=== PATIENT | female | born 1990 | race American Indian/Alaskan Native ===

== ENCOUNTER 2019-01-04 08:10 | Inpatient (IN) | payer OTHER, SELFPAY ==
[2019-01-04 08:54] LABS: Hemoglobin 6.8 gm/dl (10.1-14.3); Mean Corpuscular HGB Conc 37 % (30-34); Mean Corpuscular Volume 81 fl (79-97); Platelet Count 596 K/mm3 (140-440); Red Blood Count 2.28 M/mm3 (3.65-5.03)
[2019-01-04 08:55] LABS: Red Cell Distribution Width 26.1 % (13.2-15.2)
[2019-01-04 08:58] LABS: Hematocrit 18.4 % (30.3-42.9)
[2019-01-04 09:14] LABS: Bacteria,Urine 1+ /HPF (Negative); Bilirubin,Urine NEG (Negative); Blood,Urine SM (Negative); Color,Urine Yellow (Yellow); Mucus,Urine FEW /HPF; Protein,Urine <15 mg/dL mg/dL (Negative); Urobilinogen,Urine < 2.0 mg/dL (<2.0)
[2019-01-04 09:16] LABS: Albumin 4.5 g/dL (3.9-5); BUN/Creatinine Ratio 20; Blood Urea Nitrogen 8 mg/dL (7-17); Calcium 9.4 mg/dL (8.4-10.2); Hemolysis Index 43
[2019-01-04] MEDS ORDERED: SODIUM CHLORIDE 0.9% 1000 ML 1,000 ML IV ONE (09:25)
[2019-01-04] MEDS ORDERED: KETOROLAC 30 MG/1 ML INJ IV ONE (09:37)
[2019-01-04 09:39] LABS: Alanine Aminotransferase 25 units/L (7-56)
--- NOTE | 2019-01-04 09:42 | Emergency Department Report ---
ED General Adult HPI - General Chief complaint: Sickle Cell Crisis Stated complaint: SICKLE CELL CRISIS Time Seen by Provider: 01/04/19 08:49 Source: patient Mode of arrival: Ambulatory Limitations: No Limitations - History of Present Illness Initial comments: Patient reports moved from [facility] approximately 1 month ago. Reports hx of sickle cell. Reports hx of a blood transfusion most recently about 4 months ago. Reports her blood count typically around 7. Reports compliant with folic acid and pain medication for sickle cell. Denies having a lisw here in [place]. Reports she now lives in [place]. Reports she had right femur surgery a pproximately a month ago in [facility] for osteomyelitis. Severity scale (0 -10): 10 - Related Data Allergies Allergy/AdvReac Type Severity Reaction Status Date / Time No Known Allergies Allergy Unverified 01/04/19 08:15 ED Review of Systems ROS: Stated complaint: SICKLE CELL CRISIS Other details as noted in HPI Other: GENERAL: No weight change, fatigue, fever, chills, or night sweats SKIN: No changes in skin or hair, no itching, no rashes, no jaundice HEAD: No trauma, headache, or visual changes EYES: No blurriness, tearing, itching, acute visual loss, conjunctival discoloration, or scleral icterus EARS: No hearing loss, tinnitus, vertigo, or earache NOSE: No rhinorrhea, stuffiness, sneezing, itching, or epistaxis MOUTH: No bleeding gums, hoarseness, sore throat, or swelling CARDIAC: No new murmur, chest pain, palpitations, dyspnea on exertion, orthopnea, PND, or edema RESPIRATORY: No shortness of breath, wheeze, cough, sputum production, hem optysis, pneumonia, asthma, bronchitis, or emphysema GI: No change in appetite, nausea, vomiting, dysphagia, diarrhea, constipation, hematemesis, melena, hematochezia, or abdominal pain URINARY: No frequency, urgency, polyuria, dysuria, hematuria, or incontinence MUSCULOSKELETAL: Generalized LE pain similar to past sickle cell crisis. No muscle weakness, joint stiffness, decrease in range of motion, redness, swelling NEUROLOGIC: No headache, loss of sensation, numbness, tingling, tremors, weak ness, paralysis, seizures HEMATOLOGIC: No anemia, easy bruising, bleeding, petechiae, or purpura ENDOCRINE: No hot or cold intolerance, sweating, polyuria, polydipsia or, polyphagia no thyroid problems PSYCHIATRIC: No change in mood, no anxiety, no depression ED Past Medical Hx - Past Medical History Previous Medical History?: Yes Hx Sickle Cell Disease: Yes - Surgical History Past Surgical History?: Yes Additional Surgical History: Ortho surgery to right thigh s/t osteomylitis - Social History Smoking Status: Never Smoker Substance Use Type: None ED Physical Exam - General Limitations: No Limitations - Other Other exam information: GENERAL: Patient in no acute distress HEAD: Normocephalic, atraumatic EYES: Scleral icterus. PERRLA, EOM intact, no conjunctival hemorrhage, visual horn and acuity wnl NOSE: No tenderness, discharge, sinus tenderness MOUTH: No erythema, bleeding, exudate HEART: Regular rate and rhythm, no murmur, S1-S2 are auscultated, no edema, pulses are symmetric LUNGS: No respiratory distress. Bilateral breath sounds, No tachypnea, No retr actions, No wheezing, rales, rhonchi ABDOMEN: Normal bowel sounds, abdomen soft, no tenderness, no rebound, no guarding, no distention, no masses, no CVA tenderness MUSCULOSKELETAL: Normal joint range of motion, no redness, no swelling, no tenderness NEUROLOGIC: GCS 15, Alert and Oriented x3, Cranial nerves intact, normal sensation, normal strength, no cerebellar deficit, NIHSS 0 SKIN: Surgical scar over lateral right femur. Mild swelling fluctuant at top of scar without discharge, erythema, or tenderness. Skin is warm and dry ED Course Vital Signs 01/04/19 01/04/19 08:17 08:51 Temperature 98.9 F Pulse Rate 107 H 95 H Respiratory 18 16 Rate Blood Pressure 123/67 Blood Pressure 122/68 [Left] O2 Sat by Pulse 96 95 Oximetry ED Medical Decision Making - Lab Data Result diagrams: 01/04/19 08:36 01/04/19 08:36 Laboratory Results - last 24 hr 01/04/19 01/04/19 01/04/19 08:36 08:36 08:36 WBC 20.0 H RBC 2.28 L Hgb 6.8 L Hct 18.4 L* MCV 81 MCH 30 MCHC 37 H RDW 26.1 H Plt Count 596 H Percent Retic 15.10 H Sodium 138 Potassium 4.6 Chloride 106.3 Carbon Dioxide 19 L Anion Gap 17 BUN 8 Creatinine 0.4 L Estimated GFR > 60 BUN/Creatinine Ratio 20 Glucose 94 Calcium 9.4 Total Bilirubin 2.60 H AST 47 H ALT 25 Alkaline Phosphatase 172 H Total Protein 8.2 Albumin 4.5 Albumin/Globulin Ratio 1.2 HCG, Qual Negative Urine Color Urine Turbidity Urine pH Ur Specific [employer] Urine Protein Urine Glucose (UA) Urine Ketones Urine Blood Urine Nitrite Urine Bilirubin Urine Urobilinogen Ur Leukocyte Esterase Urine WBC (Auto) Urine RBC (Auto) U Epithel Cells (Auto) Urine Bacteria (Auto) Urine Mucus 01/04/19 Unknown WBC RBC Hgb Hct MCV MCH MCHC RDW Plt Count Percent Retic Sodium Potassium Chloride Carbon Dioxide Anion Gap BUN Creatinine Estimated GFR BUN/Creatinine Ratio Glucose Calcium Total Bilirubin AST ALT Alkaline Phosphatase Total Protein Albumin Albumin/Globulin Ratio HCG, Qual Urine Color Yellow Urine Turbidity Clear Urine pH 5.0 Ur Specific [employer] 1.010 Urine Protein <15 mg/dl Urine Glucose (UA) Neg Urine Ketones Neg Urine Blood Sm Urine Nitrite Neg Urine Bilirubin Neg Urine Urobilinogen < 2.0 Ur Leukocyte Esterase Neg Urine WBC (Auto) 2.0 Urine RBC (Auto) 1.0 U Epithel Cells (Auto) 1.0 Urine Bacteria (Auto) 1+ Urine Mucus Few - Radiology Data Radiology results: image reviewed - Medical Decision Making Patient comfortable. Updated with results. Plan admit for further evaluation. Hospitalist Dr. Douglas updated and accepts admission. Plan withhold transfusion at this time and trend hgb. Dr. Douglas will evaluate for transfusion. Critical care attestation.: If time is entered above; I have spent that time in minutes in the direct care of this critically ill patient, excluding procedure time. ED Disposition Clinical Impression: Sickle cell crisis Anemia Qualifiers: Anemia type: unspecified type Qualified Code(s): D64.9 - Anemia, unspecified Disposition: OP ADMIT IP TO THIS HOSP Is pt being admited?: Yes Condition: Stable Time of Disposition: 09:49
--- NOTE | 2019-01-04 10:13 | XRay Report ---
CHEST 1 VIEW INDICATION: Chest pain. COMPARISON: None. FINDINGS: Support devices: None. Heart: Mildly enlarged. Pulmonary vasculature: Slightly increased. Aorta and mediastinum: A midline mass overlying the heart may be a small hiatal hernia or a fusiform aneurysm of the aorta. Lungs/Pleura: Normally expanded and clear lungs. No pleural effusion. Additional findings: None. IMPRESSION: 1. Mild cardiomegaly and pulmonary venous hypertension. No pulmonary edema. 2. 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 Recommend a lateral chest x-ray fo r further evaluation. Signer Name: Maxime Trotter MD Signed: 01/04/2019 10:09 AM Workstation Name: [id number]
--- NOTE | 2019-01-04 10:13 | XRay Report ---
RIGHT FEMUR, 2 VIEWS INDICATION: Pain. COMPARISON: None. IMPRESSION: The right femur demonstrates a slightly mottled appearance. There is no evidence for acu te fracture or bony destruction. There are heterotopic calcifications lateral to the right femoral ne ck in the region of the greater trochanter. The greater trochanter appears absent or surgically resec iram. These findings may be posttraumatic. No acute process is identified. The soft tissues are unrema rkable. Please correlate with the patient's clinical history. Signer Name: Roque Ye Jr, MD Signed: 01/04/2019 10:09 AM Workstation Name: [id number]
--- NOTE | 2019-01-04 10:16 | XRay Report ---
Right hip, 2 views INDICATION: Pain. COMPARISON: None. IMPRESSION: There is normal articulation at the right hip. No evidence for osteonecrosis or joint pa thology. The greater trochanter is abnormal suggesting previous surgical changes, correlate with hist ory. There is an approximate 3 x 2 cm bony fragment in the posterolateral soft tissues on the frog-le g view. This presumably represents heterotopic calcifications. Avulsion injury could be considered bu t is thought less likely. Please correlate with the patient's history. Signer Name: Roque Ye Jr, MD Signed: 01/04/2019 10:12 AM Workstation Name: [id number]
[2019-01-04 10:29] LABS: INR 1.16 (0.87-1.13)
[2019-01-04 10:30] LABS: Partial Thromboplastin Time 33.1 Sec. (24.2-36.6)
[2019-01-04] MEDS: MORPHINE 4 MG/1 ML INJ IV PRN ×2 (11:41→17:07)
[2019-01-04] MEDS ORDERED: MAGNESIUM HYDROXIDE (MOM) ORAL LIQD UDC PO PRN (12:48)
[2019-01-04] MEDS ORDERED: ONDANSETRON 4 MG/2 ML INJ IV PRN (12:48)
[2019-01-04] MEDS ORDERED: ACETAMINOPHEN 325 MG TAB PO PRN (12:48)
[2019-01-04] MEDS ORDERED: SODIUM CHLORIDE 0.9% 500 ML 500 ML IV ONE (13:01)
[2019-01-04] MEDS: HYDROmorphone 2 MG/1 ML INJ IV PRN ×2 (13:25→20:49)
--- NOTE | 2019-01-04 16:01 | History and Physical Report ---
History of Present Illness Date of admission: 01/04/19 12:48 Chief complaint: I have pain in my right thigh History of present illness: 28-year-old woman with past medical history of sickle cell disease. Recently relocated from [facility]. Patient states that she was treated a year ago for osteomyelitis. She had osteomyelitis affecting her right thigh had a left knee and her lower right leg. She had surgeries to drain the pus, multiple surgeries on her knee and thigh. As she was on antibiotics for an extended period of time. She states that she has had chronic pain in her right thigh since then, but recently in the past week or so her right thigh has been swollen and extremely painful. She says she is also having pain in other places all over her body consistent with sickle cell crisis. Past medical history; sickle cell disease, osteomyelitis of right thigh left knee and right leg. Status post surgical drainage and long course of antibiotics. Past surgical history; multiple incision and drainage and washout of her left knee, right thigh and left leg for osteomyelitis. Family history; sickle cell traits Social history recently relocated to [facility] from [facility]. Denies tobacco alcohol or illicit drug use. Medications and Allergies Allergies Allergy/AdvReac Type Severity Reaction Status Date / Time No Known Allergies Allergy Unverified 01/04/19 08:15 Home Medications Medication Instructions Recorded Confirmed Last Taken Type Acfol 25 mg PO DAILY 01/04/19 01/04/19 01/03/19 09:00 History Diclofenac Sodium 50 mg PO DAILY 01/04/19 01/04/19 01/03/19 20:00 History Folic Acid 0.4 mg PO QDAY 01/04/19 01/04/19 Unknown History Active Meds: Active Medications Acetaminophen (Tylenol) 650 mg PO Q4H PRN PRN Reason: Pain MILD(1-3)/Fever >100.5/CARTER Bisacodyl (Dulcolax) 10 mg [place] QDAY PRN PRN Reason: Constipation unrelieved by MOM Enoxaparin Sodium (Lovenox) 40 mg SUB-Q QDAY@2200 [place] Folic Acid (Folvite) 1 mg PO QDAY [place] Hydromorphone HCl (Dilaudid) 0.5 mg IV Q4H PRN PRN Reason: Pain , Severe (7-10) Stop: 01/05/19 12:54 Dextrose/Sodium Chloride (D5/0.45ns) 1,000 mls @ 42 mls/hr IV DIRECT [facility] Magnesium Hydroxide (Milk Of Magnesia) 30 ml PO Q4H PRN PRN Reason: Constipation Morphine Sulfate (Morphine) 4 mg IV Q4H PRN PRN Reason: Pain Last Admin: 01/04/19 11:41 Dose: 4 mg Documented by: Multivitamins (Theragran Tab) 1 each PO QDAY [facility] Ondansetron HCl (Zofran) 4 mg IV Q8H PRN PRN Reason: Nausea And Vomiting Senna (Senokot) 17.2 mg PO QHS [facility] Sodium Chloride (Sodium Chloride Flush Syringe 10 Ml) 10 ml IV BID [place] Sodium Chloride (Sodium Chloride Flush Syringe 10 Ml) 10 ml IV PRN PRN PRN Reason: LINE FLUSH Review of Systems Constitutional: fatigue, no fever Ears, nose, mouth and throat: no ear pain Breasts: no mass Cardiovascular: no chest pain Respiratory: no cough Gastrointestinal: no abdominal pain Genitourinary Female: no dysmenorrhea Rectal: no pain Musculoskeletal: no neck stiffness Integumentary: no rash Neurological: no head injury Psychiatric: no anxiety Endocrine: no cold intolerance Hematologic/Lymphatic: no easy bruising Allergic/Immunologic: no urticaria Exam - Constitutional Vitals: Temp Pulse Resp BP Pulse Ox 99.0 F 75 16 102/59 89 01/04/19 14:10 01/04/19 14:10 01/04/19 14:10 01/04/19 14:10 01/04/19 14:10 General appearance: Present: mild distress, well-nourished - EENT Eyes: Present: PERRL, scleral icterus ENT: hearing intact, clear oral mucosa - Neck Neck: Present: supple, normal ROM - Respiratory Respiratory effort: normal Respiratory: bilateral: CTA - Cardiovascular Heart Sounds: Present: S1 & S2. Absent: rub, click - Extremities Extremities: pulses symmetrical, No edema Extremity abnormal: other (She has a large surgical scar on her right thigh, there is a tender area under the scar. And there is a swelling which is fluctuant under the scar. Concern for abscess. She also has a wound on her left medial lower leg which is at the sites of old surgical scar. Wound does not appear infected, no erythema or warmth or tenderness. Surgical scar also noted on left knee.) Peripheral Pulses: within normal limits - Abdominal General gastrointestinal: Present: soft, non-tender, non-distended, normal bowel sounds Female genitourinary: Present: normal - Integumentary Integumentary: Present: clear, warm, dry - Musculoskeletal Musculoskeletal: gait normal, strength equal bilaterally - Psychiatric Psychiatric: appropriate mood/affect, intact judgment & insight - Neurologic Neurologic: CNII-XII intact, moves all extremities Results - Labs CBC & Chem 7: 01/06/19 05:13 01/04/19 08:36 Labs: Laboratory Last Values WBC 20.0 K/mm3 (4.5-11.0) H 01/04/19 08:36 RBC 2.28 M/mm3 (3.65-5.03) L 01/04/19 08:36 Hgb 6.8 gm/dl (10.1-14.3) L 01/04/19 08:36 Hct 18.4 % (30.3-42.9) L* 01/04/19 08:36 MCV 81 fl (79-97) 01/04/19 08:36 MCH 30 pg (28-32) 01/04/19 08:36 MCHC 37 % (30-34) H 01/04/19 08:36 RDW 26.1 % (13.2-15.2) H 01/04/19 08:36 Plt Count 596 K/mm3 (140-440) H 01/04/19 08:36 Percent Retic 15.10 % (0.78-2.58) H 01/04/19 08:36 PT 14.5 Sec. (12.2-14.9) 01/04/19 09:55 INR 1.16 (0.87-1.13) H 01/04/19 09:55 APTT 33.1 Sec. (24.2-36.6) 01/04/19 09:55 Sodium 138 mmol/L (137-145) 01/04/19 08:36 Potassium 4.6 mmol/L (3.6-5.0) 01/04/19 08:36 Chloride 106.3 mmol/L (98-107) 01/04/19 08:36 Carbon Dioxide 19 mmol/L (22-30) L 01/04/19 08:36 17 mmol/L 01/04/19 08:36 BUN 8 mg/dL (7-17) 01/04/19 08:36 0.4 mg/dL (0.7-1.2) L 01/04/19 08:36 Estimated GFR > 60 ml/min 01/04/19 08:36 20 % 01/04/19 08:36 Glucose 94 mg/dL (65-100) 01/04/19 08:36 Calcium 9.4 mg/dL (8.4-10.2) 01/04/19 08:36 2.60 mg/dL (0.1-1.2) H 01/04/19 08:36 AST 47 units/L (5-40) H 01/04/19 08:36 ALT 25 units/L (7-56) 01/04/19 08:36 172 units/L (35-129) H 01/04/19 08:36 8.2 g/dL (6.3-8.2) 01/04/19 08:36 4.5 g/dL (3.9-5) 01/04/19 08:36 1.2 % 01/04/19 08:36 HCG, Qual Negative (Negative) 01/04/19 08:36 Yellow (Yellow) 01/04/19 Unknown Clear (Clear) 01/04/19 Unknown 5.0 (5.0-7.0) 01/04/19 Unknown Ur Specific [place] 1.010 (1.003-1.030) 01/04/19 Unknown <15 mg/dl mg/dL (Negative) 01/04/19 Unknown Neg mg/dL (Negative) 01/04/19 Unknown Neg mg/dL (Negative) 01/04/19 Unknown Sm (Negative) 01/04/19 Unknown Neg (Negative) 01/04/19 Unknown Neg (Negative) 01/04/19 Unknown < 2.0 mg/dL (<2.0) 01/04/19 Unknown Ur Leukocyte Esterase Neg (Negative) 01/04/19 Unknown 2.0 /HPF (0.0-6.0) 01/04/19 Unknown 1.0 /HPF (0.0-6.0) 01/04/19 Unknown U Epithel Cells (Auto) 1.0 /HPF (0-13.0) 01/04/19 Unknown 1+ /HPF (Negative) 01/04/19 Unknown Few /HPF 01/04/19 Unknown Blood Type O POSITIVE 01/04/19 09:55 Antibody Screen Positive 01/04/19 09:55 Antigen Identification Cancelled 01/04/19 09:55 Crossmatch See Detail 01/04/19 09:55 Assessment and Plan Assessment and plan: 28-year-old woman with history of sickle cell disease. Recently moved to the [facility] from [place]. Does not have any doctors here. She is complaining of generalized body aches mostly on the right side of her body her right upper extremity and right lower extremity. She is also complaining of painful swelling in her right thigh. It is on the same location where she has a surgical scar from a surgery she had one year ago . She had multiple surgeries for treatment osteomyelitis on the right thigh, left knee, and right lower medial leg. She also completed a long course of antibiotics after multiple surgeries in [place] Sickle cell crisis Right thigh pain and swelling, With history of osteomyelitisTo the same area Plan Blood transfusion, IV fluids, pain meds, hematology consult CT of right lower extremity to evaluate right thigh mass, concern for infection DVT prophylaxis; chemical
[2019-01-04] MEDS: D5W/0.45% NACL 1,000 ML IV SCH (18:24)
[2019-01-04] MEDS: SENNOSIDES 8.6 MG TAB PO SCH (20:48)
[2019-01-04] MEDS: ENOXAPARIN 40 MG/0.4 ML INJ SUB-Q SCH (22:00)
[2019-01-05] MEDS: ENOXAPARIN 40 MG/0.4 ML INJ SUB-Q SCH ×2 (00:21→22:24)
[2019-01-05] MEDS: SENNOSIDES 8.6 MG TAB PO SCH ×2 (00:22→22:26)
[2019-01-05] MEDS: HYDROmorphone 2 MG/1 ML INJ IV PRN (02:44)
[2019-01-05 04:53] LABS: Hemoglobin 6.1 gm/dl (10.1-14.3); Mean Corpuscular HGB Conc 36 % (30-34); Mean Corpuscular Volume 83 fl (79-97); Red Blood Count 2.05 M/mm3 (3.65-5.03)
[2019-01-05 05:13] LABS: Red Cell Distribution Width 28.3 % (13.2-15.2)
[2019-01-05 06:09] LABS: Total Cells Counted 100
[2019-01-05 06:11] LABS: Anisocytosis 1+; Macrocytosis Few; Platelet Estimate Consistent w Auto; Poikilocytosis Few; Sickle Cells 1+
[2019-01-05 06:14] LABS: Platelet Count 328 K/mm3 (140-440)
[2019-01-05 06:15] LABS: Mean Platelet Volume 8.7 fl (6-12)
--- NOTE | 2019-01-05 08:04 | Cat Scan Report ---
CT LOWER EXTREMITY RIGHT WITH CONTRAST INDICATION : MAIN: R thigh mass, tender [id number]/100ML. Right lower extremity pain. TECHNIQUE: Axial imaging performed from the mid pelvis through the right knee following 100 cc of Om nipaque 300 IV contrast. Sagittal and coronal reformatted images. All CT scans at this location are p erformed using CT dose reduction for ALARA by means of automated exposure control. COMPARISON: Right hip films 01/04/2019 FINDINGS: A fluid collection is identified in the soft tissues of the lateral right thigh measuring 4 .0 x 2.9 x 4.8 cm. There is a well-defined border but no internal gas. This has the appearance of an abscess or other collection. A fistulous tract is identified extending from this collection to the gr eater trochanter measuring approximately 9 cm in length. The greater trochanter is comminuted and par tially destroyed. I suspect this is related to a chronic osteomyelitis. Articulation at the right hip is anatomic. Subtle sclerosis in the superior femoral head is consisten t with early osteonecrosis. There is no evidence for fracture. The distal femur is intact although pr evious surgical changes are suspected. Please correlate with the patient's history. Reactive lymph nodes in the right inguinal chain are identified measuring up to 2 cm in short axis. N o necrotic lymph nodes. The vascular structures appear widely patent. IMPRESSION: A soft tissue fluid collection is identified in the lateral thigh as described concerning for abscess. A fistulous tract from this collection tracks directly to the greater trochanter of the proximal right femur which is severely abnormal. I suspect these findings are secondary to osteomyel itis which is likely chronic. The greater trochanter is comminuted so associated pathologic fracture cannot be excluded. No aggressive enhancing mass is identified. Signer Name: Roque Ye Jr, MD Signed: 01/05/2019 7:59 AM Workstation Name: [id number]
[2019-01-05 08:25] LABS: Iron 89 ug/dL (37-170); Total Iron Binding Capacity 156 mcg/dL (250-450)
[2019-01-05] MEDS: MULTIVITAMINS ,THERAPEUTIC TAB PO SCH (09:46)
[2019-01-05] MEDS: MORPHINE 4 MG/1 ML INJ IV PRN (09:46)
[2019-01-05] MEDS: FOLIC ACID 1 MG TAB PO SCH (09:46)
--- NOTE | 2019-01-05 11:29 | Consultation ---
History of Present Illness Consult date: 01/05/19 Chief complaint: right thigh abscess - History of present illness History of present illness: 28 yo F with hx of sickle cell disease, multiple episodes of osteomyelitis of various long bones and abscess drainage presents to ER with c/o pain in the right thigh and left knee. She states that 1 year ago she was found to have pus in her right thigh and underwent surgery with orthopedics to drain abscess and debride bone. Since then the incision periodically with swell and she undergoes aspiration of pus and gets started on abx. She denies f/c. She also c/o left knee pain. Past History Past Medical History: other (sickle cell disease) Past Surgical History: Other (right ankle surgery. right thigh surgery, left knee surgery) Social history: no significant social history Family history: no significant family history (3) Medications and Allergies Allergies Allergy/AdvReac Type Severity Reaction Status Date / Time No Known Allergies Allergy Unverified 01/04/19 08:15 Home Medications Medication Instructions Recorded Confirmed Last Taken Type Acfol 25 mg PO DAILY 01/04/19 01/04/19 01/03/19 09:00 History Diclofenac Sodium 50 mg PO DAILY 01/04/19 01/04/19 01/03/19 20:00 History Folic Acid 0.4 mg PO QDAY 01/04/19 01/04/19 Unknown History Active Meds: Active Medications Acetaminophen (Tylenol) 650 mg PO Q4H PRN PRN Reason: Pain MILD(1-3)/Fever >100.5/CARTER Last Admin: 01/05/19 01:36 Dose: 650 mg Documented by: Bisacodyl (Dulcolax) 10 mg [place] QDAY PRN PRN Reason: Constipation unrelieved by MOM Enoxaparin Sodium (Lovenox) 40 mg SUB-Q QDAY@2200 [facility] Last Admin: 01/05/19 00:21 Dose: Not Given Documented by: Folic Acid (Folvite) 1 mg PO QDAY [facility] Last Admin: 01/05/19 09:46 Dose: 1 mg Documented by: Hydromorphone HCl (Dilaudid) 0.5 mg IV Q4H PRN PRN Reason: Pain , Severe (7-10) Stop: 01/05/19 12:54 Last Admin: 01/05/19 02:44 Dose: 0.5 mg Documented by: Dextrose/Sodium Chloride (D5/0.45ns) 1,000 mls @ 42 mls/hr IV DIRECT [facility] Last Admin: 01/04/19 18:24 Dose: 42 mls/hr Documented by: Magnesium Hydroxide (Milk Of Magnesia) 30 ml PO Q4H PRN PRN Reason: Constipation Morphine Sulfate (Morphine) 4 mg IV Q4H PRN PRN Reason: Pain Last Admin: 01/05/19 09:46 Dose: 4 mg Documented by: Multivitamins (Theragran Tab) 1 each PO QDAY [facility] Last Admin: 01/05/19 09:46 Dose: 1 each Documented by: Ondansetron HCl (Zofran) 4 mg IV Q8H PRN PRN Reason: Nausea And Vomiting Senna (Senokot) 17.2 mg PO QHS [facility] Last Admin: 01/05/19 00:22 Dose: Not Given Documented by: Sodium Chloride (Sodium Chloride Flush Syringe 10 Ml) 10 ml IV BID [facility] Last Admin: 01/04/19 23:28 Dose: 10 ml Documented by: Sodium Chloride (Sodium Chloride Flush Syringe 10 Ml) 10 ml IV PRN PRN PRN Reason: LINE FLUSH Review of Systems All systems: negative (10 pt ROS performed and negative except for that listed in HPI) Exam Vital Signs Temp Pulse Resp BP Pulse Ox 98.9 F 107 H 18 123/67 96 01/04/19 08:17 01/04/19 08:17 01/04/19 08:17 01/04/19 08:17 01/04/19 08:17 Narrative exam: Gen: AAOx3. NAD ENT: no scleral icterus or conjunctival pallor CV: S1, S2+ Resp: even and unlabored Abd: soft Ext: R thigh surgical scar with fluctuance. cellulitis of the upper most 4 cm of the scar. Moderate focal TTP over this area. No drainage Results - Labs 01/05/19 04:20 01/04/19 08:36 Abnormal lab results 01/04/19 01/05/19 01/05/19 Range/Units 09:55 04:20 04:20 WBC 17.6 H (4.5-11.0) K/mm3 RBC 2.05 L (3.65-5.03) M/mm3 Hgb 6.1 L (10.1-14.3) gm/dl Hct 17.0 L* (30.3-42.9) % MCHC 36 H (30-34) % RDW 28.3 H (13.2-15.2) % Lymphocytes % (Manual) 48.0 H (13.4-35.0) % Nucleated RBC % 4.0 H (0.0-0.9) % Lymphocytes # (Manual) 8.4 H (1.2-5.4) K/mm3 Monocytes # (Manual) 0.9 H (0.0-0.8) K/mm3 Basophils # (Manual) 0.2 H (0.0-0.1) K/mm3 Percent Retic 17.46 H (0.78-2.58) % TIBC (250-450) mcg/dL Ferritin (13.0-400.0) ng/mL Lactate Dehydrogenase 407 H (91-180) units/L Crossmatch See Detail 01/05/19 01/05/19 Range/Units 07:43 07:43 WBC (4.5-11.0) K/mm3 RBC (3.65-5.03) M/mm3 Hgb (10.1-14.3) gm/dl Hct (30.3-42.9) % MCHC (30-34) % RDW (13.2-15.2) % Lymphocytes % (Manual) (13.4-35.0) % Nucleated RBC % (0.0-0.9) % Lymphocytes # (Manual) (1.2-5.4) K/mm3 Monocytes # (Manual) (0.0-0.8) K/mm3 Basophils # (Manual) (0.0-0.1) K/mm3 Percent Retic (0.78-2.58) % TIBC 156 L (250-450) mcg/dL Ferritin 1749.0 H (13.0-400.0) ng/mL Lactate Dehydrogenase (91-180) units/L Crossmatch - Imaging Additional studies: CT scan RLE Assessment and Plan 28 yo F with 1. abscess of right thigh 2. chronic osteomyelitis of right greater trochanter/femur 3. sickle cell anemia Plan: 1. will need incision and drainage of abscess 2. discussed case with Dr. Landers - reviewed images and feels bony findings are chronic. He will see patient. 3. IV abx 4. cultures to be sent from Incision and drainage 5. prn pain control - will add tramadol PO 6. daily wound care 7. ID consult pending Thank you, please call with questions. D/W Dr. Guzman
[2019-01-05] MEDS ORDERED: LIDOCAINE (1%) 10 MG/1 ML VIAL 20 ML MDV INFILTRATI NR (11:41)
[2019-01-05] MEDS: MORPHINE 2 MG/1 ML INJ IV NR ×2 (11:51→20:27)
--- NOTE | 2019-01-05 12:38 | Procedure Note ---
Date of procedure: 01/05/19 Pre-op diagnosis: abscess of right thigh Post-op diagnosis: same Procedure: incision and drainage of right thigh abscess Findings: Consent obtained and time out performed. R thigh prepped with betadine. Patient premedicated with morphine 2mg IV. Skin anesthetized with 1% lidocaine. A cruciate incision was made using an 11 blade over the area of fluctuance. Copious amount of purulent drainage. Cultures obtained. The cavity measures approximately 3cm x 3cm. All loculations broken up using a cotton tip applicator. All purulent fluid expressed. Wound irrigated with saline. Packed with 1 piece of mesalt. Hemostasis achieved with pressure. The wound was covered with 4x4 gauze and coversite dressing. Patient tolerated the procedure well. All sharps disposed of appropriately. Anesthesia: local Surgeon: AMADA SAMSON Estimated blood loss: minimal Pathology: list (wound cultures) Specimen disposition: to lab Condition: stable Disposition: PACU
--- NOTE | 2019-01-05 15:00 | Consultation ---
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 right thigh surgery, left knee surgery) Social history: no significant social history Family history: no significant family history (3) Medications and Allergies Allergies Allergy/AdvReac Type Severity Reaction Status Date / Time No Known Allergies Allergy Unverified 01/04/19 08:15 Home Medications Medication Instructions Recorded Confirmed Last Taken Type Acfol 25 mg PO DAILY 01/04/19 01/04/19 01/03/19 09:00 History Diclofenac Sodium 50 mg PO DAILY 01/04/19 01/04/19 01/03/19 20:00 History Folic Acid 0.4 mg PO QDAY 01/04/19 01/04/19 Unknown History Active Meds: Active Medications Acetaminophen (Tylenol) 650 mg PO Q4H PRN PRN Reason: Pain MILD(1-3)/Fever >100.5/CARTER Last Admin: 01/05/19 01:36 Dose: 650 mg Documented by: Bisacodyl (Dulcolax) 10 mg AL QDAY PRN PRN Reason: Constipation unrelieved by MOM Enoxaparin Sodium (Lovenox) 40 mg SUB-Q QDAY@2200 [facility] Last Admin: 01/05/19 00:21 Dose: Not Given Documented by: Folic Acid (Folvite) 1 mg PO QDAY [facility] Last Admin: 01/05/19 09:46 Dose: 1 mg Documented by: Dextrose/Sodium Chloride (D5/0.45ns) 1,000 mls @ 42 mls/hr IV DIRECT [facility] Last Admin: 01/04/19 18:24 Dose: 42 mls/hr Documented by: Magnesium Hydroxide (Milk Of Magnesia) 30 ml PO Q4H PRN PRN Reason: Constipation Morphine Sulfate (Morphine) 4 mg IV Q4H PRN PRN Reason: Pain Last Admin: 01/05/19 09:46 Dose: 4 mg Documented by: Morphine Sulfate (Morphine) 2 mg IV ONCE NR Stop: 01/05/19 23:41 Last Admin: 01/05/19 11:51 Dose: 2 mg Documented by: Multivitamins (Theragran Tab) 1 each PO QDAY [facility] Last Admin: 01/05/19 09:46 Dose: 1 each Documented by: Ondansetron HCl (Zofran) 4 mg IV Q8H PRN PRN Reason: Nausea And Vomiting Senna (Senokot) 17.2 mg PO QHS [facility] Last Admin: 01/05/19 00:22 Dose: Not Given Documented by: Sodium Chloride (Sodium Chloride Flush Syringe 10 Ml) 10 ml IV BID [facility] Last Admin: 01/05/19 12:32 Dose: 10 ml Documented by: Sodium Chloride (Sodium Chloride Flush Syringe 10 Ml) 10 ml IV PRN PRN PRN Reason: LINE FLUSH Tramadol HCl (Ultram) 25 mg PO Q4H PRN PRN Reason: Pain, Moderate (4-6) Physical Examination - Physical exam Narrative exam: right thigh - moderate swelling, tender along proximal femur, no erythema, recent I&D done at bedside today dressing intact Left LE - ++deformity at knee, atrophic thigh/leg muscles, no redness/erythema noted, no gross instability Eyes: PERRL ENT: Positive: clear oral mucosa Respiratory effort: normal Respiratory: bilateral: CTA Rhythm: regular Heart Sounds: Positive: S1 & S2 General gastrointestinal: Positive: soft, non-tender, non-distended, normal bowel sounds Integumentary: clear, warm, dry Neurologic: Positive: CNII-XII intact, moves all extremities, gait normal. Negative: focal deficits - Cervical Spine Neck pain: none Tenderness with palpation: none Full ROM: yes ROM: flexion: normal ROM: extension: normal ROM: rotation right: normal ROM: rotation left: normal ROM: lateral flexion right: normal ROM: lateral flexion left: normal - Lumbar Spine Back pain: none Tenderness with palpation: none Appearance: normal Full ROM: yes ROM: flexion: normal ROM: extension: normal ROM: rotation right: normal ROM: rotation left: normal ROM: lateral flexion right: normal ROM: lateral flexion left: normal Assessment and Plan Asses - fluid collection proximal thigh, sickle cell disease, suspect abscess Plan - agree with I&D with fluid sent for C&S studies
[2019-01-05] MEDS ORDERED: VANCOMYCIN 1,000 MG in SODIUM CHLORIDE 0.9% 500 ML 500 ML IV ONE (15:50)
--- NOTE | 2019-01-05 15:50 | Consultation ---
History of Present Illness - Reason for Consult Consult date: 01/05/19 R thigh abscess Requesting physician: SHAY GUZMAN - History of Present Illness The patient is a 28-year-old female who recently immigrated from [facility], has sickle cell disease, presented to the hospital emergency room yesterday with complaints of right thigh pain and swelling. She also reports intermittent fevers. History dates back almost a year and a half ago to May 2017 when she was hospitalized due to sickle cell crisis. Apparently, her pain was uncontrolled and she received multiple intramuscular injections exhausting her buttock region. Then started receiving intramuscular injections in her right thigh which then developed a secondary infection requiring several I&D's. This continued and she then underwent a deeper I&D including "scraping of the bone" in ?January 2018. She reports being on several oral and injectable antibiotics while in [facility]. Apparently some cultures were done but she does not remember the details. Here, she underwent an I&D by Dr. Montoya today and per her note, "copious amounts of purulent drainage" noted. Patient's only complaint is that of R thigh pain and swelling. She reports testing negative for TB as a part of her immigration process to the . Review of Systems: General: intermittent fevers HEENT: no new visual disturbance Respiratory: No cough, sputum, hemoptysis or shortness of breath Cardiovascular: No chest pain, syncope Gastrointestinal: No nausea, vomiting or diarrhea Genitourinary: No dysuria or hematuria Musculoskeletal: No new or worsening neck pain or back pain Neurologic: No headaches, seizures Hematologic: No easy bruising or bleeding Endocrine: No night sweats or acute weight loss Skin: negative for rash, jaundice Psychiatric: No suicidal or homicidal ideation Past History Past Medical History: other (sickle cell disease) Past Surgical History: Other (right ankle surgery. right thigh surgery, left knee surgery) Social history: no significant social history Family history: no significant family history (3) Medications and Allergies Allergies Allergy/AdvReac Type Severity Reaction Status Date / Time No Known Allergies Allergy Unverified 01/04/19 08:15 Home Medications Medication Instructions Recorded Confirmed Last Taken Type Acfol 25 mg PO DAILY 01/04/19 01/04/19 01/03/19 09:00 History Diclofenac Sodium 50 mg PO DAILY 01/04/19 01/04/19 01/03/19 20:00 History Folic Acid 0.4 mg PO QDAY 01/04/19 01/04/19 Unknown History Active Meds: Active Medications Acetaminophen (Tylenol) 650 mg PO Q4H PRN PRN Reason: Pain MILD(1-3)/Fever >100.5/CARTER Last Admin: 01/05/19 01:36 Dose: 650 mg Documented by: Bisacodyl (Dulcolax) 10 mg ND QDAY PRN PRN Reason: Constipation unrelieved by MOM Enoxaparin Sodium (Lovenox) 40 mg SUB-Q QDAY@2200 [facility] Last Admin: 01/05/19 00:21 Dose: Not Given Documented by: Folic Acid (Folvite) 1 mg PO QDAY [facility] Last Admin: 01/05/19 09:46 Dose: 1 mg Documented by: Dextrose/Sodium Chloride (D5/0.45ns) 1,000 mls @ 42 mls/hr IV DIRECT [facility] Last Admin: 01/04/19 18:24 Dose: 42 mls/hr Documented by: Magnesium Hydroxide (Milk Of Magnesia) 30 ml PO Q4H PRN PRN Reason: Constipation Morphine Sulfate (Morphine) 4 mg IV Q4H PRN PRN Reason: Pain Last Admin: 01/05/19 09:46 Dose: 4 mg Documented by: Morphine Sulfate (Morphine) 2 mg IV ONCE NR Stop: 01/05/19 23:41 Last Admin: 01/05/19 11:51 Dose: 2 mg Documented by: Multivitamins (Theragran Tab) 1 each PO QDAY [facility] Last Admin: 01/05/19 09:46 Dose: 1 each Documented by: Ondansetron HCl (Zofran) 4 mg IV Q8H PRN PRN Reason: Nausea And Vomiting Senna (Senokot) 17.2 mg PO QHS [facility] Last Admin: 01/05/19 00:22 Dose: Not Given Documented by: Sodium Chloride (Sodium Chloride Flush Syringe 10 Ml) 10 ml IV BID [facility] Last Admin: 01/05/19 12:32 Dose: 10 ml Documented by: Sodium Chloride (Sodium Chloride Flush Syringe 10 Ml) 10 ml IV PRN PRN PRN Reason: LINE FLUSH Tramadol HCl (Ultram) 25 mg PO Q4H PRN PRN Reason: Pain, Moderate (4-6) Physical Examination - Physical Exam Narrative exam: Physical Exam: Constitutional: Alert, cooperative. No acute distress Head, Ears, Nose: Normocephalic, atraumatic. External ears, nose normal Eyes: Conjunctivae/corneas clear. No icterus. No ptosis. Neck: Supple, no meningeal signs Oral: dentition fair, no thrush Cardiovascular: S1, S2 normal. Respiratory: Good air entry, clear to auscultation bilaterally GI: Soft, non-tender; bowel sounds normal. No peritoneal signs Musculoskeletal: R thigh swelling, dressing + with tenderness Skin: No rash or abscess Hem/Lymphatic: No palpable cervical or supraclavicular nodes. No lymphangitis Psych: Mood ok. Affect normal Neurological: Awake, alert, oriented. No gross abnormality - Constitutional Vitals: Vital Signs Temp Pulse Resp BP Pulse Ox 98.0 F 77 18 105/58 94 01/05/19 11:49 01/05/19 11:49 01/05/19 05:07 01/05/19 11:49 01/05/19 11:52 Temperature -Last 24 Hours Temperature 98.0 F Temperature 99.0 F Temperature 98.9 F Temperature 98.8 F Results - Labs CBC & Chem 7: 01/05/19 04:20 01/04/19 08:36 Labs: Abnormal lab results 01/04/19 01/05/19 01/05/19 Range/Units 09:55 04:20 04:20 WBC 17.6 H (4.5-11.0) K/mm3 RBC 2.05 L (3.65-5.03) M/mm3 Hgb 6.1 L (10.1-14.3) gm/dl Hct 17.0 L* (30.3-42.9) % MCHC 36 H (30-34) % RDW 28.3 H (13.2-15.2) % Lymphocytes % (Manual) 48.0 H (13.4-35.0) % Nucleated RBC % 4.0 H (0.0-0.9) % Lymphocytes # (Manual) 8.4 H (1.2-5.4) K/mm3 Monocytes # (Manual) 0.9 H (0.0-0.8) K/mm3 Basophils # (Manual) 0.2 H (0.0-0.1) K/mm3 Percent Retic 17.46 H (0.78-2.58) % TIBC (250-450) mcg/dL Ferritin (13.0-400.0) ng/mL Lactate Dehydrogenase 407 H (91-180) units/L Crossmatch See Detail 01/05/19 01/05/19 Range/Units 07:43 07:43 WBC (4.5-11.0) K/mm3 RBC (3.65-5.03) M/mm3 Hgb (10.1-14.3) gm/dl Hct (30.3-42.9) % MCHC (30-34) % RDW (13.2-15.2) % Lymphocytes % (Manual) (13.4-35.0) % Nucleated RBC % (0.0-0.9) % Lymphocytes # (Manual) (1.2-5.4) K/mm3 Monocytes # (Manual) (0.0-0.8) K/mm3 Basophils # (Manual) (0.0-0.1) K/mm3 Percent Retic (0.78-2.58) % TIBC 156 L (250-450) mcg/dL Ferritin 1749.0 H (13.0-400.0) ng/mL Lactate Dehydrogenase (91-180) units/L Crossmatch - Imaging and Cardiology Chest x-ray: report reviewed, image reviewed (no pneumonia or lung lesion) CT scan - pelvis: report reviewed, image reviewed (CT of the right thigh showed soft tissue fluid collection in the lateral thigh concerning for abscess with fistulous tract that tracks directly to the greater trochanter of the proximal r ight femur concerning for chronic osteomyelitis.) Assessment and Plan Cultures: 01/05/2019 R thigh wound culture: pending. 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 No culture data available. She reports testing negative for TB as a part of her immigration process to the [place]. Xray and CT findings are concerning for chronic osteomyelitis with mottled appearance of the R femur. Low likelihood of complete cure with just antibiotics alone. Agree with ortho consult. Will also get an MRI to evaluate for any sequestrum ( bone) and medullary abscess. Patient is now s/p I&D by Dr. Montoya 01/05/2019 and per her note, "copious amounts of purulent drainage" noted. Expect protractred course with likely combined medical and surgical treatment. 2) Sickle cell disease. 3) Anemia. Recs: started IV Cefepime and Vancomycin follow up cultures MRI R thigh with and without contrast ordered Agree with ortho consult. Expect protractred course with likely combined medical and surgical treatment. D/W Dr. Guzman. Sergey Braxton MD, FACP [facility] ([facility]) C: [phone] O: [phone] F: [phone]
[2019-01-05] MEDS ORDERED: VANCOMYCIN PHARMACY TO DOSE IV SCH (16:00)
[2019-01-05] MEDS: CEFEPIME/NS 1 GM/100 ML 1 GM/100 ML BAG IV SCH ×2 (18:28→22:24)
[2019-01-05] MEDS: traMADol 50 MG TAB PO PRN (18:44)
[2019-01-05] MEDS: D5W/0.45% NACL 1,000 ML IV SCH (22:22)
--- NOTE | 2019-01-05 22:45 | XRay Report ---
XR tibia fibula 2V LT INDICATION / CLINICAL INFORMATION: leg pain, hx of sickle cell disease. COMPARISON: None available. FINDINGS: BONES/JOINT(S): No acute fracture or subluxation. There is advanced DJD in the left knee with signifi cant joint space loss and bony remodeling of the articular surfaces of the distal femur and proximal tibia, likely secondary to chronic bone infarcts. There is heterogeneous demineralization of the medu llary cavities consistent with chronic sickle cell disease. There is no acute bone lysis or findings to suggest acute infection. SOFT TISSUES: No significant abnormality. ADDITIONAL FINDINGS: None. Signer Name: Farhan Pollack MD Signed: 01/05/2019 10:41 PM Workstation Name: [id number]
--- NOTE | 2019-01-05 22:46 | XRay Report ---
XR femur 2+V LT INDICATION / CLINICAL INFORMATION: leg pain, hx of sickle cell disease COMPARISON: None available. FINDINGS: BONES/JOINT(S): No acute fracture or subluxation. There is no focal bone lysis to suggest acute infec tion. There is heterogeneous demineralization of the medullary cavity as well as evidence of chronic bone infarct in the distal femoral diametaphysis consistent with the chronic sickle cell disease. The re is advanced DJD in the left knee with medial subluxation of the femur relative to the tibia likely related to chronic osteonecrosis. SOFT TISSUES: No significant abnormality. ADDITIONAL FINDINGS: None. Signer Name: Farhan Pollack MD Signed: 01/05/2019 10:42 PM Workstation Name: [id number]
[2019-01-06] MEDS ORDERED: VANCOMYCIN 750 MG in SODIUM CHLORIDE 0.9% 250ML 250 ML IV SCH (04:00)
[2019-01-06 05:35] LABS: Hematocrit 22.1 % (30.3-42.9); Hemoglobin 7.8 gm/dl (10.1-14.3); Mean Corpuscular HGB Conc 35 % (30-34); Mean Corpuscular Volume 83 fl (79-97); Platelet Count 562 K/mm3 (140-440); Red Blood Count 2.65 M/mm3 (3.65-5.03)
[2019-01-06 05:37] LABS: Red Cell Distribution Width 25.5 % (13.2-15.2)
[2019-01-06] MEDS: CEFEPIME/NS 1 GM/100 ML 1 GM/100 ML BAG IV SCH ×3 (05:47→22:52)
[2019-01-06 06:45] LABS: Basophils % (Manual) 0 % (0.0-1.8); Macrocytosis Few; Total Cells Counted 100
[2019-01-06 06:46] LABS: Anisocytosis 1+
[2019-01-06 06:47] LABS: Platelet Estimate Consistent w Auto; Sickle Cells 2+
--- NOTE | 2019-01-06 07:54 | Event Note ---
Date: 01/05/19 [id number]
--- NOTE | 2019-01-06 08:33 | Magnetic Resonance Report ---
MR LE joint RT wo/w con INDICATION / CLINICAL INFORMATION: R proximal femur osteo, abscess. Chronic infection. TECHNIQUE: Multiplanar, multisequence MR images were obtained. COMPARISON: Radiographs and CT dated 01/04/2019 FINDINGS: A fluid collection with a fistulous tract is seen adjacent to the greater trochanter of the proximal right femur. Fluid tracks from the skin to the greater trochanter. There is bone destruction present. Following contrast administration, this fluid collection and abnormal greater trochanter enhance con sistent with osteomyelitis. No effusion is seen in the hip. Remainder of the skeletal structures of t he pelvis are normal. IMPRESSION: 1. Destructive change in the greater trochanter with contrast enhancement consistent with osteomyelit is 2. Fistulous tract from the skin extending to the greater trochanter where there is an abscess presen t. A superficial abscess is also seen just under the skin wound Signer Name: Deejay Massey MD FACR Signed: 01/06/2019 8:28 AM Workstation Name: [id number]
--- NOTE | 2019-01-06 09:02 | Progress Note ---
Assessment and Plan Assessment and plan: 28-year-old woman with history of sickle cell disease. Recently moved to the [facility] from [place]. Does not have any doctors here. She is complaining of generalized body aches mostly on the right side of her body her right upper extremity and right lower extremity. She is also complaining of painful swelling in her right thigh. It is on the same location where she has a surgical scar from a surgery she had one year ago . She had multiple surgeries for treatment osteomyelitis on the right thigh, left knee, and right lower medial leg. She also completed a long course of antibiotics after multiple surgeries in [facility] CT RLE A soft tissue fluid collection is identified in the lateral thigh as described concerning for abscess. A fistulous tract from this collection tracks directly to the greater trochanter of the proximal right femur which is severely abnormal. I suspect these findings are secondary to osteomyelitis which is likely chronic. The greater trochanter is comminuted so associated pathologic fracture cannot be excluded. No aggressive enhancing mass is identified. Sickle cell crisis Right thigh Osteomyelitis and abscess with pathological fracture Plan Blood transfusion, IV fluids, pain meds, hematology consult Patient appears to have chronic osteomyelitis. ID has been consulted General surgery also consulted to perform I&D, orthopedic surgery also consulted given concern for osteomyelitis. With pathological fracture. Prognosis for complete clearance of infection is very poor as she is had this infection for over a year. She may need affected bone excised to achieve clearance of the infection. DVT prophylaxis; chemical Hospitalist Physical - Constitutional Vitals: Temp Pulse Resp BP Pulse Ox 98.2 F 67 16 104/61 100 01/06/19 05:33 01/06/19 08:48 01/06/19 08:48 01/06/19 08:48 01/06/19 08:48 General appearance: Present: mild distress, well-nourished Results - Labs CBC & Chem 7: 01/06/19 05:13 01/04/19 08:36 Labs: Laboratory Last Values WBC 17.3 K/mm3 (4.5-11.0) H 01/06/19 05:13 RBC 2.65 M/mm3 (3.65-5.03) L 01/06/19 05:13 Hgb 7.8 gm/dl (10.1-14.3) L 01/06/19 05:13 Hct 22.1 % (30.3-42.9) L 01/06/19 05:13 MCV 83 fl (79-97) 01/06/19 05:13 MCH 29 pg (28-32) 01/06/19 05:13 MCHC 35 % (30-34) H 01/06/19 05:13 RDW 25.5 % (13.2-15.2) H 01/06/19 05:13 Plt Count 562 K/mm3 (140-440) H 01/06/19 05:13 Lymph # Dye [facility] Helper 01/06/19 05:13 Add Manual Diff Complete 01/06/19 05:13 Total Counted 100 01/06/19 05:13 Seg Neuts % (Manual) 55.0 % (40.0-70.0) 01/06/19 05:13 0 % 01/06/19 05:13 36.0 % (13.4-35.0) H 01/06/19 05:13 Reactive Lymphs % (Man) 0 % 01/06/19 05:13 8.0 % (0.0-7.3) H 01/06/19 05:13 1.0 % (0.0-4.3) 01/06/19 05:13 0 % (0.0-1.8) 01/06/19 05:13 0 % 01/06/19 05:13 0 % 01/06/19 05:13 0 % 01/06/19 05:13 0 % 01/06/19 05:13 Nucleated RBC % 9.0 % (0.0-0.9) H 01/06/19 05:13 Seg Neutrophils # Man 0.0 K/mm3 (1.8-7.7) L 01/06/19 05:13 Band Neutrophils # 0.0 K/mm3 01/06/19 05:13 0.0 K/mm3 (1.2-5.4) L 01/06/19 05:13 Abs React Lymphs (Man) 0.0 K/mm3 01/06/19 05:13 0.0 K/mm3 (0.0-0.8) 01/06/19 05:13 0.0 K/mm3 (0.0-0.4) 01/06/19 05:13 0.0 K/mm3 (0.0-0.1) 01/06/19 05:13 0.0 K/mm3 01/06/19 05:13 0.0 K/mm3 01/06/19 05:13 0.0 K/mm3 01/06/19 05:13 Blast Cells # 0.0 K/mm3 01/06/19 05:13 WBC Morphology Not Reportable 01/06/19 05:13 Hypersegmented Neuts Not Reportable 01/06/19 05:13 Hyposegmented Neuts Not Reportable 01/06/19 05:13 Hypogranular Neuts Not Reportable 01/06/19 05:13 Not Reportable 01/06/19 05:13 Not Reportable 01/06/19 05:13 Not Reportable 01/06/19 05:13 Not Reportable 01/06/19 05:13 Not Reportable 01/06/19 05:13 Not Reportable 01/06/19 05:13 Consistent w auto 01/06/19 05:13 Not Reportable 01/06/19 05:13 Plt Clumps, EDTA Not Reportable 01/06/19 05:13 Not Reportable 01/06/19 05:13 Not Reportable 01/06/19 05:13 Not Reportable 01/06/19 05:13 Plt Morphology Comment Not Reportable 01/06/19 05:13 RBC Morphology Not Reportable 01/06/19 05:13 Dimorphic RBCs Not Reportable 01/06/19 05:13 Few 01/06/19 05:13 Not Reportable 01/06/19 05:13 Not Reportable 01/06/19 05:13 1+ 01/06/19 05:13 Not Reportable 01/06/19 05:13 Few 01/06/19 05:13 Not Reportable 01/06/19 05:13 Not Reportable 01/06/19 05:13 2+ 01/06/19 05:13 Not Reportable 01/06/19 05:13 Not Reportable 01/06/19 05:13 Not Reportable 01/06/19 05:13 Not Reportable 01/06/19 05:13 Not Reportable 01/06/19 05:13 Not Reportable 01/06/19 05:13 Not Reportable 01/06/19 05:13 Not Reportable 01/06/19 05:13 Not Reportable 01/06/19 05:13 Not Reportable 01/06/19 05:13 Acanthocytes (Spur) Not Reportable 01/06/19 05:13 Rouleaux Not Reportable 01/06/19 05:13 Not Reportable 01/06/19 05:13 Not Reportable 01/06/19 05:13 Not Reportable 01/06/19 05:13 Percent Retic 17.72 % (0.78-2.58) H 01/06/19 05:13 Not Reportable 01/06/19 05:13 Hem Pathologist Commnt No 01/06/19 05:13 PT 14.5 Sec. (12.2-14.9) 01/04/19 09:55 INR 1.16 (0.87-1.13) H 01/04/19 09:55 APTT 33.1 Sec. (24.2-36.6) 01/04/19 09:55 Sodium 138 mmol/L (137-145) 01/04/19 08:36 Potassium 4.6 mmol/L (3.6-5.0) 01/04/19 08:36 Chloride 106.3 mmol/L (98-107) 01/04/19 08:36 Carbon Dioxide 19 mmol/L (22-30) L 01/04/19 08:36 17 mmol/L 01/04/19 08:36 BUN 8 mg/dL (7-17) 01/04/19 08:36 0.4 mg/dL (0.7-1.2) L 01/04/19 08:36 Estimated GFR > 60 ml/min 01/04/19 08:36 20 % 01/04/19 08:36 Glucose 94 mg/dL (65-100) 01/04/19 08:36 Calcium 9.4 mg/dL (8.4-10.2) 01/04/19 08:36 Iron 89 ug/dL (37-170) 01/05/19 07:43 TIBC 156 mcg/dL (250-450) L 01/05/19 07:43 1749.0 ng/mL (13.0-400.0) H 01/05/19 07:43 2.60 mg/dL (0.1-1.2) H 01/04/19 08:36 AST 47 units/L (5-40) H 01/04/19 08:36 ALT 25 units/L (7-56) 01/04/19 08:36 172 units/L (35-129) H 01/04/19 08:36 391 units/L (91-180) H 01/06/19 05:13 8.2 g/dL (6.3-8.2) 01/04/19 08:36 4.5 g/dL (3.9-5) 01/04/19 08:36 1.2 % 01/04/19 08:36 Vitamin B12 823.1 pg/mL (211-911) 01/05/19 07:43 > 20 ng/mL (7.3-26.0) 01/05/19 07:43 HCG, Qual Negative (Negative) 01/04/19 08:36 Yellow (Yellow) 01/04/19 Unknown Clear (Clear) 01/04/19 Unknown 5.0 (5.0-7.0) 01/04/19 Unknown Ur Specific [place] 1.010 (1.003-1.030) 01/04/19 Unknown <15 mg/dl mg/dL (Negative) 01/04/19 Unknown Neg mg/dL (Negative) 01/04/19 Unknown Neg mg/dL (Negative) 01/04/19 Unknown Sm (Negative) 01/04/19 Unknown Neg (Negative) 01/04/19 Unknown Neg (Negative) 01/04/19 Unknown < 2.0 mg/dL (<2.0) 01/04/19 Unknown Ur Leukocyte Esterase Neg (Negative) 01/04/19 Unknown 2.0 /HPF (0.0-6.0) 01/04/19 Unknown 1.0 /HPF (0.0-6.0) 01/04/19 Unknown U Epithel Cells (Auto) 1.0 /HPF (0-13.0) 01/04/19 Unknown 1+ /HPF (Negative) 01/04/19 Unknown Few /HPF 01/04/19 Unknown Blood Type O POSITIVE 01/04/19 09:55 Antibody Screen Positive 01/04/19 09:55 Antibody Identification Anti-E 01/04/19 09:55 Antigen Identification Cancelled 01/04/19 09:55 Crossmatch See Detail 01/04/19 09:55 Active Medications - Current Medications Current Medications: Generic Name Dose Route Start Last Admin Trade Name Freq PRN Reason Stop Dose Admin Acetaminophen 650 mg 01/04/19 12:48 01/05/19 01:36 Tylenol PO 650 mg Q4H PRN Administration Pain MILD(1-3)/Fever >100.5/CARTER Bisacodyl 10 mg 01/04/19 12:55 Dulcolax LA QDAY PRN Constipation unrelieved by MOM Enoxaparin Sodium 40 mg 01/04/19 22:00 01/05/19 22:24 Lovenox SUB-Q 40 mg QDAY@2200 HOSEA Administration Folic Acid 1 mg 01/05/19 10:00 01/05/19 09:46 Folvite PO 1 mg QDAY HOSEA Administration Dextrose/Sodium Chloride 1,000 mls @ 42 mls/hr 01/04/19 14:00 01/05/19 22:22 D5/0.45ns IV 42 mls/hr DIRECT HOSEA Administration Cefepime HCl 1 gm in 100 mls @ 200 mls/hr 01/05/19 16:00 01/06/19 05:47 Maxipime/Ns 1 Gm/100 Ml IV 200 mls/hr Q8HR HOSEA Administration Protocol Vancomycin HCl 750 mg/ Sodium 265 mls @ 166.667 mls/hr 01/06/19 04:00 01/06/19 05:34 Chloride IV 166.667 mls/hr Q12H HOSEA Administration Magnesium Hydroxide 30 ml 01/04/19 12:48 Milk Of Magnesia PO Q4H PRN Constipation Morphine Sulfate 4 mg 01/04/19 09:37 01/05/19 09:46 Morphine IV 4 mg Q4H PRN Administration Pain Multivitamins 1 each 01/05/19 10:00 01/05/19 09:46 Theragran Tab PO 1 each QDAY HOSEA Administration Ondansetron HCl 4 mg 01/04/19 12:48 Zofran IV Q8H PRN Nausea And Vomiting Senna 17.2 mg 01/04/19 22:00 01/05/19 22:26 Senokot PO 17.2 mg QHS HOSEA Administration Sodium Chloride 10 ml 01/04/19 22:00 01/05/19 22:27 Sodium Chloride Flush Syringe 10 Ml IV 10 ml BID HOSEA Administration Sodium Chloride 10 ml 01/04/19 12:48 Sodium Chloride Flush Syringe 10 Ml IV PRN PRN LINE FLUSH Tramadol HCl 25 mg 01/05/19 12:38 01/05/19 18:44 Ultram PO 25 mg Q4H PRN Administration Pain, Moderate (4-6)
[2019-01-06] MEDS: MULTIVITAMINS ,THERAPEUTIC TAB PO SCH (10:06)
[2019-01-06] MEDS: FOLIC ACID 1 MG TAB PO SCH (10:06)
[2019-01-06] MEDS: traMADol 50 MG TAB PO PRN (10:14)
--- NOTE | 2019-01-06 11:35 | Progress Note ---
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 No culture data available. CXR no cavities. She reports testing negative for TB as a part of her immigration process to the [place]. Xray and CT findings are concerning for chronic osteomyelitis with mottled appearance of the R femur. MRI shows destructive change in the greater trochanter with contrast enhancement consistent with osteomyelitis with a fistulous tract from the skin extending to the greater tr ochanter where there is an abscess present. A superficial abscess is also seen just under the skin wound. Patient is now s/p I&D by Dr. Montoya 01/05/2019 and per her note, "copious amounts of purulent drainage" noted. Culture so far negative. On cefepime and vancomycin. 2) Sickle cell disease. 3) Anemia. Recs: Continue IV Cefepime and Vancomycin follow up cultures check quantfieron Tb gold Ortho consult noted, agree with OR debridement, send 2 different deep bone specimens for micro (aerobic, anaerobic, AFB and fungal) and path with fungal and AFB stains Dr Braxton is rounding on Tuesday Medina Freeman MD Infectious Diseases [facility] [employer] [facility] [id number] [phone] O [phone] Subjective Date of service: 01/06/19 Principal diagnosis: femoral osteomyelitis Interval history: Feels ok, still right thigh pain, no fever Objective - Exam Narrative Exam: General appearance: Alert in NAD Eyes: anicteric sclerae, moist conjunctivae; no lid-lag; PERRLA HENT: Atraumatic; oropharynx clear Lungs: CTA CV: RRR no murmur Abdomen: Soft, non-tender Extremities: +right thigh sinus tract with purulence drainage Skin: no rash Psych: no agitated Neuro: alert on the vent - Constitutional Vitals: Vital Signs Temp Pulse Resp BP Pulse Ox 98.2 F 67 16 104/61 100 01/06/19 05:33 01/06/19 08:48 01/06/19 08:48 01/06/19 08:48 01/06/19 08:48 Temperature -Last 24 Hours Temperature 98.2 F Temperature 99.4 F Temperature 98.8 F Temperature 98.5 F Temperature 98.0 F - Labs CBC & Chem 7: 01/06/19 05:13 01/04/19 08:36 Labs: Abnormal lab results 01/04/19 01/06/19 01/06/19 Range/Units 09:55 05:13 05:13 WBC 17.3 H (4.5-11.0) K/mm3 RBC 2.65 L (3.65-5.03) M/mm3 Hgb 7.8 L (10.1-14.3) gm/dl Hct 22.1 L (30.3-42.9) % MCHC 35 H (30-34) % RDW 25.5 H (13.2-15.2) % Plt Count 562 H (140-440) K/mm3 Lymphocytes % (Manual) 36.0 H (13.4-35.0) % Monocytes % (Manual) 8.0 H (0.0-7.3) % Nucleated RBC % 9.0 H (0.0-0.9) % Seg Neutrophils # Man 0.0 L (1.8-7.7) K/mm3 Lymphocytes # (Manual) 0.0 L (1.2-5.4) K/mm3 Percent Retic 17.72 H (0.78-2.58) % Lactate Dehydrogenase 391 H (91-180) units/L Crossmatch See Detail
--- NOTE | 2019-01-06 15:31 | Progress Note ---
Assessment and Plan 28 yo F s/p incision and drainage of right thigh abscess 01/05/19 1. abscess of right thigh with extension to the greater trochanter 2. chronic osteomyelitis of right greater trochanter/femur 3. sickle cell anemia MRI RLE: #1 destructive changes in the greater trochanter contrast enhancement consistent with osteomyelitis, #2 fistulous tract from skin and into the greater trochanter where there is an abscess present a superficial abscess is also seen under the skin wound. Plan: 1. Dressing change by nursing today. Nursing there was minimal purulent drainage on the packing. 2. "superficial abscess under the skin wound" likely packing which is present in wound. Pt may need deeper debridement and bone cultures per ID. I will defer this to orthopedic surgery 3. IV abx 4. f/u wound cultures 5. prn pain control - will add tramadol PO 6. daily wound care by RN- mesalt packing to wound 7. ID on board Thank you, please call with questions. Subjective Date of service: 01/06/19 Narrative: Pt seen and examined. States she feels much better today. Objective Vital Signs - 12hr 01/06/19 01/06/19 01/06/19 05:33 08:48 12:39 Temperature 98.2 F 98.6 F Pulse Rate 60 67 73 Respiratory 16 16 15 Rate Blood Pressure 91/57 101/55 Blood Pressure 104/61 [Right] O2 Sat by Pulse 98 100 100 Oximetry - General physical appearance Narrative Exam: General: Awake, alert, oriented 3. Upper distress CV: S1, S2 present Respiratory: No audible wheezes Extremities: right thigh dressing clean dry and intact, no tenderness palpation. No erythema, induration - Labs 01/06/19 05:13 01/04/19 08:36
[2019-01-06] MEDS: VANCOMYCIN 750 MG in SODIUM CHLORIDE 0.9% 250ML 250 ML IV SCH ×2 (15:45→22:56)
--- NOTE | 2019-01-06 15:51 | Hem/Onc Progress Note ---
Assessment and Plan 1. Normocytic anemia in a patient with history of sickle cell disease. Transfusion support for now. The patient is on folic acid. We will look into hydroxyurea. 2. Leukocytosis, likely secondary to infection. 3. Thrombocytosis, likely reactive. 4. Abnormal liver function test, likely related to sickle cells. 5. ID team called in for fever and chills. I will follow the patient during inpatient stay. 01/06 s/p ID by sx team s/prbc will look into hydrea at a low dose ct folic acid - Patient Problems (1) Anemia Current Visit: Yes Status: Acute Qualifiers: Anemia type: unspecified type Qualified Code(s): D64.9 - Anemia, unspecified Subjective Date of service: 01/06/19 Principal diagnosis: sickle cell anemia Interval history: s/p ID by sx team s/p prbc Objective - Exam Narrative Exam: Pain - post op General appearance - comfortable Performance status limited self care Eyes - no icterus, ENT - no bleeding LNs cervical not palpable Neck - no LN Respiratory Normal Breath sounds - CTA CVS S1 S2 + Extremities no calf tenderness General GI Soft Rectal deferred female - deferred Skin warm Musculoskeletal moves extremities Neurologically awake - oriented - Constitutional Vitals: Last Vital Signs Temp 98.6 F 01/06/19 12:39 Pulse 73 01/06/19 12:39 Resp 15 01/06/19 12:39 BP 101/55 01/06/19 12:39 Pulse Ox 100 01/06/19 12:39 - Labs Lab Results: Laboratory Results - last 24 hr 01/04/19 01/06/19 01/06/19 09:55 05:13 05:13 WBC 17.3 H RBC 2.65 L Hgb 7.8 L Hct 22.1 L MCV 83 MCH 29 MCHC 35 H RDW 25.5 H Plt Count 562 H Lymph # Tread Booker Add Manual Diff Complete Total Counted 100 Seg Neuts % (Manual) 55.0 Band Neutrophils % 0 Lymphocytes % (Manual) 36.0 H Reactive Lymphs % (Man) 0 Monocytes % (Manual) 8.0 H Eosinophils % (Manual) 1.0 Basophils % (Manual) 0 Metamyelocytes % 0 Myelocytes % 0 Promyelocytes % 0 Blast Cells % 0 Nucleated RBC % 9.0 H Seg Neutrophils # Man 0.0 L Band Neutrophils # 0.0 Lymphocytes # (Manual) 0.0 L Abs React Lymphs (Man) 0.0 Monocytes # (Manual) 0.0 Eosinophils # (Manual) 0.0 Basophils # (Manual) 0.0 Metamyelocytes # 0.0 Myelocytes # 0.0 Promyelocytes # 0.0 Blast Cells # 0.0 WBC Morphology Not Reportable Hypersegmented Neuts Not Reportable Hyposegmented Neuts Not Reportable Hypogranular Neuts Not Reportable Smudge Cells Not Reportable Toxic Granulation Not Reportable Toxic Vacuolation Not Reportable Dohle Bodies Not Reportable Pelger-Huet Anomaly Not Reportable Raymond Rods Not Reportable Platelet Estimate Consistent w auto Clumped Platelets Not Reportable Plt Clumps, EDTA Not Reportable Large Platelets Not Reportable Giant Platelets Not Reportable Platelet Satelliting Not Reportable Plt Morphology Comment Not Reportable RBC Morphology Not Reportable Dimorphic RBCs Not Reportable Polychromasia Few Hypochromasia Not Reportable Poikilocytosis Not Reportable Anisocytosis 1+ Microcytosis Not Reportable Macrocytosis Few Spherocytes Not Reportable Pappenheimer Bodies Not Reportable Sickle Cells 2+ Target Cells Not Reportable Tear Drop Cells Not Reportable Ovalocytes Not Reportable Helmet Cells Not Reportable [place] Bodies Not Reportable [place] Rings Not Reportable [place] Cells Not Reportable Bite Cells Not Reportable Crenated Cell Not Reportable Elliptocytes Not Reportable Acanthocytes (Spur) Not Reportable Rouleaux Not Reportable Hemoglobin C Crystals Not Reportable Schistocytes Not Reportable Malaria parasites Not Reportable Percent Retic 17.72 H Floyd Bodies Not Reportable Hem Pathologist Commnt No Lactate Dehydrogenase 391 H Blood Type O POSITIVE Antibody Screen Positive Antibody Identification Anti-E Crossmatch See Detail Medications & Allergies - Medications Allergies/Adverse Reactions: Allergies No Known Allergies Allergy (Unverified 01/04/19 08:15) Home Medications: Home Medications Medication Instructions Recorded Confirmed Last Taken Type Acfol 25 mg PO DAILY 01/04/19 01/04/19 01/03/19 09:00 History Diclofenac Sodium 50 mg PO DAILY 01/04/19 01/04/19 01/03/19 20:00 History Folic Acid 0.4 mg PO QDAY 01/04/19 01/04/19 Unknown History Active Medications: Generic Name Dose Route Start Last Admin Trade Name Freq PRN Reason Stop Dose Admin Acetaminophen 650 mg 01/04/19 12:48 01/05/19 01:36 Tylenol PO 650 mg Q4H PRN Administration Pain MILD(1-3)/Fever >100.5/CARTER Bisacodyl 10 mg 01/04/19 12:55 Dulcolax MA QDAY PRN Constipation unrelieved by MOM Enoxaparin Sodium 40 mg 01/04/19 22:00 01/05/19 22:24 Lovenox SUB-Q 40 mg QDAY@2200 HOSEA Administration Folic Acid 1 mg 01/05/19 10:00 01/06/19 10:06 Folvite PO 1 mg QDAY HOSEA Administration Dextrose/Sodium Chloride 1,000 mls @ 42 mls/hr 01/04/19 14:00 01/05/19 22:22 D5/0.45ns IV 42 mls/hr DIRECT HOSEA Administration Cefepime HCl 1 gm in 100 mls @ 200 mls/hr 01/05/19 16:00 01/06/19 13:42 Maxipime/Ns 1 Gm/100 Ml IV 200 mls/hr Q8HR HOSEA Administration Protocol Vancomycin HCl 750 mg/ Sodium 265 mls @ 166.667 mls/hr 01/06/19 14:00 01/06/19 15:45 Chloride IV 166.667 mls/hr Q8HR HOSEA Administration Magnesium Hydroxide 30 ml 01/04/19 12:48 Milk Of Magnesia PO Q4H PRN Constipation Morphine Sulfate 4 mg 01/04/19 09:37 01/05/19 09:46 Morphine IV 4 mg Q4H PRN Administration Pain Multivitamins 1 each 01/05/19 10:00 01/06/19 10:06 Theragran Tab PO 1 each QDAY HOSEA Administration Ondansetron HCl 4 mg 01/04/19 12:48 Zofran IV Q8H PRN Nausea And Vomiting Senna 17.2 mg 01/04/19 22:00 01/05/19 22:26 Senokot PO 17.2 mg QHS HOSEA Administration Sodium Chloride 10 ml 01/04/19 22:00 01/06/19 10:06 Sodium Chloride Flush Syringe 10 Ml IV 10 ml BID HOSEA Administration Sodium Chloride 10 ml 01/04/19 12:48 Sodium Chloride Flush Syringe 10 Ml IV PRN PRN LINE FLUSH Tramadol HCl 25 mg 01/05/19 12:38 01/06/19 10:14 Ultram PO 25 mg Q4H PRN Administration Pain, Moderate (4-6)
--- NOTE | 2019-01-06 19:57 | Consultation ---
REFERRED BY: Dr. Guzman. REASON FOR CONSULTATION: Sickle cell disease. HISTORY OF PRESENT ILLNESS: I saw the patient, a 28-year-old female in the medical floor. The patient recently immigrated from [place] and has a history of sickle cell disease for which she has been getting transfusions periodically in [place]. She came to the hospital because of fever, chest pain, back pain, and thigh pain. The patient says she has a history of infection of the right thigh. As the patient is anemic, I have been consulted. The [facility] is working on the transfusion support. At this time, no headache, no visual disturbances. No ear discharge. No history of chest pain on and off. No abdominal pain, no vomiting, no diarrhea. History of right leg pain present. No seizure, syncope, or loss of consciousness. As per the information available, the surgical team evaluation for the right thigh has been done. REVIEW OF SYSTEMS: She has a history of intermittent fever. SOCIAL HISTORY: The patient lives with her aunt in the now. FAMILY HISTORY: Nil significant. ALLERGIES: None. HOME MEDICATIONS: Include diclofenac, folic acid. The patient never took hydroxyurea as it was not offered. PHYSICAL EXAMINATION: VITAL SIGNS: Temperature 99.4, pulse 66, respirations 16, BP 105/55. GENERAL: Thin-built female. HEENT: Pallor present. Icterus present. NECK: No neck lymph nodes. HEART: S1, S2. LUNGS: Clear to auscultation. ABDOMEN: Soft. EXTREMITIES: Right thigh scar of surgery and swelling present. Pain present. No calf tenderness. NEUROLOGIC: Alert, awake, answers questions appropriately. LABORATORY DATA: White cells 17, hemoglobin 6.1, MCV 83, platelet 328, potassium 4.6, creatinine 0.4, calcium 9.4. Serum iron 89, ferritin 1700. Bilirubin 2.6, AST 47, LDH 407. B12 823. Folate more than 20. RADIOLOGY DATA: Femur x-ray was done. ASSESSMENT AND PLAN: 1. Normocytic anemia in a patient with history of sickle cell disease. Transfusion support for now. The patient is on folic acid. We will look into hydroxyurea. 2. Leukocytosis, likely secondary to infection. 3. Thrombocytosis, likely reactive. 4. Abnormal liver function test, likely related to sickle cells. 5. ID team called in for fever and chills. I will follow the patient during inpatient stay. JOB# [id number] NEIL/SCOTT
[2019-01-06] MEDS: ENOXAPARIN 40 MG/0.4 ML INJ SUB-Q SCH (22:52)
[2019-01-06] MEDS: SENNOSIDES 8.6 MG TAB PO SCH (22:54)
[2019-01-07] MEDS: CEFEPIME/NS 1 GM/100 ML 1 GM/100 ML BAG IV SCH ×2 (05:03→16:51)
[2019-01-07 05:58] LABS: Hematocrit 21.4 % (30.3-42.9); Hemoglobin 7.6 gm/dl (10.1-14.3); Mean Corpuscular HGB Conc 36 % (30-34); Mean Corpuscular Volume 85 fl (79-97); Platelet Count 517 K/mm3 (140-440); Red Blood Count 2.51 M/mm3 (3.65-5.03)
[2019-01-07 05:59] LABS: Red Cell Distribution Width 27.5 % (13.2-15.2)
[2019-01-07 06:42] LABS: Basophils % (Manual) 0 % (0.0-1.8); Total Cells Counted 100
[2019-01-07 06:43] LABS: Anisocytosis 3+; Dimorphic RBC Yes; Giant Platelets 2+; Poikilocytosis 1+; Sickle Cells 2+
[2019-01-07] MEDS: VANCOMYCIN 750 MG in SODIUM CHLORIDE 0.9% 250ML 250 ML IV SCH ×3 (06:55→22:05)
[2019-01-07] MEDS: traMADol 50 MG TAB PO PRN ×3 (07:06→22:59)
[2019-01-07] MEDS: D5W/0.45% NACL 1,000 ML IV SCH (13:53)
[2019-01-07] MEDS: MULTIVITAMINS ,THERAPEUTIC TAB PO SCH (13:53)
[2019-01-07] MEDS: HYDROXYUREA 500 MG CAP PO SCH (13:53)
[2019-01-07] MEDS: FOLIC ACID 1 MG TAB PO SCH (13:53)
--- NOTE | 2019-01-07 14:16 | Progress Note ---
Assessment and Plan 1.Sickle cell crisis Blood transfusion, IV fluids, pain meds, hematology consult 2. Chronic osteomyelitis Patient appears to have chronic osteomyelitis. ID has been consulted General surgery also consulted to perform I&D, orthopedic surgery also consulted given concern for osteomyelitis. Prognosis for complete clearance of infection is very poor as she is had this infection for over a year. She may need affected bone excised to achieve clearance of the infection. 3.Right thigh abscess I&D done by surgery DVT prophylaxis; chemical Subjective Date of service: 01/07/19 Principal diagnosis: sickle cell anemia Interval history: 28-year-old woman with history of sickle cell disease. Recently moved to the [facility] from [place]. Does not have any doctors here. She is complaining of generalized body aches mostly on the right side of her body her right upper extremity and right lower extremity. She is also complaining of painful swelling in her right thigh. It is on the same location where she has a surgical scar from a surgery she had one year ago . She had multiple surgeries for treatment osteomyelitis on the right thigh, left knee, and right lower medial leg. She also completed a long course of antibiotics after multiple surgeries in [facility] Objective - Constitutional Vitals: Vital Signs - 12hr 01/07/19 01/07/19 01/07/19 05:48 07:06 12:22 Temperature 98.2 F 98.3 F Pulse Rate 65 66 Respiratory 18 18 16 Rate Blood Pressure 100/58 99/51 O2 Sat by Pulse 95 93 Oximetry General appearance: Present: no acute distress, well-nourished - EENT Eyes: PERRL, EOM intact ENT: hearing intact, clear oral mucosa Ears: bilateral: normal - Neck Neck: supple, normal ROM - Respiratory Respiratory effort: normal Respiratory: bilateral: CTA - Breasts Breasts: normal - Cardiovascular Rhythm: regular Heart Sounds: Present: S1 & S2. Absent: gallop, rub Extremities: pulses intact, No edema, normal color, Full ROM - Gastrointestinal General gastrointestinal: Present: soft, non-tender, non-distended, normal bowel sounds - Genitourinary Female genitourinary: normal - Integumentary Integumentary: clear, warm, dry - Musculoskeletal Musculoskeletal: 1, strength equal bilaterally - Neurologic Neurologic: moves all extremities - Psychiatric Psychiatric: memory intact, appropriate mood/affect, intact judgment & insight - Labs CBC & Chem 7: 01/07/19 05:34 01/04/19 08:36 Labs: Abnormal lab results 01/07/19 01/07/19 Range/Units 05:34 05:34 WBC 14.2 H (4.5-11.0) K/mm3 RBC 2.51 L (3.65-5.03) M/mm3 Hgb 7.6 L (10.1-14.3) gm/dl Hct 21.4 L (30.3-42.9) % MCHC 36 H (30-34) % RDW 27.5 H (13.2-15.2) % Plt Count 517 H (140-440) K/mm3 Lymphocytes % (Manual) 37.0 H (13.4-35.0) % Monocytes % (Manual) 9.0 H (0.0-7.3) % Eosinophils % (Manual) 5.0 H (0.0-4.3) % Monocytes # (Manual) 1.3 H (0.0-0.8) K/mm3 Eosinophils # (Manual) 0.7 H (0.0-0.4) K/mm3 Percent Retic 16.60 H (0.78-2.58) % Lactate Dehydrogenase 361 H (91-180) units/L
--- NOTE | 2019-01-07 16:12 | Progress Note ---
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 No culture data available from the past. CXR no cavities. She reports testing negative for TB as a part of her immigration process to the [place]. Xray and CT findings are concerning for chronic osteomyelitis with mottled appearance of the R femur. MRI shows destructive change in the greater trochanter with contrast enhancement c onsistent with osteomyelitis with a fistulous tract from the skin extending to the greater trochanter where there is an abscess present. A superficial abscess is also seen just under the skin wound. Patient is now s/p I&D by Dr. Montoya 01/05/2019 and per her note, "copious amounts of purulent drainage" noted. Wound Culture growing Staph aureus. On cefepime and vancomycin. 2) Sickle cell disease. 3) Anemia. Recs: Stop cefepime Continue Vancomycin Add cefazolin for now contact isolation until MRSA is r/o follow up cultures check quantfieron Tb gold- ordered Ortho consult noted Dr Braxton is rounding on Tuesday Medina Freeman MD Infectious Diseases [place] [employer] [facility] M [phone] O [phone] Subjective Date of service: 01/07/19 Principal diagnosis: sickle cell anemia Interval history: Feels ok, still right thigh pain but better no fever Objective - Exam Narrative Exam: General appearance: Alert in NAD Eyes: anicteric sclerae, moist conjunctivae; no lid-lag; PERRLA HENT: Atraumatic; oropharynx clear Lungs: CTA CV: RRR no murmur Abdomen: Soft, non-tender Extremities: +right thigh sinus tract with minimal purulence drainage Skin: no rash Psych: no agitated Neuro: alert on the vent - Constitutional Vitals: Vital Signs Temp Pulse Resp BP Pulse Ox 98.3 F 66 16 99/51 93 01/07/19 12:22 01/07/19 12:22 01/07/19 12:22 01/07/19 12:22 01/07/19 12:22 Temperature -Last 24 Hours Temperature 98.3 F Temperature 98.2 F Temperature 98.8 F Temperature 98.7 F - Labs CBC & Chem 7: 01/07/19 05:34 01/04/19 08:36 Labs: Abnormal lab results 01/07/19 01/07/19 Range/Units 05:34 05:34 WBC 14.2 H (4.5-11.0) K/mm3 RBC 2.51 L (3.65-5.03) M/mm3 Hgb 7.6 L (10.1-14.3) gm/dl Hct 21.4 L (30.3-42.9) % MCHC 36 H (30-34) % RDW 27.5 H (13.2-15.2) % Plt Count 517 H (140-440) K/mm3 Lymphocytes % (Manual) 37.0 H (13.4-35.0) % Monocytes % (Manual) 9.0 H (0.0-7.3) % Eosinophils % (Manual) 5.0 H (0.0-4.3) % Monocytes # (Manual) 1.3 H (0.0-0.8) K/mm3 Eosinophils # (Manual) 0.7 H (0.0-0.4) K/mm3 Percent Retic 16.60 H (0.78-2.58) % Lactate Dehydrogenase 361 H (91-180) units/L
[2019-01-07] MEDS: SENNOSIDES 8.6 MG TAB PO SCH (21:57)
[2019-01-07] MEDS: ENOXAPARIN 40 MG/0.4 ML INJ SUB-Q SCH (22:01)
[2019-01-08] MEDS: VANCOMYCIN 750 MG in SODIUM CHLORIDE 0.9% 250ML 250 ML IV SCH ×2 (05:14→13:16)
--- NOTE | 2019-01-08 07:19 | Hem/Onc Progress Note ---
Assessment and Plan 1. Normocytic anemia in a patient with history of sickle cell disease. Transfusion support for now. The patient is on folic acid. We will look into hydroxyurea. 2. Leukocytosis, likely secondary to infection. 3. Thrombocytosis, likely reactive. 4. Abnormal liver function test, likely related to sickle cells. 5. ID team called in for fever and chills. I will follow the patient during inpatient stay. 01/08 s/p ID by sx team s/prbc hydrea at a low dose ct folic acid staph in wound culture - Patient Problems (1) Anemia Current Visit: Yes Status: Acute Qualifiers: Anemia type: unspecified type Qualified Code(s): D64.9 - Anemia, unspecified Subjective Date of service: 01/08/19 Principal diagnosis: sickle cell anemia Interval history: staph in wound culture Objective - Exam Narrative Exam: Pain - post op General appearance - comfortable Performance status limited self care Eyes - no icterus, ENT - no bleeding LNs cervical not palpable Neck - no LN Respiratory Normal Breath sounds - CTA CVS S1 S2 + Extremities no calf tenderness General GI Soft Rectal deferred female - deferred Skin warm -s/p rt thigh I and D Musculoskeletal moves extremities Neurologically awake - oriented - Constitutional Vitals: Last Vital Signs Temp 97.6 F 01/08/19 05:52 Pulse 72 01/07/19 23:59 Resp 16 01/08/19 05:52 BP 95/56 01/08/19 05:52 Pulse Ox 93 01/07/19 23:59 - Labs Lab Results: Laboratory Results - last 24 hr 01/07/19 13:32 Vancomycin Trough 12.1 Medications & Allergies - Medications Allergies/Adverse Reactions: Allergies No Known Allergies Allergy (Unverified 01/04/19 08:15) Home Medications: Home Medications Medication Instructions Recorded Confirmed Last Taken Type Acfol 25 mg PO DAILY 01/04/19 01/04/19 01/03/19 09:00 History Diclofenac Sodium 50 mg PO DAILY 01/04/19 01/04/19 01/03/19 20:00 History Folic Acid 0.4 mg PO QDAY 01/04/19 01/04/19 Unknown History Active Medications: Generic Name Dose Route Start Last Admin Trade Name Freq PRN Reason Stop Dose Admin Acetaminophen 650 mg 01/04/19 12:48 01/05/19 01:36 Tylenol PO 650 mg Q4H PRN Administration Pain MILD(1-3)/Fever >100.5/CARTER Bisacodyl 10 mg 01/04/19 12:[address] QDAY PRN Constipation unrelieved by MOM Enoxaparin Sodium 40 mg 01/04/19 22:00 01/07/19 22:01 Lovenox SUB-Q 40 mg QDAY@2200 HOSEA Administration Folic Acid 1 mg 01/05/19 10:00 01/07/19 13:53 Folvite PO 1 mg QDAY HOSEA Administration Hydroxyurea 500 mg 01/07/19 10:00 01/07/19 13:53 Hydrea PO 500 mg SuTuFr@1000 HOSEA Administration Dextrose/Sodium Chloride 1,000 mls @ 42 mls/hr 01/04/19 14:00 01/07/19 13:53 D5/0.45ns IV 42 mls/hr DIRECT HOSEA Administration Vancomycin HCl 750 mg/ Sodium 265 mls @ 166.667 mls/hr 01/06/19 14:00 9 05:14 Chloride IV 166.667 mls/hr Q8HR HOSEA Administration Cefazolin Sodium 2 gm/ Sodium 100 mls @ 200 mls/hr 01/07/19 17:00 01/08/19 00:59 Chloride IV 200 mls/hr Q8H HOSEA Administration Protocol Magnesium Hydroxide 30 ml 01/04/19 12:48 Milk Of Magnesia PO Q4H PRN Constipation Morphine Sulfate 4 mg 01/04/19 09:37 01/05/19 09:46 Morphine IV 4 mg Q4H PRN Administration Pain Multivitamins 1 each 01/05/19 10:00 01/07/19 13:53 Theragran Tab PO 1 each QDAY HOSEA Administration Ondansetron HCl 4 mg 01/04/19 12:48 Zofran IV Q8H PRN Nausea And Vomiting Senna 17.2 mg 01/04/19 22:00 01/07/19 21:57 Senokot PO Not Given QHS HOSEA Sodium Chloride 10 ml 01/04/19 22:00 01/07/19 22:04 Sodium Chloride Flush Syringe 10 Ml IV 10 ml BID HOSEA Administration Sodium Chloride 10 ml 01/04/19 12:48 Sodium Chloride Flush Syringe 10 Ml IV PRN PRN LINE FLUSH Tramadol HCl 25 mg 01/05/19 12:38 01/07/19 22:59 Ultram PO 25 mg Q4H PRN Administration Pain, Moderate (4-6)
[2019-01-08] MEDS: MULTIVITAMINS ,THERAPEUTIC TAB PO SCH (09:48)
[2019-01-08] MEDS: FOLIC ACID 1 MG TAB PO SCH (09:48)
--- NOTE | 2019-01-08 13:40 | Progress Note ---
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 She reports testing negative for TB as a part of her immigration process to the [place]. Xray and CT findings are concerning for chronic osteomyelitis with mottled appearance of the R femur. Low likelihood of complete cure with just antibiotics alone. Agree with ortho consult. Will also get an MRI to evaluate for any sequestrum ( bone) and medullary abscess. Patient is now s/p I&D by Dr. Montoya 01/05/2019 and per her note, "copious amounts of purulent drainage" noted. Expect protractred course with likely combined medical and surgical treatment. 2) Sickle cell disease. 3) Anemia. Recs: Continue IV Vancomycin, target trough: 15-20 mcg/ml will need 6-8 weeks of IV antibiotic treatment discussed with Dr. Landers from ortho, expect protractred course with likely combined medical and surgical treatment. If possible, would benefit from debridement of the bone from R greater trochanter. If surgical treatment is not possible, she has a high risk of relapse of infection Sergey Braxton MD, FACP [facility] C: [phone] O: [phone] F: [phone] Subjective Date of service: 01/08/19 Principal diagnosis: sickle cell anemia Interval history: No fever. Pain present in R thigh. No nausea, vomiting. on isolation due ot MRSA. Objective - Exam Narrative Exam: Physical Exam: Constitutional: Alert, cooperative. No acute distress Head, Ears, Nose: Normocephalic, atraumatic. External ears, nose normal Eyes: Conjunctivae/corneas clear. No icterus. No ptosis. Neck: Supple, no meningeal signs Oral: dentition fair, no thrush Cardiovascular: S1, S2 normal. Respiratory: Good air entry, clear to auscultation bilaterally GI: Soft, non-tender; bowel sounds normal. No peritoneal signs Musculoskeletal: R thigh swelling, dressing + with tenderness Skin: No rash or abscess Hem/Lymphatic: No palpable cervical or supraclavicular nodes. No lymphangitis Psych: Mood ok. Affect normal Neurological: Awake, alert, oriented. No gross abnormality. - Constitutional Vitals: Vital Signs Temp Pulse Resp BP Pulse Ox 98.8 F 68 19 99/56 96 01/08/19 12:05 01/08/19 12:05 01/08/19 12:05 01/08/19 12:05 01/08/19 12:05 Temperature -Last 24 Hours Temperature 98.8 F Temperature 97.6 F Temperature 98.2 F Temperature 99.4 F - Labs CBC & Chem 7: 01/07/19 05:34 01/04/19 08:36
--- NOTE | 2019-01-08 13:49 | Progress Note ---
Assessment and Plan wound culture show MRSA, would go ahead and debride sinus tract and proximal femur, in addition to IVAB .... Subjective Date of service: 01/08/19 Principal diagnosis: sickle cell anemia Objective Vital signs: Vital Signs - 12hr 01/08/19 01/08/19 05:52 12:05 Temperature 97.6 F 98.8 F Pulse Rate 68 Respiratory 16 19 Rate Blood Pressure 95/56 99/56 O2 Sat by Pulse 96 Oximetry - Labs CBC & BMP: 01/07/19 05:34 01/04/19 08:36
--- NOTE | 2019-01-08 18:10 | Progress Note ---
Assessment and Plan 1.Sickle cell crisis Blood transfusion, IV fluids, pain meds, hematology consult 2. Chronic osteomyelitis Patient appears to have chronic osteomyelitis. ID has been consulted General surgery also consulted to perform I&D, orthopedic surgery also consulted given concern for osteomyelitis. Prognosis for complete clearance of infection is very poor as she is had this infection for over a year. She may need affected bone excised to achieve clearance of the infection. 3.Right thigh abscess I&D done by surgery DVT prophylaxis; chemical Subjective Date of service: 01/06/19 Principal diagnosis: sickle cell anemia Interval history: 28-year-old woman with history of sickle cell disease. Recently moved to the [facility] from [place]. Does not have any doctors here. She is complaining of generalized body aches mostly on the right side of her body her right upper extremity and right lower extremity. She is also complaining of painful swelling in her right thigh. It is on the same location where she has a surgical scar from a surgery she had one year ago . She had multiple surgeries for treatment osteomyelitis on the right thigh, left knee, and right lower medial leg. She also completed a long course of antibiotics after multiple surgeries in [facility] Objective - Constitutional Vitals: Vital Signs - 12hr 01/08/19 12:05 Temperature 98.8 F Pulse Rate 68 Respiratory 19 Rate Blood Pressure 99/56 O2 Sat by Pulse 96 Oximetry General appearance: Present: no acute distress, well-nourished - EENT Eyes: PERRL, EOM intact ENT: hearing intact, clear oral mucosa Ears: bilateral: normal - Neck Neck: supple, normal ROM - Respiratory Respiratory effort: normal Respiratory: bilateral: CTA - Breasts Breasts: normal - Cardiovascular Heart rate: 78 Rhythm: regular Heart Sounds: Present: S1 & S2. Absent: gallop, rub Extremities: pulses intact, No edema, normal color, Full ROM - Gastrointestinal General gastrointestinal: Present: soft, non-tender, non-distended, normal bowel sounds Rectal Exam: deferred (DISCUSSED WITH AT LEAST ONE APPROXIMATELY 20 POTENTIAL PUSHED FOR IMPINGEMENT PROBLEM AND CAN) - Genitourinary Female genitourinary: normal - Integumentary Integumentary: clear, warm, dry - Musculoskeletal Musculoskeletal: 1, strength equal bilaterally - Neurologic Neurologic: moves all extremities - Psychiatric Psychiatric: memory intact, appropriate mood/affect, intact judgment & insight - Labs CBC & Chem 7: 01/07/19 05:34 01/04/19 08:36 Labs: CT RLE A soft tissue fluid collection is identified in the lateral thigh as described concerning for abscess. A fistulous tract from this collection tracks directly to the greater trochanter of the proximal right femur which is severely abnormal. I suspect these findings are secondary to osteomyelitis which is likely chronic. The greater trochanter is comminuted so associated pathologic fracture cannot be excluded. No aggressive enhancing mass is identified.
--- NOTE | 2019-01-08 18:13 | Progress Note ---
Assessment and Plan 1.Sickle cell crisis Blood transfusion, IV fluids, pain meds, hematology consult 2. Chronic osteomyelitis Patient appears to have chronic osteomyelitis. ID has been consulted General surgery also consulted to perform I&D, orthopedic surgery also consulted given concern for osteomyelitis. Prognosis for complete clearance of infection is very poor as she is had this infection for over a year. She may need affected bone excised to achieve clearance of the infection. Wound culture show MRSA, Ortho would go ahead and debride sinus tract and proximal femur, in addition to IV ABX 3.Right thigh abscess I&D done by surgery DVT prophylaxis; chemical Subjective Date of service: 01/08/19 Principal diagnosis: sickle cell anemia Interval history: 28-year-old woman with history of sickle cell disease. Recently moved to the [facility] from [place]. Does not have any doctors here. She is complaining of generalized body aches mostly on the right side of her body her right upper extremity and right lower extremity. She is also complaining of painful swelling in her right thigh. It is on the same location where she has a surgical scar from a surgery she had one year ago . She had multiple surgeries for treatment osteomyelitis on the right thigh, left knee, and right lower medial leg. She also completed a long course of antibiotics after multiple surgeries in [facility] Objective - Constitutional Vitals: Vital Signs - 12hr 01/08/19 12:05 Temperature 98.8 F Pulse Rate 68 Respiratory 19 Rate Blood Pressure 99/56 O2 Sat by Pulse 96 Oximetry General appearance: Present: no acute distress, well-nourished - EENT Eyes: PERRL, EOM intact ENT: hearing intact, clear oral mucosa Ears: bilateral: normal - Neck Neck: supple, normal ROM - Respiratory Respiratory effort: normal Respiratory: bilateral: CTA - Breasts Breasts: normal - Cardiovascular Rhythm: regular Heart Sounds: Present: S1 & S2. Absent: gallop, rub Extremities: pulses intact, No edema, normal color, Full ROM - Gastrointestinal General gastrointestinal: Present: soft, non-tender, non-distended, normal bowel sounds - Genitourinary Female genitourinary: normal - Integumentary Integumentary: clear, warm, dry - Musculoskeletal Musculoskeletal: 1, strength equal bilaterally - Neurologic Neurologic: moves all extremities - Psychiatric Psychiatric: memory intact, appropriate mood/affect, intact judgment & insight - Labs CBC & Chem 7: 01/07/19 05:34 01/04/19 08:36
[2019-01-08] MEDS: SENNOSIDES 8.6 MG TAB PO SCH (22:01)
[2019-01-08] MEDS: ENOXAPARIN 40 MG/0.4 ML INJ SUB-Q SCH (22:01)
[2019-01-08] MEDS: VANCOMYCIN/NS 1 GM/250 ML 1 GM/250 ML BAG IV SCH (22:09)
[2019-01-08] MEDS: D5W/0.45% NACL 1,000 ML IV SCH (22:10)
[2019-01-09] MEDS: VANCOMYCIN/NS 1 GM/250 ML 1 GM/250 ML BAG IV SCH ×3 (06:16→23:39)
[2019-01-09] MEDS: FOLIC ACID 1 MG TAB PO SCH (09:23)
[2019-01-09] MEDS: MULTIVITAMINS ,THERAPEUTIC TAB PO SCH (09:24)
[2019-01-09] MEDS: HYDROXYUREA 500 MG CAP PO SCH (10:00)
[2019-01-09 11:17] LABS: BUN/Creatinine Ratio 27; Blood Urea Nitrogen 8 mg/dL (7-17); Calcium 8.8 mg/dL (8.4-10.2); Hemolysis Index 8
--- NOTE | 2019-01-09 14:21 | Progress Note ---
Assessment and Plan Cultures: 01/05/2019 R thigh wound culture: MRSA A/P: 28/F with sickle cell anemia, recently moved here from [facility] has had several musculoskeletal infections requiring drainage and abx courses. 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 She reports testing negative for TB as a part of her immigration process to the [place]. Xray, CT, MRI findings are concerning for chronic osteomyelitis with mottled appearance of the R femur. Low likelihood of complete cure with just antibiotics alone. Ortho following. Patient is s/p I&D by Dr. Montoya 01/05/2019 and per her note, "copious amounts of purulent drainage" noted. Expect protracted course with likely combined medical and surgical treatment. 2) Sickle cell disease. 3) Anemia. 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 5) H/O Left knee abscess s/p drainage: scar appears well healed Recs: Continue IV Vancomycin, target trough: 15-20 mcg/ml will need 6-8 weeks of IV antibiotic treatment, upon discharge would switch to IV Daptomycin 8 mg/kg given higher Vancomycin BRITTNEY of [address] Landers from ortho, expect protracted course with likely combined medical and surgical treatment. If possible, would benefit from debridement of the bone from R greater trochanter. Sergey Braxton MD, FACP [facility] C: [phone] O: [phone] F: [phone] Subjective Date of service: 01/09/19 Principal diagnosis: sickle cell anemia Interval history: No fever. no new complaints. Pain is well controlled. Right thigh swelling is also less. Objective - Exam Narrative Exam: Physical Exam: Constitutional: Alert, cooperative. No acute distress Head, Ears, Nose: Normocephalic, atraumatic. External ears, nose normal Eyes: Conjunctivae/corneas clear. No icterus. No ptosis. Neck: Supple, no meningeal signs Oral: dentition fair, no thrush Cardiovascular: S1, S2 normal. Respiratory: Good air entry, clear to auscultation bilaterally GI: Soft, non-tender; bowel sounds normal. No peritoneal signs Musculoskeletal: R thigh swelling, dressing + with tenderness. Right tibia wound with dressing. Left knee scar well healed Skin: No rash or abscess Hem/Lymphatic: No palpable cervical or supraclavicular nodes. No lymphangitis Psych: Mood ok. Affect normal Neurological: Awake, alert, oriented. No gross abnormality. - Constitutional Vitals: Vital Signs Temp Pulse Resp BP Pulse Ox 98.1 F 74 18 104/60 96 01/09/19 12:12 01/09/19 12:12 01/09/19 12:12 01/09/19 12:12 01/09/19 12:12 Temperature -Last 24 Hours Temperature 98.1 F Temperature 98.7 F Temperature 98.6 F Temperature 98.4 F - Labs CBC & Chem 7: 01/07/19 05:34 01/09/19 06:38 Labs: Abnormal lab results 01/09/19 Range/Units 06:38 Carbon Dioxide 21 L (22-30) mmol/L Creatinine 0.3 L (0.7-1.2) mg/dL
--- NOTE | 2019-01-09 14:42 | Hem/Onc Progress Note ---
Assessment and Plan 1. Normocytic anemia in a patient with history of sickle cell disease. Transfusion support for now. The patient is on folic acid. We will look into hydroxyurea. 2. Leukocytosis, likely secondary to infection. 3. Thrombocytosis, likely reactive. 4. Abnormal liver function test, likely related to sickle cells. 5. ID team called in for fever and chills. I will follow the patient during inpatient stay. 01/09 s/p ID by sx team s/prbc hydrea at a 500 mg three times a week ct folic acid staph in wound culture d/w dr Huff d/w dr demetrice Spring and daptomycin pt carter wound rt thigh and rt leg ortho planning sx - Patient Problems (1) Anemia Current Visit: Yes Status: Acute Qualifiers: Anemia type: unspecified type Qualified Code(s): D64.9 - Anemia, unspecified Subjective Date of service: 01/09/19 Principal diagnosis: sickle cell anemia Interval history: leg pain Objective - Exam Narrative Exam: Pain - post op General appearance - comfortable Performance status limited self care Eyes - no icterus, ENT - no bleeding LNs cervical not palpable Neck - no LN Respiratory Normal Breath sounds - CTA CVS S1 S2 + Extremities no calf tenderness General GI Soft Rectal deferred female - deferred Skin warm -s/p rt thigh I and D Musculoskeletal moves extremities Neurologically awake - oriented - Constitutional Vitals: Last Vital Signs Temp 98.1 F 01/09/19 12:12 Pulse 74 01/09/19 12:12 Resp 18 01/09/19 12:12 BP 104/60 01/09/19 12:12 Pulse Ox 96 01/09/19 12:12 - Labs Lab Results: Laboratory Results - last 24 hr 01/09/19 06:38 Sodium 138 Potassium 3.9 Chloride 105.3 Carbon Dioxide 21 L Anion Gap 16 BUN 8 Creatinine 0.3 L Estimated GFR > 60 BUN/Creatinine Ratio 27 Glucose 91 Calcium 8.8 Medications & Allergies - Medications Allergies/Adverse Reactions: Allergies No Known Allergies Allergy (Unverified 01/04/19 08:15) Home Medications: Home Medications Medication Instructions Recorded Confirmed Last Taken Type Acfol 25 mg PO DAILY 01/04/19 01/04/19 01/03/19 09:00 History Diclofenac Sodium 50 mg PO DAILY 01/04/19 01/04/19 01/03/19 20:00 History Folic Acid 0.4 mg PO QDAY 01/04/19 01/04/19 Unknown History Active Medications: Generic Name Dose Route Start Last Admin Trade Name Lance PRN Reason Stop Dose Admin Acetaminophen 650 mg 01/04/19 12:48 01/05/19 01:36 Tylenol PO 650 mg Q4H PRN Administration Pain MILD(1-3)/Fever >100.5/CARTER Bisacodyl 10 mg 01/04/19 12:[address] QDAY PRN Constipation unrelieved by MOM Enoxaparin Sodium 40 mg 01/04/19 22:00 01/08/19 22:01 Lovenox SUB-Q 40 mg QDAY@2200 HOSEA Administration Folic Acid 1 mg 01/05/19 10:00 01/09/19 09:23 Folvite PO 1 mg QDAY HOSEA Administration Hydroxyurea 500 mg 01/07/19 10:00 01/09/19 10:00 Hydrea PO 500 mg SuTuFr@1000 HOSEA Administration Dextrose/Sodium Chloride 1,000 mls @ 42 mls/hr 01/04/19 14:00 01/08/19 22:10 D5/0.45ns IV 42 mls/hr DIRECT HOSEA Administration Vancomycin HCl 1 gm in 250 mls @ 167.007 mls/hr 01/08/19 22:00 01/09/19 13:43 Vancomycin/Ns 1 Gm/250 Ml IV 167.007 mls/hr Q8HR HOSEA Administration Magnesium Hydroxide 30 ml 01/04/19 12:48 Milk Of Magnesia PO Q4H PRN Constipation Morphine Sulfate 4 mg 01/04/19 09:37 01/05/19 09:46 Morphine IV 4 mg Q4H PRN Administration Pain Multivitamins 1 each 01/05/19 10:00 01/09/19 09:24 Theragran Tab PO 1 each QDAY HOSEA Administration Ondansetron HCl 4 mg 01/04/19 12:48 Zofran IV Q8H PRN Nausea And Vomiting Senna 17.2 mg 01/04/19 22:00 01/08/19 22:01 Senokot PO 17.2 mg QHS HOSEA Administration Sodium Chloride 10 ml 01/04/19 22:00 01/09/19 09:24 Sodium Chloride Flush Syringe 10 Ml IV 10 ml BID HOSEA Administration Sodium Chloride 10 ml 01/04/19 12:48 Sodium Chloride Flush Syringe 10 Ml IV PRN PRN LINE FLUSH Tramadol HCl 25 mg 01/05/19 12:38 01/07/19 22:59 Ultram PO 25 mg Q4H PRN Administration Pain, Moderate (4-6)
--- NOTE | 2019-01-09 16:32 | Progress Note ---
Assessment and Plan Assessment and plan: 28-year-old woman with history of sickle cell disease. Recently moved to the [facility] from [place]. Does not have any doctors here. She is complaining of generalized body aches mostly on the right side of her body her right upper extremity and right lower extremity. She is also complaining of painful swelling in her right thigh. It is on the same location where she has a surgical scar from a surgery she had one year ago . She had multiple surgeries for treatment osteomyelitis on the right thigh, left knee, and right lower medial leg. She also completed a long course of antibiotics after multiple surgeries in [facility] 1.Sickle cell crisis Blood transfusion, IV fluids, pain meds, hematology consult 2. Chronic osteomyelitis Patient appears to have chronic osteomyelitis. ID has been consulted General surgery also consulted to perform I&D, orthopedic surgery also consulted given concern for osteomyelitis. Prognosis for complete clearance of infection is very poor as she is had this infection for over a year. She may need affected bone excised to achieve clearance of the infection. Wound culture show MRSA, Ortho would go ahead and debride sinus tract and proximal femur, in addition to IV ABX Discussed with Dr Landers and said will do it tomorrow 3.Right thigh abscess I&D done by surgery DVT prophylaxis; chemical History Interval history: Patient was seen and evaluated this morning, patient didn't have new complaints. Hospitalist Physical - Physical exam Narrative exam: Not in cardiopulmonary distress. The patient appeared well nourished and normally developed. Vital signs as documented. Head exam is unremarkable. No scleral icterus . Neck is without jugular venous distension, thyromegaly, or carotid bruits. Lungs are clear to auscultation. Cardiac exam reveals regular rate and Rhythm. First and second heart sounds normal. No murmurs, rubs or gallops. Abdominal exam reveals normal bowel sounds, no masses, no organomegaly and no aortic enlargement. Extremities deformed left knee. DIRECT CARE SUPERVISOR: Alert and oriented 3. No focal weakness. - Constitutional Vitals: Temp Pulse Resp BP Pulse Ox 98.1 F 74 18 104/60 96 01/09/19 12:12 01/09/19 12:12 01/09/19 12:12 01/09/19 12:12 01/09/19 12:12 General appearance: Present: no acute distress, well-nourished Results - Labs CBC & Chem 7: 01/07/19 05:34 01/09/19 06:38 Labs: Laboratory Last Values WBC 14.2 K/mm3 (4.5-11.0) H 01/07/19 05:34 RBC 2.51 M/mm3 (3.65-5.03) L 01/07/19 05:34 Hgb 7.6 gm/dl (10.1-14.3) L 01/07/19 05:34 Hct 21.4 % (30.3-42.9) L 01/07/19 05:34 MCV 85 fl (79-97) 01/07/19 05:34 MCH 30 pg (28-32) 01/07/19 05:34 MCHC 36 % (30-34) H 01/07/19 05:34 RDW 27.5 % (13.2-15.2) H 01/07/19 05:34 Plt Count 517 K/mm3 (140-440) H 01/07/19 05:34 Lymph # Information Technology Security Manager 01/07/19 05:34 Add Manual Diff Complete 01/07/19 05:34 Total Counted 100 01/07/19 05:34 Seg Neuts % (Manual) 49.0 % (40.0-70.0) 01/07/19 05:34 0 % 01/07/19 05:34 37.0 % (13.4-35.0) H 01/07/19 05:34 Reactive Lymphs % (Man) 0 % 01/07/19 05:34 9.0 % (0.0-7.3) H 01/07/19 05:34 5.0 % (0.0-4.3) H 01/07/19 05:34 0 % (0.0-1.8) 01/07/19 05:34 0 % 01/07/19 05:34 0 % 01/07/19 05:34 0 % 01/07/19 05:34 0 % 01/07/19 05:34 Nucleated RBC % Not Reportable 01/07/19 05:34 Seg Neutrophils # Man 7.0 K/mm3 (1.8-7.7) 01/07/19 05:34 Band Neutrophils # 0.0 K/mm3 01/07/19 05:34 5.3 K/mm3 (1.2-5.4) 01/07/19 05:34 Abs React Lymphs (Man) 0.0 K/mm3 01/07/19 05:34 1.3 K/mm3 (0.0-0.8) H 01/07/19 05:34 0.7 K/mm3 (0.0-0.4) H 01/07/19 05:34 0.0 K/mm3 (0.0-0.1) 01/07/19 05:34 0.0 K/mm3 01/07/19 05:34 0.0 K/mm3 01/07/19 05:34 0.0 K/mm3 01/07/19 05:34 Blast Cells # 0.0 K/mm3 01/07/19 05:34 WBC Morphology Not Reportable 01/07/19 05:34 Hypersegmented Neuts Not Reportable 01/07/19 05:34 Hyposegmented Neuts Not Reportable 01/07/19 05:34 Hypogranular Neuts Not Reportable 01/07/19 05:34 Not Reportable 01/07/19 05:34 Not Reportable 01/07/19 05:34 Not Reportable 01/07/19 05:34 Not Reportable 01/07/19 05:34 Not Reportable 01/07/19 05:34 Not Reportable 01/07/19 05:34 Not Reportable 01/07/19 05:34 Not Reportable 01/07/19 05:34 Plt Clumps, EDTA Not Reportable 01/07/19 05:34 Not Reportable 01/07/19 05:34 2+ 01/07/19 05:34 Not Reportable 01/07/19 05:34 Plt Morphology Comment Not Reportable 01/07/19 05:34 RBC Morphology Not Reportable 01/07/19 05:34 Dimorphic RBCs Yes 01/07/19 05:34 Not Reportable 01/07/19 05:34 Not Reportable 01/07/19 05:34 1+ 01/07/19 05:34 3+ 01/07/19 05:34 Not Reportable 01/07/19 05:34 Not Reportable 01/07/19 05:34 Not Reportable 01/07/19 05:34 Not Reportable 01/07/19 05:34 2+ 01/07/19 05:34 Not Reportable 01/07/19 05:34 Not Reportable 01/07/19 05:34 Not Reportable 01/07/19 05:34 Not Reportable 01/07/19 05:34 Not Reportable 01/07/19 05:34 Not Reportable 01/07/19 05:34 Not Reportable 01/07/19 05:34 Not Reportable 01/07/19 05:34 Not Reportable 01/07/19 05:34 Not Reportable 01/07/19 05:34 Acanthocytes (Spur) Not Reportable 01/07/19 05:34 Rouleaux Not Reportable 01/07/19 05:34 Not Reportable 01/07/19 05:34 Not Reportable 01/07/19 05:34 Not Reportable 01/07/19 05:34 Percent Retic 16.60 % (0.78-2.58) H 01/07/19 05:34 Not Reportable 01/07/19 05:34 Hem Pathologist Commnt No 01/07/19 05:34 PT 14.5 Sec. (12.2-14.9) 01/04/19 09:55 INR 1.16 (0.87-1.13) H 01/04/19 09:55 APTT 33.1 Sec. (24.2-36.6) 01/04/19 09:55 Sodium 138 mmol/L (137-145) 01/09/19 06:38 Potassium 3.9 mmol/L (3.6-5.0) 01/09/19 06:38 Chloride 105.3 mmol/L (98-107) 01/09/19 06:38 Carbon Dioxide 21 mmol/L (22-30) L 01/09/19 06:38 16 mmol/L 01/09/19 06:38 BUN 8 mg/dL (7-17) 01/09/19 06:38 0.3 mg/dL (0.7-1.2) L 01/09/19 06:38 Estimated GFR > 60 ml/min 01/09/19 06:38 27 % 01/09/19 06:38 Glucose 91 mg/dL (65-100) 01/09/19 06:38 Calcium 8.8 mg/dL (8.4-10.2) 01/09/19 06:38 Iron 89 ug/dL (37-170) 01/05/19 07:43 TIBC 156 mcg/dL (250-450) L 01/05/19 07:43 1749.0 ng/mL (13.0-400.0) H 01/05/19 07:43 2.60 mg/dL (0.1-1.2) H 01/04/19 08:36 AST 47 units/L (5-40) H 01/04/19 08:36 ALT 25 units/L (7-56) 01/04/19 08:36 172 units/L (35-129) H 01/04/19 08:36 361 units/L (91-180) H 01/07/19 05:34 8.2 g/dL (6.3-8.2) 01/04/19 08:36 4.5 g/dL (3.9-5) 01/04/19 08:36 1.2 % 01/04/19 08:36 Vitamin B12 823.1 pg/mL (211-911) 01/05/19 07:43 > 20 ng/mL (7.3-26.0) 01/05/19 07:43 HCG, Qual Negative (Negative) 01/04/19 08:36 Yellow (Yellow) 01/04/19 Unknown Clear (Clear) 01/04/19 Unknown 5.0 (5.0-7.0) 01/04/19 Unknown Ur Specific [place] 1.010 (1.003-1.030) 01/04/19 Unknown <15 mg/dl mg/dL (Negative) 01/04/19 Unknown Neg mg/dL (Negative) 01/04/19 Unknown Neg mg/dL (Negative) 01/04/19 Unknown Sm (Negative) 01/04/19 Unknown Neg (Negative) 01/04/19 Unknown Neg (Negative) 01/04/19 Unknown < 2.0 mg/dL (<2.0) 01/04/19 Unknown Ur Leukocyte Esterase Neg (Negative) 01/04/19 Unknown 2.0 /HPF (0.0-6.0) 01/04/19 Unknown 1.0 /HPF (0.0-6.0) 01/04/19 Unknown U Epithel Cells (Auto) 1.0 /HPF (0-13.0) 01/04/19 Unknown 1+ /HPF (Negative) 01/04/19 Unknown Few /HPF 01/04/19 Unknown Vancomycin Trough 12.1 ug/mL (5.0-20.0) 01/07/19 13:32 Blood Type O POSITIVE 01/04/19 09:55 Antibody Screen Positive 01/04/19 09:55 Antibody Identification Anti-E 01/04/19 09:55 Antigen Identification Cancelled 01/04/19 09:55 Crossmatch See Detail 01/04/19 09:55 Active Medications - Current Medications Current Medications: Generic Name Dose Route Start Last Admin Trade Name Freq PRN Reason Stop Dose Admin Acetaminophen 650 mg 01/04/19 12:48 01/05/19 01:36 Tylenol PO 650 mg Q4H PRN Administration Pain MILD(1-3)/Fever >100.5/CARTER Bisacodyl 10 mg 01/04/19 12:55 Dulcolax VA QDAY PRN Constipation unrelieved by MOM Enoxaparin Sodium 40 mg 01/04/19 22:00 01/08/19 22:01 Lovenox SUB-Q 40 mg QDAY@2200 HOSEA Administration Folic Acid 1 mg 01/05/19 10:00 01/09/19 09:23 Folvite PO 1 mg QDAY HOESA Administration Hydroxyurea 500 mg 01/07/19 10:00 01/09/19 10:00 Hydrea PO 500 mg SuTuFr@1000 HOSEA Administration Dextrose/Sodium Chloride 1,000 mls @ 42 mls/hr 01/04/19 14:00 01/08/19 22:10 D5/0.45ns IV 42 mls/hr DIRECT HOSEA Administration Vancomycin HCl 1 gm in 250 mls @ 167.007 mls/hr 01/08/19 22:00 01/09/19 13:43 Vancomycin/Ns 1 Gm/250 Ml IV 167.007 mls/hr Q8HR HOSEA Administration Magnesium Hydroxide 30 ml 01/04/19 12:48 Milk Of Magnesia PO Q4H PRN Constipation Morphine Sulfate 4 mg 01/04/19 09:37 01/05/19 09:46 Morphine IV 4 mg Q4H PRN Administration Pain Multivitamins 1 each 01/05/19 10:00 01/09/19 09:24 Theragran Tab PO 1 each QDAY HOSEA Administration Ondansetron HCl 4 mg 01/04/19 12:48 Zofran IV Q8H PRN Nausea And Vomiting Senna 17.2 mg 01/04/19 22:00 01/08/19 22:01 Senokot PO 17.2 mg QHS HOSEA Administration Sodium Chloride 10 ml 01/04/19 22:00 01/09/19 09:24 Sodium Chloride Flush Syringe 10 Ml IV 10 ml BID HOSEA Administration Sodium Chloride 10 ml 01/04/19 12:48 Sodium Chloride Flush Syringe 10 Ml IV PRN PRN LINE FLUSH Tramadol HCl 25 mg 01/05/19 12:38 01/07/19 22:59 Ultram PO 25 mg Q4H PRN Administration Pain, Moderate (4-6)
[2019-01-09] MEDS: MORPHINE 4 MG/1 ML INJ IV PRN (22:23)
[2019-01-09] MEDS: SENNOSIDES 8.6 MG TAB PO SCH (22:24)
[2019-01-09] MEDS: ENOXAPARIN 40 MG/0.4 ML INJ SUB-Q SCH (22:24)
[2019-01-10] MEDS: D5W/0.45% NACL 1,000 ML IV SCH (03:37)
[2019-01-10 05:49] LABS: Hematocrit 20.1 % (30.3-42.9); Hemoglobin 6.8 gm/dl (10.1-14.3)
[2019-01-10] MEDS: VANCOMYCIN/NS 1 GM/250 ML 1 GM/250 ML BAG IV SCH ×4 (06:25→23:22)
--- NOTE | 2019-01-10 07:07 | Hem/Onc Progress Note ---
Assessment and Plan 1. Normocytic anemia in a patient with history of sickle cell disease. Transfusion support for now. The patient is on folic acid. trial of hydroxyurea. 2. Leukocytosis, likely secondary to infection. 3. Thrombocytosis, likely reactive. 4. Abnormal liver function test, likely related to sickle cells. 5. ID team following pt fever and chills. I will follow the patient during inpatient stay. s/p I and drainage by sx team s/prbc hydrea at a 500 mg three times a week ct folic acid staph in wound culture pt carter wound rt thigh and rt leg and left knee is deformed ortho planning sx PRBC for anemia has antibodies in blood - would like to minimize transfusions - Patient Problems (1) Anemia Current Visit: Yes Status: Acute Qualifiers: Anemia type: unspecified type Qualified Code(s): D64.9 - Anemia, unspecified Subjective Date of service: 01/10/19 Principal diagnosis: sickle cell anemia Interval history: due ortho procedure Objective - Exam Narrative Exam: Pain - thigh General appearance - comfortable Performance status limited self care Eyes - no icterus, ENT - no bleeding LNs cervical not palpable Neck - no LN Respiratory Normal Breath sounds - CTA CVS S1 S2 + Extremities no calf tenderness General GI Soft Rectal deferred female - deferred Skin warm -s/p rt thigh I and D Musculoskeletal moves extremities - rt thigh bandage - rt leg bandage - left knee deformed Neurologically awake - oriented - Constitutional Vitals: Last Vital Signs Temp 98.4 F 01/10/19 05:22 Pulse 83 01/10/19 05:22 Resp 16 01/10/19 05:22 BP 105/55 01/10/19 05:22 Pulse Ox 93 01/10/19 05:22 - Labs Lab Results: Laboratory Results - last 24 hr 01/09/19 01/10/19 01/10/19 06:38 05:11 05:11 Hgb 6.8 L Hct 20.1 L Sodium 138 Potassium 3.9 Chloride 105.3 Carbon Dioxide 21 L Anion Gap 16 BUN 8 Creatinine 0.3 L Estimated GFR > 60 BUN/Creatinine Ratio 27 Glucose 91 Calcium 8.8 Vancomycin Trough 19.7 Medications & Allergies - Medications Allergies/Adverse Reactions: Allergies No Known Allergies Allergy (Unverified 01/04/19 08:15) Home Medications: Home Medications Medication Instructions Recorded Confirmed Last Taken Type Acfol 25 mg PO DAILY 01/04/19 01/04/19 01/03/19 09:00 History Diclofenac Sodium 50 mg PO DAILY 01/04/19 01/04/19 01/03/19 20:00 History Folic Acid 0.4 mg PO QDAY 01/04/19 01/04/19 Unknown History Active Medications: Generic Name Dose Route Start Last Admin Trade Name Freq PRN Reason Stop Dose Admin Acetaminophen 650 mg 01/04/19 12:48 01/05/19 01:36 Tylenol PO 650 mg Q4H PRN Administration Pain MILD(1-3)/Fever >100.5/CARTER Bisacodyl 10 mg 01/04/19 12:55 Dulcolax [place] QDAY PRN Constipation unrelieved by MOM Enoxaparin Sodium 40 mg 01/04/19 22:00 01/09/19 22:24 Lovenox SUB-Q 40 mg QDAY@2200 HOSEA Administration Folic Acid 1 mg 01/05/19 10:00 01/09/19 09:23 Folvite PO 1 mg QDAY HOSEA Administration Hydroxyurea 500 mg 01/07/19 10:00 01/09/19 10:00 Hydrea PO 500 mg SuTuFr@1000 HOSEA Administration Dextrose/Sodium Chloride 1,000 mls @ 42 mls/hr 01/04/19 14:00 01/10/19 03:37 D5/0.45ns IV 42 mls/hr DIRECT HOSEA Administration Vancomycin HCl 1 gm in 250 mls @ 167.007 mls/hr 01/08/19 22:00 01/10/19 06:25 Vancomycin/Ns 1 Gm/250 Ml IV 167.007 mls/hr Q8HR HOSEA Administration Magnesium Hydroxide 30 ml 01/04/19 12:48 Milk Of Magnesia PO Q4H PRN Constipation Morphine Sulfate 4 mg 01/04/19 09:37 01/09/19 22:23 Morphine IV 4 mg Q4H PRN Administration Pain Multivitamins 1 each 01/05/19 10:00 01/09/19 09:24 Theragran Tab PO 1 each QDAY HOSEA Administration Ondansetron HCl 4 mg 01/04/19 12:48 Zofran IV Q8H PRN Nausea And Vomiting Senna 17.2 mg 01/04/19 22:00 01/09/19 22:24 Senokot PO 17.2 mg QHS HOSEA Administration Sodium Chloride 10 ml 01/04/19 22:00 01/09/19 22:26 Sodium Chloride Flush Syringe 10 Ml IV 10 ml BID HOSEA Administration Sodium Chloride 10 ml 01/04/19 12:48 Sodium Chloride Flush Syringe 10 Ml IV PRN PRN LINE FLUSH Tramadol HCl 25 mg 01/05/19 12:38 01/07/19 22:59 Ultram PO 25 mg Q4H PRN Administration Pain, Moderate (4-6)
[2019-01-10] MEDS ORDERED: SODIUM CHLORIDE 0.9% 500 ML 500 ML IV NR (07:35)
[2019-01-10] MEDS: FOLIC ACID 1 MG TAB PO SCH (10:16)
--- NOTE | 2019-01-10 11:10 | Progress Note ---
Assessment and Plan Cultures: 01/05/2019 R thigh wound culture: MRSA A/P: 28/F with sickle cell anemia, recently moved here from [facility] has had several musculoskeletal infections requiring drainage and abx courses. Admitted here with: 1) Right femur chronic osteomyelitis with associated abscess secondary to MRSA: This has been chronic and going on for >1 year treated with I&Ds and antibiotic courses in [facility]. She reports testing negative for TB as a part of her immigration process to the [place]. Xray, CT, MRI findings are concerning for chronic osteomyelitis with mottled appearance of the R femur. Low likelihood of complete cure with just antibiotics alone. Ortho following. Patient is s/p I&D by Dr. Montoya 01/05/2019 and per her note, "copious amounts of purulent drainage" noted. Expect protracted course with likely combined medical and surgical treatment. 2) Sickle cell disease. 3) Anemia. 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 5) H/O Left knee abscess s/p drainage: scar appears well healed Recs: Continue IV Vancomycin, target trough: 15-20 mcg/ml while inpatient will need 6-8 weeks of IV antibiotic treatment, upon discharge would switch to IV Daptomycin 8 mg/kg given higher Vancomycin BRITTNEY of 2.0 and need for prolonged abx therapy awaiting OR by ortho Sergey Braxton MD, FACP [facility] C: [phone] O: [phone] F: [phone] Subjective Date of service: 01/10/19 Principal diagnosis: sickle cell anemia Interval history: no fever. pain is well controlled. Had some questions about the PICC line and senior care abx which were answered. Also spoke to her aunt on the phone explained her the plan of care from ID standpoint. Objective - Exam Narrative Exam: Physical Exam: Constitutional: Alert, cooperative. No acute distress Head, Ears, Nose: Normocephalic, atraumatic. External ears, nose normal Eyes: Conjunctivae/corneas clear. No icterus. No ptosis. Neck: Supple, no meningeal signs Oral: dentition fair, no thrush Cardiovascular: S1, S2 normal. Respiratory: Good air entry, clear to auscultation bilaterally GI: Soft, non-tender; bowel sounds normal. No peritoneal signs Musculoskeletal: R thigh swelling, dressing + with tenderness. Right tibia wound with dressing. Left knee scar well healed Skin: No rash or abscess Hem/Lymphatic: No palpable cervical or supraclavicular nodes. No lymphangitis Psych: Mood ok. Affect normal. Neurological: Awake, alert, oriented. No gross abnormality. - Constitutional Vitals: Vital Signs Temp Pulse Resp BP Pulse Ox 98.4 F 83 16 105/55 93 01/10/19 05:22 01/10/19 05:22 01/10/19 05:22 01/10/19 05:22 01/10/19 05:22 Temperature -Last 24 Hours Temperature 98.4 F Temperature 98.4 F Temperature 99.7 F Temperature 98.1 F - Labs CBC & Chem 7: 01/10/19 05:11 01/09/19 06:38 Labs: Abnormal lab results 01/09/19 01/10/19 Range/Units 06:38 05:11 Hgb 6.8 L (10.1-14.3) gm/dl Hct 20.1 L (30.3-42.9) % Carbon Dioxide 21 L (22-30) mmol/L Creatinine 0.3 L (0.7-1.2) mg/dL
[2019-01-10] MEDS ORDERED: SODIUM CHLORIDE 0.9% 500 ML 500 ML IV ONE (14:23)
--- NOTE | 2019-01-10 14:42 | Progress Note ---
Assessment and Plan Assessment and plan: 28-year-old woman with history of sickle cell disease. Recently moved to the [facility] from [place]. Does not have any doctors here. She is complaining of generalized body aches mostly on the right side of her body her right upper extremity and right lower extremity. She is also complaining of painful swelling in her right thigh. It is on the same location where she has a surgical scar from a surgery she had one year ago . She had multiple surgeries for treatment osteomyelitis on the right thigh, left knee, and right lower medial leg. She also completed a long course of antibiotics after multiple surgeries in [facility] 1.Sickle cell crisis Blood transfusion, IV fluids, pain meds, hematology consult HGb was 6.8 this morning and ordered 1 unit of PRBC 2. Chronic osteomyelitis Patient appears to have chronic osteomyelitis. ID has been consulted General surgery also consulted to perform I&D, orthopedic surgery also consulted given concern for osteomyelitis. Prognosis for complete clearance of infection is very poor as she is had this infection for over a year. She may need affected bone excised to achieve clearance of the infection. Wound culture show MRSA, Ortho would go ahead and debride sinus tract and proximal femur, in addition to IV ABX Discussed with Dr Landers and said will do it today 3.Right thigh abscess I&D done by surgery Left knee abscess; ID was done patient need O/P 6-8 weeks of IV antibiotics after surgery DVT prophylaxis; chemical History Interval history: Patient was seen and evaluated this morning, patient didn't have new complaints. Patient's hgb was low. Hospitalist Physical - Physical exam Narrative exam: Not in cardiopulmonary distress. The patient appeared well nourished and normally developed. Vital signs as documented. Head exam is unremarkable. No scleral icterus . Neck is without jugular venous distension, thyromegaly, or carotid bruits. Lungs are clear to auscultation. Cardiac exam reveals regular rate and Rhythm. First and second heart sounds normal. No murmurs, rubs or gallops. Abdominal exam reveals normal bowel sounds, no masses, no organomegaly and no aortic enlargement. Extremities deformed left knee. TIGER MACHINE OPERATOR: Alert and oriented 3. No focal weakness. - Constitutional Vitals: Temp Pulse Resp BP Pulse Ox 98.8 F 69 18 97/55 94 01/10/19 11:46 01/10/19 11:46 01/10/19 11:46 01/10/19 11:46 01/10/19 11:46 General appearance: Present: no acute distress, well-nourished Results - Labs CBC & Chem 7: 01/10/19 05:11 01/09/19 06:38 Labs: Laboratory Last Values WBC 14.2 K/mm3 (4.5-11.0) H 01/07/19 05:34 RBC 2.51 M/mm3 (3.65-5.03) L 01/07/19 05:34 Hgb 6.8 gm/dl (10.1-14.3) L 01/10/19 05:11 Hct 20.1 % (30.3-42.9) L 01/10/19 05:11 MCV 85 fl (79-97) 01/07/19 05:34 MCH 30 pg (28-32) 01/07/19 05:34 MCHC 36 % (30-34) H 01/07/19 05:34 RDW 27.5 % (13.2-15.2) H 01/07/19 05:34 Plt Count 517 K/mm3 (140-440) H 01/07/19 05:34 Lymph # Crushed Stone Grader 01/07/19 05:34 Add Manual Diff Complete 01/07/19 05:34 Total Counted 100 01/07/19 05:34 Seg Neuts % (Manual) 49.0 % (40.0-70.0) 01/07/19 05:34 0 % 01/07/19 05:34 37.0 % (13.4-35.0) H 01/07/19 05:34 Reactive Lymphs % (Man) 0 % 01/07/19 05:34 9.0 % (0.0-7.3) H 01/07/19 05:34 5.0 % (0.0-4.3) H 01/07/19 05:34 0 % (0.0-1.8) 01/07/19 05:34 0 % 01/07/19 05:34 0 % 01/07/19 05:34 0 % 01/07/19 05:34 0 % 01/07/19 05:34 Nucleated RBC % Not Reportable 01/07/19 05:34 Seg Neutrophils # Man 7.0 K/mm3 (1.8-7.7) 01/07/19 05:34 Band Neutrophils # 0.0 K/mm3 01/07/19 05:34 5.3 K/mm3 (1.2-5.4) 01/07/19 05:34 Abs React Lymphs (Man) 0.0 K/mm3 01/07/19 05:34 1.3 K/mm3 (0.0-0.8) H 01/07/19 05:34 0.7 K/mm3 (0.0-0.4) H 01/07/19 05:34 0.0 K/mm3 (0.0-0.1) 01/07/19 05:34 0.0 K/mm3 01/07/19 05:34 0.0 K/mm3 01/07/19 05:34 0.0 K/mm3 01/07/19 05:34 Blast Cells # 0.0 K/mm3 01/07/19 05:34 WBC Morphology Not Reportable 01/07/19 05:34 Hypersegmented Neuts Not Reportable 01/07/19 05:34 Hyposegmented Neuts Not Reportable 01/07/19 05:34 Hypogranular Neuts Not Reportable 01/07/19 05:34 Not Reportable 01/07/19 05:34 Not Reportable 01/07/19 05:34 Not Reportable 01/07/19 05:34 Not Reportable 01/07/19 05:34 Not Reportable 01/07/19 05:34 Not Reportable 01/07/19 05:34 Not Reportable 01/07/19 05:34 Not Reportable 01/07/19 05:34 Plt Clumps, EDTA Not Reportable 01/07/19 05:34 Not Reportable 01/07/19 05:34 2+ 01/07/19 05:34 Not Reportable 01/07/19 05:34 Plt Morphology Comment Not Reportable 01/07/19 05:34 RBC Morphology Not Reportable 01/07/19 05:34 Dimorphic RBCs Yes 01/07/19 05:34 Not Reportable 01/07/19 05:34 Not Reportable 01/07/19 05:34 1+ 01/07/19 05:34 3+ 01/07/19 05:34 Not Reportable 01/07/19 05:34 Not Reportable 01/07/19 05:34 Not Reportable 01/07/19 05:34 Not Reportable 01/07/19 05:34 2+ 01/07/19 05:34 Not Reportable 01/07/19 05:34 Not Reportable 01/07/19 05:34 Not Reportable 01/07/19 05:34 Not Reportable 01/07/19 05:34 Not Reportable 01/07/19 05:34 Not Reportable 01/07/19 05:34 Not Reportable 01/07/19 05:34 Not Reportable 01/07/19 05:34 Not Reportable 01/07/19 05:34 Not Reportable 01/07/19 05:34 Acanthocytes (Spur) Not Reportable 01/07/19 05:34 Rouleaux Not Reportable 01/07/19 05:34 Not Reportable 01/07/19 05:34 Not Reportable 01/07/19 05:34 Not Reportable 01/07/19 05:34 Percent Retic 16.60 % (0.78-2.58) H 01/07/19 05:34 Not Reportable 01/07/19 05:34 Hem Pathologist Commnt No 01/07/19 05:34 PT 14.5 Sec. (12.2-14.9) 01/04/19 09:55 INR 1.16 (0.87-1.13) H 01/04/19 09:55 APTT 33.1 Sec. (24.2-36.6) 01/04/19 09:55 Sodium 138 mmol/L (137-145) 01/09/19 06:38 Potassium 3.9 mmol/L (3.6-5.0) 01/09/19 06:38 Chloride 105.3 mmol/L (98-107) 01/09/19 06:38 Carbon Dioxide 21 mmol/L (22-30) L 01/09/19 06:38 16 mmol/L 01/09/19 06:38 BUN 8 mg/dL (7-17) 01/09/19 06:38 0.3 mg/dL (0.7-1.2) L 01/09/19 06:38 Estimated GFR > 60 ml/min 01/09/19 06:38 27 % 01/09/19 06:38 Glucose 91 mg/dL (65-100) 01/09/19 06:38 Calcium 8.8 mg/dL (8.4-10.2) 01/09/19 06:38 Iron 89 ug/dL (37-170) 01/05/19 07:43 TIBC 156 mcg/dL (250-450) L 01/05/19 07:43 1749.0 ng/mL (13.0-400.0) H 01/05/19 07:43 2.60 mg/dL (0.1-1.2) H 01/04/19 08:36 AST 47 units/L (5-40) H 01/04/19 08:36 ALT 25 units/L (7-56) 01/04/19 08:36 172 units/L (35-129) H 01/04/19 08:36 361 units/L (91-180) H 01/07/19 05:34 8.2 g/dL (6.3-8.2) 01/04/19 08:36 4.5 g/dL (3.9-5) 01/04/19 08:36 1.2 % 01/04/19 08:36 Vitamin B12 823.1 pg/mL (211-911) 01/05/19 07:43 > 20 ng/mL (7.3-26.0) 01/05/19 07:43 HCG, Qual Negative (Negative) 01/04/19 08:36 Yellow (Yellow) 01/04/19 Unknown Clear (Clear) 01/04/19 Unknown 5.0 (5.0-7.0) 01/04/19 Unknown Ur Specific [place] 1.010 (1.003-1.030) 01/04/19 Unknown <15 mg/dl mg/dL (Negative) 01/04/19 Unknown Neg mg/dL (Negative) 01/04/19 Unknown Neg mg/dL (Negative) 01/04/19 Unknown Sm (Negative) 01/04/19 Unknown Neg (Negative) 01/04/19 Unknown Neg (Negative) 01/04/19 Unknown < 2.0 mg/dL (<2.0) 01/04/19 Unknown Ur Leukocyte Esterase Neg (Negative) 01/04/19 Unknown 2.0 /HPF (0.0-6.0) 01/04/19 Unknown 1.0 /HPF (0.0-6.0) 01/04/19 Unknown U Epithel Cells (Auto) 1.0 /HPF (0-13.0) 01/04/19 Unknown 1+ /HPF (Negative) 01/04/19 Unknown Few /HPF 01/04/19 Unknown Vancomycin Trough 19.7 ug/mL (5.0-20.0) 01/10/19 05:11 Blood Type O POSITIVE 01/10/19 07:49 Antibody Screen Positive 01/10/19 07:49 Antibody Identification Anti-E 01/10/19 07:49 Antigen Identification Cancelled 01/04/19 09:55 Crossmatch See Detail 01/10/19 07:49 Active Medications - Current Medications Current Medications: Generic Name Dose Route Start Last Admin Trade Name Freq PRN Reason Stop Dose Admin Acetaminophen 650 mg 01/04/19 12:48 01/05/19 01:36 Tylenol PO 650 mg Q4H PRN Administration Pain MILD(1-3)/Fever >100.5/CARTER Bisacodyl 10 mg 01/04/19 12:55 Dulcolax [place] QDAY PRN Constipation unrelieved by MOM Enoxaparin Sodium 40 mg 01/04/19 22:00 01/09/19 22:24 Lovenox SUB-Q 40 mg QDAY@2200 HOSEA Administration Folic Acid 1 mg 01/05/19 10:00 01/10/19 10:16 Folvite PO Not Given QDAY HOSEA Hydroxyurea 500 mg 01/07/19 10:00 01/09/19 10:00 Hydrea PO 500 mg SuTuFr@1000 HOSEA Administration Dextrose/Sodium Chloride 1,000 mls @ 42 mls/hr 01/04/19 14:00 01/10/19 03:37 D5/0.45ns IV 42 mls/hr DIRECT HOSEA Administration Vancomycin HCl 1 gm in 250 mls @ 167.007 mls/hr 01/08/19 22:00 01/10/19 06:25 Vancomycin/Ns 1 Gm/250 Ml IV 167.007 mls/hr Q8HR HOSEA Administration Sodium Chloride 500 mls @ 0 mls/hr 01/10/19 07:35 Nacl 0.9% 500 Ml IV 01/11/19 07:34 ONCE NR As Directed Magnesium Hydroxide 30 ml 01/04/19 12:48 Milk Of Magnesia PO Q4H PRN Constipation Morphine Sulfate 4 mg 01/04/19 09:37 01/09/19 22:23 Morphine IV 4 mg Q4H PRN Administration Pain Multivitamins 1 each 01/05/19 10:00 01/09/19 09:24 Theragran Tab PO 1 each QDAY HOSEA Administration Ondansetron HCl 4 mg 01/04/19 12:48 Zofran IV Q8H PRN Nausea And Vomiting Senna 17.2 mg 01/04/19 22:00 01/09/19 22:24 Senokot PO 17.2 mg QHS HOSEA Administration Sodium Chloride 10 ml 01/04/19 22:00 01/09/19 22:26 Sodium Chloride Flush Syringe 10 Ml IV 10 ml BID HOSEA Administration Sodium Chloride 10 ml 01/04/19 12:48 Sodium Chloride Flush Syringe 10 Ml IV PRN PRN LINE FLUSH Tramadol HCl 25 mg 01/05/19 12:38 01/07/19 22:59 Ultram PO 25 mg Q4H PRN Administration Pain, Moderate (4-6)
[2019-01-10] MEDS: MULTIVITAMINS ,THERAPEUTIC TAB PO SCH (16:52)
[2019-01-10] MEDS: traMADol 50 MG TAB PO PRN (16:57)
--- NOTE | 2019-01-10 17:49 | Anesthesia Consultation ---
Anesthesia Consult and Med Hx Date of service: 01/10/19 - Airway Anesthetic Teeth Evaluation: Good ROM Head & Neck: Adequate Mental/Hyoid Distance: Adequate Mallampati Class: Class II Intubation Access Assessment: Good - Pulmonary Exam CTA: Yes - Cardiac Exam Cardiac Exam: RRR - Pre-Operative Health Status ASA Pre-Surgery Classification: ASA3 Proposed Anesthetic Plan: General (ASA 3 , sickle cell anemia low Hb being transfused , will have 2 units on hold for OR tomorrow as patient needs specific antibody matching due to hx of multiple transfusions ) - Pulmonary Hx Asthma: No COPD: No Hx Pneumonia: No - Endocrine Hx End Stage Renal Disease: No - Hematic Hx Sickle Cell Disease: Yes
[2019-01-10] MEDS: ENOXAPARIN 40 MG/0.4 ML INJ SUB-Q SCH (23:23)
[2019-01-10] MEDS: SENNOSIDES 8.6 MG TAB PO SCH (23:24)
[2019-01-11] MEDS: MORPHINE 4 MG/1 ML INJ IV PRN ×2 (00:07→22:42)
[2019-01-11] MEDS: VANCOMYCIN/NS 1 GM/250 ML 1 GM/250 ML BAG IV SCH ×4 (06:00→22:39)
[2019-01-11] MEDS: D5W/0.45% NACL 1,000 ML IV SCH (06:46)
--- NOTE | 2019-01-11 07:25 | Hem/Onc Progress Note ---
Assessment and Plan 1. Normocytic anemia in a patient with history of sickle cell disease. Transfusion support for now. The patient is on folic acid. trial of hydroxyurea. 2. Leukocytosis, likely secondary to infection. 3. Thrombocytosis, likely reactive. 4. Abnormal liver function test, likely related to sickle cells. 5. ID team following pt fever and chills. I will follow the patient during inpatient stay. s/p I and drainage by sx team s/prbc hydrea at a 500 mg three times a week ct folic acid staph in wound culture pt had wound rt thigh and rt leg and left knee is deformed ortho planning sx PRBC for anemia has antibodies in blood - would like to minimize transfusions - Patient Problems (1) Anemia Current Visit: Yes Status: Acute Qualifiers: Anemia type: unspecified type Qualified Code(s): D64.9 - Anemia, unspecified Subjective Date of service: 01/11/19 Principal diagnosis: sickle cell anemia Interval history: did not have sx - due to anemia - as per pt Objective - Exam Narrative Exam: Pain - thigh General appearance - comfortable Performance status limited self care Eyes - no icterus, ENT - no bleeding LNs cervical not palpable Neck - no LN Respiratory Normal Breath sounds - CTA CVS S1 S2 + Extremities no calf tenderness General GI Soft Rectal deferred female - deferred Skin warm -s/p rt thigh I and D Musculoskeletal moves extremities - rt thigh bandage - rt leg bandage - left knee deformed Neurologically awake - oriented - Constitutional Vitals: Last Vital Signs Temp 98.6 F 01/11/19 04:32 Pulse 62 01/11/19 04:32 Resp 24 01/11/19 04:32 BP 94/58 01/11/19 04:32 Pulse Ox 95 01/11/19 04:32 - Labs Lab Results: Laboratory Results - last 24 hr 01/10/19 07:49 Blood Type O POSITIVE Antibody Screen Positive Antibody Identification Anti-E Crossmatch See Detail Medications & Allergies - Medications Allergies/Adverse Reactions: Allergies No Known Allergies Allergy (Unverified 01/04/19 08:15) Home Medications: Home Medications Medication Instructions Recorded Confirmed Last Taken Type Acfol 25 mg PO DAILY 01/04/19 01/04/19 01/03/19 09:00 History Diclofenac Sodium 50 mg PO DAILY 01/04/19 01/04/19 01/03/19 20:00 History Folic Acid 0.4 mg PO QDAY 01/04/19 01/04/19 Unknown History Active Medications: Generic Name Dose Route Start Last Admin Trade Name Lance PRN Reason Stop Dose Admin Acetaminophen 650 mg 01/04/19 12:48 01/05/19 01:36 Tylenol PO 650 mg Q4H PRN Administration Pain MILD(1-3)/Fever >100.5/CARTER Bisacodyl 10 mg 01/04/19 12:55 Dulcolax [place] QDAY PRN Constipation unrelieved by MOM Enoxaparin Sodium 40 mg 01/04/19 22:00 01/10/19 23:23 Lovenox SUB-Q 40 mg QDAY@2200 HOSEA Administration Folic Acid 1 mg 01/05/19 10:00 01/10/19 10:16 Folvite PO Not Given QDAY HOSEA Hydroxyurea 500 mg 01/07/19 10:00 01/09/19 10:00 Hydrea PO 500 mg SuTuFr@1000 HOSEA Administration Dextrose/Sodium Chloride 1,000 mls @ 42 mls/hr 01/04/19 14:00 01/11/19 06:46 D5/0.45ns IV 42 mls/hr DIRECT HOSEA Administration Vancomycin HCl 1 gm in 250 mls @ 167.007 mls/hr 01/08/19 22:00 01/11/19 06:45 Vancomycin/Ns 1 Gm/250 Ml IV 167.007 mls/hr Q8HR HOSEA Administration Sodium Chloride 500 mls @ 0 mls/hr 01/10/19 07:35 Nacl 0.9% 500 Ml IV 01/11/19 07:34 ONCE NR As Directed Magnesium Hydroxide 30 ml 01/04/19 12:48 Milk Of Magnesia PO Q4H PRN Constipation Morphine Sulfate 4 mg 01/04/19 09:37 01/11/19 00:07 Morphine IV 4 mg Q4H PRN Administration Pain Multivitamins 1 each 01/05/19 10:00 01/10/19 16:52 Theragran Tab PO Not Given QDAY [facility] Ondansetron HCl 4 mg 01/04/19 12:48 Zofran IV Q8H PRN Nausea And Vomiting Senna 17.2 mg 01/04/19 22:00 01/10/19 23:24 Senokot PO Not Given QHS [facility] Sodium Chloride 10 ml 01/04/19 22:00 01/10/19 23:25 Sodium Chloride Flush Syringe 10 Ml IV 10 ml BID HOSEA Administration Sodium Chloride 10 ml 01/04/19 12:48 Sodium Chloride Flush Syringe 10 Ml IV PRN PRN LINE FLUSH Tramadol HCl 25 mg 01/05/19 12:38 01/10/19 16:57 Ultram PO 25 mg Q4H PRN Administration Pain, Moderate (4-6)
[2019-01-11 08:23] LABS: Hematocrit 25.4 % (30.3-42.9); Hemoglobin 8.7 gm/dl (10.1-14.3); Mean Corpuscular HGB Conc 34 % (30-34); Mean Corpuscular Volume 86 fl (79-97); Platelet Count 539 K/mm3 (140-440); Red Blood Count 2.95 M/mm3 (3.65-5.03)
[2019-01-11 08:25] LABS: Red Cell Distribution Width 24.2 % (13.2-15.2)
[2019-01-11] MEDS: FOLIC ACID 1 MG TAB PO SCH (10:27)
[2019-01-11] MEDS: MULTIVITAMINS ,THERAPEUTIC TAB PO SCH (10:27)
--- NOTE | 2019-01-11 11:54 | Progress Note ---
Assessment and Plan Assessment and plan: 28-year-old woman with history of sickle cell disease. Recently moved to the [facility] from [place]. Does not have any doctors here. She is complaining of generalized body aches mostly on the right side of her body her right upper extremity and right lower extremity. She is also complaining of painful swelling in her right thigh. It is on the same location where she has a surgical scar from a surgery she had one year ago . She had multiple surgeries for treatment osteomyelitis on the right thigh, left knee, and right lower medial leg. She also completed a long course of antibiotics after multiple surgeries in [facility] 1.Sickle cell crisis Blood transfusion, IV fluids, pain meds, hematology consult HGb was 6.8 this morning and ordered 1 unit of PRBC 2. Chronic osteomyelitis Patient appears to have chronic osteomyelitis. ID has been consulted General surgery also consulted to perform I&D, orthopedic surgery also consulted given concern for osteomyelitis. Prognosis for complete clearance of infection is very poor as she is had this infection for over a year. She may need affected bone excised to achieve clearance of the infection. Wound culture show MRSA, Ortho would go ahead and debride sinus tract and proximal femur, in addition to IV ABX Discussed with Dr Landers and said will do it today 3.Right thigh abscess I&D done by surgery Left knee abscess; ID was done patient need O/P 6-8 weeks of IV antibiotics after surgery DVT prophylaxis; chemical History Interval history: Patient was seen and evaluated this morning, patient didn't have new complaints. Patient's hgb was low. Hospitalist Physical - Physical exam Narrative exam: Not in cardiopulmonary distress. The patient appeared well nourished and normally developed. Vital signs as documented. Head exam is unremarkable. No scleral icterus . Neck is without jugular venous distension, thyromegaly, or carotid bruits. Lungs are clear to auscultation. Cardiac exam reveals regular rate and Rhythm. First and second heart sounds normal. No murmurs, rubs or gallops. Abdominal exam reveals normal bowel sounds, no masses, no organomegaly and no aortic enlargement. Extremities deformed left knee, dressing on the right hip and right sheen. INFECTION CONTROL COORDINATOR: Alert and oriented 3. No focal weakness. - Constitutional Vitals: Temp Pulse Resp BP Pulse Ox 98.6 F 62 24 94/58 95 01/11/19 04:32 01/11/19 04:32 01/11/19 04:32 01/11/19 04:32 01/11/19 04:32 General appearance: Present: no acute distress, well-nourished Results - Labs CBC & Chem 7: 01/11/19 06:31 01/09/19 06:38 Labs: Laboratory Last Values WBC 15.3 K/mm3 (4.5-11.0) H 01/11/19 06:31 RBC 2.95 M/mm3 (3.65-5.03) L 01/11/19 06:31 Hgb 8.7 gm/dl (10.1-14.3) L 01/11/19 06:31 Hct 25.4 % (30.3-42.9) L 01/11/19 06:31 MCV 86 fl (79-97) 01/11/19 06:31 MCH 30 pg (28-32) 01/11/19 06:31 MCHC 34 % (30-34) 01/11/19 06:31 RDW 24.2 % (13.2-15.2) H 01/11/19 06:31 Plt Count 539 K/mm3 (140-440) H 01/11/19 06:31 Lymph # Food And Beverage Lead 01/11/19 06:31 Add Manual Diff Complete 01/07/19 05:34 Total Counted 100 01/07/19 05:34 Seg Neuts % (Manual) 49.0 % (40.0-70.0) 01/07/19 05:34 0 % 01/07/19 05:34 37.0 % (13.4-35.0) H 01/07/19 05:34 Reactive Lymphs % (Man) 0 % 01/07/19 05:34 9.0 % (0.0-7.3) H 01/07/19 05:34 5.0 % (0.0-4.3) H 01/07/19 05:34 0 % (0.0-1.8) 01/07/19 05:34 0 % 01/07/19 05:34 0 % 01/07/19 05:34 0 % 01/07/19 05:34 0 % 01/07/19 05:34 Nucleated RBC % Not Reportable 01/07/19 05:34 Seg Neutrophils # Man 7.0 K/mm3 (1.8-7.7) 01/07/19 05:34 Band Neutrophils # 0.0 K/mm3 01/07/19 05:34 5.3 K/mm3 (1.2-5.4) 01/07/19 05:34 Abs React Lymphs (Man) 0.0 K/mm3 01/07/19 05:34 1.3 K/mm3 (0.0-0.8) H 01/07/19 05:34 0.7 K/mm3 (0.0-0.4) H 01/07/19 05:34 0.0 K/mm3 (0.0-0.1) 01/07/19 05:34 0.0 K/mm3 01/07/19 05:34 0.0 K/mm3 01/07/19 05:34 0.0 K/mm3 01/07/19 05:34 Blast Cells # 0.0 K/mm3 01/07/19 05:34 WBC Morphology Not Reportable 01/07/19 05:34 Hypersegmented Neuts Not Reportable 01/07/19 05:34 Hyposegmented Neuts Not Reportable 01/07/19 05:34 Hypogranular Neuts Not Reportable 01/07/19 05:34 Not Reportable 01/07/19 05:34 Not Reportable 01/07/19 05:34 Not Reportable 01/07/19 05:34 Not Reportable 01/07/19 05:34 Not Reportable 01/07/19 05:34 Not Reportable 01/07/19 05:34 Not Reportable 01/07/19 05:34 Not Reportable 01/07/19 05:34 Plt Clumps, EDTA Not Reportable 01/07/19 05:34 Not Reportable 01/07/19 05:34 2+ 01/07/19 05:34 Not Reportable 01/07/19 05:34 Plt Morphology Comment Not Reportable 01/07/19 05:34 RBC Morphology Not Reportable 01/07/19 05:34 Dimorphic RBCs Yes 01/07/19 05:34 Not Reportable 01/07/19 05:34 Not Reportable 01/07/19 05:34 1+ 01/07/19 05:34 3+ 01/07/19 05:34 Not Reportable 01/07/19 05:34 Not Reportable 01/07/19 05:34 Not Reportable 01/07/19 05:34 Not Reportable 01/07/19 05:34 2+ 01/07/19 05:34 Not Reportable 01/07/19 05:34 Not Reportable 01/07/19 05:34 Not Reportable 01/07/19 05:34 Not Reportable 01/07/19 05:34 Not Reportable 01/07/19 05:34 Not Reportable 01/07/19 05:34 Not Reportable 01/07/19 05:34 Not Reportable 01/07/19 05:34 Not Reportable 01/07/19 05:34 Not Reportable 01/07/19 05:34 Acanthocytes (Spur) Not Reportable 01/07/19 05:34 Rouleaux Not Reportable 01/07/19 05:34 Not Reportable 01/07/19 05:34 Not Reportable 01/07/19 05:34 Not Reportable 01/07/19 05:34 Percent Retic 16.60 % (0.78-2.58) H 01/07/19 05:34 Not Reportable 01/07/19 05:34 Hem Pathologist Commnt No 01/07/19 05:34 PT 14.5 Sec. (12.2-14.9) 01/04/19 09:55 INR 1.16 (0.87-1.13) H 01/04/19 09:55 APTT 33.1 Sec. (24.2-36.6) 01/04/19 09:55 Sodium 138 mmol/L (137-145) 01/09/19 06:38 Potassium 3.9 mmol/L (3.6-5.0) 01/09/19 06:38 Chloride 105.3 mmol/L (98-107) 01/09/19 06:38 Carbon Dioxide 21 mmol/L (22-30) L 01/09/19 06:38 16 mmol/L 01/09/19 06:38 BUN 8 mg/dL (7-17) 01/09/19 06:38 0.3 mg/dL (0.7-1.2) L 01/09/19 06:38 Estimated GFR > 60 ml/min 01/09/19 06:38 27 % 01/09/19 06:38 Glucose 91 mg/dL (65-100) 01/09/19 06:38 Calcium 8.8 mg/dL (8.4-10.2) 01/09/19 06:38 Iron 89 ug/dL (37-170) 01/05/19 07:43 TIBC 156 mcg/dL (250-450) L 01/05/19 07:43 1749.0 ng/mL (13.0-400.0) H 01/05/19 07:43 2.60 mg/dL (0.1-1.2) H 01/04/19 08:36 AST 47 units/L (5-40) H 01/04/19 08:36 ALT 25 units/L (7-56) 01/04/19 08:36 172 units/L (35-129) H 01/04/19 08:36 361 units/L (91-180) H 01/07/19 05:34 8.2 g/dL (6.3-8.2) 01/04/19 08:36 4.5 g/dL (3.9-5) 01/04/19 08:36 1.2 % 01/04/19 08:36 Vitamin B12 823.1 pg/mL (211-911) 01/05/19 07:43 > 20 ng/mL (7.3-26.0) 01/05/19 07:43 HCG, Qual Negative (Negative) 01/04/19 08:36 Yellow (Yellow) 01/04/19 Unknown Clear (Clear) 01/04/19 Unknown 5.0 (5.0-7.0) 01/04/19 Unknown Ur Specific [place] 1.010 (1.003-1.030) 01/04/19 Unknown <15 mg/dl mg/dL (Negative) 01/04/19 Unknown Neg mg/dL (Negative) 01/04/19 Unknown Neg mg/dL (Negative) 01/04/19 Unknown Sm (Negative) 01/04/19 Unknown Neg (Negative) 01/04/19 Unknown Neg (Negative) 01/04/19 Unknown < 2.0 mg/dL (<2.0) 01/04/19 Unknown Ur Leukocyte Esterase Neg (Negative) 01/04/19 Unknown 2.0 /HPF (0.0-6.0) 01/04/19 Unknown 1.0 /HPF (0.0-6.0) 01/04/19 Unknown U Epithel Cells (Auto) 1.0 /HPF (0-13.0) 01/04/19 Unknown 1+ /HPF (Negative) 01/04/19 Unknown Few /HPF 01/04/19 Unknown Vancomycin Trough 19.7 ug/mL (5.0-20.0) 01/10/19 05:11 Blood Type O POSITIVE 01/10/19 07:49 Antibody Screen Positive 01/10/19 07:49 Antibody Identification Anti-E 01/10/19 07:49 Antigen Identification Cancelled 01/04/19 09:55 Crossmatch See Detail 01/10/19 07:49 Active Medications - Current Medications Current Medications: Generic Name Dose Route Start Last Admin Trade Name Freq PRN Reason Stop Dose Admin Acetaminophen 650 mg 01/04/19 12:48 01/05/19 01:36 Tylenol PO 650 mg Q4H PRN Administration Pain MILD(1-3)/Fever >100.5/CARTER Bisacodyl 10 mg 01/04/19 12:55 Dulcolax [place] QDAY PRN Constipation unrelieved by MOM Enoxaparin Sodium 40 mg 01/04/19 22:00 01/10/19 23:23 Lovenox SUB-Q 40 mg QDAY@2200 HOSEA Administration Folic Acid 1 mg 01/05/19 10:00 01/11/19 10:27 Folvite PO 1 mg QDAY HOSEA Administration Hydroxyurea 500 mg 01/07/19 10:00 01/09/19 10:00 Hydrea PO 500 mg SuTuFr@1000 HOSEA Administration Dextrose/Sodium Chloride 1,000 mls @ 42 mls/hr 01/04/19 14:00 01/11/19 06:46 D5/0.45ns IV 42 mls/hr DIRECT HOSEA Administration Vancomycin HCl 1 gm in 250 mls @ 167.007 mls/hr 01/08/19 22:00 01/11/19 06:45 Vancomycin/Ns 1 Gm/250 Ml IV 167.007 mls/hr Q8HR [facility] Administration Magnesium Hydroxide 30 ml 01/04/19 12:48 Milk Of Magnesia PO Q4H PRN Constipation Morphine Sulfate 4 mg 01/04/19 09:37 01/11/19 00:07 Morphine IV 4 mg Q4H PRN Administration Pain Multivitamins 1 each 01/05/19 10:00 01/11/19 10:27 Theragran Tab PO 1 each QDAY [facility] Administration Ondansetron HCl 4 mg 01/04/19 12:48 Zofran IV Q8H PRN Nausea And Vomiting Senna 17.2 mg 01/04/19 22:00 01/10/19 23:24 Senokot PO Not Given QHS [facility] Sodium Chloride 10 ml 01/04/19 22:00 01/11/19 10:29 Sodium Chloride Flush Syringe 10 Ml IV 10 ml BID [facility] Administration Sodium Chloride 10 ml 01/04/19 12:48 Sodium Chloride Flush Syringe 10 Ml IV PRN PRN LINE FLUSH Tramadol HCl 25 mg 01/05/19 12:38 01/10/19 16:57 Ultram PO 25 mg Q4H PRN Administration Pain, Moderate (4-6) Nutrition/Malnutrition Assess - Dietary Evaluation Nutrition/Malnutrition Findings: Nutrition Notes Start: 01/11/19 09:27 Freq: Status: Active Protocol: Document 01/11/19 09:27 TEAGAN (Rec: 01/11/19 10:47 OR [id number]) Co-Sign 01/11/19 09:27 LM Nutrition Notes Need for Assessment generated from: LOS Initial or Follow up Brief Note Current Diet Regular Diet Subjective/Other Information Pt reports having good appetite, eating 100% of meals . Nutrition Intervention Revisit per MD consult or patient Sign Off request:
[2019-01-11 12:08] LABS: Basophils % (Manual) 0 % (0.0-1.8); Total Cells Counted 100
[2019-01-11 12:10] LABS: Anisocytosis 2+; Sickle Cells 2+
[2019-01-11 12:14] LABS: Giant Platelets Few; Platelet Estimate Consistent w Auto
[2019-01-11] MEDS ORDERED: SODIUM CHLORIDE 0.9% 500 ML 500 ML IV NR (13:00)
[2019-01-11] MEDS ORDERED: SODIUM CHLORIDE 0.9% 1000 ML 1,000 ML IV SCH (13:30)
--- NOTE | 2019-01-11 14:02 | Anesthesia Day of Surgery ---
Anesthesia Day of Surgery - Day of Surgery Patient Examined: Yes Patient H&P Reviewed: Yes Patient is NPO: Yes
--- NOTE | 2019-01-11 14:22 | Event Note ---
Date: 01/11/19 Patient off the floor for ortho surgery. Continue IV Vancomycin. Will order PICC line for IV abx. Will follow up in AM.
[2019-01-11] MEDS ORDERED: BUPIVACAINE/PF (0.5%) 5 MG/1 ML 30 ML VIAL INFILTRATI ONE ×2 (14:58→15:41)
[2019-01-11] MEDS ORDERED: ONDANSETRON 4 MG/2 ML INJ ONE (15:00)
[2019-01-11] MEDS ORDERED: dexAMETHasone 20 MG/5 ML VIAL ONE (15:00)
[2019-01-11] MEDS ORDERED: PROPOFOL 200 MG/20 ML VIAL IV ONE (15:13)
[2019-01-11] MEDS ORDERED: HYDROmorphone 1 MG/1 ML INJ ONE (15:13)
--- NOTE | 2019-01-11 15:18 | Procedure Note ---
Date of procedure: 01/11/19 Pre-op diagnosis: infected right thigh, history of osteomyelitis Post-op diagnosis: same Procedure: Debridement and irrigation right proximal thigh Procedure The patient was brought to the OR placed on the OR table in supine position following induction and intubation anesthesia she was then placed in the left lateral decubitus position at which point the right hip and thigh were prepped and draped in the usual sterile manner. A timeout procedure was done to identify the patient and the correct operative site. Utilizing the previous scar along with the sinus tract using a #10 blade the skin was incised down through the skin and subcutaneous tissue approximated the 2-3 cm were incised Was then carried down deep using a large Bobbi clamp the pocket was inspected and it did not appear to be any medication down the shaft there will there was some medication approximately with up to the greater trochanteric area using a curet and rongeurs and soft tissue and bone were retrieved for microscopic examination and culture and sensitivity using pulse lavage the wound was copiously irrigated following this the incision was closed primarily by routine postop dressings were applied the patient tolerated procedure there were no complications Anesthesia: DAYANNA Surgeon: EDGAR GARCIA Estimated blood loss: minimal Pathology: list (culture sensitivity sent along with a bone biopsy and soft tissue) Specimen disposition: to lab Condition: stable Disposition: PACU
[2019-01-11] MEDS ORDERED: SODIUM CHLORIDE 0.9% IRR 1,500 ML BOTTLE IR ONE (15:42)
[2019-01-11] MEDS ORDERED: SODIUM CHLORIDE 0.9% IRRIG SOLN 2000 ML IR ONE (15:42)
--- NOTE | 2019-01-11 19:02 | Post Anesthesia Evaluation ---
- Post Anesthesia Evaluation Patient Participated: Yes Airway Patent: Yes Stable Respiratory Function: Yes Nausea/Vomiting: No Temp > 96.8F: Yes Pain Manageable: Yes Adequeate Hydration: Yes Anesthesia Complications: No Block Receding Appropriately: Not Applicable Patient on Ventilator: No
[2019-01-11] MEDS: traMADol 50 MG TAB PO PRN (20:57)
[2019-01-11] MEDS: SENNOSIDES 8.6 MG TAB PO SCH (22:39)
[2019-01-11] MEDS: ENOXAPARIN 40 MG/0.4 ML INJ SUB-Q SCH (22:39)
[2019-01-12] MEDS: VANCOMYCIN/NS 1 GM/250 ML 1 GM/250 ML BAG IV SCH ×3 (05:54→22:14)
[2019-01-12 06:12] LABS: Hematocrit 29.1 % (30.3-42.9); Hemoglobin 9.8 gm/dl (10.1-14.3)
--- NOTE | 2019-01-12 06:27 | Hem/Onc Progress Note ---
Assessment and Plan 1. Normocytic anemia in a patient with history of sickle cell disease. Transfusion support PRN . The patient is on folic acid. trial of hydroxyurea. 2. Leukocytosis, likely secondary to infection. 3. Thrombocytosis, likely reactive. 4. Abnormal liver function test, likely related to sickle cells. 5. ID team following pt fever and chills. I will follow the patient during inpatient stay. Osteomyelitis s/p I and drainage by sx team s/prbc hydrea at a 500 mg three times a week ct folic acid staph in wound culture pt had wound rt thigh and rt leg and left knee is deformed s/p PRBC for anemia has antibodies in blood - would like to minimize transfusions 01/12 will see pt PRN hydrea titration to daily - after a few days - pt appears to be tolerating well MCV rising as anticipated - while on hydrea - Patient Problems (1) Anemia Current Visit: Yes Status: Acute Qualifiers: Anemia type: unspecified type Qualified Code(s): D64.9 - Anemia, unspecified Subjective Date of service: 01/12/19 Principal diagnosis: sickle cell Interval history: s/p ortho sx Objective - Exam Narrative Exam: Pain - thigh General appearance - comfortable Performance status limited self care Eyes - no icterus, ENT - no bleeding LNs cervical not palpable Neck - no LN Respiratory Normal Breath sounds - CTA CVS S1 S2 + Extremities no calf tenderness General GI Soft Rectal deferred female - deferred Skin warm -s/p rt thigh I and D Musculoskeletal moves extremities - rt thigh bandage - rt leg bandage - left knee deformed Neurologically awake - oriented - Constitutional Vitals: Last Vital Signs Temp 97.9 F 01/12/19 05:57 Pulse 71 01/12/19 05:57 Resp 16 01/12/19 05:57 BP 106/76 01/12/19 05:57 Pulse Ox 98 01/12/19 05:57 - Labs Lab Results: Laboratory Results - last 24 hr 01/10/19 01/11/19 01/12/19 07:49 06:31 05:28 WBC 15.3 H RBC 2.95 L Hgb 8.7 L 9.8 L Hct 25.4 L 29.1 L MCV 86 MCH 30 MCHC 34 RDW 24.2 H Plt Count 539 H Lymph # Manager Private Add Manual Diff Complete Total Counted 100 Seg Neuts % (Manual) 36.0 L Band Neutrophils % 0 Lymphocytes % (Manual) 49.0 H Reactive Lymphs % (Man) 0 Monocytes % (Manual) 11.0 H Eosinophils % (Manual) 4.0 Basophils % (Manual) 0 Metamyelocytes % 0 Myelocytes % 0 Promyelocytes % 0 Blast Cells % 0 Nucleated RBC % 3.0 H Seg Neutrophils # Man 5.5 Band Neutrophils # 0.0 Lymphocytes # (Manual) 7.5 H Abs React Lymphs (Man) 0.0 Monocytes # (Manual) 1.7 H Eosinophils # (Manual) 0.6 H Basophils # (Manual) 0.0 Metamyelocytes # 0.0 Myelocytes # 0.0 Promyelocytes # 0.0 Blast Cells # 0.0 WBC Morphology Not Reportable Hypersegmented Neuts Not Reportable Hyposegmented Neuts Not Reportable Hypogranular Neuts Not Reportable Smudge Cells Not Reportable Toxic Granulation Not Reportable Toxic Vacuolation Not Reportable Dohle Bodies Not Reportable Pelger-Huet Anomaly Not Reportable Raymond Rods Not Reportable Platelet Estimate Consistent w auto Clumped Platelets Not Reportable Plt Clumps, EDTA Not Reportable Large Platelets Not Reportable Giant Platelets Few Platelet Satelliting Not Reportable Plt Morphology Comment Not Reportable RBC Morphology Not Reportable Dimorphic RBCs Not Reportable Polychromasia Few Hypochromasia Not Reportable Poikilocytosis Not Reportable Anisocytosis 2+ Microcytosis Not Reportable Macrocytosis Not Reportable Spherocytes Not Reportable Pappenheimer Bodies Not Reportable Sickle Cells 2+ Target Cells Not Reportable Tear Drop Cells Not Reportable Ovalocytes Not Reportable Helmet Cells Not Reportable [place] Bodies Not Reportable [place] Rings Not Reportable [place] Cells Not Reportable Bite Cells Not Reportable Crenated Cell Not Reportable Elliptocytes Not Reportable Acanthocytes (Spur) Not Reportable Rouleaux Not Reportable Hemoglobin C Crystals Not Reportable Schistocytes Not Reportable Malaria parasites Not Reportable Floyd Bodies Not Reportable Hem Pathologist Commnt No Blood Type O POSITIVE Antibody Screen Positive Antibody Identification Anti-E Crossmatch See Detail Medications & Allergies - Medications Allergies/Adverse Reactions: Allergies No Known Allergies Allergy (Unverified 01/04/19 08:15) Home Medications: Home Medications Medication Instructions Recorded Confirmed Last Taken Type Acfol 25 mg PO DAILY 01/04/19 01/04/19 01/03/19 09:00 History Diclofenac Sodium 50 mg PO DAILY 01/04/19 01/04/19 01/03/19 20:00 History Folic Acid 0.4 mg PO QDAY 01/04/19 01/04/19 Unknown History Active Medications: Generic Name Dose Route Start Last Admin Trade Name Freq PRN Reason Stop Dose Admin Acetaminophen 650 mg 01/04/19 12:48 01/05/19 01:36 Tylenol PO 650 mg Q4H PRN Administration Pain MILD(1-3)/Fever >100.5/CARTER Bisacodyl 10 mg 01/04/19 12:55 Dulcolax SD QDAY PRN Constipation unrelieved by MOM Enoxaparin Sodium 40 mg 01/04/19 22:00 01/11/19 22:39 Lovenox SUB-Q 40 mg QDAY@2200 HOSEA Administration Folic Acid 1 mg 01/05/19 10:00 01/11/19 10:27 Folvite PO 1 mg QDAY HOSEA Administration Hydroxyurea 500 mg 01/07/19 10:00 01/09/19 10:00 Hydrea PO 500 mg SuTuFr@1000 HOSEA Administration Dextrose/Sodium Chloride 1,000 mls @ 42 mls/hr 01/04/19 14:00 01/11/19 06:46 D5/0.45ns IV 42 mls/hr DIRECT HOSEA Administration Vancomycin HCl 1 gm in 250 mls @ 167.007 mls/hr 01/08/19 22:00 01/12/19 05:54 Vancomycin/Ns 1 Gm/250 Ml IV 167.007 mls/hr Q8HR HOSEA Administration Sodium Chloride 500 mls @ 0 mls/hr 01/11/19 13:00 01/11/19 12:23 Nacl 0.9% 500 Ml IV 01/12/19 12:59 50 mls/hr ONCE NR Administration As Directed Magnesium Hydroxide 30 ml 01/04/19 12:48 Milk Of Magnesia PO Q4H PRN Constipation Morphine Sulfate 4 mg 01/04/19 09:37 01/11/19 22:42 Morphine IV 4 mg Q4H PRN Administration Pain Multivitamins 1 each 01/05/19 10:00 01/11/19 10:27 Theragran Tab PO 1 each QDAY HOSEA Administration Ondansetron HCl 4 mg 01/04/19 12:48 Zofran IV Q8H PRN Nausea And Vomiting Senna 17.2 mg 01/04/19 22:00 01/11/19 22:39 Senokot PO Not Given QHS HOSEA Sodium Chloride 10 ml 01/04/19 22:00 01/11/19 22:40 Sodium Chloride Flush Syringe 10 Ml IV 10 ml BID HOSEA Administration Sodium Chloride 10 ml 01/04/19 12:48 Sodium Chloride Flush Syringe 10 Ml IV PRN PRN LINE FLUSH Tramadol HCl 25 mg 01/05/19 12:38 01/11/19 20:57 Ultram PO 25 mg Q4H PRN Administration Pain, Moderate (4-6)
[2019-01-12] MEDS: MORPHINE 4 MG/1 ML INJ IV PRN ×2 (07:10→18:25)
[2019-01-12] MEDS: HYDROXYUREA 500 MG CAP PO SCH (10:07)
[2019-01-12] MEDS: MULTIVITAMINS ,THERAPEUTIC TAB PO SCH (10:08)
[2019-01-12] MEDS: FOLIC ACID 1 MG TAB PO SCH (10:08)
--- NOTE | 2019-01-12 13:16 | Progress Note ---
Assessment and Plan Cultures: 01/05/2019 R thigh wound culture: MRSA A/P: 28/F with sickle cell anemia, recently moved here from [facility] has had several musculoskeletal infections requiring drainage and abx courses. 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 She reports testing negative for TB as a part of her immigration process to the [place]. Xray, CT, MRI findings are concerning for chronic osteomyelitis with mottled appearance of the R femur. Low likelihood of complete cure with just antibiotics alone. Ortho following. Patient is s/p I&D by Dr. Montoya 01/05/2019 and per her note, "copious amounts of purulent drainage" noted. Underwent R thigh debridement and irrigation by Ortho Dr. Landers on 01/11/2019. Expect protracted course with combined medical and surgical treatment. 2) Sickle cell disease: hematology following. 3) Anemia. 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 5) H/O Left knee abscess s/p drainage: scar appears well healed Recs: Continue IV Vancomycin, target trough: 15-20 mcg/ml while inpatient will need 8 weeks of IV antibiotic treatment, upon discharge would switch to IV Daptomycin 8 mg/kg (400 mg) given higher Vancomycin BRITTNEY of 2.0 and need for prolonged abx therapy (end date: 03/02/2019) awaiting PICC line Case Management orders placed contact isolation for MRSA Sergey Braxton MD, FACP [facility] ([facility] C: [phone] O: [phone] F: [phone] Subjective Date of service: 01/12/19 Principal diagnosis: sickle cell Interval history: No fever. Had some nausea yesterday, feels well today. Unable to get the PICC line done in her arms, apparently will need tunneled powerline Objective - Exam Narrative Exam: Physical Exam: Constitutional: Alert, cooperative. No acute distress Head, Ears, Nose: Normocephalic, atraumatic. External ears, nose normal Eyes: Conjunctivae/corneas clear. No icterus. No ptosis. Neck: Supple, no meningeal signs Oral: dentition fair, no thrush Cardiovascular: S1, S2 normal. Respiratory: Good air entry, clear to auscultation bilaterally GI: Soft, non-tender; bowel sounds normal. No peritoneal signs Musculoskeletal: R thigh dressing + with mild tenderness. Right tibia wound with dressing. Left knee scar well healed Skin: No rash or abscess Hem/Lymphatic: No palpable cervical or supraclavicular nodes. No lymphangitis Psych: Mood ok. Affect normal. Neurological: Awake, alert, oriented. No gross abnormality. - Constitutional Vitals: Vital Signs Temp Pulse Resp BP Pulse Ox 97.9 F 71 16 106/76 98 01/12/19 05:57 01/12/19 05:57 01/12/19 05:57 01/12/19 05:57 01/12/19 05:57 Temperature -Last 24 Hours Temperature 97.9 F Temperature 98.5 F Temperature 99.0 F Temperature 98.8 F Temperature 98.2 F Temperature 98 F Temperature 98.7 F Temperature 97.8 F - Labs CBC & Chem 7: 01/12/19 05:28 01/09/19 06:38 Labs: Abnormal lab results 01/10/19 01/12/19 Range/Units 07:49 05:28 Hgb 9.8 L (10.1-14.3) gm/dl Hct 29.1 L (30.3-42.9) % Crossmatch See Detail
--- NOTE | 2019-01-12 13:29 | Progress Note ---
Assessment and Plan Assessment and plan: 28-year-old woman with history of sickle cell disease. Recently moved to the [facility] from [place]. Does not have any doctors here. She is complaining of generalized body aches mostly on the right side of her body her right upper extremity and right lower extremity. She is also complaining of painful swelling in her right thigh. It is on the same location where she has a surgical scar from a surgery she had one year ago . She had multiple surgeries for treatment osteomyelitis on the right thigh, left knee, and right lower medial leg. She also completed a long course of antibiotics after multiple surgeries in [facility] 1.Sickle cell crisis Blood transfusion, IV fluids, pain meds, hematology consult HGb was 6.8 this morning and ordered 1 unit of PRBC 2. Chronic osteomyelitis Patient appears to have chronic osteomyelitis. ID has been consulted General surgery also consulted to perform I&D, orthopedic surgery also consulted given concern for osteomyelitis. Prognosis for complete clearance of infection is very poor as she is had this infection for over a year. She may need affected bone excised to achieve clearance of the infection. Wound culture show MRSA, Ortho would go ahead and debride sinus tract and proximal femur, in addition to IV ABX Discussed with Dr Landers and said will do it today 3.Right thigh abscess I&D done by surgery Left knee abscess; ID was done patient need O/P 6-8 weeks of IV antibiotics after surgery DVT prophylaxis; chemical History Interval history: Patient was seen and evaluated this morning, patient didn't have new complaints. Hospitalist Physical - Physical exam Narrative exam: Not in cardiopulmonary distress. The patient appeared well nourished and normally developed. Vital signs as documented. Head exam is unremarkable. No scleral icterus . Neck is without jugular venous distension, thyromegaly, or carotid bruits. Lungs are clear to auscultation. Cardiac exam reveals regular rate and Rhythm. First and second heart sounds normal. No murmurs, rubs or gallops. Abdominal exam reveals normal bowel sounds, no masses, no organomegaly and no aortic enlargement. Extremities deformed left knee, dressing on the right hip and right sheen. OPENER TENDER: Alert and oriented 3. No focal weakness. - Constitutional Vitals: Temp Pulse Resp BP Pulse Ox 97.9 F 71 16 106/76 98 01/12/19 05:57 01/12/19 05:57 01/12/19 05:57 01/12/19 05:57 01/12/19 05:57 General appearance: Present: no acute distress, well-nourished Results - Labs CBC & Chem 7: 01/12/19 05:28 01/09/19 06:38 Labs: Laboratory Last Values WBC 15.3 K/mm3 (4.5-11.0) H 01/11/19 06:31 RBC 2.95 M/mm3 (3.65-5.03) L 01/11/19 06:31 Hgb 9.8 gm/dl (10.1-14.3) L 01/12/19 05:28 Hct 29.1 % (30.3-42.9) L 01/12/19 05:28 MCV 86 fl (79-97) 01/11/19 06:31 MCH 30 pg (28-32) 01/11/19 06:31 MCHC 34 % (30-34) 01/11/19 06:31 RDW 24.2 % (13.2-15.2) H 01/11/19 06:31 Plt Count 539 K/mm3 (140-440) H 01/11/19 06:31 Lymph # Diesel Locomotive Firer/Fireman 01/11/19 06:31 Add Manual Diff Complete 01/11/19 06:31 Total Counted 100 01/11/19 06:31 Seg Neuts % (Manual) 36.0 % (40.0-70.0) L 01/11/19 06:31 0 % 01/11/19 06:31 49.0 % (13.4-35.0) H 01/11/19 06:31 Reactive Lymphs % (Man) 0 % 01/11/19 06:31 11.0 % (0.0-7.3) H 01/11/19 06:31 4.0 % (0.0-4.3) 01/11/19 06:31 0 % (0.0-1.8) 01/11/19 06:31 0 % 01/11/19 06:31 0 % 01/11/19 06:31 0 % 01/11/19 06:31 0 % 01/11/19 06:31 Nucleated RBC % 3.0 % (0.0-0.9) H 01/11/19 06:31 Seg Neutrophils # Man 5.5 K/mm3 (1.8-7.7) 01/11/19 06:31 Band Neutrophils # 0.0 K/mm3 01/11/19 06:31 7.5 K/mm3 (1.2-5.4) H 01/11/19 06:31 Abs React Lymphs (Man) 0.0 K/mm3 01/11/19 06:31 1.7 K/mm3 (0.0-0.8) H 01/11/19 06:31 0.6 K/mm3 (0.0-0.4) H 01/11/19 06:31 0.0 K/mm3 (0.0-0.1) 01/11/19 06:31 0.0 K/mm3 01/11/19 06:31 0.0 K/mm3 01/11/19 06:31 0.0 K/mm3 01/11/19 06:31 Blast Cells # 0.0 K/mm3 01/11/19 06:31 WBC Morphology Not Reportable 01/11/19 06:31 Hypersegmented Neuts Not Reportable 01/11/19 06:31 Hyposegmented Neuts Not Reportable 01/11/19 06:31 Hypogranular Neuts Not Reportable 01/11/19 06:31 Not Reportable 01/11/19 06:31 Not Reportable 01/11/19 06:31 Not Reportable 01/11/19 06:31 Not Reportable 01/11/19 06:31 Not Reportable 01/11/19 06:31 Not Reportable 01/11/19 06:31 Consistent w auto 01/11/19 06:31 Not Reportable 01/11/19 06:31 Plt Clumps, EDTA Not Reportable 01/11/19 06:31 Not Reportable 01/11/19 06:31 Few 01/11/19 06:31 Not Reportable 01/11/19 06:31 Plt Morphology Comment Not Reportable 01/11/19 06:31 RBC Morphology Not Reportable 01/11/19 06:31 Dimorphic RBCs Not Reportable 01/11/19 06:31 Few 01/11/19 06:31 Not Reportable 01/11/19 06:31 Not Reportable 01/11/19 06:31 2+ 01/11/19 06:31 Not Reportable 01/11/19 06:31 Not Reportable 01/11/19 06:31 Not Reportable 01/11/19 06:31 Not Reportable 01/11/19 06:31 2+ 01/11/19 06:31 Not Reportable 01/11/19 06:31 Not Reportable 01/11/19 06:31 Not Reportable 01/11/19 06:31 Not Reportable 01/11/19 06:31 Not Reportable 01/11/19 06:31 Not Reportable 01/11/19 06:31 Not Reportable 01/11/19 06:31 Not Reportable 01/11/19 06:31 Not Reportable 01/11/19 06:31 Not Reportable 01/11/19 06:31 Acanthocytes (Spur) Not Reportable 01/11/19 06:31 Rouleaux Not Reportable 01/11/19 06:31 Not Reportable 01/11/19 06:31 Not Reportable 01/11/19 06:31 Not Reportable 01/11/19 06:31 Percent Retic 16.60 % (0.78-2.58) H 01/07/19 05:34 Not Reportable 01/11/19 06:31 Hem Pathologist Commnt No 01/11/19 06:31 PT 14.5 Sec. (12.2-14.9) 01/04/19 09:55 INR 1.16 (0.87-1.13) H 01/04/19 09:55 APTT 33.1 Sec. (24.2-36.6) 01/04/19 09:55 Sodium 138 mmol/L (137-145) 01/09/19 06:38 Potassium 3.9 mmol/L (3.6-5.0) 01/09/19 06:38 Chloride 105.3 mmol/L (98-107) 01/09/19 06:38 Carbon Dioxide 21 mmol/L (22-30) L 01/09/19 06:38 16 mmol/L 01/09/19 06:38 BUN 8 mg/dL (7-17) 01/09/19 06:38 0.3 mg/dL (0.7-1.2) L 01/09/19 06:38 Estimated GFR > 60 ml/min 01/09/19 06:38 27 % 01/09/19 06:38 Glucose 91 mg/dL (65-100) 01/09/19 06:38 Calcium 8.8 mg/dL (8.4-10.2) 01/09/19 06:38 Iron 89 ug/dL (37-170) 01/05/19 07:43 TIBC 156 mcg/dL (250-450) L 01/05/19 07:43 1749.0 ng/mL (13.0-400.0) H 01/05/19 07:43 2.60 mg/dL (0.1-1.2) H 01/04/19 08:36 AST 47 units/L (5-40) H 01/04/19 08:36 ALT 25 units/L (7-56) 01/04/19 08:36 172 units/L (35-129) H 01/04/19 08:36 361 units/L (91-180) H 01/07/19 05:34 8.2 g/dL (6.3-8.2) 01/04/19 08:36 4.5 g/dL (3.9-5) 01/04/19 08:36 1.2 % 01/04/19 08:36 Vitamin B12 823.1 pg/mL (211-911) 01/05/19 07:43 > 20 ng/mL (7.3-26.0) 01/05/19 07:43 HCG, Qual Negative (Negative) 01/04/19 08:36 Yellow (Yellow) 01/04/19 Unknown Clear (Clear) 01/04/19 Unknown 5.0 (5.0-7.0) 01/04/19 Unknown Ur Specific [place] 1.010 (1.003-1.030) 01/04/19 Unknown <15 mg/dl mg/dL (Negative) 01/04/19 Unknown Neg mg/dL (Negative) 01/04/19 Unknown Neg mg/dL (Negative) 01/04/19 Unknown Sm (Negative) 01/04/19 Unknown Neg (Negative) 01/04/19 Unknown Neg (Negative) 01/04/19 Unknown < 2.0 mg/dL (<2.0) 01/04/19 Unknown Ur Leukocyte Esterase Neg (Negative) 01/04/19 Unknown 2.0 /HPF (0.0-6.0) 01/04/19 Unknown 1.0 /HPF (0.0-6.0) 01/04/19 Unknown U Epithel Cells (Auto) 1.0 /HPF (0-13.0) 01/04/19 Unknown 1+ /HPF (Negative) 01/04/19 Unknown Few /HPF 01/04/19 Unknown Vancomycin Trough 19.7 ug/mL (5.0-20.0) 01/10/19 05:11 Blood Type O POSITIVE 01/10/19 07:49 Antibody Screen Positive 01/10/19 07:49 Antibody Identification Anti-E 01/10/19 07:49 Antigen Identification Cancelled 01/04/19 09:55 Crossmatch See Detail 01/10/19 07:49 Active Medications - Current Medications Current Medications: Generic Name Dose Route Start Last Admin Trade Name Freq PRN Reason Stop Dose Admin Acetaminophen 650 mg 01/04/19 12:48 01/05/19 01:36 Tylenol PO 650 mg Q4H PRN Administration Pain MILD(1-3)/Fever >100.5/CARTER Bisacodyl 10 mg 01/04/19 12:55 Dulcolax DC QDAY PRN Constipation unrelieved by MOM Enoxaparin Sodium 40 mg 01/04/19 22:00 01/11/19 22:39 Lovenox SUB-Q 40 mg QDAY@2200 HOSEA Administration Folic Acid 1 mg 01/05/19 10:00 01/12/19 10:08 Folvite PO 1 mg QDAY HOSEA Administration Hydroxyurea 500 mg 01/07/19 10:00 01/12/19 10:07 Hydrea PO 500 mg SuTuFr@1000 HOSEA Administration Dextrose/Sodium Chloride 1,000 mls @ 42 mls/hr 01/04/19 14:00 01/11/19 06:46 D5/0.45ns IV 42 mls/hr DIRECT HOSEA Administration Vancomycin HCl 1 gm in 250 mls @ 167.007 mls/hr 01/08/19 22:00 01/12/19 05:54 Vancomycin/Ns 1 Gm/250 Ml IV 167.007 mls/hr Q8HR HOSEA Administration Magnesium Hydroxide 30 ml 01/04/19 12:48 Milk Of Magnesia PO Q4H PRN Constipation Morphine Sulfate 4 mg 01/04/19 09:37 01/12/19 07:10 Morphine IV 4 mg Q4H PRN Administration Pain Multivitamins 1 each 01/05/19 10:00 01/12/19 10:08 Theragran Tab PO 1 each QDAY HOSEA Administration Ondansetron HCl 4 mg 01/04/19 12:48 Zofran IV Q8H PRN Nausea And Vomiting Senna 17.2 mg 01/04/19 22:00 01/11/19 22:39 Senokot PO Not Given QHS HOSEA Sodium Chloride 10 ml 01/04/19 22:00 01/12/19 10:08 Sodium Chloride Flush Syringe 10 Ml IV 10 ml BID HOSEA Administration Sodium Chloride 10 ml 01/04/19 12:48 Sodium Chloride Flush Syringe 10 Ml IV PRN PRN LINE FLUSH Tramadol HCl 25 mg 01/05/19 12:38 01/11/19 20:57 Ultram PO 25 mg Q4H PRN Administration Pain, Moderate (4-6) Nutrition/Malnutrition Assess - Dietary Evaluation Nutrition/Malnutrition Findings: Nutrition Notes Start: 01/11/19 09:27 Freq: Status: Active Protocol: Document 01/11/19 09:27 TEAGAN (Rec: 01/11/19 10:47 KS [id number]) Co-Sign 01/11/19 09:27 LM Nutrition Notes Need for Assessment generated from: LOS Initial or Follow up Brief Note Current Diet Regular Diet Subjective/Other Information Pt reports having good appetite, eating 100% of meals . Nutrition Intervention Revisit per MD consult or patient Sign Off request:
[2019-01-12] MEDS: D5W/0.45% NACL 1,000 ML IV SCH (16:44)
[2019-01-12] MEDS: SENNOSIDES 8.6 MG TAB PO SCH (21:28)
[2019-01-12] MEDS: ENOXAPARIN 40 MG/0.4 ML INJ SUB-Q SCH (21:28)
[2019-01-13] MEDS: VANCOMYCIN/NS 1 GM/250 ML 1 GM/250 ML BAG IV SCH ×3 (05:46→22:35)
[2019-01-13 07:26] LABS: BUN/Creatinine Ratio 30; Blood Urea Nitrogen 9 mg/dL (7-17); Calcium 8.9 mg/dL (8.4-10.2); Hemolysis Index 21
[2019-01-13] MEDS: MULTIVITAMINS ,THERAPEUTIC TAB PO SCH (10:04)
[2019-01-13] MEDS: FOLIC ACID 1 MG TAB PO SCH (10:04)
--- NOTE | 2019-01-13 13:30 | Progress Note ---
Assessment and Plan Assessment and plan: 28-year-old woman with history of sickle cell disease. Recently moved to the [facility] from [place]. Does not have any doctors here. She is complaining of generalized body aches mostly on the right side of her body her right upper extremity and right lower extremity. She is also complaining of painful swelling in her right thigh. It is on the same location where she has a surgical scar from a surgery she had one year ago . She had multiple surgeries for treatment osteomyelitis on the right thigh, left knee, and right lower medial leg. She also completed a long course of antibiotics after multiple surgeries in [facility] 1.Sickle cell crisis Blood transfusion, IV fluids, pain meds, hematology consult HGb was 6.8 this morning and ordered 1 unit of PRBC 2. Chronic osteomyelitis Patient appears to have chronic osteomyelitis. ID has been consulted General surgery also consulted to perform I&D, orthopedic surgery also consulted given concern for osteomyelitis. Prognosis for complete clearance of infection is very poor as she is had this infection for over a year. She may need affected bone excised to achieve clearance of the infection. Wound culture show MRSA, Ortho would go ahead and debride sinus tract and proximal femur, in addition to IV ABX Discussed with Dr Landers and said will do it today 3.Right thigh abscess I&D done by surgery Left knee abscess; ID was done patient need O/P 6-8 weeks of IV antibiotics after surgery DVT prophylaxis; chemical History Interval history: Patient was seen and evaluated this morning, patient didn't have new complaints. Hospitalist Physical - Physical exam Narrative exam: Not in cardiopulmonary distress. The patient appeared well nourished and normally developed. Vital signs as documented. Head exam is unremarkable. No scleral icterus . Neck is without jugular venous distension, thyromegaly, or carotid bruits. Lungs are clear to auscultation. Cardiac exam reveals regular rate and Rhythm. First and second heart sounds normal. No murmurs, rubs or gallops. Abdominal exam reveals normal bowel sounds, no masses, no organomegaly and no aortic enlargement. Extremities deformed left knee, dressing on the right hip and right sheen. RADIOLOGICAL TECHNICIAN: Alert and oriented 3. No focal weakness. - Constitutional Vitals: Temp Pulse Resp BP Pulse Ox 98.8 F 71 18 97/57 98 01/13/19 12:12 01/13/19 12:12 01/13/19 12:12 01/13/19 12:12 01/13/19 12:12 General appearance: Present: no acute distress, well-nourished Results - Labs CBC & Chem 7: 01/12/19 05:28 01/13/19 06:46 Labs: Laboratory Last Values WBC 15.3 K/mm3 (4.5-11.0) H 01/11/19 06:31 RBC 2.95 M/mm3 (3.65-5.03) L 01/11/19 06:31 Hgb 9.8 gm/dl (10.1-14.3) L 01/12/19 05:28 Hct 29.1 % (30.3-42.9) L 01/12/19 05:28 MCV 86 fl (79-97) 01/11/19 06:31 MCH 30 pg (28-32) 01/11/19 06:31 MCHC 34 % (30-34) 01/11/19 06:31 RDW 24.2 % (13.2-15.2) H 01/11/19 06:31 Plt Count 539 K/mm3 (140-440) H 01/11/19 06:31 Lymph # Retail Stock Clerk 01/11/19 06:31 Add Manual Diff Complete 01/11/19 06:31 Total Counted 100 01/11/19 06:31 Seg Neuts % (Manual) 36.0 % (40.0-70.0) L 01/11/19 06:31 0 % 01/11/19 06:31 49.0 % (13.4-35.0) H 01/11/19 06:31 Reactive Lymphs % (Man) 0 % 01/11/19 06:31 11.0 % (0.0-7.3) H 01/11/19 06:31 4.0 % (0.0-4.3) 01/11/19 06:31 0 % (0.0-1.8) 01/11/19 06:31 0 % 01/11/19 06:31 0 % 01/11/19 06:31 0 % 01/11/19 06:31 0 % 01/11/19 06:31 Nucleated RBC % 3.0 % (0.0-0.9) H 01/11/19 06:31 Seg Neutrophils # Man 5.5 K/mm3 (1.8-7.7) 01/11/19 06:31 Band Neutrophils # 0.0 K/mm3 01/11/19 06:31 7.5 K/mm3 (1.2-5.4) H 01/11/19 06:31 Abs React Lymphs (Man) 0.0 K/mm3 01/11/19 06:31 1.7 K/mm3 (0.0-0.8) H 01/11/19 06:31 0.6 K/mm3 (0.0-0.4) H 01/11/19 06:31 0.0 K/mm3 (0.0-0.1) 01/11/19 06:31 0.0 K/mm3 01/11/19 06:31 0.0 K/mm3 01/11/19 06:31 0.0 K/mm3 01/11/19 06:31 Blast Cells # 0.0 K/mm3 01/11/19 06:31 WBC Morphology Not Reportable 01/11/19 06:31 Hypersegmented Neuts Not Reportable 01/11/19 06:31 Hyposegmented Neuts Not Reportable 01/11/19 06:31 Hypogranular Neuts Not Reportable 01/11/19 06:31 Not Reportable 01/11/19 06:31 Not Reportable 01/11/19 06:31 Not Reportable 01/11/19 06:31 Not Reportable 01/11/19 06:31 Not Reportable 01/11/19 06:31 Not Reportable 01/11/19 06:31 Consistent w auto 01/11/19 06:31 Not Reportable 01/11/19 06:31 Plt Clumps, EDTA Not Reportable 01/11/19 06:31 Not Reportable 01/11/19 06:31 Few 01/11/19 06:31 Not Reportable 01/11/19 06:31 Plt Morphology Comment Not Reportable 01/11/19 06:31 RBC Morphology Not Reportable 01/11/19 06:31 Dimorphic RBCs Not Reportable 01/11/19 06:31 Few 01/11/19 06:31 Not Reportable 01/11/19 06:31 Not Reportable 01/11/19 06:31 2+ 01/11/19 06:31 Not Reportable 01/11/19 06:31 Not Reportable 01/11/19 06:31 Not Reportable 01/11/19 06:31 Not Reportable 01/11/19 06:31 2+ 01/11/19 06:31 Not Reportable 01/11/19 06:31 Not Reportable 01/11/19 06:31 Not Reportable 01/11/19 06:31 Not Reportable 01/11/19 06:31 Not Reportable 01/11/19 06:31 Not Reportable 01/11/19 06:31 Not Reportable 01/11/19 06:31 Not Reportable 01/11/19 06:31 Not Reportable 01/11/19 06:31 Not Reportable 01/11/19 06:31 Acanthocytes (Spur) Not Reportable 01/11/19 06:31 Rouleaux Not Reportable 01/11/19 06:31 Not Reportable 01/11/19 06:31 Not Reportable 01/11/19 06:31 Not Reportable 01/11/19 06:31 Percent Retic 16.60 % (0.78-2.58) H 01/07/19 05:34 Not Reportable 01/11/19 06:31 Hem Pathologist Commnt No 01/11/19 06:31 PT 14.5 Sec. (12.2-14.9) 01/04/19 09:55 INR 1.16 (0.87-1.13) H 01/04/19 09:55 APTT 33.1 Sec. (24.2-36.6) 01/04/19 09:55 Sodium 141 mmol/L (137-145) 01/13/19 06:46 Potassium 4.4 mmol/L (3.6-5.0) 01/13/19 06:46 Chloride 105.6 mmol/L (98-107) 01/13/19 06:46 Carbon Dioxide 23 mmol/L (22-30) 01/13/19 06:46 17 mmol/L 01/13/19 06:46 BUN 9 mg/dL (7-17) 01/13/19 06:46 0.3 mg/dL (0.7-1.2) L 01/13/19 06:46 Estimated GFR > 60 ml/min 01/13/19 06:46 30 % 01/13/19 06:46 Glucose 105 mg/dL (65-100) H 01/13/19 06:46 Calcium 8.9 mg/dL (8.4-10.2) 01/13/19 06:46 Iron 89 ug/dL (37-170) 01/05/19 07:43 TIBC 156 mcg/dL (250-450) L 01/05/19 07:43 1749.0 ng/mL (13.0-400.0) H 01/05/19 07:43 2.60 mg/dL (0.1-1.2) H 01/04/19 08:36 AST 47 units/L (5-40) H 01/04/19 08:36 ALT 25 units/L (7-56) 01/04/19 08:36 172 units/L (35-129) H 01/04/19 08:36 361 units/L (91-180) H 01/07/19 05:34 8.2 g/dL (6.3-8.2) 01/04/19 08:36 4.5 g/dL (3.9-5) 01/04/19 08:36 1.2 % 01/04/19 08:36 Vitamin B12 823.1 pg/mL (211-911) 01/05/19 07:43 > 20 ng/mL (7.3-26.0) 01/05/19 07:43 HCG, Qual Negative (Negative) 01/04/19 08:36 Yellow (Yellow) 01/04/19 Unknown Clear (Clear) 01/04/19 Unknown 5.0 (5.0-7.0) 01/04/19 Unknown Ur Specific [place] 1.010 (1.003-1.030) 01/04/19 Unknown <15 mg/dl mg/dL (Negative) 01/04/19 Unknown Neg mg/dL (Negative) 01/04/19 Unknown Neg mg/dL (Negative) 01/04/19 Unknown Sm (Negative) 01/04/19 Unknown Neg (Negative) 01/04/19 Unknown Neg (Negative) 01/04/19 Unknown < 2.0 mg/dL (<2.0) 01/04/19 Unknown Ur Leukocyte Esterase Neg (Negative) 01/04/19 Unknown 2.0 /HPF (0.0-6.0) 01/04/19 Unknown 1.0 /HPF (0.0-6.0) 01/04/19 Unknown U Epithel Cells (Auto) 1.0 /HPF (0-13.0) 01/04/19 Unknown 1+ /HPF (Negative) 01/04/19 Unknown Few /HPF 01/04/19 Unknown Vancomycin Trough 19.7 ug/mL (5.0-20.0) 01/10/19 05:11 Blood Type O POSITIVE 01/10/19 07:49 Antibody Screen Positive 01/10/19 07:49 Antibody Identification Anti-E 01/10/19 07:49 Antigen Identification Cancelled 01/04/19 09:55 Crossmatch See Detail 01/10/19 07:49 Active Medications - Current Medications Current Medications: Generic Name Dose Route Start Last Admin Trade Name Freq PRN Reason Stop Dose Admin Acetaminophen 650 mg 01/04/19 12:48 01/05/19 01:36 Tylenol PO 650 mg Q4H PRN Administration Pain MILD(1-3)/Fever >100.5/CARTER Bisacodyl 10 mg 01/04/19 12:55 Dulcolax IN QDAY PRN Constipation unrelieved by MOM Enoxaparin Sodium 40 mg 01/04/19 22:00 01/12/19 21:28 Lovenox SUB-Q 40 mg QDAY@2200 HOSEA Administration Folic Acid 1 mg 01/05/19 10:00 01/13/19 10:04 Folvite PO 1 mg QDAY HOSEA Administration Hydroxyurea 500 mg 01/07/19 10:00 01/12/19 10:07 Hydrea PO 500 mg SuTuFr@1000 HOSEA Administration Dextrose/Sodium Chloride 1,000 mls @ 42 mls/hr 01/04/19 14:00 01/12/19 16:44 D5/0.45ns IV 42 mls/hr DIRECT HOSEA Administration Vancomycin HCl 1 gm in 250 mls @ 167.007 mls/hr 01/08/19 22:00 01/13/19 05:46 Vancomycin/Ns 1 Gm/250 Ml IV 167.007 mls/hr Q8HR HOSEA Administration Magnesium Hydroxide 30 ml 01/04/19 12:48 Milk Of Magnesia PO Q4H PRN Constipation Morphine Sulfate 4 mg 01/04/19 09:37 01/12/19 18:25 Morphine IV 4 mg Q4H PRN Administration Pain Multivitamins 1 each 01/05/19 10:00 01/13/19 10:04 Theragran Tab PO 1 each QDAY HOSEA Administration Ondansetron HCl 4 mg 01/04/19 12:48 Zofran IV Q8H PRN Nausea And Vomiting Senna 17.2 mg 01/04/19 22:00 01/12/19 21:28 Senokot PO 17.2 mg QHS HOSEA Administration Sodium Chloride 10 ml 01/04/19 22:00 01/13/19 10:04 Sodium Chloride Flush Syringe 10 Ml IV 10 ml BID HOSEA Administration Sodium Chloride 10 ml 01/04/19 12:48 Sodium Chloride Flush Syringe 10 Ml IV PRN PRN LINE FLUSH Tramadol HCl 25 mg 01/05/19 12:38 01/11/19 20:57 Ultram PO 25 mg Q4H PRN Administration Pain, Moderate (4-6) Nutrition/Malnutrition Assess - Dietary Evaluation Nutrition/Malnutrition Findings: Nutrition Notes Start: 01/11/19 09:27 Freq: Status: Active Protocol: Document 01/11/19 09:27 TEAGAN (Rec: 01/11/19 10:47 ME [id number]) Co-Sign 01/11/19 09:27 LM Nutrition Notes Need for Assessment generated from: LOS Initial or Follow up Brief Note Current Diet Regular Diet Subjective/Other Information Pt reports having good appetite, eating 100% of meals . Nutrition Intervention Revisit per MD consult or patient Sign Off request:
[2019-01-13] MEDS: D5W/0.45% NACL 1,000 ML IV SCH (14:32)
[2019-01-13] MEDS: ENOXAPARIN 40 MG/0.4 ML INJ SUB-Q SCH (22:35)
[2019-01-13] MEDS: SENNOSIDES 8.6 MG TAB PO SCH (22:35)
[2019-01-13] MEDS: traMADol 50 MG TAB PO PRN (23:16)
[2019-01-14] MEDS: VANCOMYCIN/NS 1 GM/250 ML 1 GM/250 ML BAG IV SCH ×3 (05:37→22:18)
[2019-01-14] MEDS: MULTIVITAMINS ,THERAPEUTIC TAB PO SCH (10:14)
[2019-01-14] MEDS: HYDROXYUREA 500 MG CAP PO SCH (10:15)
[2019-01-14] MEDS: FOLIC ACID 1 MG TAB PO SCH (10:15)
--- NOTE | 2019-01-14 10:45 | Progress Note ---
Assessment and Plan Assessment and plan: 28-year-old woman with history of sickle cell disease. Recently moved to the [facility] from [place]. Does not have any doctors here. She is complaining of generalized body aches mostly on the right side of her body her right upper extremity and right lower extremity. She is also complaining of painful swelling in her right thigh. It is on the same location where she has a surgical scar from a surgery she had one year ago . She had multiple surgeries for treatment osteomyelitis on the right thigh, left knee, and right lower medial leg. She also completed a long course of antibiotics after multiple surgeries in [facility] 1.Sickle cell crisis Blood transfusion, IV fluids, pain meds, hematology consult was transfused with PRBCs PRN currently stable Hematology recommend not transfuse unless hgb is below 6.5 because patient develop antibody 2. Chronic osteomyelitis Patient appears to have chronic osteomyelitis. ID has been consulted General surgery also consulted to perform I&D, orthopedic surgery also consulted given concern for osteomyelitis. Prognosis for complete clearance of infection is very poor as she is had this infection for over a year. Ortho did washout and irrigation of the right femur Wound culture show MRSA ID is on board, on vanc and plan to dc with daptomycin 3.Right thigh abscess I&D done by surgery Left knee abscess; ID was done patient need O/P 6-8 weeks of IV antibiotics after surgery DVT prophylaxis; on Lovenox Disposition: need o/p IV antibiotics arrangement. CM aware. History Interval history: Patient was seen and evaluated this morning, patient didn't have new complaints. Hospitalist Physical - Physical exam Narrative exam: Not in cardiopulmonary distress. The patient appeared well nourished and normally developed. Vital signs as documented. Head exam is unremarkable. No scleral icterus . Neck is without jugular venous distension, thyromegaly, or carotid bruits. Lungs are clear to auscultation. Cardiac exam reveals regular rate and Rhythm. First and second heart sounds normal. No murmurs, rubs or gallops. Abdominal exam reveals normal bowel sounds, no masses, no organomegaly and no aortic enlargement. Extremities deformed left knee, dressing on the right hip and right sheen. MORTGAGE LOAN FUNDER: Alert and oriented 3. No focal weakness. - Constitutional Vitals: Temp Pulse Resp BP Pulse Ox 98.5 F 66 18 98/60 98 01/14/19 04:48 01/14/19 04:48 01/14/19 04:48 01/14/19 04:48 01/14/19 04:48 General appearance: Present: no acute distress, well-nourished Results - Labs CBC & Chem 7: 01/12/19 05:28 01/13/19 06:46 Labs: Laboratory Last Values WBC 15.3 K/mm3 (4.5-11.0) H 01/11/19 06:31 RBC 2.95 M/mm3 (3.65-5.03) L 01/11/19 06:31 Hgb 9.8 gm/dl (10.1-14.3) L 01/12/19 05:28 Hct 29.1 % (30.3-42.9) L 01/12/19 05:28 MCV 86 fl (79-97) 01/11/19 06:31 MCH 30 pg (28-32) 01/11/19 06:31 MCHC 34 % (30-34) 01/11/19 06:31 RDW 24.2 % (13.2-15.2) H 01/11/19 06:31 Plt Count 539 K/mm3 (140-440) H 01/11/19 06:31 Lymph # Dredge Pump Operator 01/11/19 06:31 Add Manual Diff Complete 01/11/19 06:31 Total Counted 100 01/11/19 06:31 Seg Neuts % (Manual) 36.0 % (40.0-70.0) L 01/11/19 06:31 0 % 01/11/19 06:31 49.0 % (13.4-35.0) H 01/11/19 06:31 Reactive Lymphs % (Man) 0 % 01/11/19 06:31 11.0 % (0.0-7.3) H 01/11/19 06:31 4.0 % (0.0-4.3) 01/11/19 06:31 0 % (0.0-1.8) 01/11/19 06:31 0 % 01/11/19 06:31 0 % 01/11/19 06:31 0 % 01/11/19 06:31 0 % 01/11/19 06:31 Nucleated RBC % 3.0 % (0.0-0.9) H 01/11/19 06:31 Seg Neutrophils # Man 5.5 K/mm3 (1.8-7.7) 01/11/19 06:31 Band Neutrophils # 0.0 K/mm3 01/11/19 06:31 7.5 K/mm3 (1.2-5.4) H 01/11/19 06:31 Abs React Lymphs (Man) 0.0 K/mm3 01/11/19 06:31 1.7 K/mm3 (0.0-0.8) H 01/11/19 06:31 0.6 K/mm3 (0.0-0.4) H 01/11/19 06:31 0.0 K/mm3 (0.0-0.1) 01/11/19 06:31 0.0 K/mm3 01/11/19 06:31 0.0 K/mm3 01/11/19 06:31 0.0 K/mm3 01/11/19 06:31 Blast Cells # 0.0 K/mm3 01/11/19 06:31 WBC Morphology Not Reportable 01/11/19 06:31 Hypersegmented Neuts Not Reportable 01/11/19 06:31 Hyposegmented Neuts Not Reportable 01/11/19 06:31 Hypogranular Neuts Not Reportable 01/11/19 06:31 Not Reportable 01/11/19 06:31 Not Reportable 01/11/19 06:31 Not Reportable 01/11/19 06:31 Not Reportable 01/11/19 06:31 Not Reportable 01/11/19 06:31 Not Reportable 01/11/19 06:31 Consistent w auto 01/11/19 06:31 Not Reportable 01/11/19 06:31 Plt Clumps, EDTA Not Reportable 01/11/19 06:31 Not Reportable 01/11/19 06:31 Few 01/11/19 06:31 Not Reportable 01/11/19 06:31 Plt Morphology Comment Not Reportable 01/11/19 06:31 RBC Morphology Not Reportable 01/11/19 06:31 Dimorphic RBCs Not Reportable 01/11/19 06:31 Few 01/11/19 06:31 Not Reportable 01/11/19 06:31 Not Reportable 01/11/19 06:31 2+ 01/11/19 06:31 Not Reportable 01/11/19 06:31 Not Reportable 01/11/19 06:31 Not Reportable 01/11/19 06:31 Not Reportable 01/11/19 06:31 2+ 01/11/19 06:31 Not Reportable 01/11/19 06:31 Not Reportable 01/11/19 06:31 Not Reportable 01/11/19 06:31 Not Reportable 01/11/19 06:31 Not Reportable 01/11/19 06:31 Not Reportable 01/11/19 06:31 Not Reportable 01/11/19 06:31 Not Reportable 01/11/19 06:31 Not Reportable 01/11/19 06:31 Not Reportable 01/11/19 06:31 Acanthocytes (Spur) Not Reportable 01/11/19 06:31 Rouleaux Not Reportable 01/11/19 06:31 Not Reportable 01/11/19 06:31 Not Reportable 01/11/19 06:31 Not Reportable 01/11/19 06:31 Percent Retic 16.60 % (0.78-2.58) H 01/07/19 05:34 Not Reportable 01/11/19 06:31 Hem Pathologist Commnt No 01/11/19 06:31 PT 14.5 Sec. (12.2-14.9) 01/04/19 09:55 INR 1.16 (0.87-1.13) H 01/04/19 09:55 APTT 33.1 Sec. (24.2-36.6) 01/04/19 09:55 Sodium 141 mmol/L (137-145) 01/13/19 06:46 Potassium 4.4 mmol/L (3.6-5.0) 01/13/19 06:46 Chloride 105.6 mmol/L (98-107) 01/13/19 06:46 Carbon Dioxide 23 mmol/L (22-30) 01/13/19 06:46 17 mmol/L 01/13/19 06:46 BUN 9 mg/dL (7-17) 01/13/19 06:46 0.3 mg/dL (0.7-1.2) L 01/13/19 06:46 Estimated GFR > 60 ml/min 01/13/19 06:46 30 % 01/13/19 06:46 Glucose 105 mg/dL (65-100) H 01/13/19 06:46 Calcium 8.9 mg/dL (8.4-10.2) 01/13/19 06:46 Iron 89 ug/dL (37-170) 01/05/19 07:43 TIBC 156 mcg/dL (250-450) L 01/05/19 07:43 1749.0 ng/mL (13.0-400.0) H 01/05/19 07:43 2.60 mg/dL (0.1-1.2) H 01/04/19 08:36 AST 47 units/L (5-40) H 01/04/19 08:36 ALT 25 units/L (7-56) 01/04/19 08:36 172 units/L (35-129) H 01/04/19 08:36 361 units/L (91-180) H 01/07/19 05:34 8.2 g/dL (6.3-8.2) 01/04/19 08:36 4.5 g/dL (3.9-5) 01/04/19 08:36 1.2 % 01/04/19 08:36 Vitamin B12 823.1 pg/mL (211-911) 01/05/19 07:43 > 20 ng/mL (7.3-26.0) 01/05/19 07:43 HCG, Qual Negative (Negative) 01/04/19 08:36 Yellow (Yellow) 01/04/19 Unknown Clear (Clear) 01/04/19 Unknown 5.0 (5.0-7.0) 01/04/19 Unknown Ur Specific [place] 1.010 (1.003-1.030) 01/04/19 Unknown <15 mg/dl mg/dL (Negative) 01/04/19 Unknown Neg mg/dL (Negative) 01/04/19 Unknown Neg mg/dL (Negative) 01/04/19 Unknown Sm (Negative) 01/04/19 Unknown Neg (Negative) 01/04/19 Unknown Neg (Negative) 01/04/19 Unknown < 2.0 mg/dL (<2.0) 01/04/19 Unknown Ur Leukocyte Esterase Neg (Negative) 01/04/19 Unknown 2.0 /HPF (0.0-6.0) 01/04/19 Unknown 1.0 /HPF (0.0-6.0) 01/04/19 Unknown U Epithel Cells (Auto) 1.0 /HPF (0-13.0) 01/04/19 Unknown 1+ /HPF (Negative) 01/04/19 Unknown Few /HPF 01/04/19 Unknown Vancomycin Trough 19.7 ug/mL (5.0-20.0) 01/10/19 05:11 Blood Type O POSITIVE 01/10/19 07:49 Antibody Screen Positive 01/10/19 07:49 Antibody Identification Anti-E 01/10/19 07:49 Antigen Identification Cancelled 01/04/19 09:55 Crossmatch See Detail 01/10/19 07:49 Active Medications - Current Medications Current Medications: Generic Name Dose Route Start Last Admin Trade Name Freq PRN Reason Stop Dose Admin Acetaminophen 650 mg 01/04/19 12:48 01/05/19 01:36 Tylenol PO 650 mg Q4H PRN Administration Pain MILD(1-3)/Fever >100.5/CARTER Bisacodyl 10 mg 01/04/19 12:55 Dulcolax IN QDAY PRN Constipation unrelieved by MOM Enoxaparin Sodium 40 mg 01/04/19 22:00 01/13/19 22:35 Lovenox SUB-Q 40 mg QDAY@2200 HOSEA Administration Folic Acid 1 mg 01/05/19 10:00 01/14/19 10:15 Folvite PO 1 mg QDAY HOSEA Administration Hydroxyurea 500 mg 01/07/19 10:00 01/14/19 10:15 Hydrea PO 500 mg SuTuFr@1000 HOSEA Administration Dextrose/Sodium Chloride 1,000 mls @ 42 mls/hr 01/04/19 14:00 01/13/19 14:32 D5/0.45ns IV 42 mls/hr DIRECT HOSEA Administration Vancomycin HCl 1 gm in 250 mls @ 167.007 mls/hr 01/08/19 22:00 01/14/19 05:37 Vancomycin/Ns 1 Gm/250 Ml IV 167.007 mls/hr Q8HR HOSEA Administration Magnesium Hydroxide 30 ml 01/04/19 12:48 Milk Of Magnesia PO Q4H PRN Constipation Morphine Sulfate 4 mg 01/04/19 09:37 01/12/19 18:25 Morphine IV 4 mg Q4H PRN Administration Pain Multivitamins 1 each 01/05/19 10:00 01/14/19 10:14 Theragran Tab PO 1 each QDAY HOSEA Administration Ondansetron HCl 4 mg 01/04/19 12:48 Zofran IV Q8H PRN Nausea And Vomiting Senna 17.2 mg 01/04/19 22:00 01/13/19 22:35 Senokot PO 17.2 mg QHS HOSEA Administration Sodium Chloride 10 ml 01/04/19 22:00 01/14/19 10:16 Sodium Chloride Flush Syringe 10 Ml IV 10 ml BID HOSEA Administration Sodium Chloride 10 ml 01/04/19 12:48 Sodium Chloride Flush Syringe 10 Ml IV PRN PRN LINE FLUSH Tramadol HCl 25 mg 01/05/19 12:38 01/13/19 23:16 Ultram PO 25 mg Q4H PRN Administration Pain, Moderate (4-6) Nutrition/Malnutrition Assess - Dietary Evaluation Nutrition/Malnutrition Findings: Nutrition Notes Start: 01/11/19 09:27 Freq: Status: Active Protocol: Document 01/11/19 09:27 KS (Rec: 01/11/19 10:47 KS [id number]) Co-Sign 01/11/19 09:27 LM Nutrition Notes Need for Assessment generated from: LOS Initial or Follow up Brief Note Current Diet Regular Diet Subjective/Other Information Pt reports having good appetite, eating 100% of meals . Nutrition Intervention Revisit per MD consult or patient Sign Off request:
[2019-01-14] MEDS: D5W/0.45% NACL 1,000 ML IV SCH (12:24)
[2019-01-14] MEDS: ENOXAPARIN 40 MG/0.4 ML INJ SUB-Q SCH (22:18)
[2019-01-14] MEDS: SENNOSIDES 8.6 MG TAB PO SCH (22:18)
[2019-01-15] MEDS: VANCOMYCIN/NS 1 GM/250 ML 1 GM/250 ML BAG IV SCH ×3 (07:41→21:57)
--- NOTE | 2019-01-15 09:28 | Progress Note ---
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 No culture data available from the past. CXR no cavities. She reports testing negative for TB as a part of her immigration process to the [place]. Xray and CT findings are concerning for chronic osteomyelitis with mottled appearance of the R femur. MRI shows destructive change in the greater trochanter with contrast enhancement consistent with osteomyelitis with a fistulous tract from the skin extending to the greater trochanter where there is an abscess present. A superficial abscess is also seen just under the skin wound. Patient is now s/p I&D by Dr. Montoya 01/05/2019 and per her note, "copious amounts of purulent drainage" noted. Wound Culture grew MRSA. Ortho following. Patient is s/p I&D by Dr. Montoya 01/05/2019 and per her note, "copious amounts of purulent drainage" noted. Underwent R thigh debridement and irrigation by Ortho Dr. Landers on 01/11/2019. 01/11/2019 OR culture negative. Expect protracted course with combined medical and surgical treatment. Continue vancomycin. Continue vancomycin. 2) Sickle cell disease. 3) Anemia. Recs: Continue IV Vancomycin, target trough: 15-20 mcg/ml while inpatient will need 8 weeks of IV antibiotic treatment, upon discharge would switch to IV Daptomycin 8 mg/kg (400 mg) given higher Vancomycin BRITTNEY of 2.0 and need for prolonged abx therapy (end date: 03/02/2019) or considering oritavancin 1200 mg IV x 1 then 800mg IV weekly x 6 doses (total 7 doses=7 weeks plus initial week on inpatient vancomycin to achieve 8 weeks). Indigent oritavancin quote requested. request PICC line by IR as she has poor vein she would need an access Discussed with Case Management and pharmacy Discussed with Dr Guzman who kindly will reach out to vascular for PICC placement contact isolation for MRSA Will follow Medina Freeman MD Infectious Diseases Primer Supervisor [facility], [place] M [phone] O [phone] Subjective Date of service: 01/15/19 Principal diagnosis: sickle cell Interval history: Patient is feeling ok, right femoral pain better. no fever. Objective - Exam Narrative Exam: General appearance: Alert in NAD Eyes: anicteric sclerae, moist conjunctivae; no lid-lag; PERRLA HENT: Atraumatic; oropharynx clear Lungs: CTA CV: RRR Abdomen: Soft, non-tender Extremities: +right thigh with dressings Skin: no rash Psych: no agitated Neuro: alert moving all ext - Constitutional Vitals: Vital Signs Temp Pulse Resp BP Pulse Ox 98.3 F 63 18 107/60 99 01/15/19 04:30 01/15/19 04:30 01/15/19 04:30 01/15/19 04:30 01/15/19 04:30 Temperature -Last 24 Hours Temperature 98.3 F Temperature 98.7 F Temperature 98.5 F Temperature 98.5 F - Labs CBC & Chem 7: 01/12/19 05:28 01/13/19 06:46 Labs: Abnormal lab results 01/10/19 Range/Units 07:49 Crossmatch See Detail
[2019-01-15] MEDS: MULTIVITAMINS ,THERAPEUTIC TAB PO SCH (09:32)
[2019-01-15] MEDS: FOLIC ACID 1 MG TAB PO SCH (09:32)
--- NOTE | 2019-01-15 11:14 | Progress Note ---
Assessment and Plan Assessment and plan: 28-year-old woman with history of sickle cell disease. Recently moved to the [facility] from [place]. Does not have any doctors here. She is complaining of generalized body aches mostly on the right side of her body her right upper extremity and right lower extremity. She is also complaining of painful swelling in her right thigh. It is on the same location where she has a surgical scar from a surgery she had one year ago . She had multiple surgeries for treatment osteomyelitis on the right thigh, left knee, and right lower medial leg. She also completed a long course of antibiotics after multiple surgeries in [facility] 1.Sickle cell crisis, resolved sp Blood transfusion, IV fluids, pain meds, hematology consult was transfused with PRBCs PRN currently stable Hematology recommend not transfuse unless hgb is below 6.5 because patient develop antibody 2. Chronic osteomyelitis and abscess of RLE due to MRSA, sepsis Patient appears to have chronic osteomyelitis. ID has been consulted sp I&D by GS, sp Debridement and irrigation right proximal thigh by ortho Prognosis for complete clearance of infection is guarded as she is had this infection for over a year. ID is on board, on vanc and plan to dc with daptomycin, awaiting CM to organize home abx/ID clinic collaboration DVT prophylaxis; on Lovenox Disposition: need o/p IV antibiotics arrangement. CM aware. S: Patient was seen and evaluated this morning, patient didn't have new complaints. no fever, no cp, R thigh pain is improved, no vomiting, no dysuria Hospitalist Physical - Physical exam Narrative exam: Not in cardiopulmonary distress. The patient appeared well nourished and normally developed. Vital signs as documented. Head exam is unremarkable. No scleral icterus . Neck is without jugular venous distension, thyromegaly, or carotid bruits. Lungs are clear to auscultation. Cardiac exam reveals regular rate and Rhythm. First and second heart sounds normal. No murmurs, rubs or gallops. Abdominal exam reveals normal bowel sounds, no masses, no organomegaly and no aortic enlargement. Extremities deformed left knee, dressing on the right hip and right sheen. HOME AGENT: Alert and oriented 3. No focal weakness. Hospitalist Physical - Constitutional Vitals: Temp Pulse Resp BP Pulse Ox 98.3 F 63 18 107/60 99 01/15/19 04:30 01/15/19 04:30 01/15/19 04:30 01/15/19 04:30 01/15/19 04:30 General appearance: Present: no acute distress, well-nourished Results - Labs CBC & Chem 7: 01/12/19 05:28 01/15/19 15:16 Labs: Laboratory Last Values WBC 15.3 K/mm3 (4.5-11.0) H 01/11/19 06:31 RBC 2.95 M/mm3 (3.65-5.03) L 01/11/19 06:31 Hgb 9.8 gm/dl (10.1-14.3) L 01/12/19 05:28 Hct 29.1 % (30.3-42.9) L 01/12/19 05:28 MCV 86 fl (79-97) 01/11/19 06:31 MCH 30 pg (28-32) 01/11/19 06:31 MCHC 34 % (30-34) 01/11/19 06:31 RDW 24.2 % (13.2-15.2) H 01/11/19 06:31 Plt Count 539 K/mm3 (140-440) H 01/11/19 06:31 Lymph # Fiberglass Model Maker 01/11/19 06:31 Add Manual Diff Complete 01/11/19 06:31 Total Counted 100 01/11/19 06:31 Seg Neuts % (Manual) 36.0 % (40.0-70.0) L 01/11/19 06:31 Band Neutrophils % 0 % 01/11/19 06:31 Lymphocytes % (Manual) 49.0 % (13.4-35.0) H 01/11/19 06:31 Reactive Lymphs % (Man) 0 % 01/11/19 06:31 Monocytes % (Manual) 11.0 % (0.0-7.3) H 01/11/19 06:31 Eosinophils % (Manual) 4.0 % (0.0-4.3) 01/11/19 06:31 Basophils % (Manual) 0 % (0.0-1.8) 01/11/19 06:31 Metamyelocytes % 0 % 01/11/19 06:31 Myelocytes % 0 % 01/11/19 06:31 Promyelocytes % 0 % 01/11/19 06:31 Blast Cells % 0 % 01/11/19 06:31 Nucleated RBC % 3.0 % (0.0-0.9) H 01/11/19 06:31 Seg Neutrophils # Man 5.5 K/mm3 (1.8-7.7) 01/11/19 06:31 Band Neutrophils # 0.0 K/mm3 01/11/19 06:31 Lymphocytes # (Manual) 7.5 K/mm3 (1.2-5.4) H 01/11/19 06:31 Abs React Lymphs (Man) 0.0 K/mm3 01/11/19 06:31 Monocytes # (Manual) 1.7 K/mm3 (0.0-0.8) H 01/11/19 06:31 Eosinophils # (Manual) 0.6 K/mm3 (0.0-0.4) H 01/11/19 06:31 Basophils # (Manual) 0.0 K/mm3 (0.0-0.1) 01/11/19 06:31 Metamyelocytes # 0.0 K/mm3 01/11/19 06:31 Myelocytes # 0.0 K/mm3 01/11/19 06:31 Promyelocytes # 0.0 K/mm3 01/11/19 06:31 Blast Cells # 0.0 K/mm3 01/11/19 06:31 WBC Morphology Not Reportable 01/11/19 06:31 Hypersegmented Neuts Not Reportable 01/11/19 06:31 Hyposegmented Neuts Not Reportable 01/11/19 06:31 Hypogranular Neuts Not Reportable 01/11/19 06:31 Smudge Cells Not Reportable 01/11/19 06:31 Toxic Granulation Not Reportable 01/11/19 06:31 Toxic Vacuolation Not Reportable 01/11/19 06:31 Dohle Bodies Not Reportable 01/11/19 06:31 Pelger-Huet Anomaly Not Reportable 01/11/19 06:31 Raymond Rods Not Reportable 01/11/19 06:31 Platelet Estimate Consistent w auto 01/11/19 06:31 Clumped Platelets Not Reportable 01/11/19 06:31 Plt Clumps, EDTA Not Reportable 01/11/19 06:31 Large Platelets Not Reportable 01/11/19 06:31 Giant Platelets Few 01/11/19 06:31 Platelet Satelliting Not Reportable 01/11/19 06:31 Plt Morphology Comment Not Reportable 01/11/19 06:31 RBC Morphology Not Reportable 01/11/19 06:31 Dimorphic RBCs Not Reportable 01/11/19 06:31 Polychromasia Few 01/11/19 06:31 Hypochromasia Not Reportable 01/11/19 06:31 Poikilocytosis Not Reportable 01/11/19 06:31 Anisocytosis 2+ 01/11/19 06:31 Microcytosis Not Reportable 01/11/19 06:31 Macrocytosis Not Reportable 01/11/19 06:31 Spherocytes Not Reportable 01/11/19 06:31 Pappenheimer Bodies Not Reportable 01/11/19 06:31 Sickle Cells 2+ 01/11/19 06:31 Target Cells Not Reportable 01/11/19 06:31 Tear Drop Cells Not Reportable 01/11/19 06:31 Ovalocytes Not Reportable 01/11/19 06:31 Helmet Cells Not Reportable 01/11/19 06:31 [place] Bodies Not Reportable 01/11/19 06:31 [place] Rings Not Reportable 01/11/19 06:31 [place] Cells Not Reportable 01/11/19 06:31 Bite Cells Not Reportable 01/11/19 06:31 Crenated Cell Not Reportable 01/11/19 06:31 Elliptocytes Not Reportable 01/11/19 06:31 Acanthocytes (Spur) Not Reportable 01/11/19 06:31 Rouleaux Not Reportable 01/11/19 06:31 Hemoglobin C Crystals Not Reportable 01/11/19 06:31 Schistocytes Not Reportable 01/11/19 06:31 Malaria parasites Not Reportable 01/11/19 06:31 Percent Retic 16.60 % (0.78-2.58) H 01/07/19 05:34 Floyd Bodies Not Reportable 01/11/19 06:31 Hem Pathologist Commnt No 01/11/19 06:31 PT 14.5 Sec. (12.2-14.9) 01/04/19 09:55 INR 1.16 (0.87-1.13) H 01/04/19 09:55 APTT 33.1 Sec. (24.2-36.6) 01/04/19 09:55 Sodium 141 mmol/L (137-145) 01/13/19 06:46 Potassium 4.4 mmol/L (3.6-5.0) 01/13/19 06:46 Chloride 105.6 mmol/L (98-107) 01/13/19 06:46 Carbon Dioxide 23 mmol/L (22-30) 01/13/19 06:46 Anion Gap 17 mmol/L 01/13/19 06:46 BUN 9 mg/dL (7-17) 01/13/19 06:46 Creatinine 0.3 mg/dL (0.7-1.2) L 01/13/19 06:46 Estimated GFR > 60 ml/min 01/13/19 06:46 BUN/Creatinine Ratio 30 % 01/13/19 06:46 Glucose 105 mg/dL (65-100) H 01/13/19 06:46 Calcium 8.9 mg/dL (8.4-10.2) 01/13/19 06:46 Iron 89 ug/dL (37-170) 01/05/19 07:43 TIBC 156 mcg/dL (250-450) L 01/05/19 07:43 Ferritin 1749.0 ng/mL (13.0-400.0) H 01/05/19 07:43 Total Bilirubin 2.60 mg/dL (0.1-1.2) H 01/04/19 08:36 AST 47 units/L (5-40) H 01/04/19 08:36 ALT 25 units/L (7-56) 01/04/19 08:36 Alkaline Phosphatase 172 units/L (35-129) H 01/04/19 08:36 Lactate Dehydrogenase 361 units/L (91-180) H 01/07/19 05:34 Total Protein 8.2 g/dL (6.3-8.2) 01/04/19 08:36 Albumin 4.5 g/dL (3.9-5) 01/04/19 08:36 Albumin/Globulin Ratio 1.2 % 01/04/19 08:36 Vitamin B12 823.1 pg/mL (211-911) 01/05/19 07:43 Folate > 20 ng/mL (7.3-26.0) 01/05/19 07:43 HCG, Qual Negative (Negative) 01/04/19 08:36 Urine Color Yellow (Yellow) 01/04/19 Unknown Urine Turbidity Clear (Clear) 01/04/19 Unknown Urine pH 5.0 (5.0-7.0) 01/04/19 Unknown Ur Specific [place] 1.010 (1.003-1.030) 01/04/19 Unknown Urine Protein <15 mg/dl mg/dL (Negative) 01/04/19 Unknown Urine Glucose (UA) Neg mg/dL (Negative) 01/04/19 Unknown Urine Ketones Neg mg/dL (Negative) 01/04/19 Unknown Urine Blood Sm (Negative) 01/04/19 Unknown Urine Nitrite Neg (Negative) 01/04/19 Unknown Urine Bilirubin Neg (Negative) 01/04/19 Unknown Urine Urobilinogen < 2.0 mg/dL (<2.0) 01/04/19 Unknown Ur Leukocyte Esterase Neg (Negative) 01/04/19 Unknown Urine WBC (Auto) 2.0 /HPF (0.0-6.0) 01/04/19 Unknown Urine RBC (Auto) 1.0 /HPF (0.0-6.0) 01/04/19 Unknown U Epithel Cells (Auto) 1.0 /HPF (0-13.0) 01/04/19 Unknown Urine Bacteria (Auto) 1+ /HPF (Negative) 01/04/19 Unknown Urine Mucus Few /HPF 01/04/19 Unknown Vancomycin Trough 10.0 ug/mL (5.0-20.0) 01/14/19 14:31 Blood Type O POSITIVE 01/10/19 07:49 Antibody Screen Positive 01/10/19 07:49 Antibody Identification Anti-E 01/10/19 07:49 Antigen Identification Cancelled 01/04/19 09:55 Crossmatch See Detail 01/10/19 07:49 Active Medications - Current Medications Current Medications: Generic Name Dose Route Start Last Admin Trade Name Freq PRN Reason Stop Dose Admin Acetaminophen 650 mg 01/04/19 12:48 01/05/19 01:36 Tylenol PO 650 mg Q4H PRN Administration Pain MILD(1-3)/Fever >100.5/CARTER Bisacodyl 10 mg 01/04/19 12:55 Dulcolax IN QDAY PRN Constipation unrelieved by MOM Enoxaparin Sodium 40 mg 01/04/19 22:00 01/14/19 22:18 Lovenox SUB-Q 40 mg QDAY@2200 HOSEA Administration Folic Acid 1 mg 01/05/19 10:00 01/15/19 09:32 Folvite PO 1 mg QDAY HOSEA Administration Hydroxyurea 500 mg 01/07/19 10:00 01/14/19 10:15 Hydrea PO 500 mg SuTuFr@1000 HOSEA Administration Dextrose/Sodium Chloride 1,000 mls @ 42 mls/hr 01/04/19 14:00 01/14/19 12:24 D5/0.45ns IV 42 mls/hr DIRECT HOSEA Administration Vancomycin HCl 1 gm in 250 mls @ 167.007 mls/hr 01/08/19 22:00 01/15/19 07:41 Vancomycin/Ns 1 Gm/250 Ml IV Not Given Q8HR HOSEA Magnesium Hydroxide 30 ml 01/04/19 12:48 Milk Of Magnesia PO Q4H PRN Constipation Morphine Sulfate 4 mg 01/04/19 09:37 01/12/19 18:25 Morphine IV 4 mg Q4H PRN Administration Pain Multivitamins 1 each 01/05/19 10:00 01/15/19 09:32 Theragran Tab PO 1 each QDAY HOSEA Administration Ondansetron HCl 4 mg 01/04/19 12:48 Zofran IV Q8H PRN Nausea And Vomiting Senna 17.2 mg 01/04/19 22:00 01/14/19 22:18 Senokot PO 17.2 mg QHS HOSEA Administration Sodium Chloride 10 ml 01/04/19 22:00 01/15/19 09:33 Sodium Chloride Flush Syringe 10 Ml IV Not Given BID HOSEA Sodium Chloride 10 ml 01/04/19 12:48 Sodium Chloride Flush Syringe 10 Ml IV PRN PRN LINE FLUSH Tramadol HCl 25 mg 01/05/19 12:38 01/13/19 23:16 Ultram PO 25 mg Q4H PRN Administration Pain, Moderate (4-6) Nutrition/Malnutrition Assess - Dietary Evaluation Nutrition/Malnutrition Findings: Nutrition Notes Start: 01/11/19 09:27 Freq: Status: Active Protocol: Document 01/11/19 09:27 TEAGAN (Rec: 01/11/19 10:47 KS [id number]) Co-Sign 01/11/19 09:27 LM Nutrition Notes Need for Assessment generated from: LOS Initial or Follow up Brief Note Current Diet Regular Diet Subjective/Other Information Pt reports having good appetite, eating 100% of meals . Nutrition Intervention Revisit per MD consult or patient Sign Off request:
--- NOTE | 2019-01-15 12:31 | Event Note ---
Date: 01/15/19 Contacted regarding PICC line. NPO after MN except sips of water with meds. Tunneled PICC tomorrow
[2019-01-15] MEDS: traMADol 50 MG TAB PO PRN (15:49)
[2019-01-15 15:58] LABS: BUN/Creatinine Ratio 30; Blood Urea Nitrogen 9 mg/dL (7-17); Calcium 9.1 mg/dL (8.4-10.2); Hemolysis Index 13
[2019-01-15] MEDS: MORPHINE 4 MG/1 ML INJ IV PRN (20:14)
[2019-01-15] MEDS: ENOXAPARIN 40 MG/0.4 ML INJ SUB-Q SCH (21:57)
[2019-01-15] MEDS: SENNOSIDES 8.6 MG TAB PO SCH (21:58)
[2019-01-16] MEDS: D5W/0.45% NACL 1,000 ML IV SCH (05:12)
[2019-01-16] MEDS: VANCOMYCIN/NS 1 GM/250 ML 1 GM/250 ML BAG IV SCH ×4 (05:12→23:32)
[2019-01-16] MEDS: MULTIVITAMINS ,THERAPEUTIC TAB PO SCH (10:15)
[2019-01-16] MEDS: FOLIC ACID 1 MG TAB PO SCH (10:15)
[2019-01-16] MEDS: HYDROXYUREA 500 MG CAP PO SCH (10:17)
--- NOTE | 2019-01-16 11:16 | Progress Note ---
Assessment and Plan Assessment and plan: 28-year-old woman with history of sickle cell disease. Recently moved to the [facility] from [place]. Does not have any doctors here. She is complaining of generalized body aches mostly on the right side of her body her right upper extremity and right lower extremity. She is also complaining of painful swelling in her right thigh. It is on the same location where she has a surgical scar from a surgery she had one year ago . She had multiple surgeries for treatment osteomyelitis on the right thigh, left knee, and right lower medial leg. She also completed a long course of antibiotics after multiple surgeries in [facility] 1.Sickle cell crisis, resolved sp Blood transfusion, IV fluids, pain meds, hematology consult was transfused with PRBCs PRN currently stable Hematology recommend not transfuse unless hgb is below 6.5 because patient develop antibody 2. Chronic osteomyelitis and abscess of RLE due to MRSA, sepsis Patient appears to have chronic osteomyelitis. ID has been consulted sp I&D by GS, sp Debridement and irrigation right proximal thigh by ortho Prognosis for complete clearance of infection is guarded as she is had this infection for over a year. ID is on board, on vanc and plan to dc with daptomycin, awaiting CM to organize home abx/ID clinic collaboration DVT prophylaxis; on Lovenox Disposition: need o/p IV antibiotics arrangement. CM aware. S: Patient was seen and evaluated this morning, patient didn't have new complaints. no fever, no cp, R thigh pain is improved, no vomiting, no dysuria Hospitalist Physical - Physical exam Narrative exam: Not in cardiopulmonary distress. The patient appeared well nourished and normally developed. Vital signs as documented. Head exam is unremarkable. No scleral icterus . Neck is without jugular venous distension, thyromegaly, or carotid bruits. Lungs are clear to auscultation. Cardiac exam reveals regular rate and Rhythm. First and second heart sounds normal. No murmurs, rubs or gallops. Abdominal exam reveals normal bowel sounds, no masses, no organomegaly and no aortic enlargement. Extremities deformed left knee, dressing on the right hip and right sheen. CHECK SCALER: Alert and oriented 3. No focal weakness. Hospitalist Physical - Constitutional Vitals: Temp Pulse Resp BP Pulse Ox 98.4 F 77 16 93/53 94 01/16/19 05:41 01/16/19 05:41 01/16/19 05:41 01/16/19 05:41 01/16/19 05:41 General appearance: Present: no acute distress, well-nourished Results - Labs CBC & Chem 7: 01/12/19 05:28 01/15/19 15:16 Labs: Laboratory Last Values WBC 15.3 K/mm3 (4.5-11.0) H 01/11/19 06:31 RBC 2.95 M/mm3 (3.65-5.03) L 01/11/19 06:31 Hgb 9.8 gm/dl (10.1-14.3) L 01/12/19 05:28 Hct 29.1 % (30.3-42.9) L 01/12/19 05:28 MCV 86 fl (79-97) 01/11/19 06:31 MCH 30 pg (28-32) 01/11/19 06:31 MCHC 34 % (30-34) 01/11/19 06:31 RDW 24.2 % (13.2-15.2) H 01/11/19 06:31 Plt Count 539 K/mm3 (140-440) H 01/11/19 06:31 Lymph # Buffet Waiter/Waitress 01/11/19 06:31 Add Manual Diff Complete 01/11/19 06:31 Total Counted 100 01/11/19 06:31 Seg Neuts % (Manual) 36.0 % (40.0-70.0) L 01/11/19 06:31 Band Neutrophils % 0 % 01/11/19 06:31 Lymphocytes % (Manual) 49.0 % (13.4-35.0) H 01/11/19 06:31 Reactive Lymphs % (Man) 0 % 01/11/19 06:31 Monocytes % (Manual) 11.0 % (0.0-7.3) H 01/11/19 06:31 Eosinophils % (Manual) 4.0 % (0.0-4.3) 01/11/19 06:31 Basophils % (Manual) 0 % (0.0-1.8) 01/11/19 06:31 Metamyelocytes % 0 % 01/11/19 06:31 Myelocytes % 0 % 01/11/19 06:31 Promyelocytes % 0 % 01/11/19 06:31 Blast Cells % 0 % 01/11/19 06:31 Nucleated RBC % 3.0 % (0.0-0.9) H 01/11/19 06:31 Seg Neutrophils # Man 5.5 K/mm3 (1.8-7.7) 01/11/19 06:31 Band Neutrophils # 0.0 K/mm3 01/11/19 06:31 Lymphocytes # (Manual) 7.5 K/mm3 (1.2-5.4) H 01/11/19 06:31 Abs React Lymphs (Man) 0.0 K/mm3 01/11/19 06:31 Monocytes # (Manual) 1.7 K/mm3 (0.0-0.8) H 01/11/19 06:31 Eosinophils # (Manual) 0.6 K/mm3 (0.0-0.4) H 01/11/19 06:31 Basophils # (Manual) 0.0 K/mm3 (0.0-0.1) 01/11/19 06:31 Metamyelocytes # 0.0 K/mm3 01/11/19 06:31 Myelocytes # 0.0 K/mm3 01/11/19 06:31 Promyelocytes # 0.0 K/mm3 01/11/19 06:31 Blast Cells # 0.0 K/mm3 01/11/19 06:31 WBC Morphology Not Reportable 01/11/19 06:31 Hypersegmented Neuts Not Reportable 01/11/19 06:31 Hyposegmented Neuts Not Reportable 01/11/19 06:31 Hypogranular Neuts Not Reportable 01/11/19 06:31 Smudge Cells Not Reportable 01/11/19 06:31 Toxic Granulation Not Reportable 01/11/19 06:31 Toxic Vacuolation Not Reportable 01/11/19 06:31 Dohle Bodies Not Reportable 01/11/19 06:31 Pelger-Huet Anomaly Not Reportable 01/11/19 06:31 Raymond Rods Not Reportable 01/11/19 06:31 Platelet Estimate Consistent w auto 01/11/19 06:31 Clumped Platelets Not Reportable 01/11/19 06:31 Plt Clumps, EDTA Not Reportable 01/11/19 06:31 Large Platelets Not Reportable 01/11/19 06:31 Giant Platelets Few 01/11/19 06:31 Platelet Satelliting Not Reportable 01/11/19 06:31 Plt Morphology Comment Not Reportable 01/11/19 06:31 RBC Morphology Not Reportable 01/11/19 06:31 Dimorphic RBCs Not Reportable 01/11/19 06:31 Polychromasia Few 01/11/19 06:31 Hypochromasia Not Reportable 01/11/19 06:31 Poikilocytosis Not Reportable 01/11/19 06:31 Anisocytosis 2+ 01/11/19 06:31 Microcytosis Not Reportable 01/11/19 06:31 Macrocytosis Not Reportable 01/11/19 06:31 Spherocytes Not Reportable 01/11/19 06:31 Pappenheimer Bodies Not Reportable 01/11/19 06:31 Sickle Cells 2+ 01/11/19 06:31 Target Cells Not Reportable 01/11/19 06:31 Tear Drop Cells Not Reportable 01/11/19 06:31 Ovalocytes Not Reportable 01/11/19 06:31 Helmet Cells Not Reportable 01/11/19 06:31 [place] Bodies Not Reportable 01/11/19 06:31 [place] Rings Not Reportable 01/11/19 06:31 [place] Cells Not Reportable 01/11/19 06:31 Bite Cells Not Reportable 01/11/19 06:31 Crenated Cell Not Reportable 01/11/19 06:31 Elliptocytes Not Reportable 01/11/19 06:31 Acanthocytes (Spur) Not Reportable 01/11/19 06:31 Rouleaux Not Reportable 01/11/19 06:31 Hemoglobin C Crystals Not Reportable 01/11/19 06:31 Schistocytes Not Reportable 01/11/19 06:31 Malaria parasites Not Reportable 01/11/19 06:31 Percent Retic 16.60 % (0.78-2.58) H 01/07/19 05:34 Floyd Bodies Not Reportable 01/11/19 06:31 Hem Pathologist Commnt No 01/11/19 06:31 PT 14.5 Sec. (12.2-14.9) 01/04/19 09:55 INR 1.16 (0.87-1.13) H 01/04/19 09:55 APTT 33.1 Sec. (24.2-36.6) 01/04/19 09:55 Sodium 138 mmol/L (137-145) 01/15/19 15:16 Potassium 3.7 mmol/L (3.6-5.0) 01/15/19 15:16 Chloride 101.5 mmol/L (98-107) 01/15/19 15:16 Carbon Dioxide 19 mmol/L (22-30) L 01/15/19 15:16 Anion Gap 21 mmol/L 01/15/19 15:16 BUN 9 mg/dL (7-17) 01/15/19 15:16 Creatinine 0.3 mg/dL (0.7-1.2) L 01/15/19 15:16 Estimated GFR > 60 ml/min 01/15/19 15:16 BUN/Creatinine Ratio 30 % 01/15/19 15:16 Glucose 150 mg/dL (65-100) H 01/15/19 15:16 Calcium 9.1 mg/dL (8.4-10.2) 01/15/19 15:16 Iron 89 ug/dL (37-170) 01/05/19 07:43 TIBC 156 mcg/dL (250-450) L 01/05/19 07:43 Ferritin 1749.0 ng/mL (13.0-400.0) H 01/05/19 07:43 Total Bilirubin 2.60 mg/dL (0.1-1.2) H 01/04/19 08:36 AST 47 units/L (5-40) H 01/04/19 08:36 ALT 25 units/L (7-56) 01/04/19 08:36 Alkaline Phosphatase 172 units/L (35-129) H 01/04/19 08:36 Lactate Dehydrogenase 361 units/L (91-180) H 01/07/19 05:34 Total Protein 8.2 g/dL (6.3-8.2) 01/04/19 08:36 Albumin 4.5 g/dL (3.9-5) 01/04/19 08:36 Albumin/Globulin Ratio 1.2 % 01/04/19 08:36 Vitamin B12 823.1 pg/mL (211-911) 01/05/19 07:43 Folate > 20 ng/mL (7.3-26.0) 01/05/19 07:43 HCG, Qual Negative (Negative) 01/04/19 08:36 Urine Color Yellow (Yellow) 01/04/19 Unknown Urine Turbidity Clear (Clear) 01/04/19 Unknown Urine pH 5.0 (5.0-7.0) 01/04/19 Unknown Ur Specific [place] 1.010 (1.003-1.030) 01/04/19 Unknown Urine Protein <15 mg/dl mg/dL (Negative) 01/04/19 Unknown Urine Glucose (UA) Neg mg/dL (Negative) 01/04/19 Unknown Urine Ketones Neg mg/dL (Negative) 01/04/19 Unknown Urine Blood Sm (Negative) 01/04/19 Unknown Urine Nitrite Neg (Negative) 01/04/19 Unknown Urine Bilirubin Neg (Negative) 01/04/19 Unknown Urine Urobilinogen < 2.0 mg/dL (<2.0) 01/04/19 Unknown Ur Leukocyte Esterase Neg (Negative) 01/04/19 Unknown Urine WBC (Auto) 2.0 /HPF (0.0-6.0) 01/04/19 Unknown Urine RBC (Auto) 1.0 /HPF (0.0-6.0) 01/04/19 Unknown U Epithel Cells (Auto) 1.0 /HPF (0-13.0) 01/04/19 Unknown Urine Bacteria (Auto) 1+ /HPF (Negative) 01/04/19 Unknown Urine Mucus Few /HPF 01/04/19 Unknown Vancomycin Trough 8.6 ug/mL (5.0-20.0) 01/15/19 15:16 Blood Type O POSITIVE 01/10/19 07:49 Antibody Screen Positive 01/10/19 07:49 Antibody Identification Anti-E 01/10/19 07:49 Antigen Identification Cancelled 01/04/19 09:55 Crossmatch See Detail 01/10/19 07:49 Active Medications - Current Medications Current Medications: Generic Name Dose Route Start Last Admin Trade Name Freq PRN Reason Stop Dose Admin Acetaminophen 650 mg 01/04/19 12:48 01/05/19 01:36 Tylenol PO 650 mg Q4H PRN Administration Pain MILD(1-3)/Fever >100.5/CARTER Bisacodyl 10 mg 01/04/19 12:55 Dulcolax AR QDAY PRN Constipation unrelieved by MOM Enoxaparin Sodium 40 mg 01/04/19 22:00 01/15/19 21:57 Lovenox SUB-Q 40 mg QDAY@2200 HOSEA Administration Folic Acid 1 mg 01/05/19 10:00 01/16/19 10:15 Folvite PO 1 mg QDAY HOSEA Administration Hydroxyurea 500 mg 01/07/19 10:00 01/16/19 10:17 Hydrea PO 500 mg SuTuFr@1000 HOSEA Administration Dextrose/Sodium Chloride 1,000 mls @ 42 mls/hr 01/04/19 14:00 01/16/19 05:12 D5/0.45ns IV 42 mls/hr DIRECT HOSEA Administration Vancomycin HCl 1 gm in 250 mls @ 167.007 mls/hr 01/16/19 12:00 Vancomycin/Ns 1 Gm/250 Ml IV Q6HR HOSEA Magnesium Hydroxide 30 ml 01/04/19 12:48 Milk Of Magnesia PO Q4H PRN Constipation Morphine Sulfate 4 mg 01/04/19 09:37 01/15/19 20:14 Morphine IV 4 mg Q4H PRN Administration Pain Multivitamins 1 each 01/05/19 10:00 01/16/19 10:15 Theragran Tab PO 1 each QDAY HOSEA Administration Ondansetron HCl 4 mg 01/04/19 12:48 Zofran IV Q8H PRN Nausea And Vomiting Senna 17.2 mg 01/04/19 22:00 01/15/19 21:58 Senokot PO 17.2 mg QHS HOSEA Administration Sodium Chloride 10 ml 01/04/19 22:00 01/16/19 10:15 Sodium Chloride Flush Syringe 10 Ml IV 10 ml BID HOSEA Administration Sodium Chloride 10 ml 01/04/19 12:48 Sodium Chloride Flush Syringe 10 Ml IV PRN PRN LINE FLUSH Tramadol HCl 25 mg 01/05/19 12:38 01/15/19 15:49 Ultram PO 25 mg Q4H PRN Administration Pain, Moderate (4-6) Nutrition/Malnutrition Assess - Dietary Evaluation Nutrition/Malnutrition Findings: Nutrition Notes Start: 01/11/19 09:27 Freq: Status: Active Protocol: Document 01/11/19 09:27 TEAGAN (Rec: 01/11/19 10:47 KS [id number]) Co-Sign 01/11/19 09:27 LM Nutrition Notes Need for Assessment generated from: LOS Initial or Follow up Brief Note Current Diet Regular Diet Subjective/Other Information Pt reports having good appetite, eating 100% of meals . Nutrition Intervention Revisit per MD consult or patient Sign Off request:
[2019-01-16] MEDS ORDERED: HEPARIN 10,000 UNITS/10 ML VIAL ONE (11:26)
[2019-01-16] MEDS ORDERED: LIDOCAINE 1%/EPINEPHRINE 1:100,000 VIAL (20 ML) INFILTRATI ONE (11:26)
[2019-01-16] MEDS ORDERED: HEPARIN/NS 5000 UNIT/500ML 500 ML IR ONE (11:26)
[2019-01-16] MEDS ORDERED: ceFAZolin/Water 2 GM/20 ML 2 GM/20 ML SYRINGE IV ONE (11:27)
[2019-01-16] MEDS ORDERED: SODIUM CHLORIDE 0.9% 500 ML 500 ML ONE (11:36)
[2019-01-16] MEDS: MIDAZOLAM 2 MG/2 ML INJ ONE ×2 (11:49→11:55)
[2019-01-16] MEDS: fentaNYL 100 MCG/2 ML INJ ONE ×2 (11:49→11:55)
[2019-01-16] MEDS ORDERED: MIDAZOLAM 2 MG/2 ML INJ ONE (12:02)
[2019-01-16] MEDS ORDERED: fentaNYL 100 MCG/2 ML INJ ONE (12:03)
--- NOTE | 2019-01-16 12:26 | Discharge Summary ---
Providers - Providers Date of Admission: 01/04/19 12:48 Attending physician: SHAY COTTO MD 01/04/19 12:48 Consult to Physician [CONS] Routine Comment: Consulting Provider: VANDANA SALES Physician Instructions: Reason For Exam: sickle cell 01/04/19 16:27 Consult to Wound/ET Nurse [CONS] Routine Reason For Exam: wound eval 01/05/19 10:33 Consult to Physician [CONS] Routine Comment: Consulting Provider: ELLIS HERNANDEZ Physician Instructions: Reason For Exam: r thigh abscess Consult to Physician [CONS] Routine Comment: Consulting Provider: SERGEY CHILD Physician Instructions: Reason For Exam: r thigh abscess/osteomylitis 01/05/19 11:49 Consult to Physician [CONS] Routine Comment: Consulting Provider: EDGAR GARCIA Physician Instructions: Reason For Exam: path fracture, OM 01/11/19 14:22 Consult to PICC Line RN [CONS] Routine Reason For Exam: IV abx Type Line:: PICC 01/12/19 14:10 Consult to Case Management [CONS] Routine Services Needed at Discharge: Other Notified:: copy given to CM Additional Physician Instructions: [facility] ([facility] O: [phone] F: [phone] OUTPATIENT PARENTERAL ANTIBIOTIC THERAPY (OPAT) ORDERS Diagnoses: Right femur chronic osteomyelitis, MRSA infection, R thigh abscess Antimicrobial administration: IV Daptomycin 400 mg daily x 8 weeks (end date: 03/02/2019 - Remove PICC line after last dose unless otherwise instructed. Lines: Maintain IV access with weekly dressing changes and locks per protocol. Lab monitoring: - CBC with differential, Creatinine, ALT, AST, CK, ESR, CRP once a week every Tuesday while on IV antibiotics. Please fax results to [phone] and call [phone] for critical lab results. Sergey Child MD [facility] 01/15/19 12:22 Consult to Physician [CONS] Routine Comment: Consulting Provider: ANSLEY HARRISON Physician Instructions: Reason For Exam: picc Primary care physician: SPEECH LANGUAGE SPECIALIST Hospitalization Condition: Stable Hospital course: 28-year-old woman with history of sickle cell disease. Recently moved to the [facility] from [place]. Does not have any doctors here. She is complaining of generalized body aches mostly on the right side of her body her right upper extremity and right lower extremity. She is also complaining of painful swelling in her right thigh. It is on the same location where she has a surgical scar from a surgery she had one year ago . She had multiple surgeries for treatment osteomyelitis on the right thigh, left knee, and right lower medial leg. She also completed a long course of antibiotics after multiple surgeries in [facility] 1.Sickle cell crisis Received IV fluids, blood transfusion, she was seen by hematology who recommended not transfusing unless her hemoglobin drops below 6.5. 2. Chronic osteomyelitis Patient received I&D of right thigh abscess. She then went on to have washout of the bone and irrigation of the right femur by orthopedic surgery Culture grew MRSA. Patient is being discharged on daptomycin regimen at home IV. 3.Right thigh abscess I&D done by surgery Disposition: [id number] HOME UNDER HOME HL Time spent for discharge: 33 mins Core Measure Documentation - Palliative Care Palliative Care/ Comfort Measures: Not Applicable - Core Measures Any of the following diagnoses?: none Exam - Constitutional Vitals: Temp Pulse Resp BP Pulse Ox 98.4 F 77 16 93/53 94 01/16/19 05:41 01/16/19 05:41 01/16/19 05:41 01/16/19 05:41 01/16/19 05:41 General appearance: Present: no acute distress, well-nourished - EENT Eyes: Present: PERRL ENT: hearing intact, clear oral mucosa - Neck Neck: Present: supple, normal ROM - Respiratory Respiratory effort: normal Respiratory: bilateral: CTA - Cardiovascular Heart Sounds: Present: S1 & S2. Absent: rub, click - Extremities Extremities: pulses symmetrical Extremity abnormal: other (R thigh, RLE wound , post surgical wound) Peripheral Pulses: within normal limits - Abdominal General gastrointestinal: Present: soft, non-tender, non-distended, normal bowel sounds Female genitourinary: Present: normal - Integumentary Integumentary: Present: clear, warm, dry (R thigh, RLE wound , post surgical wound) - Musculoskeletal Musculoskeletal: gait normal, strength equal bilaterally - Psychiatric Psychiatric: appropriate mood/affect, intact judgment & insight - Neurologic Neurologic: CNII-XII intact, moves all extremities Plan Follow up with: PRIMARY CARE, [Primary Care Provider] - 7 Days Prescriptions: Sennosides Tab [Senokot] 17.2 mg PO QHS #60 tablet Folic Acid [Folvite] 1 mg PO QDAY #30 tablet Hydroxyurea [Hydrea] 500 mg PO QDAY #30 capsule Multivitamin Tab [Multiple Vitamin TAB (Theragran)] 1 each PO QDAY #30 tablet
--- NOTE | 2019-01-16 12:29 | Operative Report ---
Operative Report Operative Report: EXAM: 1. Ultrasound-guided puncture of the right internal jugular vein 2. Fluoroscopic-guided placement of a right internal jugular tunneled non- cuffed smallbore dual-lumen catheter. DATE: 01/16/19 INDICATION: Osteomyelitis requiring prolonged antibiotic therapy MEDICATIONS: Please see nursing report for full details. DEVICES: 5 British dual-lumen power PICC catheter FIVE PIECE EXPANSION MAKER HAND: ANSLEY HARRISON MD CONTRAST: None PROCEDURE: The risks, benefits, and alternatives were discussed and informed consent was obtained. The patient was transported to the angiography suite in satisfactory/stable condition and was transported onto the angiography table. The patient's right internal jugular vein was assessed with ultrasound and determined to be patent prior to procedure. The patient was prepped and draped in a sterile fashion. The puncture site was anesthetized. Under sonographic guidance, the right internal jugular vein was punctured with a 21-gauge micropuncture needle and a 0.018 inch wire was advanced into the inferior vena cava. A suitable exit site was identified on the patient's chest inferior and lateral to the venotomy. The site was anesthetized with local anesthetic and the track was anesthetized. Dermatotomy was made. The 5 British dual-lumen smallbore catheter was tunneled between the dermatotomy to the venotomy with the assistance of the peel-away sheath, micropuncture needle, and 0.018 inch wire. Over 0.018 inch wire, the transitional dilator was exchanged for a 5 British peel-away sheath. The wire was used to william intravascular distance and removed. The catheter was cut to appropriate size. The catheter was advanced through the peel-away sheath and positioned centrally under fluoroscopic guidance. The peel-away sheath was removed. 4-0 Vicryl suture was used to close the venotomy and Dermabond was then applied. 3-0 Ethilon suture was used to secure the catheter at the dermatotomy. The catheter was charged with heparinized saline. Sterile dressing and biopatch applied. The patient was transferred from the angiography suite back to the floor in stable condition. FINDINGS: 1. Excellent flow was obtained through the dual lumen smallbore tunneled catheter. 2. The catheter tip is in the right atrium. IMPRESSION: 1. Successful ultrasound and fluoroscopically guided placement of a right internal jugular tunneled non-cuffed dual-lumen catheter.
--- NOTE | 2019-01-16 16:16 | Progress Note ---
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 No culture data available from the past. CXR no cavities. She reports testing negative for TB as a part of her immigration process to the [place]. Xray and CT findings are concerning for chronic osteomyelitis with mottled appearance of the R femur. MRI shows destructive change in the greater trochanter with contrast enhancement consistent with osteomyelitis with a fistulous tract from the skin extending to the greater trochanter where there is an abscess present. A superficial abscess is also seen just under the skin wound. Patient is now s/p I&D by Dr. Montoya 01/05/2019 and per her note, "copious amounts of purulent drainage" noted. Wound Culture grew MRSA. Ortho following. Patient is s/p I&D by Dr. Montoya 01/05/2019 and per her note, "copious amounts of purulent drainage" noted. Underwent R thigh debridement and irrigation by Ortho Dr. Landers on 01/11/2019. 01/11/2019 OR culture negative. Expect protracted course with combined medical and surgical treatment. Continue vancomycin. Continue vancomycin. 2) Sickle cell disease. 3) Anemia. Recs: Continue IV Vancomycin, target trough: 15-20 mcg/ml while inpatient will need 8 weeks of IV antibiotic treatment, upon discharge would switch to IV Daptomycin 8 mg/kg (400 mg) given higher Vancomycin BRITTNEY of 2.0 and need for prolonged abx therapy (end date: 03/02/2019) or considering oritavancin 1200 mg IV x 1 then 800mg IV weekly x 6 doses (total 7 doses=7 weeks plus initial week on inpatient vancomycin to achieve 8 weeks). Indigent oritavancin quote requested $1,484.12 weekly. Information discussed with wrapper caser. Discussed with Case Management and pharmacy contact isolation for MRSA Will follow Medina Freeman MD Infectious Diseases Tmd Teacher Assistant [facility] M [phone] O [phone] Subjective Date of service: 01/16/19 Principal diagnosis: sickle cell Interval history: Patient is feeling ok, right femoral pain better. no fever. Objective - Exam Narrative Exam: General appearance: Alert in NAD Eyes: anicteric sclerae, moist conjunctivae; no lid-lag; PERRLA HENT: Atraumatic; oropharynx clear Lungs: CTA CV: RRR Abdomen: Soft, non-tender Extremities: +right thigh with dressings Skin: no rash Psych: no agitated Neuro: alert moving all ext - Constitutional Vitals: Vital Signs Temp Pulse Resp BP Pulse Ox 97.7 F 86 14 104/64 95 01/16/19 12:55 01/16/19 12:55 01/16/19 12:55 01/16/19 12:55 01/16/19 12:55 Temperature -Last 24 Hours Temperature 97.7 F Temperature 98.4 F Temperature 98.9 F Temperature 98.3 F - Labs CBC & Chem 7: 01/12/19 05:28 01/15/19 15:16
--- NOTE | 2019-01-16 17:12 | Progress Note ---
Assessment and Plan Status post incision and drainage right proximal thigh doing okay Continue IV antibiotics and observation Subjective Date of service: 01/16/19 Principal diagnosis: sickle cell Interval history: No major complaints noted patient resting comfortably in bed Objective Vital signs: Vital Signs - 12hr 01/16/19 01/16/19 05:41 12:55 Temperature 98.4 F 97.7 F Pulse Rate 77 86 Respiratory 16 14 Rate Blood Pressure 93/53 104/64 O2 Sat by Pulse 94 95 Oximetry Incision: healing, clean and dry Weight bearing status: as tolerated - Labs CBC & BMP: 01/12/19 05:28 01/15/19 15:16
[2019-01-16] MEDS: traMADol 50 MG TAB PO PRN (20:11)
[2019-01-16] MEDS: SENNOSIDES 8.6 MG TAB PO SCH (22:27)
[2019-01-16] MEDS: ENOXAPARIN 40 MG/0.4 ML INJ SUB-Q SCH (22:27)
[2019-01-17] MEDS: traMADol 50 MG TAB PO PRN ×3 (00:25→09:52)
[2019-01-17] MEDS: VANCOMYCIN/NS 1 GM/250 ML 1 GM/250 ML BAG IV SCH ×2 (05:05→13:53)
[2019-01-17] MEDS: D5W/0.45% NACL 1,000 ML IV SCH (05:08)
[2019-01-17 05:24] LABS: Hematocrit 22.1 % (30.3-42.9); Hemoglobin 7.5 gm/dl (10.1-14.3); Mean Corpuscular HGB Conc 34 % (30-34); Mean Corpuscular Volume 87 fl (79-97); Platelet Count 500 K/mm3 (140-440); Red Blood Count 2.56 M/mm3 (3.65-5.03)
[2019-01-17 05:32] LABS: Red Cell Distribution Width 21.2 % (13.2-15.2)
[2019-01-17 07:09] LABS: Sickle Cells 1+; Total Cells Counted 100
[2019-01-17 07:10] LABS: Anisocytosis 1+; Hypochromasia 2+; Large Platelets 1+; Platelet Estimate Consistent w Auto
--- NOTE | 2019-01-17 07:39 | Hem/Onc Progress Note ---
Assessment and Plan 1. Normocytic anemia in a patient with history of sickle cell disease. Transfusion support PRN . The patient is on folic acid. 2. Leukocytosis, likely secondary to infection. 3. Thrombocytosis, likely reactive. 4. Abnormal liver function test, likely related to sickle cells. 5. ID team following pt fever and chills. I will follow the patient during inpatient stay. Osteomyelitis s/p I and drainage by sx team s/prbc ct folic acid staph in wound culture pt had wound rt thigh and rt leg and left knee is deformed s/p PRBC for anemia has antibodies in blood - would like to minimize transfusions 01/17 will see pt PRN Increase hydrea to 1 tab daily MCV rising as anticipated - while on hydrea OP follow up for same d/w dr Guzman - Patient Problems (1) Anemia Current Visit: Yes Status: Acute Qualifiers: Anemia type: unspecified type Qualified Code(s): D64.9 - Anemia, unspecified Subjective Date of service: 01/17/19 Principal diagnosis: sickle cell Interval history: feeling better Objective - Exam Narrative Exam: Pain - thigh General appearance - comfortable Performance status limited self care Eyes - no icterus, ENT - no bleeding LNs cervical not palpable Neck - no LN Respiratory Normal Breath sounds - CTA CVS S1 S2 + Extremities no calf tenderness General GI Soft Rectal deferred female - deferred Skin warm -s/p rt thigh I and D Musculoskeletal moves extremities - rt thigh bandage - rt leg bandage - left knee deformed Neurologically awake - oriented - Constitutional Vitals: Last Vital Signs Temp 99.0 F 01/17/19 05:32 Pulse 71 01/17/19 05:32 Resp 17 01/17/19 06:09 BP 94/52 01/17/19 05:32 Pulse Ox 100 01/17/19 05:32 - Labs Lab Results: Laboratory Results - last 24 hr 01/17/19 04:58 WBC 13.9 H RBC 2.56 L Hgb 7.5 L Hct 22.1 L MCV 87 MCH 29 MCHC 34 RDW 21.2 H Plt Count 500 H Lymph # Internet Marketing Consultant Add Manual Diff Complete Total Counted 100 Seg Neuts % (Manual) 48.0 Band Neutrophils % 0 Lymphocytes % (Manual) 41.0 H Reactive Lymphs % (Man) 0 Monocytes % (Manual) 7.0 Eosinophils % (Manual) 3.0 Basophils % (Manual) 1.0 Metamyelocytes % 0 Myelocytes % 0 Promyelocytes % 0 Blast Cells % 0 Nucleated RBC % 1.0 H Seg Neutrophils # Man 6.7 Band Neutrophils # 0.0 Lymphocytes # (Manual) 5.7 H Abs React Lymphs (Man) 0.0 Monocytes # (Manual) 1.0 H Eosinophils # (Manual) 0.4 Basophils # (Manual) 0.1 Metamyelocytes # 0.0 Myelocytes # 0.0 Promyelocytes # 0.0 Blast Cells # 0.0 WBC Morphology Not Reportable Hypersegmented Neuts Not Reportable Hyposegmented Neuts Not Reportable Hypogranular Neuts Not Reportable Smudge Cells Not Reportable Toxic Granulation Not Reportable Toxic Vacuolation Not Reportable Dohle Bodies Not Reportable Pelger-Huet Anomaly Not Reportable Raymond Rods Not Reportable Platelet Estimate Consistent w auto Clumped Platelets Not Reportable Plt Clumps, EDTA Not Reportable Large Platelets 1+ Giant Platelets Not Reportable Platelet Satelliting Not Reportable Plt Morphology Comment Not Reportable RBC Morphology Not Reportable Dimorphic RBCs Not Reportable Polychromasia Few Hypochromasia 2+ Poikilocytosis Not Reportable Anisocytosis 1+ Microcytosis Not Reportable Macrocytosis Not Reportable Spherocytes Not Reportable Pappenheimer Bodies Not Reportable Sickle Cells 1+ Target Cells Not Reportable Tear Drop Cells Not Reportable Ovalocytes Not Reportable Helmet Cells Not Reportable [place] Bodies Not Reportable Collyer Rings Not Reportable Aelna Cells Not Reportable Bite Cells Not Reportable Crenated Cell Not Reportable Elliptocytes Not Reportable Acanthocytes (Spur) Not Reportable Rouleaux Not Reportable Hemoglobin C Crystals Not Reportable Schistocytes Not Reportable Malaria parasites Not Reportable Floyd Bodies Not Reportable Hem Pathologist Commnt No Medications & Allergies - Medications Allergies/Adverse Reactions: Allergies No Known Allergies Allergy (Unverified 01/04/19 08:15) Home Medications: Home Medications Medication Instructions Recorded Confirmed Last Taken Type Folic Acid 0.4 mg PO QDAY #30 01/16/19 Unknown Rx Folic Acid [Folvite] 1 mg PO QDAY #30 tablet 01/16/19 Unknown Rx Hydroxyurea [Hydrea] 500 mg PO SuTuFr@1000 #14 capsule 01/16/19 Unknown Rx Multivitamin Tab [Multiple Vitamin 1 each PO QDAY #30 tablet 01/16/19 Unknown Rx TAB (Theragran)] Sennosides Tab [Senokot] 17.2 mg PO QHS #60 tablet 01/16/19 Unknown Rx traMADol [Ultram 50 MG tab] 25 mg PO Q4H PRN #14 tablet 01/16/19 Unknown Rx Active Medications: Generic Name Dose Route Start Last Admin Trade Name Freq PRN Reason Stop Dose Admin Acetaminophen 650 mg 01/04/19 12:48 01/05/19 01:36 Tylenol PO 650 mg Q4H PRN Administration Pain MILD(1-3)/Fever >100.5/CARTER Bisacodyl 10 mg 01/04/19 12:55 Dulcolax ID QDAY PRN Constipation unrelieved by MOM Enoxaparin Sodium 40 mg 01/04/19 22:00 01/16/19 22:27 Lovenox SUB-Q 40 mg QDAY@2200 HOSEA Administration Folic Acid 1 mg 01/05/19 10:00 01/16/19 10:15 Folvite PO 1 mg QDAY HOSEA Administration Hydroxyurea 500 mg 01/07/19 10:00 01/16/19 10:17 Hydrea PO 500 mg SuTuFr@1000 HOSEA Administration Dextrose/Sodium Chloride 1,000 mls @ 42 mls/hr 01/04/19 14:00 01/17/19 05:08 D5/0.45ns IV 42 mls/hr DIRECT HOSEA Administration Vancomycin HCl 1 gm in 250 mls @ 167.007 mls/hr 01/16/19 12:00 01/17/19 05:05 Vancomycin/Ns 1 Gm/250 Ml IV 167.007 mls/hr Q6HR HOSEA Administration Magnesium Hydroxide 30 ml 01/04/19 12:48 Milk Of Magnesia PO Q4H PRN Constipation Morphine Sulfate 4 mg 01/04/19 09:37 01/15/19 20:14 Morphine IV 4 mg Q4H PRN Administration Pain Multivitamins 1 each 01/05/19 10:00 01/16/19 10:15 Theragran Tab PO 1 each QDAY HOSEA Administration Ondansetron HCl 4 mg 01/04/19 12:48 Zofran IV Q8H PRN Nausea And Vomiting Senna 17.2 mg 01/04/19 22:00 01/16/19 22:27 Senokot PO 17.2 mg QHS HOSEA Administration Sodium Chloride 10 ml 01/04/19 22:00 01/16/19 22:27 Sodium Chloride Flush Syringe 10 Ml IV 10 ml BID HOSEA Administration Sodium Chloride 10 ml 01/04/19 12:48 Sodium Chloride Flush Syringe 10 Ml IV PRN PRN LINE FLUSH Tramadol HCl 25 mg 01/05/19 12:38 01/17/19 05:09 Ultram PO 25 mg Q4H PRN Administration Pain, Moderate (4-6)
[2019-01-17 07:49] LABS: Alanine Aminotransferase 27 units/L (7-56); Albumin 3.9 g/dL (3.9-5); BUN/Creatinine Ratio 37; Blood Urea Nitrogen 11 mg/dL (7-17); Calcium 8.9 mg/dL (8.4-10.2); Hemolysis Index 1
[2019-01-17] MEDS: MULTIVITAMINS ,THERAPEUTIC TAB PO SCH (09:53)
[2019-01-17] MEDS: FOLIC ACID 1 MG TAB PO SCH (09:53)
[2019-01-17] MEDS: HYDROXYUREA 500 MG CAP PO SCH (09:58)
--- NOTE | 2019-01-17 10:38 | Progress Note ---
Assessment and Plan Assessment and plan: 28-year-old woman with history of sickle cell disease. Recently moved to the [facility] from [place]. Does not have any doctors here. She is complaining of generalized body aches mostly on the right side of her body her right upper extremity and right lower extremity. She is also complaining of painful swelling in her right thigh. It is on the same location where she has a surgical scar from a surgery she had one year ago . She had multiple surgeries for treatment osteomyelitis on the right thigh, left knee, and right lower medial leg. She also completed a long course of antibiotics after multiple surgeries in [facility] 1.Sickle cell crisis, resolved sp Blood transfusion, IV fluids, pain meds, hematology consult was transfused with PRBCs PRN currently stable Hematology recommend not transfuse unless hgb is below 6.5 because patient develop antibody 2. Chronic osteomyelitis and abscess of RLE due to MRSA, sepsis Patient appears to have chronic osteomyelitis. ID has been consulted sp I&D by GS, sp Debridement and irrigation right proximal thigh by ortho Prognosis for complete clearance of infection is guarded as she is had this infection for over a year. ID is on board, on vanc and plan to dc with daptomycin, awaiting CM to organize home abx/ID clinic collaboration per ID " switch to IV Daptomycin 8 mg/kg (400 mg) given higher Vancomycin BRITTNEY of 2.0 and need for prolonged abx therapy (end date: 03/02/2019) or considering oritavancin 1200 mg IV x 1 then 800mg IV weekly x 6 doses (total 7 doses=7 weeks plus initial week on inpatient vancomycin to achieve 8 weeks). Indigent oritavancin quote requested $1,484.12 weekly. Information discussed with high risk case manager." DVT prophylaxis; on Lovenox Disposition: need o/p IV antibiotics arrangement. CM aware. S: Patient was seen and evaluated this morning, patient didn't have new complaints. no fever, no cp, R thigh pain is improved, no vomiting, no dysuria Hospitalist Physical - Physical exam Narrative exam: Not in cardiopulmonary distress. The patient appeared well nourished and normally developed. Vital signs as documented. Head exam is unremarkable. No scleral icterus . Neck is without jugular venous distension, thyromegaly, or carotid bruits. Lungs are clear to auscultation. Cardiac exam reveals regular rate and Rhythm. First and second heart sounds normal. No murmurs, rubs or gallops. Abdominal exam reveals normal bowel sounds, no masses, no organomegaly and no aortic enlargement. Extremities deformed left knee, dressing on the right hip and right sheen. DOCUMENT PREPARER MICROFILMING: Alert and oriented 3. No focal weakness. Hospitalist Physical - Constitutional Vitals: Temp Pulse Resp BP Pulse Ox 99.0 F 71 17 94/52 100 01/17/19 05:32 01/17/19 05:32 01/17/19 06:09 01/17/19 05:32 01/17/19 05:32 General appearance: Present: no acute distress, well-nourished Results - Labs CBC & Chem 7: 01/17/19 04:58 01/17/19 04:58 Labs: Laboratory Last Values WBC 13.9 K/mm3 (4.5-11.0) H 01/17/19 04:58 RBC 2.56 M/mm3 (3.65-5.03) L 01/17/19 04:58 Hgb 7.5 gm/dl (10.1-14.3) L 01/17/19 04:58 Hct 22.1 % (30.3-42.9) L 01/17/19 04:58 MCV 87 fl (79-97) 01/17/19 04:58 MCH 29 pg (28-32) 01/17/19 04:58 MCHC 34 % (30-34) 01/17/19 04:58 RDW 21.2 % (13.2-15.2) H 01/17/19 04:58 Plt Count 500 K/mm3 (140-440) H 01/17/19 04:58 Lymph # Cna Instructor 01/17/19 04:58 Add Manual Diff Complete 01/17/19 04:58 Total Counted 100 01/17/19 04:58 Seg Neuts % (Manual) 48.0 % (40.0-70.0) 01/17/19 04:58 Band Neutrophils % 0 % 01/17/19 04:58 Lymphocytes % (Manual) 41.0 % (13.4-35.0) H 01/17/19 04:58 Reactive Lymphs % (Man) 0 % 01/17/19 04:58 Monocytes % (Manual) 7.0 % (0.0-7.3) 01/17/19 04:58 Eosinophils % (Manual) 3.0 % (0.0-4.3) 01/17/19 04:58 Basophils % (Manual) 1.0 % (0.0-1.8) 01/17/19 04:58 Metamyelocytes % 0 % 01/17/19 04:58 Myelocytes % 0 % 01/17/19 04:58 Promyelocytes % 0 % 01/17/19 04:58 Blast Cells % 0 % 01/17/19 04:58 Nucleated RBC % 1.0 % (0.0-0.9) H 01/17/19 04:58 Seg Neutrophils # Man 6.7 K/mm3 (1.8-7.7) 01/17/19 04:58 Band Neutrophils # 0.0 K/mm3 01/17/19 04:58 Lymphocytes # (Manual) 5.7 K/mm3 (1.2-5.4) H 01/17/19 04:58 Abs React Lymphs (Man) 0.0 K/mm3 01/17/19 04:58 Monocytes # (Manual) 1.0 K/mm3 (0.0-0.8) H 01/17/19 04:58 Eosinophils # (Manual) 0.4 K/mm3 (0.0-0.4) 01/17/19 04:58 Basophils # (Manual) 0.1 K/mm3 (0.0-0.1) 01/17/19 04:58 Metamyelocytes # 0.0 K/mm3 01/17/19 04:58 Myelocytes # 0.0 K/mm3 01/17/19 04:58 Promyelocytes # 0.0 K/mm3 01/17/19 04:58 Blast Cells # 0.0 K/mm3 01/17/19 04:58 WBC Morphology Not Reportable 01/17/19 04:58 Hypersegmented Neuts Not Reportable 01/17/19 04:58 Hyposegmented Neuts Not Reportable 01/17/19 04:58 Hypogranular Neuts Not Reportable 01/17/19 04:58 Smudge Cells Not Reportable 01/17/19 04:58 Toxic Granulation Not Reportable 01/17/19 04:58 Toxic Vacuolation Not Reportable 01/17/19 04:58 Dohle Bodies Not Reportable 01/17/19 04:58 Pelger-Huet Anomaly Not Reportable 01/17/19 04:58 Raymond Rods Not Reportable 01/17/19 04:58 Platelet Estimate Consistent w auto 01/17/19 04:58 Clumped Platelets Not Reportable 01/17/19 04:58 Plt Clumps, EDTA Not Reportable 01/17/19 04:58 Large Platelets 1+ 01/17/19 04:58 Giant Platelets Not Reportable 01/17/19 04:58 Platelet Satelliting Not Reportable 01/17/19 04:58 Plt Morphology Comment Not Reportable 01/17/19 04:58 RBC Morphology Not Reportable 01/17/19 04:58 Dimorphic RBCs Not Reportable 01/17/19 04:58 Polychromasia Few 01/17/19 04:58 Hypochromasia 2+ 01/17/19 04:58 Poikilocytosis Not Reportable 01/17/19 04:58 Anisocytosis 1+ 01/17/19 04:58 Microcytosis Not Reportable 01/17/19 04:58 Macrocytosis Not Reportable 01/17/19 04:58 Spherocytes Not Reportable 01/17/19 04:58 Pappenheimer Bodies Not Reportable 01/17/19 04:58 Sickle Cells 1+ 01/17/19 04:58 Target Cells Not Reportable 01/17/19 04:58 Tear Drop Cells Not Reportable 01/17/19 04:58 Ovalocytes Not Reportable 01/17/19 04:58 Helmet Cells Not Reportable 01/17/19 04:58 Grullon-Bland Bodies Not Reportable 01/17/19 04:58 [place] Rings Not Reportable 01/17/19 04:58 [place] Cells Not Reportable 01/17/19 04:58 Bite Cells Not Reportable 01/17/19 04:58 Crenated Cell Not Reportable 01/17/19 04:58 Elliptocytes Not Reportable 01/17/19 04:58 Acanthocytes (Spur) Not Reportable 01/17/19 04:58 Rouleaux Not Reportable 01/17/19 04:58 Hemoglobin C Crystals Not Reportable 01/17/19 04:58 Schistocytes Not Reportable 01/17/19 04:58 Malaria parasites Not Reportable 01/17/19 04:58 Percent Retic 16.60 % (0.78-2.58) H 01/07/19 05:34 Floyd Bodies Not Reportable 01/17/19 04:58 Hem Pathologist Commnt No 01/17/19 04:58 PT 14.5 Sec. (12.2-14.9) 01/04/19 09:55 INR 1.16 (0.87-1.13) H 01/04/19 09:55 APTT 33.1 Sec. (24.2-36.6) 01/04/19 09:55 Sodium 138 mmol/L (137-145) 01/17/19 04:58 Potassium 4.0 mmol/L (3.6-5.0) 01/17/19 04:58 Chloride 105.2 mmol/L (98-107) 01/17/19 04:58 Carbon Dioxide 22 mmol/L (22-30) 01/17/19 04:58 Anion Gap 15 mmol/L 01/17/19 04:58 BUN 11 mg/dL (7-17) 01/17/19 04:58 Creatinine 0.3 mg/dL (0.7-1.2) L 01/17/19 04:58 Estimated GFR > 60 ml/min 01/17/19 04:58 BUN/Creatinine Ratio 37 % 01/17/19 04:58 Glucose 97 mg/dL (65-100) 01/17/19 04:58 Calcium 8.9 mg/dL (8.4-10.2) 01/17/19 04:58 Iron 89 ug/dL (37-170) 01/05/19 07:43 TIBC 156 mcg/dL (250-450) L 01/05/19 07:43 Ferritin 1749.0 ng/mL (13.0-400.0) H 01/05/19 07:43 Total Bilirubin 1.70 mg/dL (0.1-1.2) H 01/17/19 04:58 AST 37 units/L (5-40) 01/17/19 04:58 ALT 27 units/L (7-56) 01/17/19 04:58 Alkaline Phosphatase 133 units/L (35-129) H 01/17/19 04:58 Lactate Dehydrogenase 361 units/L (91-180) H 01/07/19 05:34 Total Protein 7.1 g/dL (6.3-8.2) 01/17/19 04:58 Albumin 3.9 g/dL (3.9-5) 01/17/19 04:58 Albumin/Globulin Ratio 1.2 % 01/17/19 04:58 Vitamin B12 823.1 pg/mL (211-911) 01/05/19 07:43 Folate > 20 ng/mL (7.3-26.0) 01/05/19 07:43 HCG, Qual Negative (Negative) 01/04/19 08:36 Urine Color Yellow (Yellow) 01/04/19 Unknown Urine Turbidity Clear (Clear) 01/04/19 Unknown Urine pH 5.0 (5.0-7.0) 01/04/19 Unknown Ur Specific Cos Cob 1.010 (1.003-1.030) 01/04/19 Unknown Urine Protein <15 mg/dl mg/dL (Negative) 01/04/19 Unknown Urine Glucose (UA) Neg mg/dL (Negative) 01/04/19 Unknown Urine Ketones Neg mg/dL (Negative) 01/04/19 Unknown Urine Blood Sm (Negative) 01/04/19 Unknown Urine Nitrite Neg (Negative) 01/04/19 Unknown Urine Bilirubin Neg (Negative) 01/04/19 Unknown Urine Urobilinogen < 2.0 mg/dL (<2.0) 01/04/19 Unknown Ur Leukocyte Esterase Neg (Negative) 01/04/19 Unknown Urine WBC (Auto) 2.0 /HPF (0.0-6.0) 01/04/19 Unknown Urine RBC (Auto) 1.0 /HPF (0.0-6.0) 01/04/19 Unknown U Epithel Cells (Auto) 1.0 /HPF (0-13.0) 01/04/19 Unknown Urine Bacteria (Auto) 1+ /HPF (Negative) 01/04/19 Unknown Urine Mucus Few /HPF 01/04/19 Unknown Vancomycin Trough 8.6 ug/mL (5.0-20.0) 01/15/19 15:16 Blood Type O POSITIVE 01/10/19 07:49 Antibody Screen Positive 01/10/19 07:49 Antibody Identification Anti-E 01/10/19 07:49 Antigen Identification Cancelled 01/04/19 09:55 Crossmatch See Detail 01/10/19 07:49 Active Medications - Current Medications Current Medications: Generic Name Dose Route Start Last Admin Trade Name Freq PRN Reason Stop Dose Admin Acetaminophen 650 mg 01/04/19 12:48 01/05/19 01:36 Tylenol PO 650 mg Q4H PRN Administration Pain MILD(1-3)/Fever >100.5/CARTER Bisacodyl 10 mg 01/04/19 12:55 Dulcolax PA QDAY PRN Constipation unrelieved by MOM Enoxaparin Sodium 40 mg 01/04/19 22:00 01/16/19 22:27 Lovenox SUB-Q 40 mg QDAY@2200 HOSEA Administration Folic Acid 1 mg 01/05/19 10:00 01/17/19 09:53 Folvite PO 1 mg QDAY HOSEA Administration Hydroxyurea 500 mg 01/17/19 10:00 01/17/19 09:58 Hydrea PO 500 mg QDAY HOSEA Administration Dextrose/Sodium Chloride 1,000 mls @ 42 mls/hr 01/04/19 14:00 01/17/19 05:08 D5/0.45ns IV 42 mls/hr DIRECT HOSEA Administration Vancomycin HCl 1 gm in 250 mls @ 167.007 mls/hr 01/16/19 12:00 01/17/19 05:05 Vancomycin/Ns 1 Gm/250 Ml IV 167.007 mls/hr Q6HR HOSEA Administration Magnesium Hydroxide 30 ml 01/04/19 12:48 Milk Of Magnesia PO Q4H PRN Constipation Morphine Sulfate 4 mg 01/04/19 09:37 01/15/19 20:14 Morphine IV 4 mg Q4H PRN Administration Pain Multivitamins 1 each 01/05/19 10:00 01/17/19 09:53 Theragran Tab PO 1 each QDAY HOSEA Administration Ondansetron HCl 4 mg 01/04/19 12:48 Zofran IV Q8H PRN Nausea And Vomiting Senna 17.2 mg 01/04/19 22:00 01/16/19 22:27 Senokot PO 17.2 mg QHS HOSEA Administration Sodium Chloride 10 ml 01/04/19 22:00 01/17/19 09:58 Sodium Chloride Flush Syringe 10 Ml IV 10 ml BID HOSEA Administration Sodium Chloride 10 ml 01/04/19 12:48 Sodium Chloride Flush Syringe 10 Ml IV PRN PRN LINE FLUSH Tramadol HCl 25 mg 01/05/19 12:38 01/17/19 09:52 Ultram PO 25 mg Q4H PRN Administration Pain, Moderate (4-6) Nutrition/Malnutrition Assess - Dietary Evaluation Nutrition/Malnutrition Findings: Nutrition Notes Start: 01/11/19 09:27 Freq: Status: Active Protocol: Document 01/11/19 09:27 KS (Rec: 01/11/19 10:47 KS [id number]) Co-Sign 01/11/19 09:27 LM Nutrition Notes Need for Assessment generated from: LOS Initial or Follow up Brief Note Current Diet Regular Diet Subjective/Other Information Pt reports having good appetite, eating 100% of meals . Nutrition Intervention Revisit per MD consult or patient Sign Off request:
--- NOTE | 2019-01-17 11:19 | Progress Note ---
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 No culture data available from the past. CXR no cavities. She reports testing negative for TB as a part of her immigration process to the [place]. Xray and CT findings are concerning for chronic osteomyelitis with mottled appearance of the R femur. MRI shows destructive change in the greater trochanter with contrast enhancement consistent with osteomyelitis with a fistulous tract from the skin extending to the greater trochanter where there is an abscess present. A superficial abscess is also seen just under the skin wound. Patient is now s/p I&D by Dr. Montoya 01/05/2019 and per her note, "copious amounts of purulent drainage" noted. Wound Culture grew MRSA. Ortho following. Patient is s/p I&D by Dr. Montoya 01/05/2019 and per her note, "copious amounts of purulent drainage" noted. Underwent R thigh debridement and irrigation by Ortho Dr. Landers on 01/11/2019. 01/11/2019 OR culture negative. Expect protracted course with combined medical and surgical treatment. Continue vancomycin. Continue vancomycin. 2) Sickle cell disease. 3) Anemia. Recs: Continue IV Vancomycin, target trough: 15-20 mcg/ml while inpatient will need 8 weeks of IV antibiotic treatment, upon discharge would switch to IV Daptomycin 8 mg/kg (400 mg) given higher Vancomycin BRITTNEY of 2.0 and need for prolonged abx therapy (end date: 03/02/2019) or considering oritavancin 1200 mg IV x 1 then 800mg IV weekly x 6 doses (total 7 doses=7 weeks plus initial week on inpatient vancomycin to achieve 8 weeks). Indigent oritavancin quote requested $1,484.12 weekly. Information discussed with director of casework services. Another option is home health for vancomycin. Discussed with Case Management and pharmacy contact isolation for MRSA Will follow Medina Freeman MD Infectious Diseases Surgical Aides Teacher [facility] M [phone] O [phone] Subjective Date of service: 01/17/19 Principal diagnosis: sickle cell Interval history: Patient is feeling ok, right femoral pain better. no fever. Objective - Exam Narrative Exam: General appearance: Alert in NAD Eyes: anicteric sclerae, moist conjunctivae; no lid-lag; PERRLA HENT: Atraumatic; oropharynx clear Lungs: CTA CV: RRR Abdomen: Soft, non-tender Extremities: +right thigh with dressings Skin: no rash Psych: no agitated Neuro: alert moving all ext - Constitutional Vitals: Vital Signs Temp Pulse Resp BP Pulse Ox 99.0 F 71 17 94/52 100 01/17/19 05:32 01/17/19 05:32 01/17/19 06:09 01/17/19 05:32 01/17/19 05:32 Temperature -Last 24 Hours Temperature 99.0 F Temperature 98.9 F Temperature 98.4 F Temperature 97.7 F - Labs CBC & Chem 7: 01/17/19 04:58 01/17/19 04:58 Labs: Abnormal lab results 01/17/19 01/17/19 Range/Units 04:58 04:58 WBC 13.9 H (4.5-11.0) K/mm3 RBC 2.56 L (3.65-5.03) M/mm3 Hgb 7.5 L (10.1-14.3) gm/dl Hct 22.1 L (30.3-42.9) % RDW 21.2 H (13.2-15.2) % Plt Count 500 H (140-440) K/mm3 Lymphocytes % (Manual) 41.0 H (13.4-35.0) % Nucleated RBC % 1.0 H (0.0-0.9) % Lymphocytes # (Manual) 5.7 H (1.2-5.4) K/mm3 Monocytes # (Manual) 1.0 H (0.0-0.8) K/mm3 Creatinine 0.3 L (0.7-1.2) mg/dL Total Bilirubin 1.70 H (0.1-1.2) mg/dL Alkaline Phosphatase 133 H (35-129) units/L
[2019-01-17] MEDS ORDERED: VANCOMYCIN 2,000 MG in SODIUM CHLORIDE 0.9% 500 ML 500 ML IV SCH (18:00)
[2019-01-17] MEDS: VANCOMYCIN 2,000 MG in SODIUM CHLORIDE 0.9% 500 ML 500 ML IV SCH (19:05)
[2019-01-17] MEDS: ENOXAPARIN 40 MG/0.4 ML INJ SUB-Q SCH (23:02)
[2019-01-17] MEDS: SENNOSIDES 8.6 MG TAB PO SCH (23:02)
[2019-01-18] MEDS: D5W/0.45% NACL 1,000 ML IV SCH (05:24)
[2019-01-18] MEDS: VANCOMYCIN 2,000 MG in SODIUM CHLORIDE 0.9% 500 ML 500 ML IV SCH (06:42)
[2019-01-18] MEDS: traMADol 50 MG TAB PO PRN ×2 (06:58→11:02)
--- NOTE | 2019-01-18 07:14 | Hem/Onc Progress Note ---
Assessment and Plan 1. Normocytic anemia in a patient with history of sickle cell disease. Transfusion support PRN . The patient is on folic acid. 2. Leukocytosis, likely secondary to infection. 3. Thrombocytosis, likely reactive. 4. Abnormal liver function test, likely related to sickle cells. 5. ID team following pt fever and chills. I will follow the patient during inpatient stay. Osteomyelitis s/p I and drainage by sx team s/prbc ct folic acid staph in wound culture pt had wound rt thigh and rt leg and left knee is deformed s/p PRBC for anemia has antibodies in blood - would like to minimize transfusions Increase hydrea to 1 tab daily - d/w pt reg this and folic acid MCV rising as anticipated - while on hydrea OP follow up for same - Patient Problems (1) Anemia Current Visit: Yes Status: Acute Qualifiers: Anemia type: unspecified type Qualified Code(s): D64.9 - Anemia, unspecified Subjective Date of service: 01/18/19 Principal diagnosis: sickle cell anemia Interval history: discharge antibiotics issues Objective - Exam Narrative Exam: Pain - thigh General appearance - comfortable Performance status limited self care Eyes - no icterus, ENT - no bleeding LNs cervical not palpable Neck - no LN Respiratory Normal Breath sounds - CTA CVS S1 S2 + Extremities no calf tenderness General GI Soft Rectal deferred female - deferred Skin warm -s/p rt thigh I and D Musculoskeletal moves extremities - rt thigh bandage - rt leg bandage - left knee deformed Neurologically awake - oriented - Constitutional Vitals: Last Vital Signs Temp 97.8 F 01/18/19 05:29 Pulse 72 01/18/19 05:29 Resp 18 01/18/19 06:58 BP 90/49 01/18/19 05:29 Pulse Ox 99 01/18/19 05:29 - Labs Lab Results: Laboratory Results - last 24 hr 01/17/19 01/17/19 04:58 Unknown Sodium 138 Potassium 4.0 Chloride 105.2 Carbon Dioxide 22 Anion Gap 15 BUN 11 Creatinine 0.3 L Estimated GFR > 60 BUN/Creatinine Ratio 37 Glucose 97 Calcium 8.9 Total Bilirubin 1.70 H AST 37 ALT 27 Alkaline Phosphatase 133 H Total Protein 7.1 Albumin 3.9 Albumin/Globulin Ratio 1.2 Vancomycin Trough 21.4 H Medications & Allergies - Medications Allergies/Adverse Reactions: Allergies No Known Allergies Allergy (Unverified 01/04/19 08:15) Home Medications: Home Medications Medication Instructions Recorded Confirmed Last Taken Type Folic Acid [Folvite] 1 mg PO QDAY #30 tablet 01/16/19 Unknown Rx Multivitamin Tab [Multiple Vitamin 1 each PO QDAY #30 tablet 01/16/19 Unknown Rx TAB (Theragran)] Sennosides Tab [Senokot] 17.2 mg PO QHS #60 tablet 01/16/19 Unknown Rx traMADol [Ultram 50 MG tab] 25 mg PO Q4H PRN #14 tablet 01/16/19 Unknown Rx Hydroxyurea [Hydrea] 500 mg PO QDAY #30 capsule 01/17/19 Unknown Rx Active Medications: Generic Name Dose Route Start Last Admin Trade Name Freq PRN Reason Stop Dose Admin Acetaminophen 650 mg 01/04/19 12:48 01/05/19 01:36 Tylenol PO 650 mg Q4H PRN Administration Pain MILD(1-3)/Fever >100.5/CARTER Bisacodyl 10 mg 01/04/19 12:55 Dulcolax WI QDAY PRN Constipation unrelieved by MOM Enoxaparin Sodium 40 mg 01/04/19 22:00 01/17/19 23:02 Lovenox SUB-Q 40 mg QDAY@2200 HOSEA Administration Folic Acid 1 mg 01/05/19 10:00 01/17/19 09:53 Folvite PO 1 mg QDAY HOSEA Administration Hydroxyurea 500 mg 01/17/19 10:00 01/17/19 09:58 Hydrea PO 500 mg QDAY HOSEA Administration Dextrose/Sodium Chloride 1,000 mls @ 42 mls/hr 01/04/19 14:00 01/18/19 05:24 D5/0.45ns IV 42 mls/hr DIRECT HOSEA Administration Vancomycin HCl 2,000 mg/ 540 mls @ 250 mls/hr 01/17/19 18:00 01/18/19 06:42 Sodium Chloride IV 250 mls/hr Q12H HOSEA Administration Magnesium Hydroxide 30 ml 01/04/19 12:48 Milk Of Magnesia PO Q4H PRN Constipation Morphine Sulfate 4 mg 01/04/19 09:37 01/15/19 20:14 Morphine IV 4 mg Q4H PRN Administration Pain Multivitamins 1 each 01/05/19 10:00 01/17/19 09:53 Theragran Tab PO 1 each QDAY HOSEA Administration Ondansetron HCl 4 mg 01/04/19 12:48 Zofran IV Q8H PRN Nausea And Vomiting Senna 17.2 mg 01/04/19 22:00 01/17/19 23:02 Senokot PO 17.2 mg QHS HOSEA Administration Sodium Chloride 10 ml 01/04/19 22:00 01/17/19 23:02 Sodium Chloride Flush Syringe 10 Ml IV 10 ml BID HOSEA Administration Sodium Chloride 10 ml 01/04/19 12:48 Sodium Chloride Flush Syringe 10 Ml IV PRN PRN LINE FLUSH Tramadol HCl 25 mg 01/05/19 12:38 01/18/19 06:58 Ultram PO 25 mg Q4H PRN Administration Pain, Moderate (4-6)
[2019-01-18] MEDS: MULTIVITAMINS ,THERAPEUTIC TAB PO SCH (10:47)
[2019-01-18] MEDS: FOLIC ACID 1 MG TAB PO SCH (10:47)
[2019-01-18] MEDS: HYDROXYUREA 500 MG CAP PO SCH (10:48)
--- NOTE | 2019-01-18 13:46 | Progress Note ---
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. No culture data available from the past. CXR no cavities. She reports testing negative for TB as a part of her immigration process to the [place]. Xray and CT findings are concerning for chronic osteomyelitis with mottled appearance of the R femur. MRI shows destructive change in the greater trochanter with contrast enhancement consistent with osteomyelitis with a fistulous tract from the skin extending to the greater trochanter where there is an abscess present. A superficial abscess is also seen just under the skin wound. Patient is now s/p I&D by Dr. Montoya 01/05/2019 and per her note, "copious amounts of purulent drainage" noted. Wound Culture grew MRSA. Ortho following. Patient is s/p I&D by Dr. Montoya 01/05/2019 and per her note, "copious amounts of purulent drainage" noted. Underwent R thigh debridement and irrigation by Ortho Dr. Landers on 01/11/2019. 01/11/2019 OR culture negative. Expect protracted course with combined medical and surgical treatment. Continue vancomycin. Continue vancomycin. 2) Sickle cell disease. 3) Anemia. Recs: Continue IV Vancomycin with PK Ok to d/c on vancomycin 1 gm IV q 8 hours total 8 weeks until (end date: 03/02/2019) - already approved by [facility] infusion. Adjusted at 1 gm IV q 8 hours as last trough was 22.1 on 1 gm IV q 6 hours. Close monitoring of vancomycin trough as patient vancomycin clearance has been very high at times requiring higher dosing - target trough: 10-20 mcg/ml. Di scussed with outpatient pharmacy ID clinic f/u in 2 weeks Will follow Medina Freeman MD Infectious Diseases Director [facility] M [phone] Subjective Date of service: 01/18/19 Principal diagnosis: sickle cell anemia Interval history: Patient is feeling ok, no complaints Objective - Exam Narrative Exam: General appearance: Alert in NAD Eyes: anicteric sclerae, moist conjunctivae; no lid-lag; PERRLA HENT: Atraumatic; oropharynx clear Lungs: CTA CV: RRR Abdomen: Soft, non-tender Extremities: +right thigh with dressings Skin: no rash Psych: no agitated Neuro: alert moving all ext - Constitutional Vitals: Vital Signs Temp Pulse Resp BP Pulse Ox 97.8 F 72 18 90/49 99 01/18/19 05:29 01/18/19 05:29 01/18/19 06:58 01/18/19 05:29 01/18/19 05:29 Temperature -Last 24 Hours Temperature 97.8 F Temperature 97.9 F Temperature 98.9 F - Labs CBC & Chem 7: 01/17/19 04:58 01/17/19 04:58
[2019-01-18] MEDS ORDERED: VANCOMYCIN/NS 1 GM/250 ML 1 GM/250 ML BAG IV SCH (14:00)
[2019-01-18 15:43] VITALS: BP 100/53
[2019-01-23 07:20] LABS: Hemoglobin A2 Prime SEE SCANNED RESULT; Hemoglobin Barts SEE SCANNED RESULT; Hemoglobin E SEE SCANNED RESULT; Hemoglobin G SEE SCANNED RESULT; Hemoglobin Lepore SEE SCANNED RESULT; Hemoglobin O-Arab SEE SCANNED RESULT; IEF Confirm SEE SCANNED RESULT; Interpretation SEE SCANNED RESULT; Sickle Solubility Test SEE SCANNED RESULT
== END 2019-01-18 16:15 | disposition home health service (06) | DRG 570 ==
LOC: ED 08:10 → 3A 12:48
PROVIDERS: ADMIT Internal Medicine; ATTEND Internal Medicine
PROC: 0H9HXZZ Drainage of Right Upper Leg Skin, External Approach (ICD-10-PCS; 2019-01-05)
PROC: 30233N1 Transfusion of Nonautologous Red Blood Cells into Peripheral Vein, Percutaneous Approach (ICD-10-PCS; 2019-01-05)
PROC: 0JBL0ZZ Excision of Right Upper Leg Subcutaneous Tissue and Fascia, Open Approach (ICD-10-PCS; 2019-01-11)
PROC: 0QB60ZX Excision of Right Upper Femur, Open Approach, Diagnostic (ICD-10-PCS; 2019-01-11)
PROC: 0JH63XZ Insertion of Tunneled Vascular Access Device into Chest Subcutaneous Tissue and Fascia, Percutaneous Approach (ICD-10-PCS; principal; 2019-01-16)
PROC: 02H633Z Insertion of Infusion Device into Right Atrium, Percutaneous Approach (ICD-10-PCS; 2019-01-16)
PROC: B5181ZA Fluoroscopy of Superior Vena Cava using Low Osmolar Contrast, Guidance (ICD-10-PCS; 2019-01-16)
PROC: B543ZZA Ultrasonography of Right Jugular Veins, Guidance (ICD-10-PCS; 2019-01-16)
DX: L02.415 Cutaneous abscess of right lower limb (principal); D57.00 Hb-SS disease with crisis, unspecified; M86.651 Other chronic osteomyelitis, right thigh; L02.416 Cutaneous abscess of left lower limb; D72.829 Elevated white blood cell count, unspecified; D47.3 Essential (hemorrhagic) thrombocythemia
CPT/HCPCS: 36415; 36558; 71045; 76937; 77001; 80048; 80053; 80202; 81001; 82164; 82607; 82728; 82747; 83550; 83615; 84703; 85007; 85014; 85018; 85025; 85027; 85045; 85610; 85730; 86850; 86870; 86900; 86901; 86920; 86922; 87075; 87076; 87116; 87186; 96361; 96374; G0378; A4217; A9577; C1751; J0690; J0692; J1100; J1170; J1644; J1650; J1885; J2250; J2270; J2405; J2704; J3010; J3370; J7030; J7040; J7050; P9016; Q9967

== ENCOUNTER 2019-01-24 13:13 | Outpatient (CLI) | payer OTHER, SELFPAY ==
[2019-01-24 13:48] LABS: Hemoglobin 6.3 gm/dl (10.1-14.3); Mean Corpuscular HGB Conc 34 % (30-34); Mean Corpuscular Volume 85 fl (79-97); Platelet Count 702 K/mm3 (140-440); Red Blood Count 2.23 M/mm3 (3.65-5.03)
[2019-01-24 14:11] LABS: Red Cell Distribution Width 20.6 % (13.2-15.2)
[2019-01-24 14:14] LABS: Alanine Aminotransferase 29 units/L (7-56)
[2019-01-24 14:43] LABS: Hematocrit 18.8 % (30.3-42.9)
== END 2019-01-24 13:14 | disposition home or self-care (01) ==
LOC: LAB 13:13
PROVIDERS: ATTEND Internal Medicine Infectious Disease
DX: M86.8X5 Other osteomyelitis, thigh (principal)
CPT/HCPCS: 36415; 80202; 82565; 84450; 84460; 85027; 86140

== ENCOUNTER 2019-01-25 12:17 | Observation (INO) | payer OTHER, SELFPAY ==
[2019-01-25] MEDS ORDERED: NACL 0.9% 1000 ML 1,000 ML IV ONE (12:42)
--- NOTE | 2019-01-25 12:44 | Event Note ---
ED Screening Note Date of service: 01/25/19 Time: 12:41 ED Screening Note: 28 y/o female with SCD c/o pain in neck and right hand. She was sent to ER for low Hemoglobin. Pain 2/ No SOB This initial assessment/diagnostic orders/clinical plan/treatment(s) is/are subject to change based on patients health status, clinical progression and re- assessment by fellow clinical providers in the ED. Further treatment and workup at subsequent clinical providers discretion. Patient/guardian urged not to elope from the ED as their condition may be serious if not clinically assessed and managed. Initial orders include:
--- NOTE | 2019-01-25 13:02 | Emergency Department Report ---
ED General Adult HPI - General Chief complaint: Sickle Cell Crisis Stated complaint: LOW BLOOD COUNT Time Seen by Provider: 01/25/19 12:40 Source: patient Mode of arrival: Ambulatory Limitations: No Limitations - Related Data Previous Rx's Medication Instructions Recorded Last Taken Type Folic Acid [Folvite] 1 mg PO QDAY #30 tablet 01/16/19 Unknown Rx Multivitamin Tab [Multiple Vitamin 1 each PO QDAY #30 tablet 01/16/19 Unknown Rx TAB (Theragran)] Sennosides Tab [Senokot] 17.2 mg PO QHS #60 tablet 01/16/19 Unknown Rx traMADol [Ultram 50 MG tab] 25 mg PO Q4H PRN #14 tablet 01/16/19 Unknown Rx Hydroxyurea [Hydrea] 500 mg PO QDAY #30 capsule 01/17/19 Unknown Rx Allergies Allergy/AdvReac Type Severity Reaction Status Date / Time No Known Allergies Allergy Unverified 01/04/19 08:15 ED Review of Systems ROS: Stated complaint: LOW BLOOD COUNT Other details as noted in HPI ED Past Medical Hx - Past Medical History Previous Medical History?: Yes Hx Congestive Heart Failure: No Hx Diabetes: No Hx Sickle Cell Disease: Yes Hx Asthma: No Hx COPD: No Hx HIV: No - Surgical History Past Surgical History?: Yes Additional Surgical History: Ortho surgery to right thigh s/t osteomylitis - Social History Smoking Status: Never Smoker Substance Use Type: None - Medications Home Medications: Home Medications Medication Instructions Recorded Confirmed Last Taken Type Folic Acid [Folvite] 1 mg PO QDAY #30 tablet 01/16/19 Unknown Rx Multivitamin Tab [Multiple Vitamin 1 each PO QDAY #30 tablet 01/16/19 Unknown Rx TAB (Theragran)] Sennosides Tab [Senokot] 17.2 mg PO QHS #60 tablet 01/16/19 Unknown Rx traMADol [Ultram 50 MG tab] 25 mg PO Q4H PRN #14 tablet 01/16/19 Unknown Rx Hydroxyurea [Hydrea] 500 mg PO QDAY #30 capsule 01/17/19 Unknown Rx ED Physical Exam - General Limitations: No Limitations ED Course Vital Signs 01/25/19 12:38 Temperature 98.6 F Pulse Rate 81 Respiratory 16 Rate Blood Pressure 103/50 O2 Sat by Pulse 98 Oximetry Critical care attestation.: If time is entered above; I have spent that time in minutes in the direct care of this critically ill patient, excluding procedure time. ED Disposition Condition: Stable
--- NOTE | 2019-01-25 14:13 | Emergency Department Report ---
ED General Adult HPI - General Chief complaint: Sickle Cell Crisis Stated complaint: LOW BLOOD COUNT Time Seen by Provider: 01/25/19 12:40 Source: patient Mode of arrival: Ambulatory Limitations: No Limitations - History of Present Illness Initial comments: 28-year-old -Citizen Of The [place] female patient with history of sickle cell disease and osteomyelitis was sent to the ED by Dr. Bell, infectious disease, for evaluation of low hemoglobin times today. Patient had labs drawn yesterday showing hemoglobin of 6.3. Patient states she normally has a hemoglobin around 7. She reports her last blood transfusion was during her admission here 3 weeks ago. She is currently being followed by infectious disease for osteomyelitis of her Patient also complains of intermittent right neck pain and right wrist pain that occur with been taking and are a 2 out of 10 pain in severity. She denies any injury to her neck or wrist right femur. - Related Data Previous Rx's Medication Instructions Recorded Last Taken Type Folic Acid [Folvite] 1 mg PO QDAY #30 tablet 01/16/19 01/24/19 Rx Multivitamin Tab [Multiple Vitamin 1 each PO QDAY #30 tablet 01/16/19 01/24/19 Rx TAB (Theragran)] Sennosides Tab [Senokot] 17.2 mg PO QHS #60 tablet 01/16/19 01/24/19 Rx Hydroxyurea [Hydrea] 500 mg PO QDAY #30 capsule 01/17/19 01/24/19 Rx Allergies Allergy/AdvReac Type Severity Reaction Status Date / Time No Known Allergies Allergy Unverified 01/04/19 08:15 ED Review of Systems ROS: Stated complaint: LOW BLOOD COUNT Other details as noted in HPI ED Past Medical Hx - Past Medical History Previous Medical History?: Yes Hx Congestive Heart Failure: No Hx Diabetes: No Hx Sickle Cell Disease: Yes Hx Asthma: No Hx COPD: No Hx HIV: No - Surgical History Past Surgical History?: Yes Additional Surgical History: Ortho surgery to right thigh s/t osteomylitis - Social History Smoking Status: Never Smoker Substance Use Type: None - Medications Home Medications: Home Medications Medication Instructions Recorded Confirmed Last Taken Type Folic Acid [Folvite] 1 mg PO QDAY #30 tablet 01/16/19 01/24/19 Rx Multivitamin Tab [Multiple Vitamin 1 each PO QDAY #30 tablet 01/16/19 01/25/19 01/24/19 Rx TAB (Theragran)] Sennosides Tab [Senokot] 17.2 mg PO QHS #60 tablet 01/16/19 01/25/19 01/24/19 Rx Hydroxyurea [Hydrea] 500 mg PO QDAY #30 capsule 01/17/19 01/25/19 01/24/19 Rx ED Physical Exam - General Limitations: No Limitations - Head Head exam: Present: atraumatic - Eye Eye exam: Present: normal appearance - Neck Neck exam: Present: normal inspection, tenderness, full ROM. Absent: meningismus - Respiratory Respiratory exam: Present: normal lung sounds bilaterally - Cardiovascular Cardiovascular Exam: Present: regular rate - Expanded Upper Extremity Exam Right Forearm Wrist exam: Present: normal inspection, full ROM. Absent: tenderness, swelling, erythema Hand Wrist exam: Present: normal inspection, full ROM. Absent: tenderness, swelling, erythema - Back Exam Back exam: Present: full ROM (of neck). Absent: tenderness (of neck), muscle spasm, paraspinal tenderness, vertebral tenderness - Neurological Exam Neurological exam: Present: alert, oriented X3 - Psychiatric Psychiatric exam: Present: normal affect, normal mood - Skin Skin exam: Present: warm, dry, intact, normal color. Absent: rash ED Course Vital Signs 01/25/19 01/25/19 01/25/19 12:38 14:26 14:28 Temperature 98.6 F 98.0 F Pulse Rate 81 86 Respiratory 16 16 16 Rate Blood Pressure 103/50 Blood Pressure 105/45 [Left] O2 Sat by Pulse 98 96 96 Oximetry 01/25/19 17:44 Temperature 99.0 F Pulse Rate 83 Respiratory 18 Rate Blood Pressure 102/59 Blood Pressure [Left] O2 Sat by Pulse 100 Oximetry ED Medical Decision Making - Lab Data Result diagrams: 01/25/19 13:49 01/25/19 13:49 - Medical Decision Making Patient here for severe anemia. Hemoglobin was 6.3 at her doctor's office yesterday. Hemoglobin is now 5.6. Patient denies any abdominal pain blood in stools or black tarry stools. Patient to be admitted to hospital for blood transfusion. Critical care attestation.: If time is entered above; I have spent that time in minutes in the direct care of this critically ill patient, excluding procedure time. ED Disposition Clinical Impression: Anemia Disposition: DC-09 OP ADMIT IP TO THIS HOSP Is pt being admited?: Yes Condition: Stable
[2019-01-25 14:31] LABS: Alanine Aminotransferase 24 units/L (7-56); Albumin 3.7 g/dL (3.9-5); BUN/Creatinine Ratio 13; Blood Urea Nitrogen 8 mg/dL (7-17); Calcium 8.5 mg/dL (8.4-10.2); Hemolysis Index 0
[2019-01-25 14:36] LABS: Mean Corpuscular HGB Conc 33 % (30-34); Mean Corpuscular Volume 84 fl (79-97); Platelet Count 740 K/mm3 (140-440)
[2019-01-25 15:14] LABS: Hemoglobin 5.6 gm/dl (10.1-14.3)
[2019-01-25 15:15] LABS: Hematocrit 16.7 % (30.3-42.9); Red Cell Distribution Width 20.9 % (13.2-15.2)
[2019-01-25] MEDS ORDERED: NACL 0.9% 500 ML 500 ML IV ONE ×2 (15:46→21:16)
[2019-01-25 16:08] LABS: Basophils # (Auto) 0.2 K/mm3 (0.0-0.1); Eosinophils # (Auto) 0.5 K/mm3 (0.0-0.4); Eosinophils % (Auto) 4.2 % (0.0-4.3); Monocytes # (Auto) 1.3 K/mm3 (0.0-0.8); Monocytes % (Auto) 10.2 % (0.0-7.3)
[2019-01-25 17:44] LABS: Basophils % (Manual) 0 % (0.0-1.8); Total Cells Counted 100
[2019-01-25 17:45] LABS: Anisocytosis 1+; Large Platelets 1+; Platelet Estimate Appears Increased; Sickle Cells 1+
[2019-01-25 17:46] LABS: Target Cells 1+
[2019-01-25] MEDS ORDERED: BENADRYL ONE (19:46)
[2019-01-25] MEDS ORDERED: BENADRYL IV ONE (20:01)
[2019-01-25] MEDS ORDERED: PEPCID IV ONE ×2 (20:01→20:11)
[2019-01-25 20:57] LABS: Bilirubin,Urine NEG (Negative); Blood,Urine NEG (Negative); Color,Urine Yellow (Yellow); Mucus,Urine FEW /HPF; Protein,Urine <15 mg/dL mg/dL (Negative); Urobilinogen,Urine < 2.0 mg/dL (<2.0)
[2019-01-25] MEDS ORDERED: REGLAN IV PRN (21:14)
[2019-01-25] MEDS ORDERED: TYLENOL PO PRN (21:14)
[2019-01-25] MEDS ORDERED: DILAUDID IV PRN (21:14)
[2019-01-25] MEDS ORDERED: SODIUM CHLORIDE FLUSH SYRINGE 10 ML IV PRN (21:14)
[2019-01-25] MEDS ORDERED: PERCOCET 5/325 PO PRN (21:14)
[2019-01-25] MEDS ORDERED: ZOFRAN IV PRN (21:14)
[2019-01-25] MEDS ORDERED: SENOKOT PO SCH (22:00)
[2019-01-26] MEDS: THERAGRAN Tab PO SCH ×2 (00:02→09:57)
[2019-01-26] MEDS: NACL 0.9% 1000 ML 1,000 ML IV SCH ×2 (00:03→10:06)
[2019-01-26] MEDS: HYDROXYUREA PO SCH ×2 (00:03→10:13)
[2019-01-26] MEDS: FOLVITE PO SCH ×2 (00:04→09:57)
[2019-01-26] MEDS: SODIUM CHLORIDE FLUSH SYRINGE 10 ML IV SCH ×2 (00:05→10:09)
[2019-01-26 06:41] LABS: Hematocrit 21.1 % (30.3-42.9); Hemoglobin 6.9 gm/dl (10.1-14.3); Mean Corpuscular HGB Conc 33 % (30-34); Mean Corpuscular Volume 83 fl (79-97); Platelet Count 768 K/mm3 (140-440); Red Blood Count 2.53 M/mm3 (3.65-5.03)
[2019-01-26 06:51] LABS: Red Cell Distribution Width 20.5 % (13.2-15.2)
[2019-01-26 06:54] LABS: Alanine Aminotransferase 18 units/L (7-56); Albumin 3.4 g/dL (3.9-5); BUN/Creatinine Ratio 15; Blood Urea Nitrogen 9 mg/dL (7-17); Calcium 8.1 mg/dL (8.4-10.2); Hemolysis Index 6
--- NOTE | 2019-01-26 07:06 | Event Note ---
Date: 01/25/19 See H/p in reports Acute anemia SCC
--- NOTE | 2019-01-26 08:23 | History and Physical Report ---
CHIEF COMPLAINT: Low hemoglobin levels. HISTORY OF PRESENT ILLNESS: A 28-year-old female with history of sickle cell disease and chronic osteomyelitis, was sent to the Emergency Room by the Infectious Disease specialist, Dr. Bell, for low hemoglobin of 6.3. In the Emergency Room, hemoglobin was 5.9. The patient normally has hemoglobin between 7 and 8. The patient had last blood transfusion 3 weeks ago. The patient was discharged recently and the patient is being treated for chronic osteomyelitis of the right femur. The patient had a right femur washout around end of December. The patient was discharged on 01/18/2019 to be on daptomycin and follow up with ID. The patient feels weak and tired. No sickle cell crisis at this point. PAST MEDICAL HISTORY: Significant for sickle cell crisis, chronic osteomyelitis of the right femur and right thigh abscess. PAST SURGICAL HISTORY: Right thigh I and D done and right femur washout. FAMILY HISTORY: Hypertension. SOCIAL HISTORY: Does not smoke. PHYSICAL EXAMINATION: GENERAL: Young female, cooperative during examination. VITAL SIGNS: Temperature is 98.3, pulse is 82, respirations 41, which has decreased to 18, blood pressure 106/76. HEENT: Unremarkable. Pupils equal and reactive. NECK: Supple, no lymphadenopathy, no thyromegaly. LUNGS: Clear to auscultation and percussion. Good air entry. CARDIOVASCULAR: S1, S2 heard. No gallop, no murmur, no rub. Apical impulse in left fifth intercostal space and midclavicular line. ABDOMEN: Soft and benign. No hepatosplenomegaly. No guarding, no rigidity. Hernial orifices are normal. EXTREMITIES: Right thigh wound present where the patient had a femur washout. No drainage. CENTRAL NERVOUS SYSTEM: Alert and oriented x 4, nonfocal exam. LABORATORY DATA: Significant for hemoglobin of 5.6 and hematocrit of 16.7, white blood cells 12.3, platelet count is 740,000. Potassium is slightly low at 3.4, alkaline phosphatase is 158, albumin is 3.7. Urine is normal. ASSESSMENT AND PLAN: 1. Acute anemia secondary to sickle cell disease. The patient to be transfused 2 units of packed red blood cells. 2. Chronic osteomyelitis. The patient is supposed to be on daptomycin. We will get ID consult regarding followup for chronic osteomyelitis. 3. Sickle cell anemia. Continue folic acid and hydroxyurea. The patient is not in crisis. Reticulocyte count is near normal. 4. Hypokalemia, supplemented. 5. Deep venous thrombosis prophylaxis, Lovenox 40 mg subcutaneous daily. In summary, the patient has acute symptomatic anemia, chronic osteomyelitis, sickle cell disease and hypokalemia. JOB# [id number] VSM/NTS MTDD
--- NOTE | 2019-01-26 08:52 | Event Note ---
Date: 01/26/19 [id number]
[2019-01-26] MEDS ORDERED: K-DUR PO ONE ×2 (10:00→12:25)
[2019-01-26] MEDS ORDERED: PEPCID IV SCH (10:00)
[2019-01-26 10:23] LABS: Total Cells Counted 100
[2019-01-26 10:25] LABS: Anisocytosis 1+
[2019-01-26 10:26] LABS: Large Platelets Few; Platelet Estimate Consistent w Auto; Sickle Cells 1+; Target Cells 1+
[2019-01-26 13:58] VITALS: BP 99/58
--- NOTE | 2019-01-26 15:09 | Discharge Summary ---
Providers - Providers Date of Admission: 01/25/19 16:42 Date of discharge: 01/26/19 Attending physician: CONCHA LIMA 01/25/19 21:14 Consult to Physician [CONS] Routine Comment: Consulting Provider: VANDANA RUANO Physician Instructions: Reason For Exam: sickle cell anemia 01/26/19 07:54 Consult to Physician [CONS] Routine Comment: Consulting Provider: PASQUALE LOCKETT Physician Instructions: Reason For Exam: Chronic osteomyelitis 01/26/19 14:07 Consult to Wound/ET Nurse [CONS] Routine Reason For Exam: wound eval Primary care physician: BRAKE LINING DRILLER Hospitalization Condition: Stable Hospital course: Patient was seen and examined. Follow-up on current diagnosis. Overnight uneventful. Patient denies any chest pain, shortness breath, nausea/vomiting or severe headaches. Imaging, nursing note, chart, labs and old chart reviewed. Discussed with patient. Here for blood transfusion. Discharge Diagnoses: Acute on chronic anemia secondary to Sickle cell disease s/p 1 unit PRBC Chronic Osteomyelitis Right thigh with sutures in place: return to her outpatient doctor for management Hypokalemia: repleted D/W Heme/Onc Dr. Ruano ok to discharge Disposition: DC-01 TO HOME OR SELFCARE Time spent for discharge: 35 minutes Core Measure Documentation - Palliative Care Palliative Care/ Comfort Measures: Not Applicable - Core Measures Any of the following diagnoses?: none - VTE Discharge Requirements Deep Vein Thrombosis/Pulmonary Embolism Present on Admission: No Has pt received <5 days of overlap therapy or INR<2.0: No Anticoagulant overlap therapy prescribed at discharge: No Contraindication No Overlap Therapy order at DC: Not Indicated Exam - Physical Exam Narrative exam: GEN: WDWN, NAD, Awake, Alert, Orientated HEENT: NCAT, EOMI, PERRL, OP Clear NECK: supple, no adenopathy, no thyromegaly, no JVD CVS/HEART: RRR, normal S1S2, pulses present bilaterally CHEST/LUNGS: CTA B, Symmetrical chest expansion, good air entry bilaterally GI/Abdomen: soft, NTND, good bowel sounds, no guarding or rebound /Bladder: no suprapubic tenderness, no CVA or paraspinal tenderness EXT/Skin: right suture in place right thigh, see wound care pictures MSK: FROM x 4 Neuro: CN 2-12 grossly intact, no new focal deficits Psych: calm - Constitutional Vitals: Temp Pulse Resp BP Pulse Ox 99.3 F 71 18 99/58 98 01/26/19 11:07 01/26/19 11:07 01/26/19 11:07 01/26/19 11:07 01/26/19 11:07 Plan Activity: other (no strenous activity unless cleared by PCP) Diet: regular Follow up with: PRIMARY MD MITUL [Primary Care Provider] - 3-5 Days VANDANA RUANO MD [Staff Physician] - 7 Days PASQUALE LOCKETT MD [Staff Physician] - 7 Days
--- NOTE | 2019-01-26 15:44 | Consultation ---
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 She was directed to present to the hospital to receive a blood transfusion after noting to be severely anemic on labs received at our office as part of routine monitoring for her outpatient antibiotic therapy. She is otherwise asymptomatic at this time. Afebrile since admission with an elevated white count which is stable from her discharge. Currently receiving vancomycin. No new cultures obtained. Imaging personally reviewed: no new imaging obtained. Past History Past Medical History: other (osteomyelitis) Past Surgical History: Other (Abscess I&D) Social history: denies: smoking, alcohol abuse Family history: no significant family history Medications and Allergies Allergies Allergy/AdvReac Type Severity Reaction Status Date / Time No Known Allergies Allergy Unverified 01/04/19 08:15 Home Medications Medication Instructions Recorded Confirmed Last Taken Type Folic Acid [Folvite] 1 mg PO QDAY #30 tablet 01/16/19 01/25/19 01/24/19 Rx Multivitamin Tab [Multiple Vitamin 1 each PO QDAY #30 tablet 01/16/19 01/25/19 01/24/19 Rx TAB (Theragran)] Sennosides Tab [Senokot] 17.2 mg PO QHS #60 tablet 01/16/19 01/25/19 01/24/19 Rx Hydroxyurea [Hydrea] 500 mg PO QDAY #30 capsule 01/17/19 01/25/19 01/24/19 Rx Active Meds: Active Medications Acetaminophen (Tylenol) 650 mg PO Q4H PRN PRN Reason: Pain MILD(1-3)/Fever >100.5/CARTER Famotidine (Pepcid) 20 mg IV BID [facility] Last Admin: 01/26/19 09:57 Dose: 20 mg Documented by: Folic Acid (Folvite) 1 mg PO QDAY [facility] Last Admin: 01/26/19 09:57 Dose: 1 mg Documented by: Hydromorphone HCl (Dilaudid) 1 mg IV Q3H PRN PRN Reason: Pain , Severe (7-10) Hydroxyurea (Hydrea) 500 mg PO QDAY [facility] Last Admin: 01/26/19 10:13 Dose: 500 mg Documented by: Sodium Chloride (Nacl 0.9% 1000 Ml) 1,000 mls @ 100 mls/hr IV DIRECT [facility] Last Admin: 01/26/19 10:06 Dose: 100 mls/hr Documented by: Metoclopramide HCl (Reglan) 10 mg IV Q6H PRN PRN Reason: Nausea And Vomiting Multivitamins (Theragran Tab) 1 each PO QDAY [facility] Last Admin: 01/26/19 09:57 Dose: 1 each Documented by: Ondansetron HCl (Zofran) 4 mg IV Q3H PRN PRN Reason: Nausea And Vomiting Oxycodone/Acetaminophen (Percocet 5/325) 1 tab PO Q6H PRN PRN Reason: Pain, Moderate (4-6) Senna (Senokot) 17.2 mg PO QHS [facility] Last Admin: 01/26/19 00:01 Dose: 17.2 mg Documented by: Sodium Chloride (Sodium Chloride Flush Syringe 10 Ml) 10 ml IV BID [facility] Last Admin: 01/26/19 10:09 Dose: 10 ml Documented by: Sodium Chloride (Sodium Chloride Flush Syringe 10 Ml) 10 ml IV PRN PRN PRN Reason: LINE FLUSH Physical Examination - Physical Exam Narrative exam: Patient not available to be evaluated - Constitutional Vitals: Vital Signs Temp Pulse Resp BP Pulse Ox 99.3 F 71 18 99/58 98 01/26/19 11:07 01/26/19 11:07 01/26/19 11:07 01/26/19 11:07 01/26/19 11:07 Temperature -Last 24 Hours Temperature 99.3 F Temperature 97.9 F Temperature 98.2 F Temperature 98.3 F Temperature 99.3 F Temperature 99.1 F Temperature 98.5 F Temperature 99.2 F Temperature 99.3 F Temperature 99.0 F Results - Labs CBC & Chem 7: 01/26/19 Unknown 01/26/19 06:14 Labs: Abnormal lab results 01/25/19 01/25/19 01/26/19 Range/Units 13:49 13:49 06:14 WBC (4.5-11.0) K/mm3 RBC (3.65-5.03) M/mm3 Hgb (10.1-14.3) gm/dl Hct (30.3-42.9) % MCH (28-32) pg RDW (13.2-15.2) % Plt Count (140-440) K/mm3 Sawyer % (Auto) 10.2 H (0.0-7.3) % Sawyer # 1.3 H (0.0-0.8) K/mm3 Eos # 0.5 H (0.0-0.4) K/mm3 Baso # 0.2 H (0.0-0.1) K/mm3 Monocytes % (Manual) 12.0 H (0.0-7.3) % Eosinophils % (Manual) (0.0-4.3) % Nucleated RBC % (0.0-0.9) % Seg Neutrophils # 7.8 H (1.8-7.7) K/mm3 Seg Neutrophils # Man 7.9 H (1.8-7.7) K/mm3 Monocytes # (Manual) 1.5 H (0.0-0.8) K/mm3 Eosinophils # (Manual) (0.0-0.4) K/mm3 Potassium 3.3 L (3.6-5.0) mmol/L Chloride 110.9 H (98-107) mmol/L Carbon Dioxide 21 L (22-30) mmol/L Creatinine 0.6 L (0.7-1.2) mg/dL Calcium 8.1 L (8.4-10.2) mg/dL Alkaline Phosphatase 143 H (35-129) units/L Albumin 3.4 L (3.9-5) g/dL Crossmatch See Detail 01/26/19 Range/Units Unknown WBC 12.8 H (4.5-11.0) K/mm3 RBC 2.53 L (3.65-5.03) M/mm3 Hgb 6.9 L (10.1-14.3) gm/dl Hct 21.1 L (30.3-42.9) % MCH 27 L (28-32) pg RDW 20.5 H (13.2-15.2) % Plt Count 768 H (140-440) K/mm3 Sawyer % (Auto) (0.0-7.3) % Sawyer # (0.0-0.8) K/mm3 Eos # (0.0-0.4) K/mm3 Baso # (0.0-0.1) K/mm3 Monocytes % (Manual) 10.0 H (0.0-7.3) % Eosinophils % (Manual) 5.0 H (0.0-4.3) % Nucleated RBC % 2.0 H (0.0-0.9) % Seg Neutrophils # (1.8-7.7) K/mm3 Seg Neutrophils # Man (1.8-7.7) K/mm3 Monocytes # (Manual) 1.3 H (0.0-0.8) K/mm3 Eosinophils # (Manual) 0.6 H (0.0-0.4) K/mm3 Potassium (3.6-5.0) mmol/L Chloride (98-107) mmol/L Carbon Dioxide (22-30) mmol/L Creatinine (0.7-1.2) mg/dL Calcium (8.4-10.2) mg/dL Alkaline Phosphatase (35-129) units/L Albumin (3.9-5) g/dL Crossmatch Assessment and Plan Cultures: 01/05/2019 R thigh wound culture: MRSA 01/11/2019 OR culture negative A/P: 1) Right femur chronic osteomyelitis 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 No culture data available from the past. CXR no cavities. She reports testing negative for TB as a part of her immigration process to the [place]. Xray and CT findings are concerning for chronic osteomyelitis with mottled appearance of the R femur. MRI shows destructive change in the greater trochanter with contrast enhancement consistent with osteomyelitis with a fistulous tract from the skin extending to the greater trochanter where there is an abscess present. A superficial abscess is also seen just under the skin wound. Patient is now s/p I&D by Dr. Montoya 01/05/2019 and per her note, "copious amounts of purulent drainage" noted. Wound Culture grew MRSA. Ortho following. Patient is s/p I&D by Dr. Montoya 01/05/2019 and per her note, "copious amounts of purulent drainage" noted. Underwent R thigh debridement and irrigation by Ortho Dr. Landers on 01/11/2019. 01/11/2019 OR culture negative. Expect protracted course with combined medical and surgical treatment. Continue vancomycin. Continue vancomycin. 2) Sickle cell disease. 3) Anemia. Recs: Continue IV Vancomycin with PK Ok to discharge on home antibiotics when ready for discharge. Will inform home pharmacy to resume delivery of antibiotics. Will follow up in office as previously scheduled. Will follow Thank you for the consult, we will continue to follow. Dimas Farrell MD [facility] [place] [facility] ([facility]) M: [phone] O: [phone] F: [phone]
--- NOTE | 2019-01-28 02:39 | Consultation ---
REFERRED BY: Dr. Hernandez. REASON FOR CONSULTATION: Sickle cell. HISTORY OF PRESENT ILLNESS: I saw the patient, a 28-year-old female in the medical floor. The patient has history of sickle cell disease. I had seen her recently in the inpatient status. The patient is from [facility]. She had undergone a right thigh procedure, infection was suspected and the patient was placed on antibiotics as per ID. Labs were done by ID. Hemoglobin was low and she was admitted for transfusion in the ER, hemoglobin was 5.9, she received transfusion. The patient says normal hemoglobin has been around 7-8. This was in [facility]. She has recently come to [facility]. The patient was being treated for osteomyelitis. The patient has been seen by ID team. She was discharged on 01/18/2019 on daptomycin. Complaining of weakness and tiredness. No pain. The patient received transfusion support and as per the nurse, she had some reaction, details of this is not clear. The patient has had transfusion support in [facility] too. She was recently started on folic acid and hydroxyurea. PAST MEDICAL HISTORY: Reviewed. History of left knee problem, right ankle problem, right thigh problem with osteomyelitis in right thigh. ALLERGIES: None. SOCIAL HISTORY: Nonsmoker. PHYSICAL EXAMINATION: VITAL SIGNS: Temperature 98, pulse 82, respirations 18, BP ____. HEENT: Pallor present, no icterus. NECK: No neck lymph nodes. HEART: S1, S2. LUNGS: Clear to auscultation. ABDOMEN: Soft. EXTREMITIES: Bandage right thigh and right ankle. Left knee deformed. The patient uses a cane to ambulate, left. NEUROLOGIC: Alert, awake, oriented. LABORATORY DATA: White cell 12, hemoglobin 6.9, MCV 83, platelets 768, potassium 3.3, creatinine 0.6, calcium 8.1, bilirubin 1.1. MEDICATIONS: Include hydroxyurea, folic acid. ASSESSMENT: 1. Anemia, MCV normal. History of sickle cell disease. 2. High ferritin in the past. B12 and folate were normal. 3. As per the nurse, she had some reaction, details of the transfusion reaction is not clear. I would like to minimize transfusion support to her. 4. Osteomyelitis, status post treatment. I discussed with ID team. I discussed with Dr. Majano, outpatient followup for hydroxyurea, continue folic acid for now. JOB# [id number] NELI/SCOTT
== END 2019-01-26 16:05 | disposition home or self-care (01) ==
LOC: ED 12:17 → 3A 16:42
PROVIDERS: ADMIT Internal Medicine; ATTEND Internal Medicine
DX: D64.9 Anemia, unspecified (principal); D57.1 Sickle-cell disease without crisis; M86.9 Osteomyelitis, unspecified
CPT/HCPCS: 36415; 36430; 80053; 81003; 81015; 85007; 85025; 85045; 86850; 86870; 86900; 86901; 86922; 96374; 96375; 96376; 99284; G0378; J1200; J7030; P9016

== ENCOUNTER 2019-01-29 14:02 | Outpatient (CLI) | payer OTHER, SELFPAY ==
[2019-01-29 14:30] LABS: Hemoglobin 7.5 gm/dl (10.1-14.3); Mean Corpuscular HGB Conc 33 % (30-34); Mean Corpuscular Volume 86 fl (79-97); Red Blood Count 2.68 M/mm3 (3.65-5.03)
[2019-01-29 14:34] LABS: Red Cell Distribution Width 21.7 % (13.2-15.2)
[2019-01-29 14:42] LABS: Alanine Aminotransferase 16 units/L (7-56)
[2019-01-29 14:56] LABS: Platelet Count 1039 K/mm3 (140-440)
== END 2019-01-29 14:03 | disposition home or self-care (01) ==
LOC: LAB 14:02
PROVIDERS: ATTEND Internal Medicine Infectious Disease
DX: M86.8X8 Other osteomyelitis, other site (principal); M19.90 Unspecified osteoarthritis, unspecified site; Z86.2 Personal history of diseases of the blood and blood-forming organs and certain disorders involving the immune mechanism
CPT/HCPCS: 36415; 80202; 82565; 84450; 84460; 85027; 86140

== ENCOUNTER 2019-02-05 12:43 | Outpatient (CLI) | payer OTHER ==
[2019-02-05 13:17] LABS: Hematocrit 21.5 % (30.3-42.9); Hemoglobin 7.2 gm/dl (10.1-14.3); Mean Corpuscular HGB Conc 33 % (30-34); Mean Corpuscular Volume 86 fl (79-97); Platelet Count 740 K/mm3 (140-440); Red Blood Count 2.51 M/mm3 (3.65-5.03)
[2019-02-05 14:38] LABS: Alanine Aminotransferase 15 units/L (7-56)
== END 2019-02-05 12:44 | disposition home or self-care (01) ==
LOC: LAB 12:43
PROVIDERS: ATTEND Internal Medicine Infectious Disease
DX: M86.8X8 Other osteomyelitis, other site (principal); M19.90 Unspecified osteoarthritis, unspecified site; Z86.2 Personal history of diseases of the blood and blood-forming organs and certain disorders involving the immune mechanism
CPT/HCPCS: 36415; 80202; 82565; 84450; 84460; 85027; 86140

== ENCOUNTER 2019-02-12 12:56 | Outpatient (CLI) | payer OTHER ==
[2019-02-12 13:20] LABS: Hemoglobin 6.4 gm/dl (10.1-14.3); Mean Corpuscular HGB Conc 33 % (30-34); Mean Corpuscular Volume 85 fl (79-97); Platelet Count 620 K/mm3 (140-440); Red Blood Count 2.27 M/mm3 (3.65-5.03)
[2019-02-12 13:28] LABS: Hematocrit 19.3 % (30.3-42.9)
[2019-02-12 13:29] LABS: Red Cell Distribution Width 22.3 % (13.2-15.2)
[2019-02-12 13:51] LABS: Alanine Aminotransferase 15 units/L (7-56)
== END 2019-02-12 12:57 | disposition home or self-care (01) ==
LOC: LAB 12:56
PROVIDERS: ATTEND Internal Medicine Infectious Disease
DX: M86.151 Other acute osteomyelitis, right femur (principal); M19.90 Unspecified osteoarthritis, unspecified site; Z86.2 Personal history of diseases of the blood and blood-forming organs and certain disorders involving the immune mechanism
CPT/HCPCS: 36415; 80202; 82565; 84450; 84460; 85027; 86140

== ENCOUNTER 2019-02-13 09:30 | Observation (INO) | payer OTHER ==
[2019-02-13] MEDS ORDERED: SODIUM CHLORIDE 0.9% 1000 ML 1,000 ML IV ONE (10:52)
--- NOTE | 2019-02-13 11:37 | XRay Report ---
CHEST 1 VIEW 02/13/2019 11:19 AM INDICATION / CLINICAL INFORMATION: ELIZABETH. COMPARISON: Chest x-ray on 01/04/2019. FINDINGS: SUPPORT DEVICES: Right IJ central venous catheter is in place with the tip projecting over the superi or cavoatrial junction. HEART / MEDIASTINUM: Stable. Mild cardiomegaly. Stable mild hiatal hernia versus ectasia of the desce nding thoracic aorta as discussed on the previous report. LUNGS / PLEURA: No significant pulmonary or pleural abnormality. No pneumothorax. ADDITIONAL FINDINGS: No significant additional findings. IMPRESSION: 1. No acute findings. No adverse change from the prior exam. Signer Name: Farhan Pollack MD Signed: 02/13/2019 11:33 AM Workstation Name: [id number]
[2019-02-13 12:35] LABS: Basophils # (Auto) 0.1 K/mm3 (0.0-0.1); Basophils % (Auto) 0.4 % (0.0-1.8); Eosinophils # (Auto) 0.1 K/mm3 (0.0-0.4); Eosinophils % (Auto) 0.9 % (0.0-4.3); Hemoglobin 6.2 gm/dl (10.1-14.3); Lymphocytes # (Auto) 3.6 K/mm3 (1.2-5.4); Lymphocytes % (Auto) 26.2 % (13.4-35.0); Mean Corpuscular HGB Conc 34 % (30-34); Mean Corpuscular Volume 87 fl (79-97); Monocytes # (Auto) 1.2 K/mm3 (0.0-0.8); Platelet Count 645 K/mm3 (140-440); Red Blood Count 2.11 M/mm3 (3.65-5.03)
[2019-02-13 12:40] LABS: Hematocrit 18.3 % (30.3-42.9); Red Cell Distribution Width 22.1 % (13.2-15.2)
[2019-02-13 12:44] LABS: INR 1.15 (0.87-1.13)
[2019-02-13 12:45] LABS: Partial Thromboplastin Time 33.1 Sec. (24.2-36.6)
[2019-02-13 12:59] LABS: Erythrocyte Sedimentation Rate 90 mm/Hr (0-20)
[2019-02-13 13:00] LABS: Albumin 4.2 g/dL (3.9-5); BUN/Creatinine Ratio 20; Blood Urea Nitrogen 10 mg/dL (7-17); Calcium 9.3 mg/dL (8.4-10.2); Hemolysis Index 98
[2019-02-13] MEDS ORDERED: SODIUM CHLORIDE 0.9% 500 ML 500 ML IV ONE (13:00)
--- NOTE | 2019-02-13 13:00 | Emergency Department Report ---
ED General Adult HPI - General Chief complaint: Medical Clearance Stated complaint: ABNORMAL LABS Time Seen by Provider: 02/13/19 10:49 Source: patient Mode of arrival: Ambulatory Limitations: No Limitations - History of Present Illness Initial comments: This is a 28-year-old female who was sent by her primary care physician when laboratory data indicated that she had a hemoglobin of 6.8. She has osteomyelitis of the right femur. She has had a previous abscess of her right thigh. She is status post a surgical procedure perhaps originally with plating. In actuality I am uncertain as there is no orthopedic note here. She states surgery was done here. Apparently she may have misunderstood the question as she first came to this facility in December of the current year it appears. An MRI done in December shows osteomyelitis of the greater trochanter of the right femur. Patient states that she has been on home vancomycin for about 6 weeks. She does admit to previous transfusion but not recently. She has a history of sickle cell disease. Patient does not have any real specific complaint at the time of my evaluation. She is in no distress. She is not complaining of pain. She does state that she does have some dyspnea on exertion. She does not report any recent fever or chills. -: unknown Associated Symptoms: denies other symptoms - Related Data Previous Rx's Medication Instructions Recorded Last Taken Type Folic Acid [Folvite] 1 mg PO QDAY #30 tablet 01/16/19 01/24/19 Rx Multivitamin Tab [Multiple Vitamin 1 each PO QDAY #30 tablet 01/16/19 01/24/19 Rx TAB (Theragran)] Sennosides Tab [Senokot] 17.2 mg PO QHS #60 tablet 01/16/19 01/24/19 Rx Hydroxyurea 500 mg PO QDAY #30 capsule 01/17/19 01/24/19 Rx Allergies Allergy/AdvReac Type Severity Reaction Status Date / Time No Known Allergies Allergy Unverified 01/04/19 08:15 ED Review of Systems ROS: Stated complaint: ABNORMAL LABS Other details as noted in HPI Constitutional: denies: chills, fever Eyes: denies: eye pain, eye discharge, vision change ENT: denies: ear pain, throat pain Respiratory: SOB with exertion. denies: cough, shortness of breath, wheezing Cardiovascular: denies: chest pain, palpitations Endocrine: no symptoms reported Gastrointestinal: denies: abdominal pain, nausea, diarrhea Genitourinary: denies: urgency, dysuria, discharge Musculoskeletal: denies: back pain, joint swelling, arthralgia Skin: denies: rash, lesions Neurological: denies: headache, weakness, paresthesias Psychiatric: denies: anxiety, depression Hematological/Lymphatic: denies: easy bleeding, easy bruising ED Past Medical Hx - Past Medical History Previous Medical History?: Yes Hx Congestive Heart Failure: No Hx Diabetes: No Hx Sickle Cell Disease: Yes Hx Asthma: No Hx COPD: No Hx HIV: No - Surgical History Past Surgical History?: Yes Additional Surgical History: Ortho surgery to right thigh s/t osteomylitis - Social History Smoking Status: Never Smoker Substance Use Type: None - Medications Home Medications: Home Medications Medication Instructions Recorded Confirmed Last Taken Type Folic Acid [Folvite] 1 mg PO QDAY #30 tablet 01/16/19 01/25/19 01/24/19 Rx Multivitamin Tab [Multiple Vitamin 1 each PO QDAY #30 tablet 01/16/19 01/25/19 01/24/19 Rx TAB (Theragran)] Sennosides Tab [Senokot] 17.2 mg PO QHS #60 tablet 01/16/19 01/25/19 01/24/19 Rx Hydroxyurea 500 mg PO QDAY #30 capsule 01/17/19 01/25/19 01/24/19 Rx ED Physical Exam - General Limitations: No Limitations General appearance: alert, in no apparent distress - Head Head exam: Present: atraumatic, normocephalic - Eye Eye exam: Present: normal appearance. Absent: scleral icterus - ENT ENT exam: Present: mucous membranes moist - Neck Neck exam: Present: normal inspection - Respiratory Respiratory exam: Present: normal lung sounds bilaterally. Absent: respiratory distress - Cardiovascular Cardiovascular Exam: Present: regular rate, normal rhythm. Absent: systolic murmur, diastolic murmur, rubs, gallop - GI/Abdominal GI/Abdominal exam: Present: soft, normal bowel sounds. Absent: distended, tenderness, guarding, rebound - Extremities Exam Extremities exam: Present: other (large longitudinal surgical scar of the right thigh.) - Back Exam Back exam: Present: normal inspection - Neurological Exam Neurological exam: Present: alert, oriented X3, CN II-XII intact. Absent: motor sensory deficit - Psychiatric Psychiatric exam: Present: normal affect, normal mood - Skin Skin exam: Present: warm, dry, intact, normal color. Absent: rash ED Course Vital Signs 02/13/19 11:34 Temperature 99.3 F Pulse Rate 73 Respiratory 21 Rate Blood Pressure 112/61 O2 Sat by Pulse 100 Oximetry - Reevaluation(s) Reevaluation #1: Discussed with Dr. Casey. He'll make the final disposition. 02/13/19 13:17 ED Medical Decision Making - Lab Data Result diagrams: 02/13/19 12:03 02/13/19 12:03 Critical care attestation.: If time is entered above; I have spent that time in minutes in the direct care of this critically ill patient, excluding procedure time. ED Disposition Clinical Impression: Symptomatic anemia Sickle cell disease Qualifiers: Sickle-cell associated disorders: without crisis Qualified Code(s): D57.1 - Sickle-cell disease without crisis Osteomyelitis Qualifiers: Osteomyelitis type: unspecified type Osteomyelitis location: femur Laterality: right Qualified Code(s): M86.9 - Osteomyelitis, unspecified Disposition: DC-09 OP ADMIT IP TO THIS HOSP Is pt being admited?: Yes Does the pt Need Aspirin: No Condition: Stable Referrals: PRIMARY CARE, [Primary Care Provider] - 3-5 Days
[2019-02-13 13:17] LABS: Alanine Aminotransferase 15 units/L (7-56); Bilirubin,Direct 0.3 mg/dL (0-0.2)
[2019-02-13] MEDS ORDERED: ONDANSETRON 4 MG/2 ML INJ IV PRN (13:39)
[2019-02-13] MEDS ORDERED: oxyCODONE /ACETAMINOPHEN 5-325MG TAB PO PRN (13:39)
[2019-02-13] MEDS ORDERED: ACETAMINOPHEN 325 MG TAB PO PRN (13:39)
--- NOTE | 2019-02-13 13:39 | History and Physical Report ---
History of Present Illness Chief complaint: My knee hurts, and my hip hurts History of present illness: 28 YO Female with SCD with multiple Antibodies not amenable to blood transfusion unless pt has severe symptomatic anemia as per hematology team. Right Thigh/Left Knee osteomyelitis currently on IV Vanco at home presents to ED for evaluation. Pt states that she has experienced pain in her left knee and right thigh over the past 1 week with persistent symptoms over the same time frame. Pt transported to [facility]. Pt seen and evaluated in ED and found to have SIRS, Acidosis,Urinary Tract Infection. Pt admitted to medical floor. Pt denies fever, chills, CP, Palpitations, NVD, Trauma, skin rash, productive cough, skin rash or recent ill contacts. Past History Past Medical History: other (see hpi) Past Surgical History: Other (Right Leg, Left knee surgery) Social history: single. denies: smoking, alcohol abuse, prescription drug abuse Family history: hypertension, other (SCD) Medications and Allergies Allergies Allergy/AdvReac Type Severity Reaction Status Date / Time No Known Allergies Allergy Unverified 01/04/19 08:15 Home Medications Medication Instructions Recorded Confirmed Last Taken Type Folic Acid [Folvite] 1 mg PO QDAY #30 tablet 01/16/19 02/13/19 01/24/19 Rx Multivitamin Tab [Multiple Vitamin 1 each PO QDAY #30 tablet 01/16/19 02/13/19 01/24/19 Rx TAB (Theragran)] Sennosides Tab [Senokot] 17.2 mg PO QHS #60 tablet 01/16/19 02/13/19 01/24/19 Rx Hydroxyurea 500 mg PO QDAY #30 capsule 01/17/19 02/13/19 01/24/19 Rx Active Meds: Active Medications Sodium Chloride (Nacl 0.9% 1000 Ml) 1,000 mls @ 125 mls/hr IV ONCE ONE Stop: 02/13/19 18:51 Last Admin: 02/13/19 12:27 Dose: 125 mls/hr Documented by: Review of Systems Constitutional: no weight loss, no weight gain, no fever, no chills Ears, nose, mouth and throat: no ear pain, no ear discharge, no decreased hearing, no nasal congestion, no nasal discharge Breasts: no change in shape, no swelling, no mass Cardiovascular: no chest pain, no orthopnea, no palpitations, no rapid/irregular heart beat, no syncope Respiratory: no cough, no cough with sputum, no excessive sputum, no hemoptysis, no shortness of breath Gastrointestinal: no nausea, no vomiting, no diarrhea, no constipation Genitourinary Female: no dysmenorrhea, no pelvic pain, no flank pain, no menorrhagia, no dysuria, no urinary frequency Menstruation: no premenarcheal, no ammenorrhea, no ammenorrhea on BC, no period normal, no period spotting, no period light Rectal: no pain, no incontinence, no bleeding Musculoskeletal: no neck stiffness, no neck pain, no shooting arm pain, no arm numbness/tingling Integumentary: no rash, no pruritis, no redness, no sores Neurological: no paralysis, no numbness, no seizures, no syncope Psychiatric: no anxiety, no memory loss, no change in sleep habits, no sleep disturbances, no insomnia, no hypersomnia, no change in appetite, no change in libido, no suicidal ideation Endocrine: no cold intolerance, no heat intolerance, no polyphagia, no excessive thirst, no polydipsia, no polyuria Hematologic/Lymphatic: no easy bruising, no easy bleeding, no lymphadenopathy, no lymphedema Allergic/Immunologic: no urticaria, no anaphylaxis, no angioedema Exam - Constitutional Vitals: Temp Pulse Resp BP Pulse Ox 99.3 F 73 21 112/61 100 02/13/19 11:34 02/13/19 11:34 02/13/19 11:34 02/13/19 11:34 02/13/19 11:34 General appearance: Present: no acute distress, well-nourished - EENT Eyes: Present: PERRL ENT: hearing intact, clear oral mucosa - Neck Neck: Present: supple, normal ROM - Respiratory Respiratory effort: normal Respiratory: bilateral: CTA - Cardiovascular Heart Sounds: Present: S1 & S2. Absent: rub, click - Extremities Extremities: pulses symmetrical, No edema Peripheral Pulses: within normal limits - Abdominal General gastrointestinal: Present: soft, non-tender, non-distended, normal bowel sounds Female genitourinary: Present: normal - Integumentary Integumentary: Present: clear, warm, dry - Musculoskeletal Musculoskeletal: gait normal, strength equal bilaterally - Psychiatric Psychiatric: appropriate mood/affect, intact judgment & insight - Neurologic Neurologic: CNII-XII intact, moves all extremities Results - Labs CBC & Chem 7: 02/13/19 12:03 02/13/19 12:03 Labs: Abnormal lab results 02/13/19 02/13/19 02/13/19 Range/Units 12:03 12:03 12:03 WBC 13.8 H (4.5-11.0) K/mm3 RBC 2.11 L (3.65-5.03) M/mm3 Hgb 6.2 L (10.1-14.3) gm/dl Hct 18.3 L* (30.3-42.9) % RDW 22.1 H (13.2-15.2) % Plt Count 645 H (140-440) K/mm3 Valencia % (Auto) 9.0 H (0.0-7.3) % Valencia # 1.2 H (0.0-0.8) K/mm3 Seg Neutrophils # 8.7 H (1.8-7.7) K/mm3 INR 1.15 H (0.87-1.13) Carbon Dioxide 21 L (22-30) mmol/L Creatinine 0.5 L (0.7-1.2) mg/dL Magnesium 1.60 L (1.7-2.3) mg/dL Direct Bilirubin 0.3 H (0-0.2) mg/dL Alkaline Phosphatase 147 H (35-129) units/L C-Reactive Protein (0.00-1.30) mg/dL Crossmatch 02/13/19 02/13/19 Range/Units 12:03 12:10 WBC (4.5-11.0) K/mm3 RBC (3.65-5.03) M/mm3 Hgb (10.1-14.3) gm/dl Hct (30.3-42.9) % RDW (13.2-15.2) % Plt Count (140-440) K/mm3 Valencia % (Auto) (0.0-7.3) % [place] # (0.0-0.8) K/mm3 Seg Neutrophils # (1.8-7.7) K/mm3 INR (0.87-1.13) Carbon Dioxide (22-30) mmol/L Creatinine (0.7-1.2) mg/dL Magnesium (1.7-2.3) mg/dL Direct Bilirubin (0-0.2) mg/dL Alkaline Phosphatase (35-129) units/L C-Reactive Protein 1.60 H (0.00-1.30) mg/dL Crossmatch See Detail Assessment and Plan - Patient Problems (1) SIRS (systemic inflammatory response syndrome) Current Visit: Yes Status: Acute Plan to address problem: Continue IV antibiotic as per ID service, CBC, CMP, ESR (2) Osteomyelitis Current Visit: Yes Status: Acute Qualifiers: Osteomyelitis type: chronic, with draining sinus Osteomyelitis location: femur Laterality: right Qualified Code(s): M86.451 - Chronic osteomyelitis with draining sinus, right femur Plan to address problem: Continue IV antibiotic therapy, Hip X ray, Knee x ray, (3) Anemia Current Visit: No Status: Acute Plan to address problem: Supportive care, No transfusion at this time as per Hematology recommendations. Outpatient Hematology F/U care.
[2019-02-13 13:42] LABS: Bilirubin,Urine NEG (Negative); Blood,Urine SM (Negative); Color,Urine Yellow (Yellow); Protein,Urine <15 mg/dL mg/dL (Negative); Urobilinogen,Urine < 2.0 mg/dL (<2.0)
[2019-02-13] MEDS ORDERED: VANCOMYCIN/NS 1 GM/250 ML 1 GM/250 ML BAG IV ONE (13:43)
[2019-02-13] MEDS ORDERED: VANCOMYCIN PHARMACY TO DOSE IV SCH (14:00)
--- NOTE | 2019-02-13 16:42 | XRay Report ---
AP and lateral views of the left knee INDICATION / CLINICAL INFORMATION: pain. COMPARISON: 01/05/2019. FINDINGS: BONES/JOINT(S): No acute fracture or subluxation. 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 No significant joint effusion. No focal aggressive bone structure and. SOFT TISSUES: No significant abnormality. ADDITIONAL FINDINGS: None. Signer Name: Farhan Pollack MD Signed: 02/13/2019 4:38 PM Workstation Name: [id number]
--- NOTE | 2019-02-13 16:44 | XRay Report ---
RIGHT HIP HISTORY: Osteomyelitis follow-up. COMPARISON: 01/04/2019 TECHNIQUE: 2 views of the right hip obtained. FINDINGS: Bones: No fracture or dislocation. Stabilization of the greater trochanter of the right hip is seen on the last exam. Erosive changes in the avulsed trochanter. The femur demonstrates diffuse increased density which is greater than on the last exam. The rest of the bones are normal. Joint spaces: Maintained. Soft tissues: No significant abnormality. Additional findings: None. IMPRESSION: Chronic osteomyelitis of the right hip and femur. Minimal change since the last exam. Signer Name: Maxime Trotter MD Signed: 02/13/2019 4:40 PM Workstation Name: [id number]
[2019-02-13] MEDS: VANCOMYCIN 1,250 MG in SODIUM CHLORIDE 0.9% 250ML 250 ML IV SCH (17:24)
[2019-02-13] MEDS ORDERED: SENNOSIDES 8.6 MG TAB PO SCH (22:00)
[2019-02-14] MEDS: VANCOMYCIN 1,250 MG in SODIUM CHLORIDE 0.9% 250ML 250 ML IV SCH (04:17)
[2019-02-14] MEDS ORDERED: HYDROXYUREA 500 MG CAP PO SCH (10:00)
[2019-02-14] MEDS ORDERED: MULTIVITAMINS ,THERAPEUTIC TAB PO SCH (10:00)
[2019-02-14] MEDS ORDERED: FOLIC ACID 1 MG TAB PO SCH (10:00)
--- NOTE | 2019-02-14 10:04 | Discharge Summary ---
Providers - Providers Date of Admission: 02/13/19 13:39 Attending physician: SHAY COTTO MD Primary care physician: ERIC BAUMAN MD Hospitalization Condition: Stable Hospital course: 28-year-old woman with history of sickle cell disease and right lower extremity osteomyelitis. She was sent from infectious disease clinic due to low hemoglobin. Patient was seen in hospital she did not have any evidence of crisis, she had no symptoms. Her hemoglobin was stable at 6.2 and 6.3 respectively. Her previous chart was reviewed and it was noted that the patient had multiple antibodies and history of multiple transfusion reactions. At that time the manager welding had recommended that the patient not be transfused unless her hemoglobin dropped significantly below 6. Patient was reassured, this was also conveyed to Dr. Bell infectious disease doctor. And patient was subsequently discharged home. -Preventative health counseling performed for 17 minutes Diagnosis Sickle cell disease Osteomyelitis of right lower extremity, continue daptomycin which she is already on at home. 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 Disposition: TO HOME OR SELFCARE Time spent for discharge: 33 minutes Core Measure Documentation - Palliative Care Palliative Care/ Comfort Measures: Not Applicable - Core Measures Any of the following diagnoses?: none Exam - Constitutional Vitals: Temp Pulse Resp BP Pulse Ox 98.3 F 64 18 106/59 99 02/14/19 05:18 02/14/19 05:18 02/14/19 05:18 02/14/19 05:18 02/14/19 05:18 General appearance: Present: no acute distress, well-nourished - EENT Eyes: Present: PERRL ENT: hearing intact, clear oral mucosa - Neck Neck: Present: supple, normal ROM - Respiratory Respiratory effort: normal Respiratory: bilateral: CTA - Cardiovascular Heart Sounds: Present: S1 & S2. Absent: rub, click - Extremities Extremities: pulses symmetrical, No edema Peripheral Pulses: within normal limits - Abdominal General gastrointestinal: Present: soft, non-tender, non-distended, normal bowel sounds Female genitourinary: Present: normal - Integumentary Integumentary: Present: clear, warm, dry - Musculoskeletal Musculoskeletal: gait normal, strength equal bilaterally - Psychiatric Psychiatric: appropriate mood/affect, intact judgment & insight - Neurologic Neurologic: CNII-XII intact, moves all extremities Plan Follow up with: PRIMARY CARE, [Primary Care Provider] - 3-5 Days Prescriptions: Sennosides Tab [Senokot] 17.2 mg PO QHS #120 tablet Folic Acid [Folvite] 1 mg PO QDAY #90 tablet Hydroxyurea 500 mg PO QDAY #90 capsule Multivitamin Tab [Multiple Vitamin TAB (Theragran)] 1 each PO QDAY #90 tablet oxyCODONE /ACETAMINOPHEN [Percocet 5/325 mg] 1 tab PO Q6H PRN #30 tablet PRN Reason: Pain, Moderate (4-6)
[2019-02-14 11:05] LABS: Basophils # (Auto) 0.1 K/mm3 (0.0-0.1); Basophils % (Auto) 0.6 % (0.0-1.8); Eosinophils # (Auto) 0.1 K/mm3 (0.0-0.4); Eosinophils % (Auto) 0.4 % (0.0-4.3); Hemoglobin 6.3 gm/dl (10.1-14.3); Lymphocytes % (Auto) 26.6 % (13.4-35.0); Mean Corpuscular HGB Conc 33 % (30-34); Mean Corpuscular Volume 86 fl (79-97); Monocytes # (Auto) 1.6 K/mm3 (0.0-0.8); Monocytes % (Auto) 10.5 % (0.0-7.3); Platelet Count 659 K/mm3 (140-440); Red Blood Count 2.21 M/mm3 (3.65-5.03)
[2019-02-14 11:23] LABS: Red Cell Distribution Width 21.6 % (13.2-15.2)
[2019-02-14 12:18] VITALS: BP 87/62
[2019-02-14] MEDS ORDERED: NEOMY 3.5 MG/BACIT 400 UNITS/POLY B 5000 UNITS/GM OINT PACKET TP ONE (13:40)
== END 2019-02-14 17:29 | disposition home or self-care (01) ==
LOC: ED 09:30 → 3A 13:39
PROVIDERS: ADMIT Internal Medicine; ATTEND Internal Medicine
DX: D57.1 Sickle-cell disease without crisis (principal); R65.10 Systemic inflammatory response syndrome (SIRS) of non-infectious origin without acute organ dysfunction; M86.9 Osteomyelitis, unspecified; D64.9 Anemia, unspecified; Z98.890 Other specified postprocedural states
CPT/HCPCS: 36415; 71045; 73502; 73560; 80048; 80076; 81001; 82140; 83735; 83880; 85025; 85610; 85652; 85730; 86140; 86850; 86870; 86900; 86901; 86922; 87040; 87086; 87116; 93005; 93010; 94760; 96365; 96366; 99284; G0378; J3370; J7030; J7050

== ENCOUNTER 2019-02-19 13:09 | Outpatient (CLI) | payer SELFPAY ==
[2019-02-19 13:35] LABS: Hemoglobin 6.4 gm/dl (10.1-14.3); Mean Corpuscular HGB Conc 33 % (30-34); Mean Corpuscular Volume 90 fl (79-97); Platelet Count 780 K/mm3 (140-440); Red Blood Count 2.16 M/mm3 (3.65-5.03)
[2019-02-19 13:49] LABS: Hematocrit 19.4 % (30.3-42.9); Red Cell Distribution Width 24.4 % (13.2-15.2)
[2019-02-19 14:07] LABS: Alanine Aminotransferase 18 units/L (7-56)
== END 2019-02-19 13:10 | disposition home or self-care (01) ==
LOC: LAB 13:09
PROVIDERS: ATTEND Internal Medicine Infectious Disease
DX: M86.8X5 Other osteomyelitis, thigh (principal); Z98.890 Other specified postprocedural states; M19.90 Unspecified osteoarthritis, unspecified site
CPT/HCPCS: 36415; 80202; 82565; 84450; 84460; 85027; 86140

== ENCOUNTER 2019-02-26 12:49 | Outpatient (CLI) | payer SELFPAY ==
[2019-02-26 13:11] LABS: Hemoglobin 6.7 gm/dl (10.1-14.3); Mean Corpuscular HGB Conc 34 % (30-34); Mean Corpuscular Volume 92 fl (79-97); Platelet Count 649 K/mm3 (140-440); Red Blood Count 2.12 M/mm3 (3.65-5.03)
[2019-02-26 13:25] LABS: Hematocrit 19.6 % (30.3-42.9); Red Cell Distribution Width 23.3 % (13.2-15.2)
[2019-02-26 13:35] LABS: Alanine Aminotransferase 18 units/L (7-56)
== END 2019-02-26 12:50 | disposition home or self-care (01) ==
LOC: LAB 12:49
PROVIDERS: ATTEND Internal Medicine Infectious Disease
DX: M86.8X6 Other osteomyelitis, lower leg (principal)
CPT/HCPCS: 36415; 80202; 82565; 84450; 84460; 85027; 86140

== ENCOUNTER 2019-02-26 13:11 | Emergency (ER) | payer SELFPAY ==
[2019-02-26 13:48] VITALS: BP 114/54
--- NOTE | 2019-02-26 13:55 | Emergency Department Report ---
ED Recheck HPI - General Chief Complaint: Medical Clearance Stated Complaint: MEDICATION REFILL Time Seen by Provider: 02/26/19 13:46 Source: patient Mode of arrival: Ambulatory Limitations: No Limitations - History of Present Illness Initial Comments: This is a 28-year-old female nontoxic, well in appearance with no signs of distress presents to the ED for medication fill. Patient stated her PCP Dr. Serra was not able to see her in hs office and request patient to come to the ED. Patient denies any urinary symptoms. Patient denies any fever, chills, headache, nausea, vomiting, chest pain or shortness of breathe. denies any other symptoms or complaints. Denies any allergies. MD Complaint: medication refill request -: days(s) Returns Today for: request for prescription Symptoms Since Prior Visit: no new symptoms Associated Symptoms: none. denies: fever, chills, chest pain, shortness of breath, rash, malaise, nasuea, abdominal pain - Related Data Previous Rx's Medication Instructions Recorded Last Taken Type Folic Acid [Folvite] 1 mg PO QDAY #90 tablet 02/14/19 Unknown Rx Sennosides Tab [Senokot] 17.2 mg PO QHS #120 tablet 02/14/19 Unknown Rx oxyCODONE /ACETAMINOPHEN [Percocet 1 tab PO Q6H PRN #30 tablet 02/14/19 Unknown Rx 5/325 mg] Hydroxyurea 500 mg PO QDAY #30 capsule 02/26/19 Unknown Rx Multivitamin Tab [Multiple Vitamin 1 each PO QDAY #30 tablet 02/26/19 Unknown Rx TAB (Theragran)] Allergies Allergy/AdvReac Type Severity Reaction Status Date / Time No Known Allergies Allergy Unverified 01/04/19 08:15 ED Review of Systems ROS: Stated complaint: MEDICATION REFILL Other details as noted in HPI Constitutional: denies: chills, fever Eyes: denies: eye pain, eye discharge, vision change ENT: denies: ear pain, throat pain Respiratory: denies: cough, shortness of breath, wheezing Cardiovascular: denies: chest pain, palpitations Endocrine: no symptoms reported Gastrointestinal: denies: abdominal pain, nausea, diarrhea Genitourinary: denies: urgency, dysuria, discharge Musculoskeletal: denies: back pain, joint swelling, arthralgia Skin: denies: rash, lesions Neurological: denies: headache, weakness, paresthesias Psychiatric: denies: anxiety, depression Hematological/Lymphatic: denies: easy bleeding, easy bruising ED Past Medical Hx - Past Medical History Previous Medical History?: Yes Hx Congestive Heart Failure: No Hx Diabetes: No Hx Sickle Cell Disease: Yes Hx Arthritis: Yes (Lt. knee) Hx Asthma: No Hx COPD: No Hx HIV: No - Surgical History Past Surgical History?: Yes Additional Surgical History: Ortho surgery to right thigh s/t osteomylitis - Social History Smoking Status: Never Smoker Substance Use Type: None - Medications Home Medications: Home Medications Medication Instructions Recorded Confirmed Last Taken Type Folic Acid [Folvite] 1 mg PO QDAY #90 tablet 02/14/19 Unknown Rx Sennosides Tab [Senokot] 17.2 mg PO QHS #120 tablet 02/14/19 Unknown Rx oxyCODONE /ACETAMINOPHEN [Percocet 1 tab PO Q6H PRN #30 tablet 02/14/19 Unknown Rx 5/325 mg] Hydroxyurea 500 mg PO QDAY #30 capsule 02/26/19 Unknown Rx Multivitamin Tab [Multiple Vitamin 1 each PO QDAY #30 tablet 02/26/19 Unknown Rx TAB (Theragran)] ED Physical Exam - General Limitations: No Limitations General appearance: alert, in no apparent distress - Head Head exam: Present: atraumatic, normocephalic - Neck Neck exam: Present: normal inspection, full ROM. Absent: tenderness, meningismus, lymphadenopathy - Respiratory Respiratory exam: Present: normal lung sounds bilaterally. Absent: respiratory distress - Cardiovascular Cardiovascular Exam: Present: regular rate, normal rhythm - GI/Abdominal GI/Abdominal exam: Present: soft. Absent: distended, tenderness - Extremities Exam Extremities exam: Present: normal inspection, full ROM - Back Exam Back exam: Present: normal inspection, full ROM - Neurological Exam Neurological exam: Present: alert, oriented X3, normal gait - Psychiatric Psychiatric exam: Present: normal affect, normal mood - Skin Skin exam: Present: warm, dry, intact, normal color. Absent: rash ED Course Vital Signs 02/26/19 13:46 Temperature 98.1 F Pulse Rate 96 H Respiratory 18 Rate Blood Pressure 114/54 O2 Sat by Pulse 100 Oximetry - Reevaluation(s) Reevaluation #1: 02/26/19 13:52 Patient is speaking in full sentences with no signs of distress noted. ED Recheck MDM - Medical Decision Making Will refill patients medications. Stated does have PCP to follow-up. Patient was instructed to Follow-up with a primary care doctor in 3-5 days or if symptoms worsen and continue return to emergency room as soon as possible. At time of discharge, the patient does not seem toxic or ill in appearance. No acute signs of distress noted. Patient agrees to discharge treatment plan of care. No further questions noted by the patient. Critical care attestation.: If time is entered above; I have spent that time in minutes in the direct care of this critically ill patient, excluding procedure time. ED Disposition Clinical Impression: Medication refill Disposition: DC-01 TO HOME OR SELFCARE Is pt being admited?: No Does the pt Need Aspirin: No Condition: Stable Additional Instructions: Follow-up with a primary care doctor in 3-5 days or if symptoms worsen and continue return to emergency room as soon as possible. Prescriptions: Hydroxyurea 500 mg PO QDAY #30 capsule Multivitamin Tab [Multiple Vitamin TAB (Theragran)] 1 each PO QDAY #30 tablet Referrals: PRIMARY CAREMD [Referring] - 3-5 Days SHARON SERRA MD [Staff Physician] - 3-5 Days [facility] [Outside] - 3-5 Days
== END 2019-02-26 14:06 | disposition home or self-care (01) ==
LOC: ED 13:11
DX: M17.12 Unilateral primary osteoarthritis, left knee (principal); D57.00 Hb-SS disease with crisis, unspecified; Z76.0 Encounter for issue of repeat prescription; Z98.890 Other specified postprocedural states; Z79.899 Other long term (current) drug therapy

== ENCOUNTER 2019-03-05 14:08 | Outpatient (CLI) | payer SELFPAY ==
[2019-03-05 14:32] LABS: Hemoglobin 6.8 gm/dl (10.1-14.3); Mean Corpuscular HGB Conc 35 % (30-34); Mean Corpuscular Volume 90 fl (79-97); Platelet Count 578 K/mm3 (140-440); Red Blood Count 2.17 M/mm3 (3.65-5.03)
[2019-03-05 14:38] LABS: Hematocrit 19.6 % (30.3-42.9); Red Cell Distribution Width 21.7 % (13.2-15.2)
[2019-03-05 14:55] LABS: Alanine Aminotransferase 23 units/L (7-56)
== END 2019-03-05 14:09 | disposition home or self-care (01) ==
LOC: LAB 14:08
PROVIDERS: ATTEND Internal Medicine Infectious Disease
DX: M86.8X5 Other osteomyelitis, thigh (principal)
CPT/HCPCS: 36415; 80202; 82565; 84450; 84460; 85027; 86140

== ENCOUNTER 2019-03-21 20:26 | Emergency (ER) | payer SELFPAY ==
--- NOTE | 2019-03-21 20:39 | Emergency Department Report ---
Blank Doc - Documentation Documentation: 29-year-old female that presents with sickle cell crisis. This initial assessment/diagnostic orders/clinical plan/treatment(s) is/are subject to change based on patient's health status, clinical progression and re- assessment by fellow clinical providers in the ED. Further treatment and workup at subsequent clinical providers discretion. Patient/guardians urged not to elope from the ED as their condition may be serious if not clinically assessed and managed. Initial orders include: 1- Patient sent to MAIN for further evaluation and treatment 2- labs
[2019-03-21 21:42] LABS: Hematocrit 22.3 % (30.3-42.9); Hemoglobin 7.9 gm/dl (10.1-14.3); Mean Corpuscular HGB Conc 35 % (30-34); Mean Corpuscular Volume 98 fl (79-97); Platelet Count 742 K/mm3 (140-440); Red Blood Count 2.27 M/mm3 (3.65-5.03)
[2019-03-21 21:43] LABS: Alanine Aminotransferase 27 units/L (7-56); Albumin 4.3 g/dL (3.9-5); BUN/Creatinine Ratio 23; Blood Urea Nitrogen 9 mg/dL (7-17); Calcium 9.4 mg/dL (8.4-10.2); Hemolysis Index 41
[2019-03-21 21:45] LABS: Red Cell Distribution Width 26.2 % (13.2-15.2)
[2019-03-21] MEDS ORDERED: HYDROmorphone 2 MG/1 ML INJ IV ONE (22:26)
[2019-03-21] MEDS ORDERED: SODIUM CHLORIDE 0.9% 1000 ML 1,000 ML IV ONE (22:26)
[2019-03-21 22:27] LABS: Anisocytosis 3+; Basophils % (Manual) 0 % (0.0-1.8); Total Cells Counted 100
[2019-03-21 22:28] LABS: Giant Platelets 1+; Sickle Cells 2+
[2019-03-21] MEDS ORDERED: diphenhydrAMINE 50 MG/ML VIAL IV ONE (22:31)
--- NOTE | 2019-03-21 22:32 | Emergency Department Report ---
ED General Adult HPI - General Chief complaint: Sickle Cell Crisis Stated complaint: SICKLE CELL PAIN Time Seen by Provider: 03/21/19 20:38 Source: patient, family Mode of arrival: Ambulatory Limitations: Physical Limitation - History of Present Illness Initial comments: Patient is a 29-year-old female that presents emergency room with complaints of generalized pain. Patient states he feels like she is in a sickle cell crisis. Patient states she is compliant with all of her sickle cell meds. Patient states her pain is generalized. Patient denies chest pain or shortness of breath. Patient states her pain is a 10 out of 10. Patient denies fever and chills. Patient states the pain is better with rest and worse with movement. States she does not have a primary care or water ski assembler here. -: Sudden Severity scale (0 -10): 10 Quality: stabbing Consistency: constant Improves with: rest Worsens with: movement Associated Symptoms: denies: confusion, chest pain, cough, diaphoresis, fever/chills, headaches, loss of appetite, malaise, nausea/vomiting, rash, seizure, shortness of breath, syncope, weakness Treatments Prior to Arrival: NSAID, other - Related Data Previous Rx's Medication Instructions Recorded Last Taken Type Sennosides Tab [Senokot] 17.2 mg PO QHS #120 tablet 02/14/19 Unknown Rx Folic Acid [Folvite] 1 mg PO QDAY #30 tablet 03/22/19 Unknown Rx Hydroxyurea 500 mg PO QDAY #30 capsule 03/22/19 Unknown Rx Multivitamin Tab [Multiple Vitamin 1 each PO QDAY #30 tablet 03/22/19 Unknown Rx TAB (Theragran)] oxyCODONE /ACETAMINOPHEN [Percocet 1 tab PO Q6H PRN #15 tablet 03/22/19 Unknown Rx 5/325 mg] Allergies Allergy/AdvReac Type Severity Reaction Status Date / Time No Known Allergies Allergy Unverified 01/04/19 08:15 ED Review of Systems ROS: Stated complaint: SICKLE CELL PAIN Other details as noted in HPI Constitutional: denies: chills, fever Eyes: denies: eye pain, eye discharge, vision change ENT: denies: ear pain, throat pain Respiratory: denies: cough, shortness of breath, wheezing Cardiovascular: denies: chest pain, palpitations Endocrine: no symptoms reported Gastrointestinal: abdominal pain. denies: nausea, diarrhea Genitourinary: denies: urgency, dysuria, discharge Musculoskeletal: back pain, arthralgia, myalgia. denies: joint swelling Skin: denies: rash, lesions Neurological: denies: headache, weakness, paresthesias Psychiatric: denies: anxiety, depression Hematological/Lymphatic: denies: easy bleeding, easy bruising ED Past Medical Hx - Past Medical History Previous Medical History?: Yes Hx Congestive Heart Failure: No Hx Diabetes: No Hx Sickle Cell Disease: Yes Hx Arthritis: Yes (Lt. knee) Hx Asthma: No Hx COPD: No Hx HIV: No - Surgical History Past Surgical History?: Yes Additional Surgical History: Ortho surgery to right thigh s/t osteomylitis - Family History Family history: no significant - Social History Smoking Status: Never Smoker Substance Use Type: None - Medications Home Medications: Home Medications Medication Instructions Recorded Confirmed Last Taken Type Sennosides Tab [Senokot] 17.2 mg PO QHS #120 tablet 02/14/19 Unknown Rx Folic Acid [Folvite] 1 mg PO QDAY #30 tablet 03/22/19 Unknown Rx Hydroxyurea 500 mg PO QDAY #30 capsule 03/22/19 Unknown Rx Multivitamin Tab [Multiple Vitamin 1 each PO QDAY #30 tablet 03/22/19 Unknown Rx TAB (Theragran)] oxyCODONE /ACETAMINOPHEN [Percocet 1 tab PO Q6H PRN #15 tablet 03/22/19 Unknown Rx 5/325 mg] ED Physical Exam - General Limitations: No Limitations General appearance: alert, in no apparent distress - Head Head exam: Present: atraumatic, normocephalic - Eye Eye exam: Present: normal appearance, PERRL Pupils: Present: normal accommodation - ENT ENT exam: Present: mucous membranes moist - Neck Neck exam: Present: normal inspection, tenderness, full ROM. Absent: meningismus, lymphadenopathy, thyromegaly - Respiratory Respiratory exam: Present: normal lung sounds bilaterally. Absent: respiratory distress, wheezes, rales - Cardiovascular Cardiovascular Exam: Present: regular rate, normal rhythm. Absent: systolic murmur, diastolic murmur, rubs, gallop - GI/Abdominal GI/Abdominal exam: Present: soft, normal bowel sounds. Absent: distended, tenderness, guarding - Rectal Rectal exam: Present: deferred - Extremities Exam Extremities exam: Present: normal inspection, full ROM, normal capillary refill. Absent: tenderness, pedal edema, joint swelling, calf tenderness - Back Exam Back exam: Present: normal inspection, full ROM. Absent: tenderness, CVA tenderness (R), CVA tenderness (L), muscle spasm, paraspinal tenderness, vertebral tenderness - Neurological Exam Neurological exam: Present: alert, oriented X3 - Psychiatric Psychiatric exam: Present: normal affect, normal mood - Skin Skin exam: Present: warm, dry, intact, normal color. Absent: rash ED Course Vital Signs 03/21/19 03/21/19 03/21/19 20:31 21:50 22:10 Temperature 98.5 F Pulse Rate 86 69 Respiratory 20 20 16 Rate Blood Pressure 132/73 O2 Sat by Pulse 98 95 Oximetry 03/21/19 03/21/19 03/21/19 22:16 22:30 22:46 Temperature Pulse Rate 65 69 87 Respiratory 12 16 28 H Rate Blood Pressure 95/53 95/53 O2 Sat by Pulse 97 98 93 Oximetry 03/21/19 03/21/19 03/21/19 23:00 23:16 23:30 Temperature Pulse Rate 86 88 65 Respiratory 17 20 22 Rate Blood Pressure 106/58 106/58 106/58 O2 Sat by Pulse 92 92 100 Oximetry 03/21/19 03/22/19 03/22/19 23:46 00:00 00:16 Temperature Pulse Rate 81 95 H 65 Respiratory 13 21 22 Rate Blood Pressure 106/58 99/56 99/56 O2 Sat by Pulse 99 100 100 Oximetry 03/22/19 00:30 Temperature Pulse Rate 63 Respiratory 15 Rate Blood Pressure 99/56 O2 Sat by Pulse 100 Oximetry - Reevaluation(s) Reevaluation #1: Patient states she is pain-free. I discussed admission with patient and patient declined admission. I discussed all results with patient. Discussed plan of care patient. Patient states she needs refill. Patient will be given a refill of her medications. Patient agrees with the plan of care. Patient given discharge instructions. Patient voiced understanding of discharge instructions. 03/22/19 00:21 ED Medical Decision Making - Lab Data Result diagrams: 03/21/19 20:50 03/21/19 20:50 - Medical Decision Making Patient is a 29-year-old female that presents emergency room with generalized pain. Patient given 2 mg of Dilaudid and fluids and Benadryl and her pain was completely relieved. Patient left the hospital asymptomatic. Patient given a refill of her medications. Patient instructed to increase water. Patient instructed to take all her medications. Patient instructed to follow up with a primary care and a water ski assembler as soon as possible. - Differential Diagnosis sickle cell crisis. Generalized pain. Anemia. Critical care attestation.: If time is entered above; I have spent that time in minutes in the direct care of this critically ill patient, excluding procedure time. ED Disposition Clinical Impression: Sickle cell crisis Anemia Qualifiers: Anemia type: unspecified type Qualified Code(s): D64.9 - Anemia, unspecified Disposition: TO HOME OR SELFCARE Is pt being admited?: No Does the pt Need Aspirin: No Condition: Stable Instructions: Sickle Cell Crisis (ED), Anemia (ED) Additional Instructions: Patient to follow up with primary care in 2-3 days. Patient to follow-up with water ski assembler in 2-3 days. Patient to return to ER if condition worsens. Patient to take meds as directed. Patient to take Tylenol or ibuprofen when necessary for pain. Patient to increase water. Prescriptions: Folic Acid [Folvite] 1 mg PO QDAY #30 tablet Hydroxyurea 500 mg PO QDAY #30 capsule Multivitamin Tab [Multiple Vitamin TAB (Theragran)] 1 each PO QDAY #30 tablet oxyCODONE /ACETAMINOPHEN [Percocet 5/325 mg] 1 tab PO Q6H PRN #15 tablet PRN Reason: Pain, Moderate (4-6) Referrals: BENNETT ZAVALA MD [Primary Care Provider] - 2-3 Days VANDANA SALES MD [Staff Physician] - 2-3 Days Time of Disposition: 00:28
[2019-03-22 00:33] VITALS: BP 99/56
== END 2019-03-22 00:40 | disposition home or self-care (01) ==
LOC: ED 20:26
DX: D57.00 Hb-SS disease with crisis, unspecified (principal); M19.90 Unspecified osteoarthritis, unspecified site; Z79.899 Other long term (current) drug therapy
CPT/HCPCS: 36415; 80053; 84703; 85007; 85025; 85045; 96374; 96375; 99283; J1170; J1200; J7030

== ENCOUNTER 2019-05-03 07:38 | Emergency (ER) | payer OTHER ==
[2019-05-03 08:17] LABS: Basophils # (Auto) 0.1 K/mm3 (0.0-0.1); Basophils % (Auto) 0.8 % (0.0-1.8); Eosinophils # (Auto) 0.4 K/mm3 (0.0-0.4); Eosinophils % (Auto) 3.4 % (0.0-4.3); Hematocrit 23.7 % (30.3-42.9); Hemoglobin 8.2 gm/dl (10.1-14.3); Lymphocytes # (Auto) 4.3 K/mm3 (1.2-5.4); Lymphocytes % (Auto) 33.1 % (13.4-35.0); Mean Corpuscular HGB Conc 34 % (30-34); Mean Corpuscular Volume 103 fl (79-97); Monocytes # (Auto) 0.9 K/mm3 (0.0-0.8); Monocytes % (Auto) 7.2 % (0.0-7.3); Platelet Count 685 K/mm3 (140-440); Red Blood Count 2.31 M/mm3 (3.65-5.03)
[2019-05-03 08:23] LABS: Red Cell Distribution Width 24.1 % (13.2-15.2)
[2019-05-03 09:22] LABS: BUN/Creatinine Ratio 14; Blood Urea Nitrogen 7 mg/dL (7-17); Calcium 9.6 mg/dL (8.4-10.2); Hemolysis Index 3
[2019-05-03] MEDS ORDERED: KETOROLAC 30 MG/1 ML INJ IV ONE (09:57)
[2019-05-03] MEDS ORDERED: HYDROmorphone 1 MG/1 ML INJ IV ONE (09:57)
[2019-05-03] MEDS ORDERED: SODIUM CHLORIDE 0.9% 1000 ML 1,000 ML IV ONE (09:57)
--- NOTE | 2019-05-03 10:11 | Emergency Department Report ---
HPI - General Chief Complaint: Sickle Cell Crisis Time Seen by Provider: 05/03/19 09:51 - HPI HPI: 29-year-old -[place] female presents to the emergency department with a complaint of pain to the right leg from the knee down that started last night. The patient has a history of sickle cell anemia. She also has a history of osteomyelitis to the right thigh that required some type of orthopedic surgery. She has taken her folic acid, hydroxyurea and tramadol for her pain without any relief. She denies any fever. She denies any swelling of the leg, skin color change, rash. Her rigger up is Dr. Ruano. No PCP. No recent travel or sick contacts at home. ED Past Medical Hx - Past Medical History Hx Congestive Heart Failure: No Hx Diabetes: No Hx Sickle Cell Disease: Yes Hx Arthritis: Yes (Lt. knee) Hx Asthma: No Hx COPD: No Hx HIV: No - Surgical History Additional Surgical History: Ortho surgery to right thigh s/t osteomylitis - Social History Smoking Status: Never Smoker Substance Use Type: None - Medications Home Medications: Home Medications Medication Instructions Recorded Confirmed Last Taken Type Sennosides Tab [Senokot] 17.2 mg PO QHS #120 tablet 02/14/19 Unknown Rx Folic Acid [Folvite] 1 mg PO QDAY #30 tablet 03/22/19 Unknown Rx Hydroxyurea 500 mg PO QDAY #30 capsule 03/22/19 Unknown Rx Multivitamin Tab [Multiple Vitamin 1 each PO QDAY #30 tablet 03/22/19 Unknown Rx TAB (Theragran)] oxyCODONE /ACETAMINOPHEN [Percocet 1 tab PO Q6H PRN #12 tablet 05/03/19 Unknown Rx 5/325 mg] ED Review of Systems ROS: Stated complaint: SSC/PAIN Other details as noted in HPI Comment: All other systems reviewed and negative Constitutional: denies: chills, fever Eyes: denies: eye pain, vision change ENT: denies: ear pain, throat pain Respiratory: denies: cough, shortness of breath Cardiovascular: denies: chest pain, palpitations Gastrointestinal: denies: abdominal pain, vomiting Genitourinary: denies: dysuria, discharge Musculoskeletal: arthralgia, myalgia. denies: joint swelling Skin: denies: rash, lesions Neurological: denies: headache, weakness Physical Exam - Physical Exam Vital Signs: Vital Signs 05/03/19 07:48 Temperature 97.8 F Pulse Rate 80 Respiratory 18 Rate Blood Pressure 108/69 [Right] O2 Sat by Pulse 99 Oximetry Physical Exam: GENERAL: The patient is well-developed well-nourished. HEENT: Normocephalic. Atraumatic. Patient has moist mucous membranes. EYES: Extraocular motions are intact. NECK: Supple. Trachea is midline. CHEST/LUNGS: Clear to auscultation. There is no respiratory distress noted. HEART/CARDIOVASCULAR: Regular. There is no tachycardia. There is no murmur. ABDOMEN: Abdomen is soft, nontender. Patient has normal bowel sounds. There is no abdominal distention. SKIN:Skin is warm and dry. . NEURO: The patient is awake, alert, and oriented. The patient is cooperative. The patient has no focal neurologic deficits. Normal speech. MUSCULOSKELETAL: There is some tenderness to palpation of the right lower extremity from the knee down to the ankle but no obvious deformity. There is no limitation range of motion. There is no evidence of acute injury. +2 over 4 dorsalis pedis pulse to the affected right lower extremity. ED Course Vital Signs 05/03/19 07:48 Temperature 97.8 F Pulse Rate 80 Respiratory 18 Rate Blood Pressure 108/69 [Right] O2 Sat by Pulse 99 Oximetry ED Medical Decision Making - Lab Data Result diagrams: 05/03/19 07:57 05/03/19 07:57 - Radiology Data Radiology results: report reviewed AP AND LATERAL VIEWS OF THE RIGHT FORELEG INDICATION: right leg pain. COMPARISON: No relevant prior imaging study available. FINDINGS: The mid to distal right tibia has a mottled appearance with mixed sclerotic and lucency. There is also mild remodeling in the mid to distal diaphysis. There is cortical irregularity along the medial cortex of the distal diaphysis with adjacent soft tissue attenuation and possibly soft tissue ulceration. There is focal sclerosis in the distal fibular diaphysis. No fracture seen. No foreign bodies. IMPRESSION: 1. Mid to distal right tibia has a somewhat mottled appearance. As could be seen in the setting of chronic inflammatory process/chronic infection. There is cortical irregularity along the medial cortex with adjacent soft tissue irregularity and possible ulceration. Does this patient have a history of wound/ulcer here: No definite acute osseous findings. 2. Sclerosis within the distal fibular diaphysis could be related to healed/stress fracture or chronic infection/inflammation as well. RIGHT LOWER EXTREMITY VENOUS DOPPLER ULTRASOUND HISTORY: Lower extremity pain. Sickle cell crisis. COMPARISON: None. TECHNIQUE: Grayscale, color and spectral Doppler imaging of the venous system of the right lower extremity was performed. FINDINGS: Sapheno-femoral Junction: Normal venous flow, compressibility and augmentation. Common Femoral Vein: Normal venous flow, compressibility and augmentation. Femoral Vein: Normal venous flow, compressibility and augmentation. Profunda Femoral Vein: Normal venous flow, compressibility and augmentation. Popliteal Vein: Normal venous flow, compressibility and augmentation. Posterior tibial vein: Normal venous flow, compressibility and augmentation. Peroneal vein: Normal venous flow, compressibility and augmentation. Additional Findings: None. IMPRESSION: 1. No sonographic evidence of deep venous thrombosis in the right lower extremity. - Medical Decision Making This patient presents to the emergency Department with some pain to the right lower leg since last night that the patient believes is a sickle cell pain crisis that she calls a "bone crisis." She has had pain in this area previously that was related to her sickle cell pain. However she also has a history of osteomyelitis of the right femur. An x-ray was done of the right tib-fib that was read by radiology as showing signs of chronic inflammatory process and no definite acute osseous findings. On physical exam there are no findings of any cellulitis, ulcerations. The right lower wright a venous Doppler ultrasound was a lso completed that did not show any signs of DVT. The patient had a mild leukocytosis of about 13,000 that is consistent with, or even better than, previous visits. Patient was given a dose of IV and then IM pain medication. Upon reevaluation the patient's says that she is feeling greatly improved. Given the elevated reticulocyte count and signs of a sickle cell crisis, the patient was offered admission. However she declined as she says that she has to go to her mother's tomorrow. The patient will be discharged home to follow-up with her rigger up, Dr. Ruano, and she has been instructed to return to the emergency department immediately with any worsening of her symptoms or with any acute distress. She understands and agrees to the plan. Patient was seen ambulatory upon discharge and appears stable. - Differential Diagnosis sickle cell pain crisis, osteomyelitis, occult fracture, DVT Critical Care Time: No Critical care attestation.: If time is entered above; I have spent that time in minutes in the direct care of this critically ill patient, excluding procedure time. ED Disposition Clinical Impression: Sickle cell crisis, Right leg pain Sickle cell disease Qualifiers: Sickle-cell associated disorders: with unspecified crisis Qualified Code(s): D57.00 - Hb-SS disease with crisis, unspecified; D57.0 - Hb-SS disease with crisis Disposition: OP ADMIT IP TO THIS HOSP Is pt being admited?: Yes Condition: Stable Instructions: Sickle Cell Crisis (ED), Arthralgia (ED), Anemia (ED) Additional Instructions: Please follow-up with your rigger up in the next few days. I'm giving you a referral for a local orthopedist, Dr. Landers, to follow up regarding your leg pain. Return to the emergency department immediately with any return of your symptoms, or with any acute distress. You have been prescribed a pain medication that can be sedating. Therefore, this medication cannot be taken prior to working, driving, being responsible for her children, and cannot be mixed with alcohol of any quantity. Prescriptions: oxyCODONE /ACETAMINOPHEN [Percocet 5/325 mg] 1 tab PO Q6H PRN #12 tablet PRN Reason: Pain, Moderate (4-6) Referrals: PRIMARY CARE, [Primary Care Provider] - 2-3 Days VANDANA RUANO MD [Staff Physician] - 2-3 Days EDGAR LANDERS MD [Staff Physician] - 2-3 Days Time of Disposition: 13:54
--- NOTE | 2019-05-03 11:23 | Vascular Lab Report ---
RIGHT LOWER EXTREMITY VENOUS DOPPLER ULTRASOUND HISTORY: Lower extremity pain. Sickle cell crisis. COMPARISON: None. TECHNIQUE: Grayscale, color and spectral Doppler imaging of the venous system of the right lower extr emity was performed. FINDINGS: Sapheno-femoral Junction: Normal venous flow, compressibility and augmentation. Common Femoral Vein: Normal venous flow, compressibility and augmentation. Femoral Vein: Normal venous flow, compressibility and augmentation. Profunda Femoral Vein: Normal venous flow, compressibility and augmentation. Popliteal Vein: Normal venous flow, compressibility and augmentation. Posterior tibial vein: Normal venous flow, compressibility and augmentation. Peroneal vein: Normal venous flow, compressibility and augmentation. Additional Findings: None. IMPRESSION: 1. No sonographic evidence of deep venous thrombosis in the right lower extremity. Signer Name: Maxime Trotter MD Signed: 05/03/2019 11:18 AM Workstation Name: [id number]
--- NOTE | 2019-05-03 11:26 | XRay Report ---
AP AND LATERAL VIEWS OF THE RIGHT FORELEG INDICATION: right leg pain. COMPARISON: No relevant prior imaging study available. FINDINGS: The mid to distal right tibia has a mottled appearance with mixed sclerotic and lucency. There is als o mild remodeling in the mid to distal diaphysis. There is cortical irregularity along the medial cor kathy of the distal diaphysis with adjacent soft tissue attenuation and possibly soft tissue ulceration . There is focal sclerosis in the distal fibular diaphysis. No fracture seen. No foreign bodies. IMPRESSION: 1. Mid to distal right tibia has a somewhat mottled appearance. As could be seen in the setting of ch ronic inflammatory process/chronic infection. There is cortical irregularity along the medial cortex with adjacent soft tissue irregularity and possible ulceration. Does this patient have a history of w ound/ulcer here: No definite acute osseous findings. 2. Sclerosis within the distal fibular diaphysis could be related to healed/stress fracture or chroni c infection/inflammation as well. Signer Name: Chris Maria MD Signed: 05/03/2019 11:21 AM Workstation Name: [id number]
[2019-05-03] MEDS ORDERED: HYDROmorphone 2 MG/1 ML INJ IM ONE (12:23)
[2019-05-03 14:19] VITALS: BP 97/53
== END 2019-05-03 14:19 | disposition admitted as inpatient to this hospital (09) ==
LOC: ED 07:38
DX: D57.00 Hb-SS disease with crisis, unspecified (principal); D57.1 Sickle-cell disease without crisis; Z79.899 Other long term (current) drug therapy
CPT/HCPCS: 36415; 73590; 80048; 85025; 85045; 93971; 96372; 96374; 96375; 99284; J1170; J1885; J7030

== ENCOUNTER 2019-05-31 06:32 | Emergency (ER) | payer OTHER ==
[2019-05-31] MEDS ORDERED: ONDANSETRON 4 MG/2 ML INJ IV ONE (07:28)
[2019-05-31] MEDS ORDERED: HYDROmorphone 1 MG/1 ML INJ IV ONE (07:28)
--- NOTE | 2019-05-31 07:33 | Emergency Department Report ---
HPI - General Chief Complaint: Sickle Cell Crisis Time Seen by Provider: 05/31/19 07:21 - HPI HPI: Room 26 The patient is a 29-year-old female present with chief complaint of sickle cell pain crisis. Patient states she began having pain in her entire right lower extremity yesterday evening. Patient states it feels like a sickle cell pain crisis. The patient states she is attempting to manage the pain at home with her medication but it did not help. Patient denies any preceding trauma or history of fever. Patient gives her pain score of 9/10 ED Past Medical Hx - Past Medical History Previous Medical History?: Yes Hx Sickle Cell Disease: Yes Hx Arthritis: Yes - Surgical History Past Surgical History?: Yes Additional Surgical History: Ortho surgery to right thigh s/t osteomylitis - Family History Family history: no significant - Social History Smoking Status: Never Smoker Substance Use Type: None - Medications Home Medications: Home Medications Medication Instructions Recorded Confirmed Last Taken Type Folic Acid [Folvite] 1 mg PO QDAY #30 tablet 03/22/19 05/23/19 05/20/19 Rx Hydroxyurea 500 mg PO QDAY #30 capsule 03/22/19 05/23/19 05/20/19 Rx Multivitamin Tab [Multiple Vitamin 1 each PO QDAY #30 tablet 03/22/19 05/21/19 Unknown Rx TAB (Theragran)] oxyCODONE /ACETAMINOPHEN [Percocet 1 tab PO Q6H PRN #12 tablet 05/03/19 05/23/19 05/20/19 Rx 5/325 mg] Bactrim DS TAB 1 tab PO BID 05/21/19 05/23/19 05/20/19 History Famotidine [Pepcid] 20 mg PO BID #60 tablet 05/25/19 Unknown Rx Ferrous Sulfate [Feosol 325 MG tab] 325 mg PO TID #20 tablet 05/25/19 Unknown Rx Megestrol Acetate [Megace Es] 625 mg PO DAILY #10 oral.susp 05/25/19 Unknown Rx traMADoL [Ultram] 50 mg PO Q6HR PRN #20 tablet 05/31/19 Unknown Rx ED Review of Systems ROS: Stated complaint: SICKLE CELL PAIN/RT SIDE PAIN Other details as noted in HPI Constitutional: denies: fever Eyes: denies: eye pain ENT: denies: throat pain Respiratory: no symptoms reported Cardiovascular: denies: chest pain Endocrine: no symptoms reported Gastrointestinal: denies: abdominal pain Genitourinary: denies: dysuria Musculoskeletal: myalgia Neurological: denies: headache Physical Exam - Physical Exam Vital Signs: Vital Signs 05/31/19 06:43 Temperature 98.1 F Pulse Rate 74 Respiratory 12 Rate Blood Pressure 105/47 O2 Sat by Pulse 98 Oximetry Physical Exam: GEN: WD WN female lying on stretcher in NAD HEENT: NCAT, EOMI NECK: trachea midline PULM: No resp distress noted CV: rrr no m/r/g ABD: s/nt/nd SKIN: no diaphoresis NEURO: GCS 15 MUSCULOSKELETAL: No evidence of acute injury ED Course Vital Signs 05/31/19 06:43 Temperature 98.1 F Pulse Rate 74 Respiratory 12 Rate Blood Pressure 105/47 O2 Sat by Pulse 98 Oximetry - Reevaluation(s) Reevaluation #1: 05/31/19 09:20 Patient's pain is decreased to 4/10. Patient requesting ultram ED Medical Decision Making - Lab Data Result diagrams: 05/31/19 07:56 Laboratory Tests 05/31/19 05/31/19 07:56 07:56 WBC 13.3 H RBC 2.28 L Hgb 7.7 L Hct 23.2 L MCV 102 H MCH 34 H MCHC 33 RDW 24.6 H Plt Count 848 H Lymph % (Auto) 26.5 [place] % (Auto) 8.5 H Eos % (Auto) 2.1 Baso % (Auto) 1.0 Lymph # 3.5 [place] # 1.1 H Eos # 0.3 Baso # 0.1 Seg Neutrophils % 61.9 Seg Neutrophils # 8.3 H Percent Retic 13.66 H HCG, Qual Negative - Differential Diagnosis Sickle cell pain crisis Critical care attestation.: If time is entered above; I have spent that time in minutes in the direct care of this critically ill patient, excluding procedure time. ED Disposition Clinical Impression: Sickle cell crisis Disposition: - TO HOME OR SELFCARE Is pt being admited?: No Does the pt Need Aspirin: No Condition: Stable Instructions: Sickle Cell Crisis (ED) Prescriptions: traMADoL [Ultram] 50 mg PO Q6HR PRN #20 tablet PRN Reason: Pain Referrals: VANDANA SALES MD [Staff Physician] - 3-5 Days Time of Disposition: 09:24
[2019-05-31 08:35] LABS: Basophils # (Auto) 0.1 K/mm3 (0.0-0.1); Eosinophils # (Auto) 0.3 K/mm3 (0.0-0.4); Eosinophils % (Auto) 2.1 % (0.0-4.3); Hematocrit 23.2 % (30.3-42.9); Hemoglobin 7.7 gm/dl (10.1-14.3); Lymphocytes # (Auto) 3.5 K/mm3 (1.2-5.4); Lymphocytes % (Auto) 26.5 % (13.4-35.0); Mean Corpuscular HGB Conc 33 % (30-34); Mean Corpuscular Volume 102 fl (79-97); Monocytes # (Auto) 1.1 K/mm3 (0.0-0.8); Monocytes % (Auto) 8.5 % (0.0-7.3); Platelet Count 848 K/mm3 (140-440); Red Blood Count 2.28 M/mm3 (3.65-5.03)
[2019-05-31 08:41] LABS: Red Cell Distribution Width 24.6 % (13.2-15.2)
[2019-05-31 08:48] VITALS: BP 95/54
[2019-05-31] MEDS ORDERED: traMADol 50 MG TAB PO ONE (09:03)
== END 2019-05-31 10:25 | disposition home or self-care (01) ==
LOC: ED 06:32
DX: D57.00 Hb-SS disease with crisis, unspecified (principal); M19.90 Unspecified osteoarthritis, unspecified site
CPT/HCPCS: 36415; 84703; 85025; 85045; 96374; 96375; 99283; J1170; J2405

== ENCOUNTER 2019-06-05 10:02 | Outpatient (CLI) | payer OTHER ==
[2019-06-05] MEDS ORDERED: LIDOCAINE (4%) 40 MG/ML TOPICAL SOLN 50 ML BOTTLE TP ONE (11:00)
== END 2019-06-05 10:03 | disposition home or self-care (01) ==
LOC: WOUND 10:02
PROVIDERS: ATTEND Surgery
DX: T81.89XA Other complications of procedures, not elsewhere classified, initial encounter (principal); M86.9 Osteomyelitis, unspecified; Y83.8 Other surgical procedures as the cause of abnormal reaction of the patient, or of later complication, without mention of misadventure at the time of the procedure; Y92.89 Other specified places as the place of occurrence of the external cause
CPT/HCPCS: 99214; G0463

== ENCOUNTER 2019-06-12 11:52 | Outpatient (CLI) | payer OTHER ==
[2019-06-12] MEDS ORDERED: LIDOCAINE (4%) 40 MG/ML TOPICAL SOLN 50 ML BOTTLE TP ONE (13:15)
== END 2019-06-12 11:53 | disposition home or self-care (01) ==
LOC: WOUND 11:52
PROVIDERS: ATTEND Surgery
DX: T81.89XD Other complications of procedures, not elsewhere classified, subsequent encounter (principal); L97.212 Non-pressure chronic ulcer of right calf with fat layer exposed; M86.9 Osteomyelitis, unspecified; Y83.8 Other surgical procedures as the cause of abnormal reaction of the patient, or of later complication, without mention of misadventure at the time of the procedure

== ENCOUNTER 2019-06-20 10:42 | Outpatient (CLI) | payer OTHER ==
[2019-06-20] MEDS ORDERED: LIDOCAINE (4%) 40 MG/ML TOPICAL SOLN 50 ML BOTTLE TP ONE (11:35)
== END 2019-06-20 10:43 | disposition home or self-care (01) ==
LOC: WOUND 10:42
PROVIDERS: ATTEND Surgery
DX: T81.89XD Other complications of procedures, not elsewhere classified, subsequent encounter (principal); L97.212 Non-pressure chronic ulcer of right calf with fat layer exposed; M86.9 Osteomyelitis, unspecified; Y83.8 Other surgical procedures as the cause of abnormal reaction of the patient, or of later complication, without mention of misadventure at the time of the procedure

== ENCOUNTER 2019-07-04 09:57 | Outpatient (CLI) | payer OTHER ==
[2019-07-04] MEDS ORDERED: LIDOCAINE (4%) 40 MG/ML TOPICAL SOLN 50 ML BOTTLE TP ONE (10:30)
[2019-07-04] MEDS ORDERED: ONDANSETRON 4 MG/2 ML INJ ONE (17:06)
[2019-07-04] MEDS ORDERED: MORPHINE 4 MG/1 ML INJ ONE (17:06)
== END 2019-07-04 09:58 | disposition home or self-care (01) ==
LOC: WOUND 09:57
PROVIDERS: ATTEND Surgery
DX: T81.89XD Other complications of procedures, not elsewhere classified, subsequent encounter (principal); L97.212 Non-pressure chronic ulcer of right calf with fat layer exposed; M86.9 Osteomyelitis, unspecified; Y83.8 Other surgical procedures as the cause of abnormal reaction of the patient, or of later complication, without mention of misadventure at the time of the procedure
CPT/HCPCS: 96372; 99283; G0463; J1170; J2405; 99211; J2270; Q0162

== ENCOUNTER 2019-08-10 10:40 | Emergency (ER) | payer OTHER ==
[2019-08-10] MEDS ORDERED: diphenhydrAMINE 50 MG/ML VIAL IV ONE (11:33)
[2019-08-10] MEDS ORDERED: KETOROLAC 30 MG/1 ML INJ IV ONE (11:33)
[2019-08-10] MEDS ORDERED: SODIUM CHLORIDE 0.9% 1000 ML 1,000 ML IV ONE (11:33)
[2019-08-10] MEDS ORDERED: HYDROmorphone 1 MG/1 ML INJ IV ONE ×3 (11:34→14:13)
--- NOTE | 2019-08-10 11:37 | Emergency Department Report ---
ED General Adult HPI - General Chief complaint: Sickle Cell Crisis Stated complaint: PAIN IN LAEGS AND ARMS Time Seen by Provider: 08/10/19 11:26 Source: patient Mode of arrival: Ambulatory Limitations: No Limitations - History of Present Illness Initial comments: 29-year-old female with history of sickle cell anemia (Hb SS) presents to ED with possible pain crisis. Patient reports pain to bilateral arms and legs since 3:00 this morning. Patient reports taking hydrocodone at home, without relief. She denies any fever, cough, chest pain, shortness of breath. Mobile Product Manager: Dr. Ruano -: This morning Location: left, right, upper extremity, lower extremity Quality: aching Consistency: constant Improves with: none Worsens with: none Associated Symptoms: denies: chest pain, cough, fever/chills, shortness of breath Treatments Prior to Arrival: other (hydrocodone) - Related Data Previous Rx's Medication Instructions Recorded Last Taken Type Folic Acid [Folvite] 1 mg PO QDAY #90 tablet 07/04/19 Unknown Rx HYDROcodone/APAP 10-325 [[place] 1 each PO Q6H PRN #15 tablet 07/04/19 Unknown Rx 10-325 mg TAB] Hydroxyurea 500 mg PO QDAY #90 capsule 07/04/19 Unknown Rx Multivitamin Tab [Multiple Vitamin 1 each PO QDAY #90 tablet 07/04/19 Unknown Rx TAB (Theragran)] Ondansetron [Zofran ODT TAB] 4 mg PO Q8HR PRN #20 tab.rapdis 07/04/19 Unknown Rx Sennosides Tab [Senokot] 17.2 mg PO QHS #90 tablet 07/04/19 Unknown Rx Allergies Allergy/AdvReac Type Severity Reaction Status Date / Time No Known Allergies Allergy Unverified 01/04/19 08:15 ED Review of Systems ROS: Stated complaint: PAIN IN LAEGS AND ARMS Other details as noted in HPI Comment: All other systems reviewed and negative Constitutional: denies: chills, fever Respiratory: denies: cough, shortness of breath Cardiovascular: denies: chest pain Musculoskeletal: as per HPI ED Past Medical Hx - Past Medical History Previous Medical History?: Yes Hx Congestive Heart Failure: No Hx Diabetes: No Hx Sickle Cell Disease: Yes Hx Arthritis: Yes Hx COPD: No - Surgical History Past Surgical History?: Yes Additional Surgical History: Ortho surgery to right thigh s/t osteomylitis - Social History Smoking Status: Never Smoker Substance Use Type: None - Medications Home Medications: Home Medications Medication Instructions Recorded Confirmed Last Taken Type Folic Acid [Folvite] 1 mg PO QDAY #90 tablet 07/04/19 07/08/19 Unknown Rx HYDROcodone/APAP 10-325 [[place] 1 each PO Q6H PRN #15 tablet 07/04/19 07/08/19 Unknown Rx 10-325 mg TAB] Hydroxyurea 500 mg PO QDAY #90 capsule 07/04/19 07/08/19 Unknown Rx Multivitamin Tab [Multiple Vitamin 1 each PO QDAY #90 tablet 07/04/19 07/08/19 Unknown Rx TAB (Theragran)] Ondansetron [Zofran ODT TAB] 4 mg PO Q8HR PRN #20 tab.rapdis 07/04/19 07/08/19 Unknown Rx Sennosides Tab [Senokot] 17.2 mg PO QHS #90 tablet 07/04/19 07/08/19 Unknown Rx ED Physical Exam - General Limitations: No Limitations General appearance: alert, in no apparent distress, other (appears uncomfortable, crying) - Head Head exam: Present: atraumatic, normocephalic - Eye Eye exam: Present: normal appearance - ENT ENT exam: Present: mucous membranes moist - Neck Neck exam: Present: normal inspection - Respiratory Respiratory exam: Present: normal lung sounds bilaterally. Absent: respiratory distress - Cardiovascular Cardiovascular Exam: Present: regular rate, normal rhythm - GI/Abdominal GI/Abdominal exam: Present: soft. Absent: distended, tenderness - Extremities Exam Extremities exam: Present: normal inspection - Neurological Exam Neurological exam: Present: alert, oriented X3 - Psychiatric Psychiatric exam: Present: normal affect, normal mood - Skin Skin exam: Present: warm, dry, intact, normal color ED Course Vital Signs 08/10/19 08/10/19 08/10/19 10:44 10:49 12:20 Temperature 98.0 F Pulse Rate 85 Respiratory 22 20 18 Rate Blood Pressure 109/81 Blood Pressure 120/80 [Right] O2 Sat by Pulse 100 99 Oximetry 08/10/19 08/10/19 14:30 15:00 Temperature Pulse Rate 75 Respiratory 18 18 Rate Blood Pressure Blood Pressure 100/68 [Right] O2 Sat by Pulse 99 99 Oximetry ED Medical Decision Making - Lab Data Result diagrams: 08/10/19 13:45 08/10/19 10:53 - Medical Decision Making Hb 8.1 Pt feeling much better following IV fluids and 2 doses of pain meds. Will d/c home. Outpt f/u w/ filter press supervisor advised. Return precautions given. - Differential Diagnosis sickle cell pain crisis Critical care attestation.: If time is entered above; I have spent that time in minutes in the direct care of this critically ill patient, excluding procedure time. ED Disposition Clinical Impression: Sickle cell pain crisis Disposition: DC-01 TO HOME OR SELFCARE Is pt being admited?: No Condition: Stable Instructions: Sickle Cell Crisis (ED) Referrals: BENNETT ZAVALA MD [Primary Care Provider] - 3-5 Days PRIMARY CAREMD [Referring] - 3-5 Days Time of Disposition: 14:44
[2019-08-10 12:15] LABS: Albumin 4.2 g/dL (3.9-5); BUN/Creatinine Ratio 55; Blood Urea Nitrogen 11 mg/dL (7-17); Calcium 9.6 mg/dL (8.4-10.2); Hemolysis Index 95
[2019-08-10 12:29] LABS: Alanine Aminotransferase 31 units/L (7-56)
[2019-08-10 13:49] LABS: Hematocrit 23.8 % (30.3-42.9); Hemoglobin 8.1 gm/dl (10.1-14.3); Mean Corpuscular HGB Conc 34 % (30-34); Mean Corpuscular Volume 99 fl (79-97); Platelet Count 411 K/mm3 (140-440); Red Blood Count 2.41 M/mm3 (3.65-5.03); Red Cell Distribution Width 26.9 % (13.2-15.2)
[2019-08-10 14:33] LABS: Anisocytosis 3+; Poikilocytosis 2+; Sickle Cells Few; Total Cells Counted 100
[2019-08-10 14:34] LABS: Ovalocytes 1+; Schistocytes Few; Stomatocytes Few; Target Cells Few
[2019-08-10 14:35] LABS: Burr Cells Few; Giant Platelets Rare
[2019-08-10 14:36] LABS: Platelet Estimate Consistent w Auto
[2019-08-10 14:51] VITALS: BP 100/68
== END 2019-08-10 15:20 | disposition home or self-care (01) ==
LOC: ED 10:40
DX: D57.00 Hb-SS disease with crisis, unspecified (principal); M79.604 Pain in right leg; M79.605 Pain in left leg; M79.601 Pain in right arm; M79.602 Pain in left arm; M19.90 Unspecified osteoarthritis, unspecified site; Z98.890 Other specified postprocedural states; Z79.899 Other long term (current) drug therapy
CPT/HCPCS: 36415; 80053; 85007; 85025; 85045; 96374; 96375; 96376; 99283; J1170; J1200; J1885; J7030

== ENCOUNTER 2019-09-02 17:29 | Inpatient (IN) | payer OTHER ==
--- NOTE | 2019-09-02 17:55 | Emergency Department Report ---
ED General Adult HPI - General Chief complaint: Sickle Cell Crisis Stated complaint: SICKLE CELL Time Seen by Provider: 09/02/19 17:39 Source: patient Mode of arrival: Ambulatory Limitations: No Limitations - History of Present Illness Initial comments: Patient is a 29-year-old F [place] female with SS sickle cell who was just discharged from our hospital's emergency department by myself. Patient received 3 L of normal saline and her pain is decreased to a 5. She is still having persistent pain in the left lower extremity and left upper extremity however she stated that she did not believe she needed to be admitted. 1 hour after being discharged patient returned crying stating that the pain was back to a 10 out of 10. Please see the other visit from today for further details - Related Data Previous Rx's Medication Instructions Recorded Last Taken Type Folic Acid [Folvite] 1 mg PO QDAY #90 tablet 07/04/19 Unknown Rx HYDROcodone/APAP 10-325 [[place] 1 each PO Q6H PRN #15 tablet 07/04/19 Unknown Rx 10-325 mg TAB] Hydroxyurea 500 mg PO QDAY #90 capsule 07/04/19 Unknown Rx Multivitamin Tab [Multiple Vitamin 1 each PO QDAY #90 tablet 07/04/19 Unknown Rx TAB (Theragran)] Ondansetron [Zofran ODT TAB] 4 mg PO Q8HR PRN #20 tab.rapdis 07/04/19 Unknown Rx Sennosides Tab [Senokot] 17.2 mg PO QHS #90 tablet 07/04/19 Unknown Rx Allergies Allergy/AdvReac Type Severity Reaction Status Date / Time No Known Allergies Allergy Unverified 01/04/19 08:15 ED Review of Systems ROS: Stated complaint: SICKLE CELL Other details as noted in HPI Comment: All other systems reviewed and negative ED Past Medical Hx - Past Medical History Hx Congestive Heart Failure: No Hx Diabetes: No Hx Sickle Cell Disease: Yes Hx Arthritis: Yes Hx COPD: No - Surgical History Additional Surgical History: Ortho surgery to right thigh s/t osteomylitis - Social History Smoking Status: Never Smoker Substance Use Type: None - Medications Home Medications: Home Medications Medication Instructions Recorded Confirmed Last Taken Type Folic Acid [Folvite] 1 mg PO QDAY #90 tablet 07/04/19 07/08/19 Unknown Rx HYDROcodone/APAP 10-325 [[place] 1 each PO Q6H PRN #15 tablet 07/04/19 07/08/19 Unknown Rx 10-325 mg TAB] Hydroxyurea 500 mg PO QDAY #90 capsule 07/04/19 07/08/19 Unknown Rx Multivitamin Tab [Multiple Vitamin 1 each PO QDAY #90 tablet 07/04/19 07/08/19 Unknown Rx TAB (Theragran)] Ondansetron [Zofran ODT TAB] 4 mg PO Q8HR PRN #20 tab.rapdis 07/04/19 07/08/19 Unknown Rx Sennosides Tab [Senokot] 17.2 mg PO QHS #90 tablet 07/04/19 07/08/19 Unknown Rx ED Physical Exam - General Limitations: No Limitations General appearance: alert, in distress - Head Head exam: Present: atraumatic, normocephalic - Eye Eye exam: Present: normal appearance - ENT ENT exam: Present: mucous membranes moist - Neck Neck exam: Present: normal inspection - Respiratory Respiratory exam: Present: normal lung sounds bilaterally. Absent: respiratory distress - Cardiovascular Cardiovascular Exam: Present: regular rate, normal rhythm. Absent: systolic murmur, diastolic murmur, rubs, gallop - GI/Abdominal GI/Abdominal exam: Present: soft, normal bowel sounds. Absent: distended, tenderness, guarding, rebound - Extremities Exam Extremities exam: Present: normal inspection - Back Exam Back exam: Present: normal inspection - Neurological Exam Neurological exam: Present: alert, oriented X3 - Psychiatric Psychiatric exam: Present: normal affect, normal mood - Skin Skin exam: Present: warm, dry, intact, normal color. Absent: rash ED Course Vital Signs 09/02/19 17:30 Temperature 99.2 F Pulse Rate 75 Respiratory 20 Rate Blood Pressure 124/78 O2 Sat by Pulse 98 Oximetry ED Medical Decision Making - Lab Data Lab Results 09/02/19 09/02/19 Range/Units 11:16 11:16 WBC 20.4 H (4.5-11.0) K/mm3 RBC 2.38 L (3.65-5.03) M/mm3 Hgb 8.6 L (10.1-14.3) gm/dl Hct 25.2 L (30.3-42.9) % MCV 106 H (79-97) fl MCH 36 H (28-32) pg MCHC 34 (30-34) % RDW 27.5 H (13.2-15.2) % Plt Count 935 H (140-440) K/mm3 Add Manual Diff Complete Total Counted 100 Seg Neuts % (Manual) 79.0 H (40.0-70.0) % Band Neutrophils % 0 % Lymphocytes % (Manual) 12.0 L (13.4-35.0) % Reactive Lymphs % (Man) 0 % Monocytes % (Manual) 8.0 H (0.0-7.3) % Eosinophils % (Manual) 0 (0.0-4.3) % Basophils % (Manual) 0 (0.0-1.8) % Metamyelocytes % 1.0 % Myelocytes % 0 % Promyelocytes % 0 % Blast Cells % 0 % Nucleated RBC % 9.0 H (0.0-0.9) % Seg Neutrophils # Man 16.1 H (1.8-7.7) K/mm3 Band Neutrophils # 0.0 K/mm3 Lymphocytes # (Manual) 2.4 (1.2-5.4) K/mm3 Abs React Lymphs (Man) 0.0 K/mm3 Monocytes # (Manual) 1.6 H (0.0-0.8) K/mm3 Eosinophils # (Manual) 0.0 (0.0-0.4) K/mm3 Basophils # (Manual) 0.0 (0.0-0.1) K/mm3 Metamyelocytes # 0.2 K/mm3 Myelocytes # 0.0 K/mm3 Promyelocytes # 0.0 K/mm3 Blast Cells # 0.0 K/mm3 WBC Morphology Not Reportable Hypersegmented Neuts Not Reportable Hyposegmented Neuts Not Reportable Hypogranular Neuts Not Reportable Smudge Cells Not Reportable Toxic Granulation Not Reportable Toxic Vacuolation Not Reportable Dohle Bodies Not Reportable Pelger-Huet Anomaly Not Reportable Raymond Rods Not Reportable Platelet Estimate Consistent w auto Clumped Platelets Not Reportable Plt Clumps, EDTA Not Reportable Large Platelets Not Reportable Giant Platelets Few Platelet Satelliting Not Reportable Plt Morphology Comment Not Reportable RBC Morphology Not Reportable Dimorphic RBCs Not Reportable Polychromasia Few Hypochromasia Not Reportable Poikilocytosis Not Reportable Anisocytosis Not Reportable Microcytosis Not Reportable Macrocytosis Not Reportable Spherocytes Not Reportable Pappenheimer Bodies Not Reportable Sickle Cells 3+ Target Cells 3+ Tear Drop Cells Not Reportable Ovalocytes Not Reportable Helmet Cells Not Reportable [place]-Peyton Bodies Not Reportable [place] Rings Not Reportable Alena Cells Not Reportable Bite Cells Not Reportable Crenated Cell Not Reportable Elliptocytes Not Reportable Acanthocytes (Spur) Not Reportable Rouleaux Not Reportable Hemoglobin C Crystals Not Reportable Schistocytes Not Reportable Malaria parasites Not Reportable Percent Retic 16.86 H (0.78-2.58) % Floyd Bodies Not Reportable Hem Pathologist Commnt No Sodium 137 (137-145) mmol/L Potassium 3.9 (3.6-5.0) mmol/L Chloride 103.3 (98-107) mmol/L Carbon Dioxide 21 L (22-30) mmol/L Anion Gap 17 mmol/L BUN 6 L (7-17) mg/dL Creatinine 0.3 L (0.7-1.2) mg/dL Estimated GFR > 60 ml/min BUN/Creatinine Ratio 20 % Glucose 129 H (65-100) mg/dL Calcium 9.7 (8.4-10.2) mg/dL Total Bilirubin 2.70 H (0.1-1.2) mg/dL AST 35 (5-40) units/L ALT 28 (7-56) units/L Alkaline Phosphatase 164 H (35-129) units/L Total Protein 8.1 (6.3-8.2) g/dL Albumin 4.3 (3.9-5) g/dL Albumin/Globulin Ratio 1.1 % - Medical Decision Making IV fluids will be reestablished and the patient will be admitted to the hospitalist service for observation. Critical care attestation.: If time is entered above; I have spent that time in minutes in the direct care of this critically ill patient, excluding procedure time. ED Disposition Clinical Impression: Sickle cell crisis Disposition: OP ADMIT IP TO THIS HOSP Is pt being admited?: Yes Does the pt Need Aspirin: No Condition: Stable Referrals: PRIMARY CARE, [Primary Care Provider] - 3-5 Days Time of Disposition: 18:23
[2019-09-02] MEDS ORDERED: HYDROmorphone 1 MG/1 ML INJ IV ONE (17:58)
[2019-09-02] MEDS ORDERED: SODIUM CHLORIDE 0.9% 1000 ML 1,000 ML IV ONE (17:58)
--- NOTE | 2019-09-02 18:28 | History and Physical Report ---
History of Present Illness Chief complaint: I am hurting all over History of present illness: 29 YO Female with SCD with multiple Antibodies not amenable to blood transfusion presents to ED for evaluation. Pt states that she has experienced pain all over her body for the past 1 week with persistent symptoms over the same time frame. Pt transported to [facility] via private vehicle for further evaluation and care. Pt seen and evaluated in ED and subsequently discharged. Patient returned shortly thereafter with worsening symptoms. Patient found to have sickle cell pain crisis. Patient treated with IV fluid resuscitation therapy and placed in observation status and admitted to medical floor. Pt denies fever, chills, CP, Palpitations, NVD, Trauma, skin rash, productive cough, skin rash or recent ill contacts or known exposure to COVID-19. Prior admission on 07/08/2019 reviewed. All medication listed at time of admission has been reconciled. Past History Past Medical History: other (See HPI) Past Surgical History: Other (Right leg, left knee surgery) Social history: single. denies: smoking, alcohol abuse, prescription drug abuse Family history: hypertension, other (SCD) Medications and Allergies Allergies Allergy/AdvReac Type Severity Reaction Status Date / Time No Known Allergies Allergy Unverified 01/04/19 08:15 Home Medications Medication Instructions Recorded Confirmed Last Taken Type Folic Acid [Folvite] 1 mg PO QDAY #90 tablet 07/04/19 07/08/19 Unknown Rx HYDROcodone/APAP 10-325 [[place] 1 each PO Q6H PRN #15 tablet 07/04/19 07/08/19 Unknown Rx 10-325 mg TAB] Hydroxyurea 500 mg PO QDAY #90 capsule 07/04/19 07/08/19 Unknown Rx Multivitamin Tab [Multiple Vitamin 1 each PO QDAY #90 tablet 07/04/19 07/08/19 Unknown Rx TAB (Theragran)] Ondansetron [Zofran ODT TAB] 4 mg PO Q8HR PRN #20 tab.rapdis 07/04/19 07/08/19 Unknown Rx Sennosides Tab [Senokot] 17.2 mg PO QHS #90 tablet 07/04/19 07/08/19 Unknown Rx Active Meds: Active Medications Sodium Chloride (Nacl 0.9% 1000 Ml) 1,000 mls @ 999 mls/hr IV BOLUS ONE Stop: 09/02/19 18:58 Sodium Chloride (Nacl 0.9% 1000 Ml) 3,000 mls @ 0 mls/hr IV ONCE [place]SEA Stop: 09/03/19 18:24 Review of Systems Constitutional: no weight loss, no weight gain, no fever, no chills, no weakness, no malaise Ears, nose, mouth and throat: no ear pain, no ear discharge, no tinnitis, no decreased hearing, no nasal congestion Breasts: no change in shape, no swelling, no mass Cardiovascular: no orthopnea, no palpitations, no rapid/irregular heart beat Respiratory: no cough, no cough with sputum, no excessive sputum, no hemoptysis Gastrointestinal: no nausea, no vomiting, no diarrhea, no constipation Genitourinary Female: no dysuria, no urinary frequency, no urgency, no stress incontinence, no post void dribbling Rectal: no incontinence, no bleeding, no itching Musculoskeletal: no neck stiffness, no hot joints, no morning stiffness, no muscle weakness, no muscle cramps Integumentary: no rash, no pruritis, no redness, no sores, no wounds Neurological: no paralysis, no weakness, no parathesias, no numbness, no syncope Psychiatric: no anxiety, no memory loss, no change in sleep habits, no insomnia, no change in appetite, no change in libido Endocrine: no cold intolerance, no heat intolerance, no polyphagia, no excessive thirst, no polydipsia, no polyuria Hematologic/Lymphatic: no easy bruising, no easy bleeding, no lymphedema Allergic/Immunologic: no urticaria, no allergic rhinitis, no persistent infectio ns, no angioedema Exam - Constitutional Vitals: Temp Pulse Resp BP Pulse Ox 99.2 F 75 20 124/78 98 09/02/19 17:30 09/02/19 17:30 09/02/19 17:30 09/02/19 17:30 09/02/19 17:30 General appearance: Present: mild distress - EENT Eyes: Present: PERRL ENT: hearing intact, clear oral mucosa - Neck Neck: Present: supple, normal ROM - Respiratory Respiratory effort: normal Respiratory: bilateral: CTA - Cardiovascular Heart Sounds: Present: S1 & S2. Absent: rub, click - Extremities Extremities: pulses symmetrical, No edema Peripheral Pulses: within normal limits - Abdominal General gastrointestinal: Present: soft, non-tender, non-distended, normal bowel sounds Female genitourinary: Present: normal - Integumentary Integumentary: Present: clear, warm, dry - Musculoskeletal Musculoskeletal: gait normal, strength equal bilaterally - Psychiatric Psychiatric: appropriate mood/affect, intact judgment & insight - Neurologic Neurologic: CNII-XII intact, moves all extremities Assessment and Plan - Patient Problems (1) Sickle cell crisis Current Visit: Yes Status: Acute Plan to address problem: CBC, CMP, IV fluid resuscitation therapy, thiamine, folic acid, multivitamin, hydroxyurea, reticulocyte count, supportive care., Pain control. (2) DVT prophylaxis Current Visit: No Status: Acute Plan to address problem: SCD to bilateral lower extremities while in bed, patient is ambulatory.
[2019-09-02] MEDS ORDERED: HYDROmorphone 1 MG/1 ML INJ ONE (21:57)
[2019-09-02] MEDS ORDERED: SODIUM CHLORIDE 0.9% 1000 ML 2,000 ML ONE (21:57)
[2019-09-02] MEDS ORDERED: MULTIVITAMINS ,THERAPEUTIC TAB PO ONE (22:00)
[2019-09-02] MEDS: SODIUM CHLORIDE 0.9% 1000 ML 3,000 ML IV SCH ×2 (22:05→23:10)
[2019-09-02] MEDS: HYDROmorphone 1 MG/1 ML INJ IV PRN (22:07)
[2019-09-02] MEDS: FOLIC ACID 1 MG TAB PO SCH (22:34)
[2019-09-02] MEDS: HYDROXYUREA 500 MG CAP PO SCH (22:35)
[2019-09-02] MEDS: MULTIVITAMINS ,THERAPEUTIC TAB PO SCH (22:36)
[2019-09-02] MEDS: SENNOSIDES 8.6 MG TAB PO SCH (22:37)
[2019-09-03] MEDS ORDERED: HYDROmorphone 1 MG/1 ML INJ ONE ×5 (02:20→21:27)
[2019-09-03] MEDS: HYDROmorphone 1 MG/1 ML INJ IV PRN ×5 (02:21→21:38)
[2019-09-03 04:13] LABS: BUN/Creatinine Ratio 20; Blood Urea Nitrogen 4 mg/dL (7-17); Calcium 8.7 mg/dL (8.4-10.2); Hemolysis Index 47
[2019-09-03] MEDS ORDERED: MULTIVITAMINS ,THERAPEUTIC TAB PO ONE (10:26)
[2019-09-03] MEDS ORDERED: FOLIC ACID 1 MG TAB ONE (10:26)
[2019-09-03] MEDS: MULTIVITAMINS ,THERAPEUTIC TAB PO SCH (10:55)
[2019-09-03] MEDS: HYDROXYUREA 500 MG CAP PO SCH (10:55)
[2019-09-03] MEDS: FOLIC ACID 1 MG TAB PO SCH (10:55)
[2019-09-03] MEDS ORDERED: HYDROcodone/ACETAMINOPHEN 10-325MG TAB ONE (12:34)
[2019-09-03] MEDS: HYDROcodone/ACETAMINOPHEN 10-325MG TAB PO PRN (12:34)
--- NOTE | 2019-09-03 12:57 | Progress Note ---
Assessment and Plan - Patient Problems (1) Sickle cell crisis Status: Acute Plan to address problem: CBC, CMP, IV fluid resuscitation therapy, thiamine, folic acid, multivitamin, hydroxyurea, reticulocyte count, supportive care., Pain control. (2) DVT prophylaxis Status: Acute Plan to address problem: SCD to bilateral lower extremities while in bed, patient is ambulatory. History Interval history: 29 YO Female HD #2 with Sickle Cell Crisis. Pt reports continued pain today. Pt denies fever, chills, CP, Shortness of Breath, Palpitations, NVD, Trauma, overnight. No reported nursing events. Hospitalist Physical - Constitutional Vitals: Temp Pulse Resp BP Pulse Ox 98.2 F 119 H 21 122/62 96 09/02/19 21:45 09/03/19 12:00 09/03/19 12:00 09/03/19 12:00 09/03/19 12:00 General appearance: Present: mild distress - EENT Eyes: Present: PERRL, EOM intact ENT: hearing intact - Neck Neck: Present: supple - Respiratory Respiratory: bilateral: CTA - Cardiovascular Rhythm: regular Heart Sounds: Present: S1 & S2 - Extremities Extremities: no ischemia - Abdominal General gastrointestinal: soft, non-tender, non-distended - Integumentary Integumentary: Present: clear, warm, dry - Psychiatric Psychiatric: appropriate mood/affect, cooperative - Neurologic Neurologic: CNII-XII intact Results - Labs CBC & Chem 7: 09/17/19 04:00 09/17/19 04:00 Labs: Laboratory Last Values Sodium 139 mmol/L (137-145) 09/03/19 02:56 Potassium 3.6 mmol/L (3.6-5.0) 09/03/19 02:56 Chloride 105.3 mmol/L (98-107) 09/03/19 02:56 Carbon Dioxide 19 mmol/L (22-30) L 09/03/19 02:56 Anion Gap 18 mmol/L 09/03/19 02:56 BUN 4 mg/dL (7-17) L 09/03/19 02:56 Creatinine 0.2 mg/dL (0.7-1.2) L 09/03/19 02:56 Estimated GFR > 60 ml/min 09/03/19 02:56 BUN/Creatinine Ratio 20 % 05/18/20 02:56 Glucose 89 mg/dL (65-100) 09/03/19 02:56 Calcium 8.7 mg/dL (8.4-10.2) 09/03/19 02:56 Active Medications - Current Medications Current Medications: Generic Name Dose Route Start Last Admin Trade Name Freq PRN Reason Stop Dose Admin Acetaminophen 650 mg 09/02/19 18:31 Tylenol PO Q4H PRN Pain MILD(1-3)/Fever >100.5/CARTER Acetaminophen/Hydrocodone [place] 1 each 09/02/19 21:16 09/03/19 12:34 [place] 10/325 PO 1 each Q6H PRN Administration Pain, Moderate (4-6) Folic Acid 1 mg 09/02/19 21:16 09/03/19 10:55 Folvite PO 1 mg QDAY [place] Administration Hydromorphone HCl 1 mg 09/02/19 21:55 09/03/19 11:08 Dilaudid IV 1 mg Q4H PRN Administration Pain , Severe (7-10) Hydroxyurea 500 mg 09/02/19 21:16 09/03/19 10:55 Hydroxyurea PO 500 mg QDAY [place] Administration Sodium Chloride 3,000 mls @ 0 mls/hr 09/02/19 18:23 09/02/19 23:10 Nacl 0.9% 1000 Ml IV 09/03/19 18:24 1,000 mls/hr ONCE [place] Administration As Directed Multivitamins 1 each 09/02/19 21:16 09/03/19 10:55 Theragran Tab PO 1 each QDAY [place] Administration Ondansetron HCl 4 mg 09/02/19 18:31 Zofran IV Q8H PRN Nausea And Vomiting Senna 17.2 mg 09/02/19 22:00 09/02/19 22:37 Senokot PO 17.2 mg QHS [place] Administration Sodium Chloride 10 ml 09/02/19 22:00 09/03/19 10:56 Sodium Chloride Flush Syringe 10 Ml IV 10 ml BID HOSEA Administration Sodium Chloride 10 ml 09/02/19 18:31 Sodium Chloride Flush Syringe 10 Ml IV PRN PRN LINE FLUSH
[2019-09-03] MEDS ORDERED: MORPHINE 4 MG/1 ML INJ ONE (21:24)
[2019-09-03] MEDS: SENNOSIDES 8.6 MG TAB PO SCH (22:57)
[2019-09-04] MEDS: ONDANSETRON 4 MG/2 ML INJ IV PRN ×2 (01:17→21:31)
[2019-09-04] MEDS: ACETAMINOPHEN 325 MG TAB PO PRN ×3 (01:17→21:46)
[2019-09-04] MEDS: HYDROmorphone 1 MG/1 ML INJ IV PRN ×6 (01:17→21:30)
[2019-09-04] MEDS: HYDROcodone/ACETAMINOPHEN 10-325MG TAB PO PRN ×2 (08:35→12:53)
[2019-09-04] MEDS: FOLIC ACID 1 MG TAB PO SCH (09:48)
[2019-09-04] MEDS: MULTIVITAMINS ,THERAPEUTIC TAB PO SCH (09:50)
[2019-09-04] MEDS: HYDROXYUREA 500 MG CAP PO SCH (09:51)
--- NOTE | 2019-09-04 18:52 | Vascular Lab Report ---
DUPLEX DOPPLER LOWER EXTREMITY VEINS, BILATERAL INDICATION: Leg swelling. TECHNIQUE: Duplex doppler imaging was performed through the veins of both lower extremities using ve nous compression and other maneuvers. COMPARISON: No relevant prior imaging study available. FINDINGS: Right Common femoral vein: Negative. Right Superficial femoral vein: Negative. Right Popliteal vein: Negative. Right Calf veins: Negative. Left Common femoral vein: Negative. Left Superficial femoral vein: Negative. Left Popliteal vein: Negative. Left Calf veins: Negative. Additional findings: None.. IMPRESSION: No sonographic evidence for DVT in either lower extremity. Signer Name: Roque Ye Jr, MD Signed: 09/04/2019 12:39 PM Workstation Name: [id number]
--- NOTE | 2019-09-04 19:02 | Progress Note ---
Assessment and Plan Assessment and plan: --Sickle cell crisis; Oxygen, IV fluids, pain medications Supportive care, advised plenty of oral fluids Hydrea, folic acid --Febrile illness; possible UTI Antipyretics, empiric antibiotics with Zosyn Urine and blood cultures, supportive care --Dehydration; IV fluids --DVT prophylaxis; Lovenox Monitor closely and adjust management as needed Possible discharge in 1 to 2 days if stable History Interval history: Patient seen and examined at the bedside this afternoon Patient's chart and medications reviewed Admitted with sickle cell painful crisis Feels slightly better still complains of generalized body pains Vital signs reviewed Hospitalist Physical - Constitutional Vitals: Temp Pulse Resp BP Pulse Ox 102.9 F H 113 H 21 137/61 98 09/04/19 18:32 09/04/19 18:32 09/04/19 18:32 09/04/19 18:32 09/04/19 18:32 General appearance: Present: mild distress, cachectic, disheveled - EENT Eyes: Present: PERRL, EOM intact - Neck Neck: Present: supple, normal ROM - Respiratory Respiratory effort: normal Respiratory: bilateral: diminished, negative: rales, rhonchi, wheezing - Cardiovascular Rhythm: regular Heart Sounds: Present: S1 & S2 - Extremities Extremities: no ischemia, No edema - Abdominal General gastrointestinal: soft, non-tender, non-distended, normal bowel sounds - Integumentary Integumentary: Present: clear, warm - Psychiatric Psychiatric: appropriate mood/affect, cooperative - Neurologic Neurologic: moves all extremities Results - Labs CBC & Chem 7: 09/03/19 02:56 Labs: Laboratory Last Values Sodium 139 mmol/L (137-145) 09/03/19 02:56 Potassium 3.6 mmol/L (3.6-5.0) 09/03/19 02:56 Chloride 105.3 mmol/L (98-107) 09/03/19 02:56 Carbon Dioxide 19 mmol/L (22-30) L 09/03/19 02:56 Anion Gap 18 mmol/L 09/03/19 02:56 BUN 4 mg/dL (7-17) L 09/03/19 02:56 Creatinine 0.2 mg/dL (0.7-1.2) L 09/03/19 02:56 Estimated GFR > 60 ml/min 09/03/19 02:56 BUN/Creatinine Ratio 20 % 09/03/19 02:56 Glucose 89 mg/dL (65-100) 09/03/19 02:56 Calcium 8.7 mg/dL (8.4-10.2) 09/03/19 02:56 Kahn/IV: Voiding Method External Female Catheter IV Catheter Type [Left Peripheral IV External Jugular] Active Medications - Current Medications Current Medications: Generic Name Dose Route Start Last Admin Trade Name Freq PRN Reason Stop Dose Admin Acetaminophen 650 mg 09/02/19 18:31 09/04/19 17:58 Tylenol PO 650 mg Q4H PRN Administration Pain MILD(1-3)/Fever >100.5/CARTER Acetaminophen/Hydrocodone Bitart 1 each 09/02/19 21:16 09/04/19 12:53 [place] 10/325 PO 1 each Q6H PRN Administration Pain, Moderate (4-6) Folic Acid 1 mg 09/02/19 21:16 09/04/19 09:48 Folvite PO 1 mg QDAY HOSEA Administration Hydromorphone HCl 1 mg 09/02/19 21:55 09/04/19 17:59 Dilaudid IV 1 mg Q4H PRN Administration Pain , Severe (7-10) Hydroxyurea 500 mg 09/02/19 21:16 09/04/19 09:51 Hydroxyurea PO 500 mg QDAY HOSEA Administration Multivitamins 1 each 09/02/19 21:16 09/04/19 09:50 Theragran Tab PO 1 each QDAY HOSEA Administration Ondansetron HCl 4 mg 09/02/19 18:31 09/04/19 01:17 Zofran IV 4 mg Q8H PRN Administration Nausea And Vomiting Senna 17.2 mg 09/02/19 22:00 09/03/19 22:57 Senokot PO 17.2 mg QHS HOSEA Administration Sodium Chloride 10 ml 09/02/19 22:00 09/04/19 09:52 Sodium Chloride Flush Syringe 10 Ml IV 10 ml BID HOSEA Administration Sodium Chloride 10 ml 09/02/19 18:31 Sodium Chloride Flush Syringe 10 Ml IV PRN PRN LINE FLUSH
[2019-09-04] MEDS: SODIUM CHLORIDE 0.9% 1000 ML 1,000 ML IV SCH (21:35)
[2019-09-04] MEDS: PIPERACIL/TAZOBACTA 4.5/NS 100 4.5 GM/100 ML VIAL IV SCH (21:43)
[2019-09-04] MEDS: SENNOSIDES 8.6 MG TAB PO SCH (21:44)
[2019-09-05] MEDS: HYDROmorphone 1 MG/1 ML INJ IV PRN ×5 (01:49→20:07)
[2019-09-05] MEDS: HYDROcodone/ACETAMINOPHEN 10-325MG TAB PO PRN (03:18)
[2019-09-05] MEDS: ACETAMINOPHEN 325 MG TAB PO PRN ×2 (03:48→22:06)
[2019-09-05 04:53] LABS: Basophils % (Auto) 0.2 % (0.0-1.8); Eosinophils # (Auto) 0.3 K/mm3 (0.0-0.4); Eosinophils % (Auto) 1.3 % (0.0-4.3); Hematocrit 20.4 % (30.3-42.9); Hemoglobin 6.7 gm/dl (10.1-14.3); Lymphocytes % (Auto) 15.6 % (13.4-35.0); Mean Corpuscular HGB Conc 33 % (30-34); Mean Corpuscular Volume 107 fl (79-97); Monocytes # (Auto) 2.1 K/mm3 (0.0-0.8); Monocytes % (Auto) 11.2 % (0.0-7.3); Platelet Count 692 K/mm3 (140-440)
[2019-09-05 04:54] LABS: Red Cell Distribution Width 23.9 % (13.2-15.2)
[2019-09-05 05:14] LABS: BUN/Creatinine Ratio 18; Blood Urea Nitrogen 7 mg/dL (7-17); Calcium 8.5 mg/dL (8.4-10.2); Hemolysis Index 2
[2019-09-05] MEDS: PIPERACIL/TAZOBACTA 4.5/NS 100 4.5 GM/100 ML VIAL IV SCH ×3 (06:05→22:08)
[2019-09-05] MEDS: HYDROXYUREA 500 MG CAP PO SCH (10:33)
[2019-09-05] MEDS: SODIUM CHLORIDE 0.9% 1000 ML 1,000 ML IV SCH ×2 (10:33→22:08)
[2019-09-05] MEDS: FOLIC ACID 1 MG TAB PO SCH (10:33)
[2019-09-05] MEDS: MULTIVITAMINS ,THERAPEUTIC TAB PO SCH (10:33)
--- NOTE | 2019-09-05 10:39 | XRay Report ---
CHEST 1 VIEW INDICATION: fever. COMPARISON: 06/06/2019 FINDINGS: Support devices: None. Heart: Within normal limits. Pulmonary vasculature: Stable pulmonary venous hypertension. Lungs/Pleura: No acute air space or interstitial disease. Additional findings: None. IMPRESSION: 1. No acute findings. Signer Name: Maxime Trotter MD Signed: 09/05/2019 10:34 AM Workstation Name: [id number]
--- NOTE | 2019-09-05 19:09 | Progress Note ---
Assessment and Plan Assessment and plan: --Sickle cell crisis; Oxygen, IV fluids, pain medications Supportive care, advised plenty of oral fluids Hydrea, folic acid --Febrile illness; possible UTI Antipyretics, empiric antibiotics with Zosyn Urine and blood cultures, supportive care --Cellulitis left lower extremity; Antibiotics Vanco and Zosyn Consult ID, follow cultures --Dehydration; IV fluids --DVT prophylaxis; Lovenox Monitor closely and adjust management as needed Possible discharge in 1 to 2 days if stable History Interval history: Patient seen and examined at the bedside Patient's chart medications tests reviewed Patient is febrile. Persistent fevers Left lower leg swelling/cellulitis Vital signs reviewed T-max last 24 hours 101 F Patient is in mild distress Hospitalist Physical - Constitutional Vitals: Temp Pulse Resp BP Pulse Ox 99.6 F 109 H 18 98/49 97 09/05/19 16:19 09/05/19 16:19 09/05/19 16:19 09/05/19 16:19 09/05/19 16:19 General appearance: Present: mild distress, cachectic, disheveled - EENT Eyes: Present: PERRL, EOM intact - Neck Neck: Present: supple, normal ROM - Respiratory Respiratory effort: normal Respiratory: bilateral: diminished, negative: rales, rhonchi, wheezing - Cardiovascular Rhythm: regular Heart Sounds: Present: S1 & S2 - Extremities Extremities: no ischemia Extremity abnormal: edema, tenderness, other (Left lower extremity) - Abdominal General gastrointestinal: soft, non-tender, non-distended, normal bowel sounds - Integumentary Integumentary: Present: clear, warm - Psychiatric Psychiatric: appropriate mood/affect, cooperative - Neurologic Neurologic: moves all extremities Results - Labs CBC & Chem 7: 09/05/19 03:46 09/05/19 03:46 Labs: Laboratory Last Values WBC 19.1 K/mm3 (4.5-11.0) H 09/05/19 03:46 RBC 1.90 M/mm3 (3.65-5.03) L 09/05/19 03:46 Hgb 6.7 gm/dl (10.1-14.3) L 09/05/19 03:46 Hct 20.4 % (30.3-42.9) L 09/05/19 03:46 MCV 107 fl (79-97) H 09/05/19 03:46 MCH 35 pg (28-32) H 09/05/19 03:46 MCHC 33 % (30-34) 09/05/19 03:46 RDW 23.9 % (13.2-15.2) H 09/05/19 03:46 Plt Count 692 K/mm3 (140-440) H 09/05/19 03:46 Lymph % (Auto) 15.6 % (13.4-35.0) 09/05/19 03:46 [place] % (Auto) 11.2 % (0.0-7.3) H 09/05/19 03:46 Eos % (Auto) 1.3 % (0.0-4.3) 09/05/19 03:46 Baso % (Auto) 0.2 % (0.0-1.8) 09/05/19 03:46 Lymph # 3.0 K/mm3 (1.2-5.4) 09/05/19 03:46 [place] # 2.1 K/mm3 (0.0-0.8) H 09/05/19 03:46 Eos # 0.3 K/mm3 (0.0-0.4) 09/05/19 03:46 Baso # 0.0 K/mm3 (0.0-0.1) 09/05/19 03:46 Seg Neutrophils % 71.7 % (40.0-70.0) H 09/05/19 03:46 Seg Neutrophils # 13.7 K/mm3 (1.8-7.7) H 09/05/19 03:46 Sodium 139 mmol/L (137-145) 09/05/19 03:46 Potassium 3.8 mmol/L (3.6-5.0) 09/05/19 03:46 Chloride 102.0 mmol/L (98-107) 09/05/19 03:46 Carbon Dioxide 23 mmol/L (22-30) 09/05/19 03:46 Anion Gap 18 mmol/L 09/05/19 03:46 BUN 7 mg/dL (7-17) 09/05/19 03:46 Creatinine 0.4 mg/dL (0.7-1.2) L D 09/05/19 03:46 Estimated GFR > 60 ml/min 09/05/19 03:46 BUN/Creatinine Ratio 18 % 09/05/19 03:46 Glucose 103 mg/dL (65-100) H 09/05/19 03:46 Calcium 8.5 mg/dL (8.4-10.2) 09/05/19 03:46 Microbiology: Microbiology 09/04/19 20:06 Peripheral/Venous Blood Culture - Preliminary Culture in Progress 09/04/19 20:06 Peripheral/Venous Blood Culture - Preliminary Culture in Progress Kahn/IV: Voiding Method External Female Catheter IV Catheter Type [Left Peripheral IV External Jugular] Active Medications - Current Medications Current Medications: Generic Name Dose Route Start Last Admin Trade Name Freq PRN Reason Stop Dose Admin Acetaminophen 650 mg 09/02/19 18:31 09/05/19 03:48 Tylenol PO 650 mg Q4H PRN Administration Pain MILD(1-3)/Fever >100.5/CARTER Acetaminophen/Hydrocodone Bitart 1 each 09/02/19 21:16 09/05/19 03:18 [place] 10/325 PO 1 each Q6H PRN Administration Pain, Moderate (4-6) Folic Acid 1 mg 09/02/19 21:16 09/05/19 10:33 Folvite PO 1 mg QDAY HOSEA Administration Hydromorphone HCl 1 mg 09/02/19 21:55 09/05/19 14:30 Dilaudid IV 1 mg Q4H PRN Administration Pain , Severe (7-10) Hydroxyurea 500 mg 09/02/19 21:16 09/05/19 10:33 Hydroxyurea PO 500 mg QDAY HO[place] Administration Sodium Chloride 1,000 mls @ 100 mls/hr 09/04/19 19:15 09/05/19 10:33 Nacl 0.9% 1000 Ml IV 100 mls/hr DIRECT HOSEA Administration Piperacillin Sod/Tazobactam Sod 4.5 gm in 100 mls @ 200 mls/hr 09/04/19 22:00 09/05/19 14:30 Zosyn/Ns 4.5gm/100ml IV 200 mls/hr Q8HR HOSEA Administration Protocol Multivitamins 1 each 09/02/19 21:16 09/05/19 10:33 Theragran Tab PO 1 each QDAY [place] Administration Ondansetron HCl 4 mg 09/02/19 18:31 09/04/19 21:31 Zofran IV 4 mg Q8H PRN Administration Nausea And Vomiting Senna 17.2 mg 09/02/19 22:00 09/04/19 21:44 Senokot PO 17.2 mg QHS HOSEA Administration Sodium Chloride 10 ml 09/02/19 22:00 09/05/19 10:33 Sodium Chloride Flush Syringe 10 Ml IV 10 ml BID [facility]SEA Administration Sodium Chloride 10 ml 09/02/19 18:31 Sodium Chloride Flush Syringe 10 Ml IV PRN PRN LINE FLUSH
[2019-09-05] MEDS ORDERED: VANCOMYCIN/NS 1 GM/250 ML 1 GM/250 ML BAG IV ONE (19:30)
[2019-09-05] MEDS: SENNOSIDES 8.6 MG TAB PO SCH (22:06)
[2019-09-06] MEDS: HYDROmorphone 1 MG/1 ML INJ IV PRN (00:58)
[2019-09-06] MEDS: ACETAMINOPHEN 325 MG TAB PO PRN ×2 (04:28→20:47)
[2019-09-06] MEDS: PIPERACIL/TAZOBACTA 4.5/NS 100 4.5 GM/100 ML VIAL IV SCH ×2 (06:04→14:03)
[2019-09-06] MEDS ORDERED: VANCOMYCIN 750 MG in SODIUM CHLORIDE 0.9% 250ML 250 ML IV SCH (07:30)
[2019-09-06] MEDS ORDERED: SODIUM CHLORIDE 0.9% 500 ML 500 ML IV ONE (09:00)
[2019-09-06] MEDS: MULTIVITAMINS ,THERAPEUTIC TAB PO SCH (09:12)
[2019-09-06] MEDS: FOLIC ACID 1 MG TAB PO SCH (09:12)
[2019-09-06] MEDS: HYDROXYUREA 500 MG CAP PO SCH (09:13)
[2019-09-06] MEDS ORDERED: VANCOMYCIN/NS 1 GM/250 ML 1 GM/250 ML BAG IV SCH (10:00)
[2019-09-06] MEDS: VANCOMYCIN 750 MG in SODIUM CHLORIDE 0.9% 250ML 250 ML IV SCH ×3 (10:37→23:49)
--- NOTE | 2019-09-06 13:00 | Progress Note ---
Assessment and Plan Assessment and plan: --Sickle cell crisis; Oxygen, IV fluids, pain medications Supportive care, advised plenty of oral fluids Hydrea, folic acid --Febrile illness; possible UTI/cellulitis Antipyretics, empiric antibiotics Vanco and Zosyn Urine and blood cultures, supportive care --Cellulitis left lower extremity; Antibiotics Vanco and Zosyn Lower extremity venous Doppler ,negative DVT consult ID --Dehydration; IV fluids --DVT prophylaxis;Lovenox Monitor closely and adjust management as needed Possible discharge in 1 to 2 days if stable History Interval history: Patient seen and examined at the bedside today Patient complains of generalized body pains Afebrile now, mild distress T-max last 24 hours 102 F Vital signs reviewed Hospitalist Physical - Constitutional Vitals: Temp Pulse Resp BP Pulse Ox 99.5 F 83 19 98/53 100 09/06/19 08:29 09/06/19 11:54 09/06/19 10:00 09/06/19 11:54 09/06/19 11:54 General appearance: Present: mild distress, cachectic, disheveled - EENT Eyes: Present: PERRL, EOM intact - Neck Neck: Present: supple, normal ROM - Respiratory Respiratory effort: normal Respiratory: bilateral: diminished, negative: rales, rhonchi, wheezing - Cardiovascular Rhythm: regular Heart Sounds: Present: S1 & S2 - Extremities Extremities: no ischemia, abnormal (Cellulitis left lower extremity) Results - Labs CBC & Chem 7: 09/05/19 03:46 09/05/19 03:46 Labs: Laboratory Last Values WBC 19.1 K/mm3 (4.5-11.0) H 09/05/19 03:46 RBC 1.90 M/mm3 (3.65-5.03) L 09/05/19 03:46 Hgb 6.7 gm/dl (10.1-14.3) L 09/05/19 03:46 Hct 20.4 % (30.3-42.9) L 09/05/19 03:46 MCV 107 fl (79-97) H 09/05/19 03:46 MCH 35 pg (28-32) H 09/05/19 03:46 MCHC 33 % (30-34) 09/05/19 03:46 RDW 23.9 % (13.2-15.2) H 09/05/19 03:46 Plt Count 692 K/mm3 (140-440) H 09/05/19 03:46 Lymph % (Auto) 15.6 % (13.4-35.0) 09/05/19 03:46 [place] % (Auto) 11.2 % (0.0-7.3) H 09/05/19 03:46 Eos % (Auto) 1.3 % (0.0-4.3) 09/05/19 03:46 Baso % (Auto) 0.2 % (0.0-1.8) 09/05/19 03:46 Lymph # 3.0 K/mm3 (1.2-5.4) 09/05/19 03:46 [place] # 2.1 K/mm3 (0.0-0.8) H 09/05/19 03:46 Eos # 0.3 K/mm3 (0.0-0.4) 09/05/19 03:46 Baso # 0.0 K/mm3 (0.0-0.1) 09/05/19 03:46 Seg Neutrophils % 71.7 % (40.0-70.0) H 09/05/19 03:46 Seg Neutrophils # 13.7 K/mm3 (1.8-7.7) H 09/05/19 03:46 Sodium 139 mmol/L (137-145) 09/05/19 03:46 Potassium 3.8 mmol/L (3.6-5.0) 09/05/19 03:46 Chloride 102.0 mmol/L (98-107) 09/05/19 03:46 Carbon Dioxide 23 mmol/L (22-30) 09/05/19 03:46 Anion Gap 18 mmol/L 09/05/19 03:46 BUN 7 mg/dL (7-17) 09/05/19 03:46 Creatinine 0.4 mg/dL (0.7-1.2) L D 09/05/19 03:46 Estimated GFR > 60 ml/min 09/05/19 03:46 BUN/Creatinine Ratio 18 % 09/05/19 03:46 Glucose 103 mg/dL (65-100) H 09/05/19 03:46 Calcium 8.5 mg/dL (8.4-10.2) 09/05/19 03:46 Microbiology: Microbiology 09/04/19 03:16 Urine,Clean Catch Urine Culture - Preliminary 09/04/19 20:06 Peripheral/Venous Blood Culture - Preliminary NO GROWTH AFTER 24 HOURS 09/04/19 20:06 Peripheral/Venous Blood Culture - Preliminary NO GROWTH AFTER 24 HOURS Kahn/IV: Voiding Method External Female Catheter IV Catheter Type [Left Peripheral IV External Jugular] Active Medications - Current Medications Current Medications: Generic Name Dose Route Start Last Admin Trade Name Freq PRN Reason Stop Dose Admin Acetaminophen 650 mg 09/02/19 18:31 09/06/19 04:28 Tylenol PO 650 mg Q4H PRN Administration Pain MILD(1-3)/Fever >100.5/CARTER Acetaminophen/Hydrocodone Bitart 1 each 09/02/19 21:16 09/05/19 03:18 [place] 10/325 PO 1 each Q6H PRN Administration Pain, Moderate (4-6) Folic Acid 1 mg 09/02/19 21:16 09/06/19 09:12 Folvite PO 1 mg QDAY HOSEA Administration Hydromorphone HCl 1 mg 09/02/19 21:55 09/06/19 00:58 Dilaudid IV 1 mg Q4H PRN Administration Pain , Severe (7-10) Hydroxyurea 500 mg 09/02/19 21:16 09/06/19 09:13 Hydroxyurea PO 500 mg QDAY HOSEA Administration Sodium Chloride 1,000 mls @ 100 mls/hr 09/04/19 19:15 09/05/19 22:08 Nacl 0.9% 1000 Ml IV 100 mls/hr DIRECT HOSEA Administration Piperacillin Sod/Tazobactam Sod 4.5 gm in 100 mls @ 200 mls/hr 09/04/19 22:00 09/06/19 06:04 Zosyn/Ns 4.5gm/100ml IV 200 mls/hr Q8HR HOSEA Administration Protocol Vancomycin HCl 750 mg/ Sodium 265 mls @ 166.667 mls/hr 09/06/19 08:00 09/06/19 10:37 Chloride IV Not Given Q8H HOSEA Multivitamins 1 each 09/02/19 21:16 09/06/19 09:12 Theragran Tab PO 1 each QDAY HOSEA Administration Ondansetron HCl 4 mg 09/02/19 18:31 09/04/19 21:31 Zofran IV 4 mg Q8H PRN Administration Nausea And Vomiting Senna 17.2 mg 09/02/19 22:00 09/05/19 22:06 Senokot PO 17.2 mg QHS HOSEA Administration Sodium Chloride 10 ml 09/02/19 22:00 09/06/19 09:28 Sodium Chloride Flush Syringe 10 Ml IV 10 ml BID HOSEA Administration Sodium Chloride 10 ml 09/02/19 18:31 09/05/19 20:11 Sodium Chloride Flush Syringe 10 Ml IV 10 ml PRN PRN Administration LINE FLUSH
[2019-09-06] MEDS: HYDROcodone/ACETAMINOPHEN 10-325MG TAB PO PRN (13:28)
--- NOTE | 2019-09-06 15:11 | Consultation ---
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 She also reports left anterior tibia pain and edema. She denies any recent trauma. She reports she is taking doxycycline daily. She denies any cough, shortness of breath, nausea, vomiting, diarrhea. On arrival, temperature 99.2 went to 101.3, HR 75, RR 20, O2 sat 97, BP 124/78. Initial WBC 19.1. Hemoglobin 6.7. Platelets 692. Creatinine 0.2. Blood culture 09/04/2019 no growth today. Bilateral lower ultrasound no DVTs. Chest x-ray negative. Review of Systems: positive in bold print General: + fever, +chills, +malaise Cutaneous: rash, pruritus Head: headaches or injury Eyes: changes in vision, eye pain, double vision Ears: ear pain, ear discharge, ringing or hearing loss Nose: nose bleeding, stuffiness Mouth & throat: bleeding gums, horseness, no dental problems, or swollen glands Neck: no pain, node enlargement/lumps, tyroid enlargement or tenderness Respiratory: SOB, cough, CROOKS, wheezing, sputum, hemoptysis, pleuritic chest pain Cardiovascular: chest pain, leg edema, cyanosis, CROOKS, orthopnea Musculoskeletal: Multiple body aches, left calf tenderness Gastrointestinal: nausea, vomiting, hematemesis, diarrhea, constipation, melena, bright red blood in stools, fecal incontinence, jaundice Genitourinary/Reproductive: frequent urination, dysuria, hematuria, incontinence Neurogical: seizures, headaches, weakness, paresthesias, loss of speech or vision; memory loss, vertigo, tremors, numbness Psychiatric: stable mood; excessive anxiety, sadness or moodiness Past History Past Medical History: other (See HPI) Past Surgical History: Other (Right leg, left knee surgery) Social history: single. denies: smoking, alcohol abuse, prescription drug abuse Family history: hypertension, other (SCD) Medications and Allergies Allergies Allergy/AdvReac Type Severity Reaction Status Date / Time No Known Allergies Allergy Unverified 01/04/19 08:15 Home Medications Medication Instructions Recorded Confirmed Last Taken Type Folic Acid [Folvite] 1 mg PO QDAY #90 tablet 07/04/19 09/04/19 Unknown Rx HYDROcodone/APAP 10-325 [[place] 1 each PO Q6H PRN #15 tablet 07/04/19 09/04/19 09/02/19 10:00 Rx 10-325 mg TAB] 1 tab Hydroxyurea 500 mg PO QDAY #90 capsule 07/04/19 09/04/19 09/02/19 10:00 Rx 1 tab Multivitamin Tab [Multiple Vitamin 1 each PO QDAY #90 tablet 07/04/19 09/04/19 09/02/19 10:00 Rx TAB (Theragran)] 1 tab Ondansetron [Zofran ODT TAB] 4 mg PO Q8HR PRN #20 tab.rapdis 07/04/19 09/04/19 Unknown Rx Sennosides Tab [Senokot] 17.2 mg PO QHS #90 tablet 07/04/19 09/04/19 09/03/19 22:30 Rx 17.2mg Active Meds: Active Medications Acetaminophen (Tylenol) 650 mg PO Q4H PRN PRN Reason: Pain MILD(1-3)/Fever >100.5/CARTER Last Admin: 09/06/19 04:28 Dose: 650 mg Documented by: Acetaminophen/Hydrocodone Bitart ([place] 10/325) 1 each PO Q6H PRN PRN Reason: Pain, Moderate (4-6) Last Admin: 09/06/19 13:28 Dose: 1 each Documented by: Folic Acid (Folvite) 1 mg PO QDAY [facility] Last Admin: 09/06/19 09:12 Dose: 1 mg Documented by: Hydromorphone HCl (Dilaudid) 1 mg IV Q4H PRN PRN Reason: Pain , Severe (7-10) Last Admin: 09/06/19 00:58 Dose: 1 mg Documented by: Hydroxyurea (Hydroxyurea) 500 mg PO QDAY [facility] Last Admin: 09/06/19 09:13 Dose: 500 mg Documented by: Sodium Chloride (Nacl 0.9% 1000 Ml) 1,000 mls @ 100 mls/hr IV DIRECT [facility] Last Admin: 09/05/19 22:08 Dose: 100 mls/hr Documented by: Piperacillin Sod/Tazobactam Sod (Zosyn/Ns 4.5gm/100ml) 4.5 gm in 100 mls @ 200 mls/hr IV Q8HR [facility]; Protocol Last Admin: 09/06/19 14:03 Dose: 200 mls/hr Documented by: Vancomycin HCl 750 mg/ Sodium (Chloride) 265 mls @ 166.667 mls/hr IV Q8H [facility] Last Admin: 09/06/19 10:37 Dose: Not Given Documented by: Multivitamins (Theragran Tab) 1 each PO QDAY [facility] Last Admin: 09/06/19 09:12 Dose: 1 each Documented by: Ondansetron HCl (Zofran) 4 mg IV Q8H PRN PRN Reason: Nausea And Vomiting Last Admin: 09/04/19 21:31 Dose: 4 mg Documented by: Senna (Senokot) 17.2 mg PO QHS [facility] Last Admin: 09/05/19 22:06 Dose: 17.2 mg Documented by: Sodium Chloride (Sodium Chloride Flush Syringe 10 Ml) 10 ml IV BID [facility] Last Admin: 09/06/19 09:28 Dose: 10 ml Documented by: Sodium Chloride (Sodium Chloride Flush Syringe 10 Ml) 10 ml IV PRN PRN PRN Reason: LINE FLUSH Last Admin: 09/05/19 20:11 Dose: 10 ml Documented by: Physical Examination - Physical Exam Narrative exam: General appearance: Alert in NAD Eyes: anicteric sclerae, moist conjunctivae; no lid-lag; PERRLA HENT: Atraumatic; oropharynx clear Lungs: CTA, with normal respiratory effort and no intercostal retractions CV: RRR no murmur Abdomen: Soft, non-tender; no masses or hepatosplenomegaly Extremities: Left anterior tibial edema, heat and severe tenderness. Right thigh old scar. Skin: No rash. Psych: No agitated Neuro: alert and oriented x 3. Moving all extermities - Constitutional Vitals: Vital Signs Temp Pulse Resp BP Pulse Ox 99.5 F 83 19 98/53 100 09/06/19 08:29 09/06/19 11:54 09/06/19 10:00 09/06/19 11:54 09/06/19 11:54 Temperature -Last 24 Hours Temperature 99.5 F Temperature 98.5 F Temperature 98.5 F Temperature 102.8 F Temperature 99.6 F Results - Labs CBC & Chem 7: 09/05/19 03:46 09/05/19 03:46 Assessment and Plan Cultures: Blood culture 09/04/2019 no growth today. Assessment: 29 y/o female with history of SCD, right femur chronic osteomyelitis chronically on doxycycline for suppression and ESBL E coli UTI admitted on 09/02/2019 due to a week history of generalized body aches, mainly bilateral legs, lower back, bilateral arms. She also reports left anterior tibia pain and edema. She denies any recent trauma. She reports she is taking doxycycline daily. She denies any cough, shortness of breath, nausea, vomiting, diarrhea. On arrival, temperature 99.2 went to 101.3, HR 75, RR 20, O2 sat 97, BP 124/78. Initial WBC 19.1. Hemoglobin 6.7. Platelets 692. Creatinine 0.2. Bilateral lower ultrasound no DVTs. Chest x-ray negative. #Sepsis: present on admission with fever, leukocytosis; source left anterior tibia cellulitis #Left anterior tibia cellulitis: On exam severe tenderness? Abscess? Osteomyelitis. She reports she was taking doxycycline for suppression however patient missed last infectious disease clinic visit. 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 Medina Freeman MD Infectious Diseases Cyber Workforce Developer And Manager [facility] M [phone] O [phone]
[2019-09-06] MEDS: CLINDAMYCIN 600 MG/50 mL 600 MG/50 ML BAG IV SCH ×2 (16:00→21:32)
[2019-09-06] MEDS: cefTRIAXone/NS 2 GM/100 ML 2 GM/100 ML BAG IV SCH (16:00)
[2019-09-06 18:36] LABS: Bilirubin,Urine NEG (Negative); Blood,Urine NEG (Negative); Color,Urine Yellow (Yellow); Protein,Urine <15 mg/dL mg/dL (Negative); Urobilinogen,Urine < 2.0 mg/dL (<2.0); WBC,Urine < 1.0 /HPF (0.0-6.0)
[2019-09-06] MEDS ORDERED: SODIUM CHLORIDE 0.9% 500 ML 500 ML IV NR (19:32)
[2019-09-06] MEDS: SENNOSIDES 8.6 MG TAB PO SCH (21:32)
[2019-09-06] MEDS: SODIUM CHLORIDE 0.9% 1000 ML 1,000 ML IV SCH (23:47)
[2019-09-07] MEDS: HYDROcodone/ACETAMINOPHEN 10-325MG TAB PO PRN ×3 (02:28→20:54)
[2019-09-07 04:57] LABS: Basophils # (Auto) 0.1 K/mm3 (0.0-0.1); Basophils % (Auto) 0.9 % (0.0-1.8); Eosinophils # (Auto) 0.4 K/mm3 (0.0-0.4); Eosinophils % (Auto) 3.2 % (0.0-4.3); Lymphocytes # (Auto) 2.4 K/mm3 (1.2-5.4); Mean Corpuscular HGB Conc 34 % (30-34); Mean Corpuscular Volume 104 fl (79-97); Monocytes # (Auto) 1.2 K/mm3 (0.0-0.8); Monocytes % (Auto) 10.5 % (0.0-7.3); Platelet Count 674 K/mm3 (140-440); Red Blood Count 1.63 M/mm3 (3.65-5.03)
[2019-09-07] MEDS: CLINDAMYCIN 600 MG/50 mL 600 MG/50 ML BAG IV SCH ×3 (05:13→20:59)
[2019-09-07 05:14] LABS: BUN/Creatinine Ratio 13; Blood Urea Nitrogen 4 mg/dL (7-17); Calcium 8.9 mg/dL (8.4-10.2); Hemolysis Index 6
[2019-09-07 05:59] LABS: Red Cell Distribution Width 22.9 % (13.2-15.2)
[2019-09-07 06:01] LABS: Hematocrit 16.9 % (30.3-42.9); Hemoglobin 5.7 gm/dl (10.1-14.3)
--- NOTE | 2019-09-07 07:50 | Progress Note ---
Assessment and Plan Assessment and plan: --Sickle cell anemia; Hemoglobin 5.7 today Blood ordered yesterday not available Transfuse total 2 units of PRBC stat Closely monitor H&H --Sickle cell crisis; Oxygen, IV fluids, pain medications Supportive care, advised plenty of oral fluids Hydrea, folic acid --Sepsis; secondary to left leg cellulitis/abscess ID following, on Rocephin Clinda and vancomycin Follow cultures CRP 8.9 --Febrile illness; possible cellulitis/abscess Antipyretics, antibiotics --Mild malnutrition; BMI 18.8 Supportive care --Dehydration; IV fluids --DVT prophylaxis;Lovenox Monitor closely and adjust management as needed ID evaluation recommendations noted and appreciated History Interval history: Patient seen and examined at the bedside this morning Patient's chart, medications tests reviewed Patient has significant drop in hemoglobin Blood transfusion ordered yesterday however blood was not available Patient complains of generalized weakness and generalized body pains Afebrile Vital signs reviewed, Hospitalist Physical - Constitutional Vitals: Temp Pulse Resp BP Pulse Ox 98.4 F 74 18 92/53 99 09/07/19 04:39 09/07/19 04:39 09/07/19 04:39 09/07/19 04:39 09/07/19 04:39 General appearance: Present: mild distress, cachectic, disheveled - EENT Eyes: Present: PERRL, EOM intact - Neck Neck: Present: supple, normal ROM - Respiratory Respiratory effort: normal Respiratory: negative: rales, rhonchi, wheezing - Cardiovascular Rhythm: regular Heart Sounds: Present: S1 & S2 - Extremities Extremities: no ischemia, No edema - Abdominal General gastrointestinal: soft, non-tender, non-distended, normal bowel sounds - Integumentary Integumentary: Present: clear, warm - Psychiatric Psychiatric: appropriate mood/affect, cooperative - Neurologic Neurologic: moves all extremities Results - Labs CBC & Chem 7: 09/07/19 04:12 09/07/19 04:12 Labs: Laboratory Last Values WBC 11.2 K/mm3 (4.5-11.0) H 09/07/19 04:12 RBC 1.63 M/mm3 (3.65-5.03) L 09/07/19 04:12 Hgb 5.7 gm/dl (10.1-14.3) L* 09/07/19 04:12 Hct 16.9 % (30.3-42.9) L* 09/07/19 04:12 MCV 104 fl (79-97) H 09/07/19 04:12 MCH 35 pg (28-32) H 09/07/19 04:12 MCHC 34 % (30-34) 09/07/19 04:12 RDW 22.9 % (13.2-15.2) H 09/07/19 04:12 Plt Count 674 K/mm3 (140-440) H 09/07/19 04:12 Lymph % (Auto) 21.0 % (13.4-35.0) 09/07/19 04:12 [place] % (Auto) 10.5 % (0.0-7.3) H 09/07/19 04:12 Eos % (Auto) 3.2 % (0.0-4.3) 09/07/19 04:12 Baso % (Auto) 0.9 % (0.0-1.8) 09/07/19 04:12 Lymph # 2.4 K/mm3 (1.2-5.4) 09/07/19 04:12 [place] # 1.2 K/mm3 (0.0-0.8) H 09/07/19 04:12 Eos # 0.4 K/mm3 (0.0-0.4) 09/07/19 04:12 Baso # 0.1 K/mm3 (0.0-0.1) 09/07/19 04:12 Seg Neutrophils % 64.4 % (40.0-70.0) 09/07/19 04:12 Seg Neutrophils # 7.2 K/mm3 (1.8-7.7) 09/07/19 04:12 Sodium 142 mmol/L (137-145) 09/07/19 04:12 Potassium 3.5 mmol/L (3.6-5.0) L 09/07/19 04:12 Chloride 107.3 mmol/L (98-107) H 09/07/19 04:12 Carbon Dioxide 21 mmol/L (22-30) L 09/07/19 04:12 Anion Gap 17 mmol/L 09/07/19 04:12 BUN 4 mg/dL (7-17) L 09/07/19 04:12 Creatinine 0.3 mg/dL (0.7-1.2) L 09/07/19 04:12 Estimated GFR > 60 ml/min 09/07/19 04:12 BUN/Creatinine Ratio 13 % 09/07/19 04:12 Glucose 96 mg/dL (65-100) 09/07/19 04:12 Calcium 8.9 mg/dL (8.4-10.2) 09/07/19 04:12 C-Reactive Protein 8.90 mg/dL (0.00-1.30) H 09/06/19 15:45 Urine Color Yellow (Yellow) 09/06/19 15:37 Urine Turbidity Clear (Clear) 09/06/19 15:37 Urine pH 6.0 (5.0-7.0) 09/06/19 15:37 Ur Specific [place] 1.013 (1.003-1.030) 09/06/19 15:37 Urine Protein <15 mg/dl mg/dL (Negative) 09/06/19 15:37 Urine Glucose (UA) Neg mg/dL (Negative) 09/06/19 15:37 Urine Ketones Neg mg/dL (Negative) 09/06/19 15:37 Urine Blood Neg (Negative) 09/06/19 15:37 Urine Nitrite Neg (Negative) 09/06/19 15:37 Urine Bilirubin Neg (Negative) 09/06/19 15:37 Urine Urobilinogen < 2.0 mg/dL (<2.0) 09/06/19 15:37 Ur Leukocyte Esterase Neg (Negative) 09/06/19 15:37 Urine WBC (Auto) < 1.0 /HPF (0.0-6.0) 09/06/19 15:37 Urine RBC (Auto) 2.0 /HPF (0.0-6.0) 09/06/19 15:37 U Epithel Cells (Auto) 1.0 /HPF (0-13.0) 09/06/19 15:37 Blood Type O POSITIVE 09/06/19 19:44 Antibody Screen Negative 09/06/19 19:44 Crossmatch See Detail 09/06/19 19:44 Microbiology: Microbiology 09/04/19 03:16 Urine,Clean Catch Urine Culture - Preliminary 09/04/19 20:06 Peripheral/Venous Blood Culture - Preliminary NO GROWTH AFTER 48 HOURS 09/04/19 20:06 Peripheral/Venous Blood Culture - Preliminary NO GROWTH AFTER 48 HOURS Kahn/IV: Voiding Method External Female Catheter IV Catheter Type [Left Peripheral IV External Jugular] Active Medications - Current Medications Current Medications: Generic Name Dose Route Start Last Admin Trade Name Freq PRN Reason Stop Dose Admin Acetaminophen 650 mg 09/02/19 18:31 09/06/19 20:47 Tylenol PO 650 mg Q4H PRN Administration Pain MILD(1-3)/Fever >100.5/CARTER Acetaminophen/Hydrocodone Bitart 1 each 09/02/19 21:16 09/07/19 02:28 [place] 10/325 PO 1 each Q6H PRN Administration Pain, Moderate (4-6) Folic Acid 1 mg 09/02/19 21:16 09/06/19 09:12 Folvite PO 1 mg QDAY HOSEA Administration Hydromorphone HCl 1 mg 09/02/19 21:55 09/06/19 00:58 Dilaudid IV 1 mg Q4H PRN Administration Pain , Severe (7-10) Hydroxyurea 500 mg 09/02/19 21:16 09/06/19 09:13 Hydroxyurea PO 500 mg QDAY HOSEA Administration Sodium Chloride 1,000 mls @ 100 mls/hr 09/04/19 19:15 09/06/19 23:47 Nacl 0.9% 1000 Ml IV 100 mls/hr DIRECT HOSEA Administration Vancomycin HCl 750 mg/ Sodium 265 mls @ 166.667 mls/hr 09/06/19 08:00 09/06/19 23:49 Chloride IV 166.667 mls/hr Q8H HOSEA Administration Clindamycin HCl 600 mg in 50 mls @ 100 mls/hr 09/06/19 16:00 09/07/19 05:13 Cleocin 600 Mg/50 Ml IV 100 mls/hr Q8HR HOSEA Administration Protocol Ceftriaxone Sodium 2 gm in 100 mls @ 200 mls/hr 09/06/19 16:00 09/06/19 16:00 Rocephin/Ns 2 Gm/100 Ml IV 200 mls/hr Q24H HOSEA Administration Protocol Sodium Chloride 500 mls @ 0 mls/hr 09/07/19 08:00 Nacl 0.9% 500 Ml IV 09/07/19 18:00 ONCE HOSEA As Directed Sodium Chloride 500 mls @ 0 mls/hr 09/07/19 07:42 Nacl 0.9% 500 Ml IV 09/07/19 07:43 ONCE ONE As Directed Multivitamins 1 each 09/02/19 21:16 09/06/19 09:12 Theragran Tab PO 1 each QDAY HOSEA Administration Ondansetron HCl 4 mg 09/02/19 18:31 09/04/19 21:31 Zofran IV 4 mg Q8H PRN Administration Nausea And Vomiting Senna 17.2 mg 09/02/19 22:00 09/06/19 21:32 Senokot PO 17.2 mg QHS HOSEA Administration Sodium Chloride 10 ml 09/02/19 22:00 09/06/19 21:31 Sodium Chloride Flush Syringe 10 Ml IV 10 ml BID HOSEA Administration Sodium Chloride 10 ml 09/02/19 18:31 09/05/19 20:11 Sodium Chloride Flush Syringe 10 Ml IV 10 ml PRN PRN Administration LINE FLUSH
[2019-09-07] MEDS ORDERED: SODIUM CHLORIDE 0.9% 500 ML 500 ML IV SCH ×2 (08:00)
--- NOTE | 2019-09-07 09:38 | Progress Note ---
Assessment and Plan Cultures: Blood culture 09/04/2019 no growth today. Assessment: 29 y/o female with history of SCD, right femur chronic osteomyelitis chronically on doxycycline for suppression and ESBL E coli UTI admitted on 09/02/2019 due to a week history of generalized body aches, mainly bilateral legs, lower back, bilateral arms. She also reports left anterior tibia pain and edema. She denies any recent trauma. She reports she is taking doxycycline daily. She denies any cough, shortness of breath, nausea, vomiting, diarrhea. On arrival, temperature 99.2 went to 101.3, HR 75, RR 20, O2 sat 97, BP 124/78. Initial WBC 19.1. Hemoglobin 6.7. Platelets 692. Creatinine 0.2. Bilateral lower ultrasound no DVTs. Chest x-ray negative. #Sepsis: fever and leukocytosis resolved; source left anterior tibia cellulitis. UA neg. #Left anterior tibia cellulitis: On exam severe tenderness? Abscess? Os teomyelitis. She reports she was taking doxycycline for suppression however patient missed last infectious disease clinic visit. CRP 8.9. 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 chronically on doxycycline for suppression #History of ESBL E coli UTI Recommendations: Follow-up left leg CT eval for abscess or osteomyelitis Continue vancomycin with PK consult, keep vancomycin trough 10-15 mg/dL Continue clindamycin and ceftriaxone Supportive management - analgesia, transfusions as needed per Hem If CT neg for osteomyelitis, ok to d/c on keflex 500 mg po q6 hour for 7 days and doxycycline 100 mg po bid continuously for suppression of left femoral osteo I am covering the weekend Medina Freeman MD Infectious Diseases Shipping Manager [facility] M [phone] O [phone] Subjective Date of service: 09/07/19 Principal diagnosis: cellulitis Interval history: Feels some better, no fever x 24h Objective - Exam Narrative Exam: General appearance: Alert in NAD Eyes: anicteric sclerae, moist conjunctivae; no lid-lag; PERRLA HENT: Atraumatic; oropharynx clear Lungs: CTA, with normal respiratory effort and no intercostal retractions CV: RRR no murmur Abdomen: Soft, non-tender; no masses or hepatosplenomegaly Extremities: Left anterior tibial edema, heat and severe tenderness. Right thigh old scar. Skin: No rash. Psych: No agitated Neuro: alert and oriented x 3. Moving all extermities - Constitutional Vitals: Vital Signs Temp Pulse Resp BP Pulse Ox 98.4 F 74 18 92/53 100 09/07/19 04:39 09/07/19 04:39 09/07/19 04:39 09/07/19 04:39 09/07/19 08:58 Temperature -Last 24 Hours Temperature 98.4 F Temperature 98.4 F Temperature 98.6 F Temperature 98.4 F - Labs CBC & Chem 7: 09/07/19 04:12 09/07/19 04:12 Labs: Abnormal lab results 09/06/19 09/06/19 09/07/19 Range/Units 15:45 19:44 04:12 WBC 11.2 H (4.5-11.0) K/mm3 RBC 1.63 L (3.65-5.03) M/mm3 Hgb 5.7 L* (10.1-14.3) gm/dl Hct 16.9 L* (30.3-42.9) % MCV 104 H (79-97) fl MCH 35 H (28-32) pg RDW 22.9 H (13.2-15.2) % Plt Count 674 H (140-440) K/mm3 [place] % (Auto) 10.5 H (0.0-7.3) % [place] # 1.2 H (0.0-0.8) K/mm3 Potassium (3.6-5.0) mmol/L Chloride (98-107) mmol/L Carbon Dioxide (22-30) mmol/L BUN (7-17) mg/dL Creatinine (0.7-1.2) mg/dL C-Reactive Protein 8.90 H (0.00-1.30) mg/dL Crossmatch See Detail 09/07/19 Range/Units 04:12 WBC (4.5-11.0) K/mm3 RBC (3.65-5.03) M/mm3 Hgb (10.1-14.3) gm/dl Hct (30.3-42.9) % MCV (79-97) fl MCH (28-32) pg RDW (13.2-15.2) % Plt Count (140-440) K/mm3 [place] % (Auto) (0.0-7.3) % [place] # (0.0-0.8) K/mm3 Potassium 3.5 L (3.6-5.0) mmol/L Chloride 107.3 H (98-107) mmol/L Carbon Dioxide 21 L (22-30) mmol/L BUN 4 L (7-17) mg/dL Creatinine 0.3 L (0.7-1.2) mg/dL C-Reactive Protein (0.00-1.30) mg/dL Crossmatch
[2019-09-07] MEDS: MULTIVITAMINS ,THERAPEUTIC TAB PO SCH (10:03)
[2019-09-07] MEDS: HYDROXYUREA 500 MG CAP PO SCH (10:03)
[2019-09-07] MEDS: VANCOMYCIN 750 MG in SODIUM CHLORIDE 0.9% 250ML 250 ML IV SCH ×2 (10:03→16:47)
[2019-09-07] MEDS: FOLIC ACID 1 MG TAB PO SCH (10:03)
[2019-09-07] MEDS: ACETAMINOPHEN 325 MG TAB PO PRN (12:21)
[2019-09-07] MEDS: cefTRIAXone/NS 2 GM/100 ML 2 GM/100 ML BAG IV SCH (16:26)
[2019-09-07] MEDS: SODIUM CHLORIDE 0.9% 1000 ML 1,000 ML IV SCH (16:32)
[2019-09-07] MEDS: ENOXAPARIN 40 MG/0.4 ML INJ SUB-Q SCH (20:59)
[2019-09-07] MEDS: SENNOSIDES 8.6 MG TAB PO SCH (20:59)
--- NOTE | 2019-09-07 23:27 | Cat Scan Report ---
CT LEFT LOWER EXTREMITY WITH CONTRAST INDICATION / CLINICAL INFORMATION: Concern for abscess or osteomyelitis of the left tibia. TECHNIQUE: CT of the left lower leg was performed after intravenous administration of 100 mL of Omnipaque 300. M ultiplanar reformatted images are provided. All CT scans at this location are performed using CT dose reduction for ALARA by means of automated exposure control. COMPARISON: Left knee radiograph of 06/09/2019 and MRI of 06/11/2019 FINDINGS: Findings of acute on chronic osteomyelitis and septic arthritis are present at the ankle and the knee of the left lower extremity, as well as throughout the length of the tibia and in the distal femur. Areas of abnormal sclerosis are present in the fibula that may also be indicative of acute on chronic osteomyelitis. No soft tissue abscess or significant soft tissue swelling is identified. Small effus ion at the ankle. Small volume of fluid is also present at the knee joint, probably unchanged since t he MRI from 06/11/2019. The vessels enhance normally. On some image sets the right lower leg also is included. This shows no significant change in comparis on to radiographs of the right tibia from 05/21/2019, with appearance suggestive of chronic osteomyelit is in the tibia. Advanced degenerative changes at the ankle. Areas of sclerosis in the distal femur a nd the fibula may represent bone infarcts. No evidence of septic arthritis or significant effusion at the right knee. No abscess of the right lower leg. IMPRESSION: 1. No soft tissue abscess. 2. Chronic osteomyelitis is again seen involving the bones of both lower legs. 3. 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 Signer Name: Mihai Carbajal MD Signed: 09/07/2019 11:23 PM Workstation Name: [id number]
[2019-09-08] MEDS: VANCOMYCIN 750 MG in SODIUM CHLORIDE 0.9% 250ML 250 ML IV SCH ×3 (00:03→16:29)
[2019-09-08] MEDS: HYDROmorphone 1 MG/1 ML INJ IV PRN (00:03)
[2019-09-08] MEDS: CLINDAMYCIN 600 MG/50 mL 600 MG/50 ML BAG IV SCH ×3 (04:59→21:35)
[2019-09-08 06:25] LABS: Hematocrit 23.9 % (30.3-42.9); Hemoglobin 7.9 gm/dl (10.1-14.3); Mean Corpuscular HGB Conc 33 % (30-34); Mean Corpuscular Volume 95 fl (79-97); Platelet Count 696 K/mm3 (140-440); Red Blood Count 2.53 M/mm3 (3.65-5.03)
[2019-09-08 06:32] LABS: Red Cell Distribution Width 23.5 % (13.2-15.2)
[2019-09-08 08:00] LABS: Anisocytosis 1+; Basophils % (Manual) 0 % (0.0-1.8); Hypochromasia 1+; Macrocytosis 1+; Target Cells 1+; Total Cells Counted 100
[2019-09-08 08:01] LABS: Platelet Estimate Consistent w Auto
[2019-09-08] MEDS: MULTIVITAMINS ,THERAPEUTIC TAB PO SCH (09:38)
[2019-09-08] MEDS: FOLIC ACID 1 MG TAB PO SCH (09:38)
[2019-09-08] MEDS: HYDROXYUREA 500 MG CAP PO SCH (09:39)
--- NOTE | 2019-09-08 11:13 | Progress Note ---
Assessment and Plan Assessment and plan: --Sickle cell anemia; Hemoglobin 5.7 -7.9 Transfused total 2 units of PRBC yesterday Closely monitor H&H, transfuse additional PRBC as needed --Sickle cell crisis; Oxygen, IV fluids, pain medications Supportive care, advised plenty of oral fluids Hydrea, folic acid --Sepsis; secondary to left leg cellulitis/abscess ID following, on Rocephin Clinda and vancomycin Follow cultures CRP 8.9 --Febrile illness; possible cellulitis/abscess Antipyretics, antibiotics Febrile today --Mild malnutrition; BMI 18.8 Supportive care --Dehydration; IV fluids --DVT prophylaxis;Lovenox Monitor closely and adjust management as needed Plan of care reviewed with the patient and her nurse History Interval history: Patient seen and examined at the bedside this morning Patient's chart and medications reviewed Patient feels better, mild generalized body pains Received 2 units PRBC Vital signs noted Hospitalist Physical - Constitutional Vitals: Temp Pulse Resp BP Pulse Ox 98.4 F 76 18 104/74 97 09/08/19 07:36 09/08/19 04:56 09/08/19 08:24 09/08/19 07:36 09/08/19 04:56 General appearance: Present: no acute distress, cachectic, disheveled - EENT Eyes: Present: PERRL, EOM intact - Neck Neck: Present: supple, normal ROM - Respiratory Respiratory effort: normal Respiratory: bilateral: diminished, negative: rales, rhonchi, wheezing - Cardiovascular Rhythm: regular Heart Sounds: Present: S1 & S2 - Extremities Extremities: no ischemia, No edema, abnormal (Swelling left calf slightly improved, mild tenderness) - Abdominal General gastrointestinal: soft, non-tender, non-distended, normal bowel sounds - Integumentary Integumentary: Present: clear, warm - Psychiatric Psychiatric: appropriate mood/affect, cooperative - Neurologic Neurologic: CNII-XII intact, moves all extremities Results - Labs CBC & Chem 7: 09/08/19 05:12 09/08/19 05:12 Labs: Laboratory Last Values WBC 11.2 K/mm3 (4.5-11.0) H 09/08/19 05:12 RBC 2.53 M/mm3 (3.65-5.03) L 09/08/19 05:12 Hgb 7.9 gm/dl (10.1-14.3) L 09/08/19 05:12 Hct 23.9 % (30.3-42.9) L D 09/08/19 05:12 MCV 95 fl (79-97) 09/08/19 05:12 MCH 31 pg (28-32) 09/08/19 05:12 MCHC 33 % (30-34) 09/08/19 05:12 RDW 23.5 % (13.2-15.2) H 09/08/19 05:12 Plt Count 696 K/mm3 (140-440) H 09/08/19 05:12 Lymph % (Auto) 21.0 % (13.4-35.0) 09/07/19 04:12 [place] % (Auto) 10.5 % (0.0-7.3) H 09/07/19 04:12 Eos % (Auto) 3.2 % (0.0-4.3) 09/07/19 04:12 Baso % (Auto) 0.9 % (0.0-1.8) 09/07/19 04:12 Lymph # 2.4 K/mm3 (1.2-5.4) 09/07/19 04:12 [place] # 1.2 K/mm3 (0.0-0.8) H 09/07/19 04:12 Eos # 0.4 K/mm3 (0.0-0.4) 09/07/19 04:12 Baso # 0.1 K/mm3 (0.0-0.1) 09/07/19 04:12 Add Manual Diff Complete 09/08/19 05:12 Total Counted 100 09/08/19 05:12 Seg Neutrophils % 64.4 % (40.0-70.0) 09/07/19 04:12 Seg Neuts % (Manual) 54.0 % (40.0-70.0) 09/08/19 05:12 Band Neutrophils % 0 % 09/08/19 05:12 Lymphocytes % (Manual) 36.0 % (13.4-35.0) H 09/08/19 05:12 Reactive Lymphs % (Man) 0 % 09/08/19 05:12 Monocytes % (Manual) 8.0 % (0.0-7.3) H 09/08/19 05:12 Eosinophils % (Manual) 2.0 % (0.0-4.3) 09/08/19 05:12 Basophils % (Manual) 0 % (0.0-1.8) 09/08/19 05:12 Metamyelocytes % 0 % 09/08/19 05:12 Myelocytes % 0 % 09/08/19 05:12 Promyelocytes % 0 % 09/08/19 05:12 Blast Cells % 0 % 09/08/19 05:12 Nucleated RBC % 11.0 % (0.0-0.9) H 09/08/19 05:12 Seg Neutrophils # 7.2 K/mm3 (1.8-7.7) 09/07/19 04:12 Seg Neutrophils # Man 6.0 K/mm3 (1.8-7.7) 09/08/19 05:12 Band Neutrophils # 0.0 K/mm3 09/08/19 05:12 Lymphocytes # (Manual) 4.0 K/mm3 (1.2-5.4) 09/08/19 05:12 Abs React Lymphs (Man) 0.0 K/mm3 09/08/19 05:12 Monocytes # (Manual) 0.9 K/mm3 (0.0-0.8) H 09/08/19 05:12 Eosinophils # (Manual) 0.2 K/mm3 (0.0-0.4) 09/08/19 05:12 Basophils # (Manual) 0.0 K/mm3 (0.0-0.1) 09/08/19 05:12 Metamyelocytes # 0.0 K/mm3 09/08/19 05:12 Myelocytes # 0.0 K/mm3 09/08/19 05:12 Promyelocytes # 0.0 K/mm3 09/08/19 05:12 Blast Cells # 0.0 K/mm3 09/08/19 05:12 WBC Morphology Not Reportable 09/08/19 05:12 Hypersegmented Neuts Not Reportable 09/08/19 05:12 Hyposegmented Neuts Not Reportable 09/08/19 05:12 Hypogranular Neuts Not Reportable 09/08/19 05:12 Smudge Cells Not Reportable 09/08/19 05:12 Toxic Granulation Not Reportable 09/08/19 05:12 Toxic Vacuolation Not Reportable 09/08/19 05:12 Dohle Bodies Not Reportable 09/08/19 05:12 Pelger-Huet Anomaly Not Reportable 09/08/19 05:12 Raymond Rods Not Reportable 09/08/19 05:12 Platelet Estimate Consistent w auto 09/08/19 05:12 Clumped Platelets Not Reportable 09/08/19 05:12 Plt Clumps, EDTA Not Reportable 09/08/19 05:12 Large Platelets Not Reportable 09/08/19 05:12 Giant Platelets Not Reportable 09/08/19 05:12 Platelet Satelliting Not Reportable 09/08/19 05:12 Plt Morphology Comment Not Reportable 09/08/19 05:12 RBC Morphology Not Reportable 09/08/19 05:12 Dimorphic RBCs Not Reportable 09/08/19 05:12 Polychromasia Not Reportable 09/08/19 05:12 Hypochromasia 1+ 09/08/19 05:12 Poikilocytosis Not Reportable 09/08/19 05:12 Anisocytosis 1+ 09/08/19 05:12 Microcytosis Not Reportable 09/08/19 05:12 Macrocytosis 1+ 09/08/19 05:12 Spherocytes Not Reportable 09/08/19 05:12 Pappenheimer Bodies Not Reportable 09/08/19 05:12 Sickle Cells Not Reportable 09/08/19 05:12 Target Cells 1+ 09/08/19 05:12 Tear Drop Cells Not Reportable 09/08/19 05:12 Ovalocytes Not Reportable 09/08/19 05:12 Helmet Cells Not Reportable 09/08/19 05:12 [place]-Galloway Bodies Not Reportable 09/08/19 05:12 [place] Rings Not Reportable 09/08/19 05:12 Alena Cells Not Reportable 09/08/19 05:12 Bite Cells Not Reportable 09/08/19 05:12 Crenated Cell Not Reportable 09/08/19 05:12 Elliptocytes 1+ 09/08/19 05:12 Acanthocytes (Spur) Not Reportable 09/08/19 05:12 Rouleaux Not Reportable 09/08/19 05:12 Hemoglobin C Crystals Not Reportable 09/08/19 05:12 Schistocytes Not Reportable 09/08/19 05:12 Malaria parasites Not Reportable 09/08/19 05:12 [place] Bodies Not Reportable 09/08/19 05:12 Hem Pathologist Commnt No 09/08/19 05:12 Sodium 142 mmol/L (137-145) 09/07/19 04:12 Potassium 3.7 mmol/L (3.6-5.0) 09/08/19 05:12 Chloride 107.3 mmol/L (98-107) H 09/07/19 04:12 Carbon Dioxide 21 mmol/L (22-30) L 09/07/19 04:12 Anion Gap 17 mmol/L 09/07/19 04:12 BUN 4 mg/dL (7-17) L 09/07/19 04:12 Creatinine 0.3 mg/dL (0.7-1.2) L 09/07/19 04:12 Estimated GFR > 60 ml/min 09/07/19 04:12 BUN/Creatinine Ratio 13 % 09/07/19 04:12 Glucose 96 mg/dL (65-100) 09/07/19 04:12 Calcium 8.9 mg/dL (8.4-10.2) 09/07/19 04:12 C-Reactive Protein 8.90 mg/dL (0.00-1.30) H 09/06/19 15:45 Urine Color Yellow (Yellow) 09/06/19 15:37 Urine Turbidity Clear (Clear) 09/06/19 15:37 Urine pH 6.0 (5.0-7.0) 09/06/19 15:37 Ur Specific [place] 1.013 (1.003-1.030) 09/06/19 15:37 Urine Protein <15 mg/dl mg/dL (Negative) 09/06/19 15:37 Urine Glucose (UA) Neg mg/dL (Negative) 09/06/19 15:37 Urine Ketones Neg mg/dL (Negative) 09/06/19 15:37 Urine Blood Neg (Negative) 09/06/19 15:37 Urine Nitrite Neg (Negative) 09/06/19 15:37 Urine Bilirubin Neg (Negative) 09/06/19 15:37 Urine Urobilinogen < 2.0 mg/dL (<2.0) 09/06/19 15:37 Ur Leukocyte Esterase Neg (Negative) 05/21/20 15:37 Urine WBC (Auto) < 1.0 /HPF (0.0-6.0) 09/06/19 15:37 Urine RBC (Auto) 2.0 /HPF (0.0-6.0) 09/06/19 15:37 U Epithel Cells (Auto) 1.0 /HPF (0-13.0) 09/06/19 15:37 Blood Type O POSITIVE 09/06/19 19:44 Antibody Screen Negative 09/06/19 19:44 Crossmatch See Detail 09/06/19 19:44 Microbiology: Microbiology 09/04/19 20:06 Peripheral/Venous Blood Culture - Preliminary NO GROWTH AFTER 72 HOURS 09/04/19 20:06 Peripheral/Venous Blood Culture - Preliminary NO GROWTH AFTER 72 HOURS Kahn/IV: Voiding Method External Female Catheter IV Catheter Type [Left Upper INT / Saline Lock arm] IV Catheter Type [Left Peripheral IV External Jugular] Active Medications - Current Medications Current Medications: Generic Name Dose Route Start Last Admin Trade Name Freq PRN Reason Stop Dose Admin Acetaminophen 650 mg 09/02/19 18:31 09/07/19 12:21 Tylenol PO 650 mg Q4H PRN Administration Pain MILD(1-3)/Fever >100.5/CARTER Acetaminophen/Hydrocodone Bitart 1 each 09/02/19 21:16 09/07/19 20:54 [place] 10/325 PO 1 each Q6H PRN Administration Pain, Moderate (4-6) Enoxaparin Sodium 40 mg 09/07/19 22:00 09/07/19 20:59 Enoxaparin SUB-Q 40 mg QDAY@2200 HOSEA Administration Folic Acid 1 mg 09/02/19 21:16 09/08/19 09:38 Folvite PO 1 mg QDAY HOSEA Administration Hydromorphone HCl 1 mg 09/02/19 21:55 09/08/19 00:03 Dilaudid IV 1 mg Q4H PRN Administration Pain , Severe (7-10) Hydroxyurea 500 mg 09/02/19 21:16 09/08/19 09:39 Hydroxyurea PO 500 mg QDAY HOSEA Administration Sodium Chloride 1,000 mls @ 100 mls/hr 09/04/19 19:15 09/07/19 16:32 Nacl 0.9% 1000 Ml IV 100 mls/hr DIRECT HOSEA Administration Vancomycin HCl 750 mg/ Sodium 265 mls @ 166.667 mls/hr 09/06/19 08:00 09/08/19 08:05 Chloride IV 166.667 mls/hr Q8H HOSEA Administration Clindamycin HCl 600 mg in 50 mls @ 100 mls/hr 09/06/19 16:00 09/08/19 04:59 Cleocin 600 Mg/50 Ml IV 100 mls/hr Q8HR HOSEA Administration Protocol Ceftriaxone Sodium 2 gm in 100 mls @ 200 mls/hr 09/06/19 16:00 09/07/19 16:26 Rocephin/Ns 2 Gm/100 Ml IV 200 mls/hr Q24H HOSEA Administration Protocol Multivitamins 1 each 09/02/19 21:16 09/08/19 09:38 Theragran Tab PO 1 each QDAY HOSEA Administration Ondansetron HCl 4 mg 09/02/19 18:31 09/04/19 21:31 Zofran IV 4 mg Q8H PRN Administration Nausea And Vomiting Senna 17.2 mg 09/02/19 22:00 09/07/19 20:59 Senokot PO 17.2 mg QHS HOSEA Administration Sodium Chloride 10 ml 09/02/19 22:00 09/08/19 09:39 Sodium Chloride Flush Syringe 10 Ml IV 10 ml BID HOSEA Administration Sodium Chloride 10 ml 09/02/19 18:31 09/05/19 20:11 Sodium Chloride Flush Syringe 10 Ml IV 10 ml PRN PRN Administration LINE FLUSH
[2019-09-08] MEDS: SODIUM CHLORIDE 0.9% 1000 ML 1,000 ML IV SCH (16:29)
[2019-09-08] MEDS: cefTRIAXone/NS 2 GM/100 ML 2 GM/100 ML BAG IV SCH (16:29)
[2019-09-08] MEDS: HYDROcodone/ACETAMINOPHEN 10-325MG TAB PO PRN (17:41)
[2019-09-08] MEDS: ENOXAPARIN 40 MG/0.4 ML INJ SUB-Q SCH (21:35)
[2019-09-08] MEDS: SENNOSIDES 8.6 MG TAB PO SCH (21:36)
[2019-09-09] MEDS: VANCOMYCIN 750 MG in SODIUM CHLORIDE 0.9% 250ML 250 ML IV SCH ×3 (00:08→15:50)
[2019-09-09] MEDS: HYDROcodone/ACETAMINOPHEN 10-325MG TAB PO PRN ×2 (00:09→15:15)
[2019-09-09] MEDS: CLINDAMYCIN 600 MG/50 mL 600 MG/50 ML BAG IV SCH (05:48)
[2019-09-09] MEDS: SODIUM CHLORIDE 0.9% 1000 ML 1,000 ML IV SCH (05:48)
[2019-09-09 05:58] LABS: Hematocrit 24.4 % (30.3-42.9); Hemoglobin 8.1 gm/dl (10.1-14.3)
--- NOTE | 2019-09-09 08:37 | Progress Note ---
Assessment and Plan Assessment and plan: --Chronic septic arthritis left knee: ID following, continue Rocephin, Vanco Cultures negative to date ID DC'd clindamycin, Orthopedic consult CT left lower extremity with contrast; No soft tissue abscess Chronic osteomyelitis involving the bones of both lower legs Chronic septic arthritis at the left knee --Sickle cell anemia; Hemoglobin 5.7 -7.9-8.1 Transfused total 2 units of PRBC Monitor H&H,transfuse additional PRBC PRN --Sickle cell crisis; Oxygen, IV fluids, pain medications Supportive care, advised plenty of oral fluids Hydrea, folic acid --Sepsis; sec to chr. septic arthritis of the left knee ID following, on Rocephin ,vancomycin Follow cultures CRP 8.9 --Febrile illness; secondary to sepsis Afebrile today, on antibiotics --Moderate malnutrition; BMI 17.2 Nutrition supplements .supportive care --Dehydration; IV fluids --DVT prophylaxis;Lovenox Monitor closely and adjust management as needed Plan of care reviewed with the patient and her nurse Brief history; 29 y/o female patient with history of sickle cell disease, was admitted with severe sickle cell anemia hemoglobin of 5.7, fever, sepsis, swelling of left lower extremity Received blood transfusion, CT scan show chronic septic arthritis of the left knee, ID evaluated, on antibiotics, cultures negative to date, orthopedic surgeon consulted Has history of chronic osteomyelitis right femur, MRSA, status post debridement in 2019, history of UTI, follows with ID Dr. Bell. History Interval history: Patient seen and examined at bedside in her room this morning Patient's chart, medications, test reports overnight events reviewed Patient feels slightly better mild pain in the leg and back Afebrile, alert awake oriented Vital signs noted Hospitalist Physical - Constitutional Vitals: Temp Pulse Resp BP Pulse Ox 97.5 F L 69 18 116/66 84 09/09/19 07:38 09/09/19 07:38 09/09/19 07:38 09/09/19 07:38 09/09/19 07:38 General appearance: Present: no acute distress, cachectic, disheveled - EENT Eyes: Present: PERRL, EOM intact - Neck Neck: Present: supple, normal ROM - Respiratory Respiratory effort: normal Respiratory: bilateral: diminished, negative: rales, rhonchi, wheezing - Cardiovascular Rhythm: regular Heart Sounds: Present: S1 & S2 - Extremities Extremities: no ischemia, abnormal (Chronic osteomyelitis of left knee) Extremity abnormal: edema (Trace edema left leg) - Abdominal General gastrointestinal: soft, non-tender, non-distended, normal bowel sounds - Integumentary Integumentary: Present: clear, warm - Psychiatric Psychiatric: appropriate mood/affect, cooperative - Neurologic Neurologic: moves all extremities Results - Labs CBC & Chem 7: 09/09/19 04:54 09/08/19 05:12 Labs: Laboratory Last Values WBC 11.2 K/mm3 (4.5-11.0) H 09/08/19 05:12 RBC 2.53 M/mm3 (3.65-5.03) L 09/08/19 05:12 Hgb 8.1 gm/dl (10.1-14.3) L 09/09/19 04:54 Hct 24.4 % (30.3-42.9) L 09/09/19 04:54 MCV 95 fl (79-97) 09/08/19 05:12 MCH 31 pg (28-32) 09/08/19 05:12 MCHC 33 % (30-34) 09/08/19 05:12 RDW 23.5 % (13.2-15.2) H 09/08/19 05:12 Plt Count 696 K/mm3 (140-440) H 09/08/19 05:12 Lymph % (Auto) 21.0 % (13.4-35.0) 09/07/19 04:12 Mobile % (Auto) 10.5 % (0.0-7.3) H 09/07/19 04:12 Eos % (Auto) 3.2 % (0.0-4.3) 09/07/19 04:12 Baso % (Auto) 0.9 % (0.0-1.8) 09/07/19 04:12 Lymph # 2.4 K/mm3 (1.2-5.4) 09/07/19 04:12 Mobile # 1.2 K/mm3 (0.0-0.8) H 09/07/19 04:12 Eos # 0.4 K/mm3 (0.0-0.4) 09/07/19 04:12 Baso # 0.1 K/mm3 (0.0-0.1) 09/07/19 04:12 Add Manual Diff Complete 09/08/19 05:12 Total Counted 100 09/08/19 05:12 Seg Neutrophils % 64.4 % (40.0-70.0) 09/07/19 04:12 Seg Neuts % (Manual) 54.0 % (40.0-70.0) 09/08/19 05:12 Band Neutrophils % 0 % 09/08/19 05:12 Lymphocytes % (Manual) 36.0 % (13.4-35.0) H 09/08/19 05:12 Reactive Lymphs % (Man) 0 % 09/08/19 05:12 Monocytes % (Manual) 8.0 % (0.0-7.3) H 09/08/19 05:12 Eosinophils % (Manual) 2.0 % (0.0-4.3) 09/08/19 05:12 Basophils % (Manual) 0 % (0.0-1.8) 09/08/19 05:12 Metamyelocytes % 0 % 09/08/19 05:12 Myelocytes % 0 % 09/08/19 05:12 Promyelocytes % 0 % 09/08/19 05:12 Blast Cells % 0 % 09/08/19 05:12 Nucleated RBC % 11.0 % (0.0-0.9) H 09/08/19 05:12 Seg Neutrophils # 7.2 K/mm3 (1.8-7.7) 09/07/19 04:12 Seg Neutrophils # Man 6.0 K/mm3 (1.8-7.7) 09/08/19 05:12 Band Neutrophils # 0.0 K/mm3 09/08/19 05:12 Lymphocytes # (Manual) 4.0 K/mm3 (1.2-5.4) 09/08/19 05:12 Abs React Lymphs (Man) 0.0 K/mm3 09/08/19 05:12 Monocytes # (Manual) 0.9 K/mm3 (0.0-0.8) H 09/08/19 05:12 Eosinophils # (Manual) 0.2 K/mm3 (0.0-0.4) 09/08/19 05:12 Basophils # (Manual) 0.0 K/mm3 (0.0-0.1) 09/08/19 05:12 Metamyelocytes # 0.0 K/mm3 09/08/19 05:12 Myelocytes # 0.0 K/mm3 09/08/19 05:12 Promyelocytes # 0.0 K/mm3 09/08/19 05:12 Blast Cells # 0.0 K/mm3 09/08/19 05:12 WBC Morphology Not Reportable 09/08/19 05:12 Hypersegmented Neuts Not Reportable 09/08/19 05:12 Hyposegmented Neuts Not Reportable 09/08/19 05:12 Hypogranular Neuts Not Reportable 09/08/19 05:12 Smudge Cells Not Reportable 09/08/19 05:12 Toxic Granulation Not Reportable 09/08/19 05:12 Toxic Vacuolation Not Reportable 09/08/19 05:12 Dohle Bodies Not Reportable 09/08/19 05:12 Pelger-Huet Anomaly Not Reportable 09/08/19 05:12 Raymond Rods Not Reportable 09/08/19 05:12 Platelet Estimate Consistent w auto 09/08/19 05:12 Clumped Platelets Not Reportable 09/08/19 05:12 Plt Clumps, EDTA Not Reportable 09/08/19 05:12 Large Platelets Not Reportable 09/08/19 05:12 Giant Platelets Not Reportable 09/08/19 05:12 Platelet Satelliting Not Reportable 09/08/19 05:12 Plt Morphology Comment Not Reportable 09/08/19 05:12 RBC Morphology Not Reportable 09/08/19 05:12 Dimorphic RBCs Not Reportable 09/08/19 05:12 Polychromasia Not Reportable 09/08/19 05:12 Hypochromasia 1+ 09/08/19 05:12 Poikilocytosis Not Reportable 09/08/19 05:12 Anisocytosis 1+ 09/08/19 05:12 Microcytosis Not Reportable 09/08/19 05:12 Macrocytosis 1+ 09/08/19 05:12 Spherocytes Not Reportable 09/08/19 05:12 Pappenheimer Bodies Not Reportable 09/08/19 05:12 Sickle Cells Not Reportable 09/08/19 05:12 Target Cells 1+ 09/08/19 05:12 Tear Drop Cells Not Reportable 09/08/19 05:12 Ovalocytes Not Reportable 09/08/19 05:12 Helmet Cells Not Reportable 09/08/19 05:12 Grullon-Worthing Bodies Not Reportable 09/08/19 05:12 Brandon Rings Not Reportable 09/08/19 05:12 Alena Cells Not Reportable 09/08/19 05:12 Bite Cells Not Reportable 09/08/19 05:12 Crenated Cell Not Reportable 09/08/19 05:12 Elliptocytes 1+ 09/08/19 05:12 Acanthocytes (Spur) Not Reportable 09/08/19 05:12 Rouleaux Not Reportable 09/08/19 05:12 Hemoglobin C Crystals Not Reportable 09/08/19 05:12 Schistocytes Not Reportable 09/08/19 05:12 Malaria parasites Not Reportable 09/08/19 05:12 Floyd Bodies Not Reportable 09/08/19 05:12 Hem Pathologist Commnt No 09/08/19 05:12 Sodium 142 mmol/L (137-145) 09/07/19 04:12 Potassium 3.7 mmol/L (3.6-5.0) 09/08/19 05:12 Chloride 107.3 mmol/L (98-107) H 09/07/19 04:12 Carbon Dioxide 21 mmol/L (22-30) L 09/07/19 04:12 Anion Gap 17 mmol/L 09/07/19 04:12 BUN 4 mg/dL (7-17) L 09/07/19 04:12 Creatinine 0.3 mg/dL (0.7-1.2) L 09/07/19 04:12 Estimated GFR > 60 ml/min 09/07/19 04:12 BUN/Creatinine Ratio 13 % 09/07/19 04:12 Glucose 96 mg/dL (65-100) 09/07/19 04:12 Calcium 8.9 mg/dL (8.4-10.2) 09/07/19 04:12 C-Reactive Protein 8.90 mg/dL (0.00-1.30) H 09/06/19 15:45 Urine Color Yellow (Yellow) 09/06/19 15:37 Urine Turbidity Clear (Clear) 09/06/19 15:37 Urine pH 6.0 (5.0-7.0) 05/21/20 15:37 Ur Specific [place] 1.013 (1.003-1.030) 09/06/19 15:37 Urine Protein <15 mg/dl mg/dL (Negative) 09/06/19 15:37 Urine Glucose (UA) Neg mg/dL (Negative) 09/06/19 15:37 Urine Ketones Neg mg/dL (Negative) 09/06/19 15:37 Urine Blood Neg (Negative) 09/06/19 15:37 Urine Nitrite Neg (Negative) 09/06/19 15:37 Urine Bilirubin Neg (Negative) 09/06/19 15:37 Urine Urobilinogen < 2.0 mg/dL (<2.0) 09/06/19 15:37 Ur Leukocyte Esterase Neg (Negative) 09/06/19 15:37 Urine WBC (Auto) < 1.0 /HPF (0.0-6.0) 09/06/19 15:37 Urine RBC (Auto) 2.0 /HPF (0.0-6.0) 09/06/19 15:37 U Epithel Cells (Auto) 1.0 /HPF (0-13.0) 09/06/19 15:37 Vancomycin Trough 10.1 ug/mL (5.0-20.0) 09/08/19 14:34 Blood Type O POSITIVE 09/06/19 19:44 Antibody Screen Negative 09/06/19 19:44 Crossmatch See Detail 09/06/19 19:44 Microbiology: Microbiology 09/04/19 20:06 Peripheral/Venous Blood Culture - Preliminary NO GROWTH AFTER 4 DAYS 09/04/19 20:06 Peripheral/Venous Blood Culture - Preliminary NO GROWTH AFTER 4 DAYS 09/04/19 03:16 Urine,Clean Catch Urine Culture - Final Kahn/IV: Voiding Method External Female Catheter IV Catheter Type [Left Upper INT / Saline Lock arm] IV Catheter Type [Left Peripheral IV External Jugular] Active Medications - Current Medications Current Medications: Generic Name Dose Route Start Last Admin Trade Name Freq PRN Reason Stop Dose Admin Acetaminophen 650 mg 09/02/19 18:31 09/07/19 12:21 Tylenol PO 650 mg Q4H PRN Administration Pain MILD(1-3)/Fever >100.5/CARTER Acetaminophen/Hydrocodone Bitart 1 each 09/02/19 21:16 09/09/19 00:09 [place] 10/325 PO 1 each Q6H PRN Administration Pain, Moderate (4-6) Enoxaparin Sodium 40 mg 09/07/19 22:00 09/08/19 21:35 Enoxaparin SUB-Q 40 mg QDAY@2200 HOSEA Administration Folic Acid 1 mg 09/02/19 21:16 09/08/19 09:38 Folvite PO 1 mg QDAY HOSEA Administration Hydromorphone HCl 1 mg 09/02/19 21:55 09/08/19 00:03 Dilaudid IV 1 mg Q4H PRN Administration Pain , Severe (7-10) Hydroxyurea 500 mg 09/02/19 21:16 09/08/19 09:39 Hydroxyurea PO 500 mg QDAY HOSEA Administration Sodium Chloride 1,000 mls @ 100 mls/hr 09/04/19 19:15 09/09/19 05:48 Nacl 0.9% 1000 Ml IV 100 mls/hr DIRECT HOSEA Administration Vancomycin HCl 750 mg/ Sodium 265 mls @ 166.667 mls/hr 09/06/19 08:00 09/09/19 00:08 Chloride IV 166.667 mls/hr Q8H HOSEA Administration Clindamycin HCl 600 mg in 50 mls @ 100 mls/hr 09/06/19 16:00 09/09/19 05:48 Cleocin 600 Mg/50 Ml IV 100 mls/hr Q8HR HOSEA Administration Protocol Ceftriaxone Sodium 2 gm in 100 mls @ 200 mls/hr 09/06/19 16:00 09/08/19 16:29 Rocephin/Ns 2 Gm/100 Ml IV 200 mls/hr Q24H HOSEA Administration Protocol Multivitamins 1 each 09/02/19 21:16 09/08/19 09:38 Theragran Tab PO 1 each QDAY HOSEA Administration Ondansetron HCl 4 mg 09/02/19 18:31 09/04/19 21:31 Zofran IV 4 mg Q8H PRN Administration Nausea And Vomiting Senna 17.2 mg 09/02/19 22:00 09/08/19 21:36 Senokot PO 17.2 mg QHS HOSEA Administration Sodium Chloride 10 ml 09/02/19 22:00 09/08/19 21:36 Sodium Chloride Flush Syringe 10 Ml IV 10 ml BID HOSEA Administration Sodium Chloride 10 ml 09/02/19 18:31 05/20/20 20:11 Sodium Chloride Flush Syringe 10 Ml IV 10 ml PRN PRN Administration LINE FLUSH
[2019-09-09] MEDS: HYDROXYUREA 500 MG CAP PO SCH (09:34)
[2019-09-09] MEDS: FOLIC ACID 1 MG TAB PO SCH (09:35)
[2019-09-09] MEDS: MULTIVITAMINS ,THERAPEUTIC TAB PO SCH (09:35)
[2019-09-09] MEDS: HYDROmorphone 1 MG/1 ML INJ IV PRN (09:52)
--- NOTE | 2019-09-09 11:56 | Progress Note ---
Assessment and Plan Cultures: Blood culture 09/04/2019 no growth today. Assessment: 29 y/o female with history of SCD, right femur chronic osteomyelitis chronically on doxycycline for suppression and ESBL E coli UTI admitted on 09/02/2019 due to a week history of generalized body aches, mainly bilateral legs, lower back, bilateral arms. She also reports left anterior tibia pain and edema. She denies any recent trauma. She reports she is taking doxycycline daily. She denies any cough, shortness of breath, nausea, vomiting, diarrhea. On arrival, temperature 99.2 went to 101.3, HR 75, RR 20, O2 sat 97, BP 124/78. Initial WBC 19.1. Hemoglobin 6.7. Platelets 692. Creatinine 0.2. Bilateral lower ultrasound no DVTs. Chest x-ray negative. #Sepsis: fever and leukocytosis resolved; source left anterior tibia cellulitis/osteo, left knee septic arthritis. UA neg. #Left anterior tibia cellulitis, acute on chronic tibial ostemyelitis and left knee septic arthritis: On exam severe tenderness? Abscess? Osteomyelitis. CT shows no abscess +acute on chronic tibial osteo and left knee septi arthritis. She reports she was taking doxycycline for suppression however patient missed last infectious disease clinic visit. CRP 8.9. 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 s/p OR debridement on 01/11/2019 chronically on doxycycline for suppression #History of ESBL E coli UTI Recommendations: Ortho consult left knee, tibia and ankle MRI Continue vancomycin with PK consult, keep vancomycin trough 10-15 mg/dL Stop clinda Continue ceftriaxone Supportive management - analgesia, transfusions as needed per Hem I am covering the weekend Medina Freeman MD Infectious Diseases Chiller Operator [facility] M [phone] O [phone] Subjective Date of service: 09/09/19 Principal diagnosis: cellulitis Interval history: Feels ok still left calf pain, no fever Objective - Exam Narrative Exam: General appearance: Alert in NAD Eyes: anicteric sclerae, moist conjunctivae; no lid-lag; PERRLA HENT: Atraumatic; oropharynx clear Lungs: CTA, with normal respiratory effort and no intercostal retractions CV: RRR no murmur Abdomen: Soft, non-tender; no masses or hepatosplenomegaly Extremities: Left anterior tibial edema, heat and severe tenderness. Right thigh old scar. Skin: No rash. Psych: No agitated Neuro: alert and oriented x 3. Moving all extermities - Constitutional Vitals: Vital Signs Temp Pulse Resp BP Pulse Ox 97.5 F L 57 L 18 116/66 98 09/09/19 07:38 09/09/19 10:00 09/09/19 10:00 09/09/19 07:38 09/09/19 10:00 Temperature -Last 24 Hours Temperature 97.5 F Temperature 97.8 F Temperature 98.0 F Temperature 98.2 F Temperature 98.9 F Temperature 98.2 F - Labs CBC & Chem 7: 09/09/19 04:54 09/08/19 05:12 Labs: Abnormal lab results 09/09/19 Range/Units 04:54 Hgb 8.1 L (10.1-14.3) gm/dl Hct 24.4 L (30.3-42.9) %
[2019-09-09] MEDS: cefTRIAXone/NS 2 GM/100 ML 2 GM/100 ML BAG IV SCH (15:11)
[2019-09-09] MEDS: ENOXAPARIN 40 MG/0.4 ML INJ SUB-Q SCH (22:00)
[2019-09-09] MEDS: SENNOSIDES 8.6 MG TAB PO SCH (22:00)
[2019-09-10] MEDS: VANCOMYCIN 750 MG in SODIUM CHLORIDE 0.9% 250ML 250 ML IV SCH ×3 (00:26→15:50)
[2019-09-10 05:27] LABS: BUN/Creatinine Ratio 23; Blood Urea Nitrogen 7 mg/dL (7-17); Calcium 8.9 mg/dL (8.4-10.2); Hemolysis Index 31
[2019-09-10] MEDS: SODIUM CHLORIDE 0.9% 1000 ML 1,000 ML IV SCH ×2 (05:50→21:35)
[2019-09-10] MEDS: FOLIC ACID 1 MG TAB PO SCH (09:35)
[2019-09-10] MEDS: MULTIVITAMINS ,THERAPEUTIC TAB PO SCH (09:35)
[2019-09-10] MEDS: HYDROXYUREA 500 MG CAP PO SCH (09:35)
--- NOTE | 2019-09-10 09:38 | Magnetic Resonance Report ---
MR LE joint LT wo con INDICATION / CLINICAL INFORMATION: left knee septic arthritis eval for effusion/absce. TECHNIQUE: Multiplanar, multisequence MR images were obtained. COMPARISON: 06/11/2019 FINDINGS: Once again chronic changes of septic arthritis are seen with destruction of the joint space and mild diffuse inflammation. No large drainable fluid collection is seen. No soft tissue mass is identified. IMPRESSION: Chronic changes of septic arthritis similar in appearance to prior examination dated 06/11/2019. No de finite new or acute findings. The patient refused intravenous contrast Signer Name: Deejay Massey MD FACR Signed: 09/10/2019 9:34 AM Workstation Name: [id number]
--- NOTE | 2019-09-10 09:42 | Magnetic Resonance Report ---
MR LE nonjoint LT w con INDICATION / CLINICAL INFORMATION: left knee septic arthritis eval for effusion/absce. TECHNIQUE: Multiplanar, multisequence MR images were obtained. COMPARISON: None available. FINDINGS: Abnormal signal is seen in the visualized portions of the tibia and fibula. These areas are low signa l on T1-weighted images and higher signal on T2-weighted images. Following the administration of intr avenous contrast, these areas enhance. There is soft tissue enhancement around the tibia. IMPRESSION: Abnormal signal in the visualized portions of the tibia and fibula with contrast enhancement most lik yas due to chronic osteomyelitis. Signer Name: Deejay Massey MD FACR Signed: 09/10/2019 9:38 AM Workstation Name: [id number]
--- NOTE | 2019-09-10 13:08 | Progress Note ---
Assessment and Plan Assessment and plan: --Chronic septic arthritis/chronic osteomyelitis left lower extremity/knee ID following, continue Rocephin, Vanco Cultures negative to date Orthopedic consult CT left lower extremity with contrast; No soft tissue abscess Chronic osteomyelitis involving the bones of both lower legs Chronic septic arthritis at the left knee MRI left lower extremity; Abnormal signal in the visualized portion of the tibia and fibula with contrast enhancement most likely due to chronic osteomyelitis --Sickle cell anemia; Hemoglobin 5.7 -7.9-8.1 Transfused total 2 units of PRBC Monitor H&H,transfuse additional PRBC PRN --Sickle cell crisis; Oxygen, IV fluids, pain medications Supportive care, advised plenty of oral fluids Hydrea, folic acid --Sepsis; sec to chr. septic arthritis of the left knee ID following, on Rocephin ,vancomycin Follow cultures CRP 8.9 --Febrile illness; secondary to sepsis Afebrile today, on antibiotics --Moderate malnutrition; BMI 17.2 Nutrition supplements .supportive care --Dehydration; IV fluids --DVT prophylaxis;Lovenox Monitor closely and adjust management as needed Plan of care reviewed with the patient and her nurse Disposition; follow Ortho evaluation and recommendations Brief history; 29 y/o female patient with history of sickle cell disease, was admitted with severe sickle cell anemia hemoglobin of 5.7, fever, sepsis, swelling of left lower extremity Received blood transfusion, CT scan show chronic septic arthritis of the left knee, ID evaluated, on antibiotics, cultures negative to date, orthopedic surgeon consulted Has history of chronic osteomyelitis right femur, MRSA, status post debridement in 2019, history of UTI, follows with ID Dr. Bell. History Interval history: Patient seen and examined at the bedside Patient's chart medications tests reviewed Patient feels slightly better, anxious about her health Generalized body pains Alert awake oriented Vital signs reviewed Hospitalist Physical - Constitutional Vitals: Temp Pulse Resp BP Pulse Ox 97.6 F 60 19 107/73 100 09/10/19 11:09/10/19 11:00 09/10/19 11:00 09/10/19 11:09/10/19 11:00 General appearance: Present: no acute distress, cachectic, disheveled - EENT Eyes: Present: PERRL, EOM intact - Neck Neck: Present: supple, normal ROM - Respiratory Respiratory effort: normal Respiratory: bilateral: diminished, negative: rales, rhonchi, wheezing - Cardiovascular Rhythm: regular Heart Sounds: Present: S1 & S2 - Extremities Extremities: no ischemia, abnormal (Left calf mild swelling and tenderness, left knee abnormality) - Abdominal General gastrointestinal: soft, non-tender - Integumentary Integumentary: Present: clear, warm - Psychiatric Psychiatric: appropriate mood/affect, cooperative - Neurologic Neurologic: moves all extremities Results - Labs CBC & Chem 7: 09/09/19 04:54 09/10/19 04:12 Labs: Laboratory Last Values WBC 11.2 K/mm3 (4.5-11.0) H 09/08/19 05:12 RBC 2.53 M/mm3 (3.65-5.03) L 09/08/19 05:12 Hgb 8.1 gm/dl (10.1-14.3) L 09/09/19 04:54 Hct 24.4 % (30.3-42.9) L 09/09/19 04:54 MCV 95 fl (79-97) 09/08/19 05:12 MCH 31 pg (28-32) 09/08/19 05:12 MCHC 33 % (30-34) 09/08/19 05:12 RDW 23.5 % (13.2-15.2) H 09/08/19 05:12 Plt Count 696 K/mm3 (140-440) H 09/08/19 05:12 Lymph % (Auto) 21.0 % (13.4-35.0) 09/07/19 04:12 Brown % (Auto) 10.5 % (0.0-7.3) H 09/07/19 04:12 Eos % (Auto) 3.2 % (0.0-4.3) 09/07/19 04:12 Baso % (Auto) 0.9 % (0.0-1.8) 09/07/19 04:12 Lymph # 2.4 K/mm3 (1.2-5.4) 09/07/19 04:12 Brown # 1.2 K/mm3 (0.0-0.8) H 09/07/19 04:12 Eos # 0.4 K/mm3 (0.0-0.4) 09/07/19 04:12 Baso # 0.1 K/mm3 (0.0-0.1) 09/07/19 04:12 Add Manual Diff Complete 09/08/19 05:12 Total Counted 100 09/08/19 05:12 Seg Neutrophils % 64.4 % (40.0-70.0) 09/07/19 04:12 Seg Neuts % (Manual) 54.0 % (40.0-70.0) 09/08/19 05:12 Band Neutrophils % 0 % 09/08/19 05:12 Lymphocytes % (Manual) 36.0 % (13.4-35.0) H 09/08/19 05:12 Reactive Lymphs % (Man) 0 % 09/08/19 05:12 Monocytes % (Manual) 8.0 % (0.0-7.3) H 09/08/19 05:12 Eosinophils % (Manual) 2.0 % (0.0-4.3) 09/08/19 05:12 Basophils % (Manual) 0 % (0.0-1.8) 09/08/19 05:12 Metamyelocytes % 0 % 09/08/19 05:12 Myelocytes % 0 % 09/08/19 05:12 Promyelocytes % 0 % 09/08/19 05:12 Blast Cells % 0 % 09/08/19 05:12 Nucleated RBC % 11.0 % (0.0-0.9) H 09/08/19 05:12 Seg Neutrophils # 7.2 K/mm3 (1.8-7.7) 09/07/19 04:12 Seg Neutrophils # Man 6.0 K/mm3 (1.8-7.7) 09/08/19 05:12 Band Neutrophils # 0.0 K/mm3 09/08/19 05:12 Lymphocytes # (Manual) 4.0 K/mm3 (1.2-5.4) 09/08/19 05:12 Abs React Lymphs (Man) 0.0 K/mm3 09/08/19 05:12 Monocytes # (Manual) 0.9 K/mm3 (0.0-0.8) H 09/08/19 05:12 Eosinophils # (Manual) 0.2 K/mm3 (0.0-0.4) 09/08/19 05:12 Basophils # (Manual) 0.0 K/mm3 (0.0-0.1) 09/08/19 05:12 Metamyelocytes # 0.0 K/mm3 09/08/19 05:12 Myelocytes # 0.0 K/mm3 09/08/19 05:12 Promyelocytes # 0.0 K/mm3 09/08/19 05:12 Blast Cells # 0.0 K/mm3 09/08/19 05:12 WBC Morphology Not Reportable 09/08/19 05:12 Hypersegmented Neuts Not Reportable 09/08/19 05:12 Hyposegmented Neuts Not Reportable 09/08/19 05:12 Hypogranular Neuts Not Reportable 09/08/19 05:12 Smudge Cells Not Reportable 09/08/19 05:12 Toxic Granulation Not Reportable 09/08/19 05:12 Toxic Vacuolation Not Reportable 09/08/19 05:12 Dohle Bodies Not Reportable 09/08/19 05:12 Pelger-Huet Anomaly Not Reportable 09/08/19 05:12 Raymond Rods Not Reportable 09/08/19 05:12 Platelet Estimate Consistent w auto 09/08/19 05:12 Clumped Platelets Not Reportable 09/08/19 05:12 Plt Clumps, EDTA Not Reportable 09/08/19 05:12 Large Platelets Not Reportable 09/08/19 05:12 Giant Platelets Not Reportable 09/08/19 05:12 Platelet Satelliting Not Reportable 09/08/19 05:12 Plt Morphology Comment Not Reportable 09/08/19 05:12 RBC Morphology Not Reportable 09/08/19 05:12 Dimorphic RBCs Not Reportable 09/08/19 05:12 Polychromasia Not Reportable 09/08/19 05:12 Hypochromasia 1+ 09/08/19 05:12 Poikilocytosis Not Reportable 09/08/19 05:12 Anisocytosis 1+ 09/08/19 05:12 Microcytosis Not Reportable 09/08/19 05:12 Macrocytosis 1+ 09/08/19 05:12 Spherocytes Not Reportable 09/08/19 05:12 Pappenheimer Bodies Not Reportable 09/08/19 05:12 Sickle Cells Not Reportable 09/08/19 05:12 Target Cells 1+ 09/08/19 05:12 Tear Drop Cells Not Reportable 09/08/19 05:12 Ovalocytes Not Reportable 09/08/19 05:12 Helmet Cells Not Reportable 09/08/19 05:12 [place] Bodies Not Reportable 09/08/19 05:12 [place] Rings Not Reportable 09/08/19 05:12 Alena Cells Not Reportable 09/08/19 05:12 Bite Cells Not Reportable 09/08/19 05:12 Crenated Cell Not Reportable 09/08/19 05:12 Elliptocytes 1+ 09/08/19 05:12 Acanthocytes (Spur) Not Reportable 09/08/19 05:12 Rouleaux Not Reportable 09/08/19 05:12 Hemoglobin C Crystals Not Reportable 09/08/19 05:12 Schistocytes Not Reportable 09/08/19 05:12 Malaria parasites Not Reportable 09/08/19 05:12 Floyd Bodies Not Reportable 09/08/19 05:12 Hem Pathologist Commnt No 09/08/19 05:12 Sodium 141 mmol/L (137-145) 09/10/19 04:12 Potassium 3.9 mmol/L (3.6-5.0) 09/10/19 04:12 Chloride 107.8 mmol/L (98-107) H 09/10/19 04:12 Carbon Dioxide 21 mmol/L (22-30) L 09/10/19 04:12 Anion Gap 16 mmol/L 09/10/19 04:12 BUN 7 mg/dL (7-17) 09/10/19 04:12 Creatinine 0.3 mg/dL (0.7-1.2) L 09/10/19 04:12 Estimated GFR > 60 ml/min 09/10/19 04:12 BUN/Creatinine Ratio 23 % 09/10/19 04:12 Glucose 83 mg/dL (65-100) 09/10/19 04:12 Calcium 8.9 mg/dL (8.4-10.2) 09/10/19 04:12 Magnesium 1.70 mg/dL (1.7-2.3) 09/10/19 04:12 C-Reactive Protein 8.90 mg/dL (0.00-1.30) H 09/06/19 15:45 Urine Color Yellow (Yellow) 09/06/19 15:37 Urine Turbidity Clear (Clear) 09/06/19 15:37 Urine pH 6.0 (5.0-7.0) 09/06/19 15:37 Ur Specific [place] 1.013 (1.003-1.030) 09/06/19 15:37 Urine Protein <15 mg/dl mg/dL (Negative) 09/06/19 15:37 Urine Glucose (UA) Neg mg/dL (Negative) 09/06/19 15:37 Urine Ketones Neg mg/dL (Negative) 09/06/19 15:37 Urine Blood Neg (Negative) 09/06/19 15:37 Urine Nitrite Neg (Negative) 09/06/19 15:37 Urine Bilirubin Neg (Negative) 09/06/19 15:37 Urine Urobilinogen < 2.0 mg/dL (<2.0) 09/06/19 15:37 Ur Leukocyte Esterase Neg (Negative) 09/06/19 15:37 Urine WBC (Auto) < 1.0 /HPF (0.0-6.0) 09/06/19 15:37 Urine RBC (Auto) 2.0 /HPF (0.0-6.0) 09/06/19 15:37 U Epithel Cells (Auto) 1.0 /HPF (0-13.0) 09/06/19 15:37 Vancomycin Trough 10.1 ug/mL (5.0-20.0) 09/08/19 14:34 Blood Type O POSITIVE 09/06/19 19:44 Antibody Screen Negative 09/06/19 19:44 Crossmatch See Detail 09/06/19 19:44 Microbiology: Microbiology 09/04/19 20:06 Peripheral/Venous Blood Culture - Final NO GROWTH AFTER 5 DAYS 09/04/19 20:06 Peripheral/Venous Blood Culture - Final NO GROWTH AFTER 5 DAYS Kahn/IV: Voiding Method External Female Catheter IV Catheter Type [Left Upper INT / Saline Lock arm] IV Catheter Type [Left Peripheral IV External Jugular] Active Medications - Current Medications Current Medications: Generic Name Dose Route Start Last Admin Trade Name Freq PRN Reason Stop Dose Admin Acetaminophen 650 mg 09/02/19 18:31 09/07/19 12:21 Tylenol PO 650 mg Q4H PRN Administration Pain MILD(1-3)/Fever >100.5/CARTER Acetaminophen/Hydrocodone Bitart 1 each 09/02/19 21:16 09/09/19 15:15 [place] 10/325 PO 1 each Q6H PRN Administration Pain, Moderate (4-6) Enoxaparin Sodium 40 mg 09/07/19 22:00 09/09/19 22:00 Enoxaparin SUB-Q 40 mg QDAY@2200 HOSEA Administration Folic Acid 1 mg 09/02/19 21:16 09/10/19 09:35 Folvite PO 1 mg QDAY HOSEA Administration Hydromorphone HCl 1 mg 09/02/19 21:55 09/09/19 09:52 Dilaudid IV 1 mg Q4H PRN Administration Pain , Severe (7-10) Hydroxyurea 500 mg 09/02/19 21:16 09/10/19 09:35 Hydroxyurea PO 500 mg QDAY HOSEA Administration Sodium Chloride 1,000 mls @ 100 mls/hr 09/04/19 19:15 09/10/19 05:50 Nacl 0.9% 1000 Ml IV 100 mls/hr DIRECT HOSEA Administration Vancomycin HCl 750 mg/ Sodium 265 mls @ 166.667 mls/hr 09/06/19 08:00 09/10/19 08:21 Chloride IV 166.667 mls/hr Q8H HOSEA Administration Ceftriaxone Sodium 2 gm in 100 mls @ 200 mls/hr 09/06/19 16:00 09/09/19 15:11 Rocephin/Ns 2 Gm/100 Ml IV 200 mls/hr Q24H HOSEA Administration Protocol Multivitamins 1 each 09/02/19 21:16 09/10/19 09:35 Theragran Tab PO 1 each QDAY HOSEA Administration Ondansetron HCl 4 mg 09/02/19 18:31 09/04/19 21:31 Zofran IV 4 mg Q8H PRN Administration Nausea And Vomiting Senna 17.2 mg 09/02/19 22:00 09/09/19 22:00 Senokot PO 17.2 mg QHS HOSEA Administration Sodium Chloride 10 ml 09/02/19 22:00 09/10/19 09:35 Sodium Chloride Flush Syringe 10 Ml IV 10 ml BID HOSEA Administration Sodium Chloride 10 ml 09/02/19 18:31 09/05/19 20:11 Sodium Chloride Flush Syringe 10 Ml IV 10 ml PRN PRN Administration LINE FLUSH Nutrition/Malnutrition Assess - Dietary Evaluation Nutrition/Malnutrition Findings: Nutrition Notes Start: 09/10/19 10:35 Freq: Status: Active Protocol: Document 09/10/19 10:35 LP (Rec: 09/10/19 10:36 LP [id number]) Nutrition Notes Need for Assessment generated from: LOS Initial or Follow up Brief Note Current Diagnosis Sepsis Other Pertinent Diagnosis Sickle cell Weight Status Underweight Subjective/Other Information Screen for LOS. Pt states eating well and has no wt changes. Nutrition Intervention Revisit per MD consult or patient Sign Off request:
[2019-09-10] MEDS: HYDROcodone/ACETAMINOPHEN 10-325MG TAB PO PRN (15:53)
[2019-09-10] MEDS: cefTRIAXone/NS 2 GM/100 ML 2 GM/100 ML BAG IV SCH (17:59)
--- NOTE | 2019-09-10 20:50 | XRay Report ---
LEFT TIBIA AND FIBULA 3 VIEWS INDICATION / CLINICAL INFORMATION: history of osteomyeliis. COMPARISON: 01/05/2019 FINDINGS: Diffuse abnormal bone density is again seen in both the tibia and fibula diffusely. Obstructive rutledge es again seen in the left knee. Overall no significant interval change from the prior examination. Signer Name: Deejay Massey MD FACR Signed: 09/10/2019 8:46 PM Workstation Name: [id number]
[2019-09-10] MEDS: SENNOSIDES 8.6 MG TAB PO SCH (21:34)
[2019-09-10] MEDS: ENOXAPARIN 40 MG/0.4 ML INJ SUB-Q SCH (21:34)
[2019-09-10] MEDS: ONDANSETRON 4 MG/2 ML INJ IV PRN (21:41)
[2019-09-10] MEDS: HYDROmorphone 1 MG/1 ML INJ IV PRN (21:44)
[2019-09-11] MEDS: VANCOMYCIN 750 MG in SODIUM CHLORIDE 0.9% 250ML 250 ML IV SCH ×3 (00:07→23:09)
[2019-09-11 04:27] LABS: Hematocrit 24.9 % (30.3-42.9); Hemoglobin 8.1 gm/dl (10.1-14.3); Mean Corpuscular HGB Conc 33 % (30-34); Mean Corpuscular Volume 98 fl (79-97); Platelet Count 766 K/mm3 (140-440); Red Blood Count 2.54 M/mm3 (3.65-5.03)
[2019-09-11 04:29] LABS: Red Cell Distribution Width 24.5 % (13.2-15.2)
[2019-09-11 04:48] LABS: BUN/Creatinine Ratio 20; Blood Urea Nitrogen 6 mg/dL (7-17); Calcium 8.8 mg/dL (8.4-10.2); Hemolysis Index 3
[2019-09-11 05:32] LABS: Basophils % (Manual) 0 % (0.0-1.8); Myelocytes # (Manual) 0.1 K/mm3; Total Cells Counted 100
[2019-09-11 05:33] LABS: Poikilocytosis 1+
[2019-09-11 05:34] LABS: Anisocytosis 2+; Ovalocytes Few; Target Cells 1+
[2019-09-11 05:35] LABS: Large Platelets Few
[2019-09-11 05:36] LABS: Platelet Estimate Consistent w Auto; Sickle Cells Rare; Tear Drop Cells Few
[2019-09-11] MEDS: HYDROmorphone 1 MG/1 ML INJ IV PRN ×3 (05:44→22:05)
[2019-09-11] MEDS: SODIUM CHLORIDE 0.9% 1000 ML 1,000 ML IV SCH (05:47)
[2019-09-11] MEDS: MULTIVITAMINS ,THERAPEUTIC TAB PO SCH (09:44)
[2019-09-11] MEDS: FOLIC ACID 1 MG TAB PO SCH (09:44)
[2019-09-11] MEDS: HYDROXYUREA 500 MG CAP PO SCH (09:44)
[2019-09-11] MEDS: ONDANSETRON 4 MG/2 ML INJ IV PRN ×2 (09:48→21:58)
--- NOTE | 2019-09-11 13:16 | Consultation ---
History of Present Illness - HPI Consult date: 09/11/19 Consult reason: other History of present illness: 29-year-old female who complains of left leg pain and swelling for the past several days, past medical history significant for sickle cell disease with multiple admissions for sickle cell crises as well as osteomyelitis... Currently complaining of pain and swelling over the anterior portion left leg no history of recent trauma noted Past History Past Medical History: other (See HPI) Past Surgical History: Other (Right leg, left knee surgery) Social history: single. denies: smoking, alcohol abuse, prescription drug abuse Family history: hypertension, other (SCD) Medications and Allergies Allergies Allergy/AdvReac Type Severity Reaction Status Date / Time No Known Allergies Allergy Unverified 01/04/19 08:15 Home Medications Medication Instructions Recorded Confirmed Last Taken Type Folic Acid [Folvite] 1 mg PO QDAY #90 tablet 07/04/19 09/04/19 Unknown Rx HYDROcodone/APAP 10-325 [[place] 1 each PO Q6H PRN #15 tablet 07/04/19 09/04/19 09/02/19 10:00 Rx 10-325 mg TAB] 1 tab Hydroxyurea 500 mg PO QDAY #90 capsule 07/04/19 09/04/19 09/02/19 10:00 Rx 1 tab Multivitamin Tab [Multiple Vitamin 1 each PO QDAY #90 tablet 07/04/19 09/04/19 09/02/19 10:00 Rx TAB (Theragran)] 1 tab Ondansetron [Zofran ODT TAB] 4 mg PO Q8HR PRN #20 tab.rapdis 07/04/19 09/04/19 Unknown Rx Sennosides Tab [Senokot] 17.2 mg PO QHS #90 tablet 07/04/19 09/04/19 09/03/19 22:30 Rx 17.2mg Active Meds: Active Medications Acetaminophen (Tylenol) 650 mg PO Q4H PRN PRN Reason: Pain MILD(1-3)/Fever >100.5/CARTER Last Admin: 09/07/19 12:21 Dose: 650 mg Documented by: Acetaminophen/Hydrocodone Bitart ([place] 10/325) 1 each PO Q6H PRN PRN Reason: Pain, Moderate (4-6) Last Admin: 05/25/20 15:53 Dose: 1 each Documented by: Diphenhydramine HCl (Benadryl) 25 mg IV Q6H PRN PRN Reason: Itching Enoxaparin Sodium (Enoxaparin) 40 mg SUB-Q QDAY@2200 [facility] Last Admin: 09/10/19 21:34 Dose: 40 mg Documented by: Folic Acid (Folvite) 1 mg PO QDAY [facility] Last Admin: 09/11/19 09:44 Dose: 1 mg Documented by: Hydromorphone HCl (Dilaudid) 1 mg IV Q4H PRN PRN Reason: Pain , Severe (7-10) Last Admin: 09/11/19 09:48 Dose: 1 mg Documented by: Hydroxyurea (Hydroxyurea) 500 mg PO QDAY [facility] Last Admin: 09/11/19 09:44 Dose: 500 mg Documented by: Sodium Chloride (Nacl 0.9% 1000 Ml) 1,000 mls @ 100 mls/hr IV DIRECT [facility] Last Admin: 09/11/19 05:47 Dose: 100 mls/hr Documented by: Vancomycin HCl 750 mg/ Sodium (Chloride) 265 mls @ 166.667 mls/hr IV Q8H [facility] Last Infusion: 09/11/19 04:01 Dose: Infused Documented by: Ceftriaxone Sodium (Rocephin/Ns 2 Gm/100 Ml) 2 gm in 100 mls @ 200 mls/hr IV Q24H [facility]; Protocol Last Infusion: 09/10/19 20:14 Dose: Infused Documented by: Multivitamins (Theragran Tab) 1 each PO QDAY [facility] Last Admin: 09/11/19 09:44 Dose: 1 each Documented by: Ondansetron HCl (Zofran) 4 mg IV Q8H PRN PRN Reason: Nausea And Vomiting Last Admin: 09/11/19 09:48 Dose: 4 mg Documented by: Senna (Senokot) 17.2 mg PO QHS [facility] Last Admin: 09/10/19 21:34 Dose: 17.2 mg Documented by: Sodium Chloride (Sodium Chloride Flush Syringe 10 Ml) 10 ml IV BID [facility] Last Admin: 09/11/19 09:44 Dose: 10 ml Documented by: Sodium Chloride (Sodium Chloride Flush Syringe 10 Ml) 10 ml IV PRN PRN PRN Reason: LINE FLUSH Last Admin: 09/05/19 20:11 Dose: 10 ml Documented by: Physical Examination - Physical exam Narrative exam: Physical exam significant musculoskeletal findings relates to the left lower extremity here over the midshaft there is a small 1 x 1.5mm area of fluctuance slightly tender on palpation no redness or erythema noted patient has good passive range of motion at the knee and ankle Plain x-rays taken of the left tibia recently were reviewed by me and showed no obvious soft tissue swelling or bony lesions Assessment and Plan Superficial abscess left leg Recommend incision and drainage of this area as well as continuing IV antibiotics and observation
[2019-09-11] MEDS: diphenhydrAMINE 50 MG/ML VIAL IV PRN ×2 (13:28→22:05)
--- NOTE | 2019-09-11 14:02 | Progress Note ---
Assessment and Plan Cultures: Blood culture 09/04/2019 no growth today. Assessment: 29 y/o female with history of SCD, right femur chronic osteomyelitis chronically on doxycycline for suppression and ESBL E coli UTI admitted on 09/02/2019 due to a week history of generalized body aches, mainly bilateral legs, lower back, bilateral arms. She also reports left anterior tibia pain and edema. She denies any recent trauma. She reports she is taking doxycycline daily. She denies any cough, shortness of breath, nausea, vomiting, diarrhea. On arrival, temperature 99.2 went to 101.3, HR 75, RR 20, O2 sat 97, BP 124/78. Initial WBC 19.1. Hemoglobin 6.7. Platelets 692. Creatinine 0.2. Bilateral lower ultrasound no DVTs. Chest x-ray negative. #Sepsis: fever and leukocytosis resolved; source left anterior tibia cellulitis/osteo, left knee septic arthritis. UA neg. #Left anterior tibia cellulitis, acute on chronic tibial ostemyelitis and left knee septic arthritis: On exam severe tenderness? Abscess? Osteomyelitis. CT shows no abscess +acute on chronic tibial osteo and left knee septi arthritis. She reports she was taking doxycycline for suppression however patient missed last infectious disease clinic visit. CRP 8.9. MRI shows chronic septic arthritis and chronic tibial ostemyelitis. 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 s/p OR debridement on 01/11/2019 chronically on doxycycline for suppression #History of ESBL E coli UTI Recommendations: Ortho consult appreciated - to have I + D Continue vancomycin with PK consult, keep vancomycin trough 10-15 mg/dL Continue ceftriaxone Supportive management - analgesia, transfusions as needed per Hem will follow Medina Freeman MD Infectious Diseases Manager [facility] M [phone] O [phone] Subjective Date of service: 09/11/19 Principal diagnosis: cellulitis Interval history: Feels better, no fever Objective - Exam Narrative Exam: General appearance: Alert in NAD Eyes: anicteric sclerae, moist conjunctivae; no lid-lag; PERRLA HENT: Atraumatic; oropharynx clear Lungs: CTA, with normal respiratory effort and no intercostal retractions CV: RRR no murmur Abdomen: Soft, non-tender; no masses or hepatosplenomegaly Extremities: Left anterior tibial edema, heat and severe tenderness. Right thigh old scar. Skin: No rash. Psych: No agitated Neuro: alert and oriented x 3. Moving all extermities - Constitutional Vitals: Vital Signs Temp Pulse Resp BP Pulse Ox 97.9 F 60 18 107/51 98 09/11/19 12:10 09/11/19 12:10 09/11/19 12:10 09/11/19 12:10 09/11/19 12:10 Temperature -Last 24 Hours Temperature 97.9 F Temperature 98.0 F Temperature 98.1 F Temperature 97 F Temperature 98.2 F Temperature 98.4 F Temperature 98.7 F - Labs CBC & Chem 7: 09/11/19 03:47 09/11/19 03:47 Labs: Abnormal lab results 09/11/19 09/11/19 Range/Units 03:47 03:47 WBC 12.1 H (4.5-11.0) K/mm3 RBC 2.54 L (3.65-5.03) M/mm3 Hgb 8.1 L (10.1-14.3) gm/dl Hct 24.9 L (30.3-42.9) % MCV 98 H (79-97) fl RDW 24.5 H (13.2-15.2) % Plt Count 766 H (140-440) K/mm3 Lymphocytes % (Manual) 40.0 H (13.4-35.0) % Nucleated RBC % 2.0 H (0.0-0.9) % Eosinophils # (Manual) 0.5 H (0.0-0.4) K/mm3 Potassium 3.4 L (3.6-5.0) mmol/L BUN 6 L (7-17) mg/dL Creatinine 0.3 L (0.7-1.2) mg/dL
--- NOTE | 2019-09-11 14:46 | Progress Note ---
Assessment and Plan /Sepsis, POA: -Patient presented with fever and leukocytosis resolved; source left anterior tibia cellulitis/osteo, left knee septic arthritis. UA neg. -Continue antibiotic per ID, plan for debridement - will follow culture /Left anterior tibia cellulitis, acute on chronic tibial ostemyelitis and left knee septic arthritis ID following, continue Rocephin, Vanco Cultures negative to date Orthopedic consulted CT left lower extremity with contrast; No soft tissue abscess Chronic osteomyelitis involving the bones of both lower legs Chronic septic arthritis at the left knee MRI left lower extremity; Abnormal signal in the visualized portion of the tibia and fibula with contrast enhancement most likely due to chronic osteomyelitis /Sickle cell anemia; Hemoglobin dropped upto 5.7 Transfused total 2 units of PRBC - h/h now stable Monitor H&H,transfuse additional PRBC PRN /Sickle cell crisis; cont Oxygen, IV fluids, pain medications Supportive care, advised plenty of oral fluids Hydrea, folic acid /Febrile illness; secondary to sepsis Afebrile today, on antibiotics /-Moderate malnutrition; BMI 17.2 Nutrition supplements .supportive care /-Dehydration; IV fluids --DVT prophylaxis;Lovenox Monitor closely and adjust management as needed. Plan of care reviewed with the patient and her nurse Disposition; when clears by ID 09/10; resumed care. Patient was seen by orthopedics today and recommended I and D. Continue IV antibiotics and follow the patient clinically Brief history; 29 y/o female patient with history of sickle cell disease, chronic osteomyelitis right femur with MRSA infection, status post debridement in [address] Bell was admitted with severe sickle cell anemia hemoglobin of 5.7, fever, sepsis, swelling of left lower extremity. Received blood transfusion, CT scan show chronic septic arthritis of the left knee, ID evaluated, on antibiotics, cultures negative to date, orthopedic surgeon consulted, planned for I AND D. Physical exam: General appearance: Present: no acute distress, cachectic, disheveled - EENT Eyes: Present: PERRL, EOM intact - Neck Neck: Present: supple, normal ROM - Respiratory Respiratory effort: normal Respiratory: bilateral: diminished, negative: rales, rhonchi, wheezing - Cardiovascular Rhythm: regular Heart Sounds: Present: S1 & S2 - Extremities Extremities: no ischemia, abnormal (Left calf mild swelling and tenderness, left knee abnormality) - Abdominal General gastrointestinal: soft, non-tender - Integumentary Integumentary: Present: clear, warm - Psychiatric Psychiatric: appropriate mood/affect, cooperative - Neurologic Neurologic: moves all extremities Subjective Date of service: 09/11/19 Principal diagnosis: cellulitis Interval history: Patient seen and examined. Medical records and medication list reviewed. No acute event overnight noted by the RN. Patient denies any chest pain or difficulty breathing. Patient is tolerating diet. Complains of lower extremity pain with swelling and back pain Discussed plan of care at bedside with patient. Objective - Constitutional Vitals: Vital Signs - 12hr 09/11/19 09/11/19 09/11/19 03:21 07:36 11:00 Temperature 98.1 F 98.0 F Pulse Rate 54 L 58 L 60 Respiratory 16 16 Rate Blood Pressure 112/64 103/52 O2 Sat by Pulse 99 97 Oximetry 09/11/19 12:10 Temperature 97.9 F Pulse Rate 60 Respiratory 18 Rate Blood Pressure 107/51 O2 Sat by Pulse 98 Oximetry - Labs CBC & Chem 7: 09/13/19 04:34 09/12/19 03:53 Labs: Abnormal lab results 09/11/19 09/11/19 Range/Units 03:47 03:47 WBC 12.1 H (4.5-11.0) K/mm3 RBC 2.54 L (3.65-5.03) M/mm3 Hgb 8.1 L (10.1-14.3) gm/dl Hct 24.9 L (30.3-42.9) % MCV 98 H (79-97) fl RDW 24.5 H (13.2-15.2) % Plt Count 766 H (140-440) K/mm3 Lymphocytes % (Manual) 40.0 H (13.4-35.0) % Nucleated RBC % 2.0 H (0.0-0.9) % Eosinophils # (Manual) 0.5 H (0.0-0.4) K/mm3 Potassium 3.4 L (3.6-5.0) mmol/L BUN 6 L (7-17) mg/dL Creatinine 0.3 L (0.7-1.2) mg/dL
[2019-09-11] MEDS ORDERED: POTASSIUM CHLORIDE ER 20 MEQ TAB PO ONE (15:48)
[2019-09-11] MEDS: cefTRIAXone/NS 2 GM/100 ML 2 GM/100 ML BAG IV SCH (17:17)
[2019-09-11] MEDS: ENOXAPARIN 40 MG/0.4 ML INJ SUB-Q SCH (23:09)
[2019-09-11] MEDS: SENNOSIDES 8.6 MG TAB PO SCH (23:09)
[2019-09-12 04:37] LABS: Hematocrit 25.4 % (30.3-42.9); Hemoglobin 8.4 gm/dl (10.1-14.3); Mean Corpuscular HGB Conc 33 % (30-34); Mean Corpuscular Volume 97 fl (79-97); Platelet Count 769 K/mm3 (140-440); Red Blood Count 2.61 M/mm3 (3.65-5.03)
[2019-09-12 04:57] LABS: BUN/Creatinine Ratio 17; Blood Urea Nitrogen 5 mg/dL (7-17); Hemolysis Index 10; Red Cell Distribution Width 23.6 % (13.2-15.2)
[2019-09-12 06:40] LABS: Basophils % (Manual) 0 % (0.0-1.8); Total Cells Counted 100
[2019-09-12 06:41] LABS: Anisocytosis 2+; Poikilocytosis Few; Target Cells 1+
[2019-09-12 06:42] LABS: Hypochromasia 1+; Platelet Estimate Consistent w Auto; Schistocytes Rare; Sickle Cells Few
[2019-09-12] MEDS: FOLIC ACID 1 MG TAB PO SCH (10:01)
[2019-09-12] MEDS: MULTIVITAMINS ,THERAPEUTIC TAB PO SCH (10:02)
[2019-09-12] MEDS: SODIUM CHLORIDE 0.9% 1000 ML 1,000 ML IV SCH ×2 (10:07→22:58)
[2019-09-12] MEDS: HYDROXYUREA 500 MG CAP PO SCH (10:08)
[2019-09-12] MEDS: diphenhydrAMINE 50 MG/ML VIAL IV PRN ×2 (10:08→17:47)
[2019-09-12] MEDS: HYDROmorphone 1 MG/1 ML INJ IV PRN ×2 (10:08→17:46)
[2019-09-12] MEDS: VANCOMYCIN 750 MG in SODIUM CHLORIDE 0.9% 250ML 250 ML IV SCH (10:55)
--- NOTE | 2019-09-12 13:46 | Progress Note ---
Assessment and Plan Cellulitis left leg with a small superficial abscess status post incision and drainage Continue IV antibiotics and observation Subjective Date of service: 09/12/19 Principal diagnosis: cellulitis Interval history: Complaining of pain and swelling left leg Objective Vital signs: Vital Signs - 12hr 09/12/19 09/12/19 09/12/19 03:38 04:00 07:30 Temperature 98.0 F 98.5 F Pulse Rate 53 L 59 L Respiratory 18 18 Rate Blood Pressure 89/45 117/73 O2 Sat by Pulse 98 99 Oximetry 09/12/19 11:44 Temperature 98.6 F Pulse Rate 62 Respiratory 18 Rate Blood Pressure 97/65 O2 Sat by Pulse 97 Oximetry Narrative Exam: At the left leg patient is noted to have a small area of fluctuance anteriorly midshaft this area was then cleansed, followed by anesthetizing the skin with lidocaine using a #11 blade and incision was performed with very little in the way of fluid being seen cultures were obtained the wound was then cleansed and d ressings were applied she tolerated the procedure there were no complications - Labs CBC & BMP: 09/12/19 03:53 09/12/19 03:53 Labs: Abnormal lab results 09/12/19 09/12/19 Range/Units 03:53 03:53 WBC 12.1 H (4.5-11.0) K/mm3 RBC 2.61 L (3.65-5.03) M/mm3 Hgb 8.4 L (10.1-14.3) gm/dl Hct 25.4 L (30.3-42.9) % RDW 23.6 H (13.2-15.2) % Plt Count 769 H (140-440) K/mm3 Lymphocytes % (Manual) 39.0 H (13.4-35.0) % Monocytes % (Manual) 9.0 H (0.0-7.3) % Nucleated RBC % 4.0 H (0.0-0.9) % Monocytes # (Manual) 1.1 H (0.0-0.8) K/mm3 BUN 5 L (7-17) mg/dL Creatinine 0.3 L (0.7-1.2) mg/dL
--- NOTE | 2019-09-12 14:56 | Progress Note ---
Assessment and Plan /Sepsis, POA: -Patient presented with fever and leukocytosis resolved; source left anterior tibia cellulitis/osteo, left knee septic arthritis. UA neg. 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 and left knee septic arthritis ID following, continue Rocephin, Vanco Cultures negative to date Orthopedic consulted, s/p I and D - follow cx CT left lower extremity with contrast; No soft tissue abscess Chronic osteomyelitis involving the bones of both lower legs Chronic septic arthritis at the left knee MRI left lower extremity; Abnormal signal in the visualized portion of the tibia and fibula with contrast enhancement most likely due to chronic osteomyelitis /Sickle cell anemia; Hemoglobin dropped upto 5.7 Transfused total 2 units of PRBC - h/h now stable Monitor H&H,transfuse additional PRBC PRN /Sickle cell crisis; cont Oxygen, IV fluids, pain medications Supportive care, advised plenty of oral fluids cont Hydrea, folic acid /Febrile illness; secondary to sepsis Afebrile today, on antibiotics /-Moderate malnutrition; BMI 17.2 Nutrition supplements .supportive care /-Dehydration; IV fluids --DVT prophylaxis;Lovenox Monitor closely and adjust management as needed Plan of care reviewed with the patient and her nurse Disposition; when clears by ID 09/10; resumed care. Patient was seen by orthopedics today and recommended I and D. Continue IV antibiotics and follow the patient clinically 10/12: Status post I&D at bedside by orthopedic surgeon, wait for ID recommendation for discharge planning Brief history; 29 y/o female patient with history of sickle cell disease, chronic osteomyelitis right femur with MRSA infection, status post debridement in [address] Bell was admitted with severe sickle cell anemia hemoglobin of 5.7, fever, sepsis, swelling of left lower extremity. Received blood transfusion, CT scan show chronic septic arthritis of the left knee, ID evaluated, on antibiotics, cultures negative to date, orthopedic surgeon consulted, s/p I AND D. Physical exam: General appearance: Present: no acute distress, cachectic, disheveled - EENT Eyes: Present: PERRL, EOM intact - Neck Neck: Present: supple, normal ROM - Respiratory Respiratory effort: normal Respiratory: bilateral: diminished, negative: rales, rhonchi, wheezing - Cardiovascular Rhythm: regular Heart Sounds: Present: S1 & S2 - Extremities Extremities: no ischemia, abnormal (Left calf mild swelling and tenderness, left knee abnormality), wound dressing on LLE mid shaft on place - Abdominal General gastrointestinal: soft, non-tender - Integumentary Integumentary: Present: clear, warm - Psychiatric Psychiatric: appropriate mood/affect, cooperative - Neurologic Neurologic: moves all extremities Subjective Date of service: 09/12/19 Principal diagnosis: cellulitis Interval history: Patient seen and examined. Medical records and medication list reviewed. No acute event overnight noted by the RN. Patient denies any chest pain or difficulty breathing. Patient is tolerating diet. Complains of lower extremity pain with swelling and back pain Discussed plan of care at bedside with patient. s/p I and d today Objective - Constitutional Vitals: Vital Signs - 12hr 09/12/19 09/12/19 09/12/19 03:38 04:00 07:30 Temperature 98.0 F 98.5 F Pulse Rate 53 L 59 L Respiratory 18 18 Rate Blood Pressure 89/45 117/73 O2 Sat by Pulse 98 99 Oximetry 09/12/19 11:44 Temperature 98.6 F Pulse Rate 62 Respiratory 18 Rate Blood Pressure 97/65 O2 Sat by Pulse 97 Oximetry - Labs CBC & Chem 7: 09/13/19 04:34 09/12/19 03:53 Labs: Abnormal lab results 09/12/19 09/12/19 Range/Units 03:53 03:53 WBC 12.1 H (4.5-11.0) K/mm3 RBC 2.61 L (3.65-5.03) M/mm3 Hgb 8.4 L (10.1-14.3) gm/dl Hct 25.4 L (30.3-42.9) % RDW 23.6 H (13.2-15.2) % Plt Count 769 H (140-440) K/mm3 Lymphocytes % (Manual) 39.0 H (13.4-35.0) % Monocytes % (Manual) 9.0 H (0.0-7.3) % Nucleated RBC % 4.0 H (0.0-0.9) % Monocytes # (Manual) 1.1 H (0.0-0.8) K/mm3 BUN 5 L (7-17) mg/dL Creatinine 0.3 L (0.7-1.2) mg/dL
--- NOTE | 2019-09-12 16:22 | Progress Note ---
Assessment and Plan Cultures: Blood culture 09/04/2019 no growth today. Assessment: 29 y/o female with history of SCD, right femur chronic osteomyelitis chronically on doxycycline for suppression and ESBL E coli UTI admitted on 09/02/2019 due to a week history of generalized body aches, mainly bilateral legs, lower back, bilateral arms and left leg boil: #Sepsis: fever and leukocytosis resolved; source left anterior tibia cellulitis/osteo, left knee septic arthritis. UA neg. 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 Osteomyelitis. CT shows no abscess +acute on chronic tibial osteo and left knee septi arthritis. She reports she was taking doxycycline for suppression however patient missed last infectious disease clinic visit. CRP 8.9. MRI shows chronic septic arthritis and chronic tibial ostemyelitis. 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 s/p OR debridement on 01/11/2019 chronically on doxycycline for suppression #History of ESBL E coli UTI Recommendations: F/u I + D culture done today Continue vancomycin with PK consult, keep vancomycin trough 10-15 mg/dL Continue ceftriaxone Supportive management - analgesia, transfusions as needed per Hem Anticipate to d/c on IV abx for 6-8 weeks due to reactivated left tibial osteo with an abscess will follow Medina Freeman MD Infectious Diseases Transformer T[employer] [facility] ([facility]) M [phone] O [phone] Subjective Date of service: 09/12/19 Principal diagnosis: cellulitis Interval history: Feels better, no fever Objective - Exam Narrative Exam: General appearance: Alert in NAD Eyes: anicteric sclerae, moist conjunctivae; no lid-lag; PERRLA HENT: Atraumatic; oropharynx clear Lungs: CTA, with normal respiratory effort and no intercostal retractions CV: RRR no murmur Abdomen: Soft, non-tender; no masses or hepatosplenomegaly Extremities: Left anterior tibial edema, heat and tenderness - better. Right thigh old scar. Skin: No rash. Psych: No agitated Neuro: alert and oriented x 3. Moving all extermities - Constitutional Vitals: Vital Signs Temp Pulse Resp BP Pulse Ox 98.6 F 62 18 97/65 97 09/12/19 11:44 09/12/19 11:44 09/12/19 11:44 09/12/19 11:44 09/12/19 11:44 Temperature -Last 24 Hours Temperature 98.6 F Temperature 98.5 F Temperature 98.0 F Temperature 98.5 F Temperature 98.4 F - Labs CBC & Chem 7: 09/12/19 03:53 09/12/19 03:53 Labs: Abnormal lab results 09/12/19 09/12/19 Range/Units 03:53 03:53 WBC 12.1 H (4.5-11.0) K/mm3 RBC 2.61 L (3.65-5.03) M/mm3 Hgb 8.4 L (10.1-14.3) gm/dl Hct 25.4 L (30.3-42.9) % RDW 23.6 H (13.2-15.2) % Plt Count 769 H (140-440) K/mm3 Lymphocytes % (Manual) 39.0 H (13.4-35.0) % Monocytes % (Manual) 9.0 H (0.0-7.3) % Nucleated RBC % 4.0 H (0.0-0.9) % Monocytes # (Manual) 1.1 H (0.0-0.8) K/mm3 BUN 5 L (7-17) mg/dL Creatinine 0.3 L (0.7-1.2) mg/dL
[2019-09-12] MEDS: cefTRIAXone/NS 2 GM/100 ML 2 GM/100 ML BAG IV SCH (16:45)
[2019-09-12] MEDS: SENNOSIDES 8.6 MG TAB PO SCH (21:07)
[2019-09-12] MEDS: SIMETHICONE 80 MG CHEW TAB PO PRN (21:07)
[2019-09-12] MEDS: ENOXAPARIN 40 MG/0.4 ML INJ SUB-Q SCH (21:09)
[2019-09-12] MEDS: HYDROcodone/ACETAMINOPHEN 10-325MG TAB PO PRN (22:57)
[2019-09-13] MEDS: VANCOMYCIN 750 MG in SODIUM CHLORIDE 0.9% 250ML 250 ML IV SCH ×3 (00:12→17:56)
[2019-09-13] MEDS: diphenhydrAMINE 50 MG/ML VIAL IV PRN ×2 (00:28→21:29)
[2019-09-13 06:36] LABS: Hematocrit 25.8 % (30.3-42.9); Hemoglobin 8.6 gm/dl (10.1-14.3); Mean Corpuscular HGB Conc 33 % (30-34); Mean Corpuscular Volume 98 fl (79-97); Platelet Count 785 K/mm3 (140-440); Red Blood Count 2.64 M/mm3 (3.65-5.03)
[2019-09-13 06:45] LABS: Red Cell Distribution Width 24.1 % (13.2-15.2)
[2019-09-13] MEDS: cefTRIAXone/NS 2 GM/100 ML 2 GM/100 ML BAG IV SCH ×2 (09:00→16:02)
[2019-09-13] MEDS: SODIUM CHLORIDE 0.9% 1000 ML 1,000 ML IV SCH ×2 (10:01→21:28)
[2019-09-13] MEDS: HYDROXYUREA 500 MG CAP PO SCH (10:02)
[2019-09-13] MEDS: MULTIVITAMINS ,THERAPEUTIC TAB PO SCH (10:02)
[2019-09-13] MEDS: FOLIC ACID 1 MG TAB PO SCH (10:02)
[2019-09-13] MEDS: HYDROcodone/ACETAMINOPHEN 10-325MG TAB PO PRN ×2 (10:26→21:28)
[2019-09-13 10:43] LABS: Anisocytosis 1+; Basophils % (Manual) 0 % (0.0-1.8); Giant Platelets Rare; Hypochromasia 1+; Myelocytes # (Manual) 0.1 K/mm3; Ovalocytes Few; Platelet Estimate Consistent w Auto; Sickle Cells Rare; Target Cells 1+; Total Cells Counted 100
--- NOTE | 2019-09-13 13:58 | Progress Note ---
Assessment and Plan /Sepsis, POA: -Patient presented with fever and leukocytosis resolved; source left anterior tibia cellulitis/osteo, left knee septic arthritis. UA neg. 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 and left knee septic arthritis ID following, continue Rocephin, Vanco Cultures negative to date Orthopedic consulted, s/p I and D - follow cx CT left lower extremity with contrast; No soft tissue abscess Chronic osteomyelitis involving the bones of both lower legs Chronic septic arthritis at the left knee MRI left lower extremity; Abnormal signal in the visualized portion of the tibia and fibula with contrast enhancement most likely due to chronic osteomyelitis /Sickle cell anemia; Hemoglobin dropped upto 5.7 Transfused total 2 units of PRBC - h/h now stable Monitor H&H,transfuse additional PRBC PRN /Sickle cell crisis; cont Oxygen, IV fluids, pain medications Supportive care, advised plenty of oral fluids cont Hydrea, folic acid /Febrile illness; secondary to sepsis Afebrile today, on antibiotics /-Moderate malnutrition; BMI 17.2 Nutrition supplements .supportive care /-Dehydration; IV fluids --DVT prophylaxis;Lovenox Monitor closely and adjust management as needed Plan of care reviewed with the patient and her nurse Disposition; when clears by ID 09/10; resumed care. Patient was seen by orthopedics today and recommended I and D. Continue IV antibiotics and follow the patient clinically 09/11: Status post I&D at bedside by orthopedic surgeon, wait for ID recommendation for discharge planning 09/12: will need 4-6 weeks if iv abx, ordered for PICC line. wait for final ID recommendation Brief history; 29 y/o female patient with history of sickle cell disease, chronic osteomyelitis right femur with MRSA infection, status post debridement in [address] Bell was admitted with severe sickle cell anemia hemoglobin of 5.7, fever, sepsis, swelling of left lower extremity. Received blood transfusion, CT scan show chronic septic arthritis of the left knee, ID evaluated, on antibiotics, cultures negative to date, orthopedic surgeon consulted, s/p I AND D. Physical exam: General appearance: Present: no acute distress, cachectic, disheveled - EENT Eyes: Present: PERRL, EOM intact - Neck Neck: Present: supple, normal ROM - Respiratory Respiratory effort: normal Respiratory: bilateral: diminished, negative: rales, rhonchi, wheezing - Cardiovascular Rhythm: regular Heart Sounds: Present: S1 & S2 - Extremities Extremities: no ischemia, abnormal (Left calf mild swelling and tenderness, left knee abnormality), wound dressing on LLE mid shaft on place - Abdominal General gastrointestinal: soft, non-tender - Integumentary Integumentary: Present: clear, warm - Psychiatric Psychiatric: appropriate mood/affect, cooperative - Neurologic Neurologic: moves all extremities Subjective Date of service: 09/13/19 Principal diagnosis: cellulitis Interval history: Patient seen and examined. Medical records and medication list reviewed. No acute event overnight noted by the RN. Patient denies any chest pain or difficulty breathing. Patient is tolerating diet. Complains of lower extremity pain with swelling and back pain - but improved Discussed plan of care at bedside with patient. Objective - Constitutional Vitals: Vital Signs - 12hr 09/13/19 09/13/19 09/13/19 04:55 07:00 07:34 Temperature 98.9 F 98.6 F Pulse Rate 69 64 Respiratory 18 18 Rate Respiratory Rate [ Generalized] Blood Pressure 105/74 99/62 O2 Sat by Pulse 98 Oximetry 09/13/19 09/13/19 10:00 10:26 Temperature Pulse Rate Respiratory 20 Rate Respiratory 18 Rate [ Generalized] Blood Pressure O2 Sat by Pulse Oximetry - Labs CBC & Chem 7: 09/14/19 04:53 09/12/19 03:53 Labs: Abnormal lab results 09/13/19 Range/Units 04:34 WBC 14.7 H (4.5-11.0) K/mm3 RBC 2.64 L (3.65-5.03) M/mm3 Hgb 8.6 L (10.1-14.3) gm/dl Hct 25.8 L (30.3-42.9) % MCV 98 H (79-97) fl MCH 33 H (28-32) pg RDW 24.1 H (13.2-15.2) % Plt Count 785 H (140-440) K/mm3 Lymphocytes % (Manual) 36.0 H (13.4-35.0) % Monocytes % (Manual) 11.0 H (0.0-7.3) % Nucleated RBC % 5.0 H (0.0-0.9) % Monocytes # (Manual) 1.6 H (0.0-0.8) K/mm3
--- NOTE | 2019-09-13 15:53 | Progress Note ---
Assessment and Plan Cultures: Blood culture 09/04/2019 no growth today. Wound culture 09/12/2019 no growth today. Assessment: 29 y/o female with history of SCD, right femur chronic osteomyelitis chronically on doxycycline for suppression and ESBL E coli UTI admitted on 09/02/2019 due to a week history of generalized body aches, mainly bilateral legs, lower back, bilateral arms and left leg boil: #Sepsis: fever and leukocytosis resolved; source left anterior tibia cellulitis/osteo, left knee septic arthritis. UA neg. 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 Osteomyelitis. CT shows no abscess +acute on chronic tibial osteo and left knee septi arthritis. She reports she was taking doxycycline for suppression however patient missed last infectious disease clinic visit. CRP 8.9. MRI shows chronic septic arthritis and chronic tibial ostemyelitis. 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 s/p OR debridement on 01/11/2019 chronically on doxycycline for suppression #History of ESBL E coli UTI Recommendations: F/u I + D culture Continue vancomycin with PK consult, keep vancomycin trough 10-15 mg/dL Continue ceftriaxone Supportive management - analgesia, transfusions as needed per Hem Anticipate to d/c on IV abx for 6-8 weeks due to reactivated left tibial osteo with an abscess will follow Medina Freeman MD Infectious Diseases Appliance [employer] [facility]) M [phone] O [phone] Subjective Date of service: 09/13/19 Principal diagnosis: cellulitis Interval history: Feels better, no fever Objective - Exam Narrative Exam: General appearance: Alert in NAD Eyes: anicteric sclerae, moist conjunctivae; no lid-lag; PERRLA HENT: Atraumatic; oropharynx clear Lungs: CTA, with normal respiratory effort and no intercostal retractions CV: RRR no murmur Abdomen: Soft, non-tender; no masses or hepatosplenomegaly Extremities: Left anterior tibial edema, heat and tenderness - better. Right thigh old scar. Skin: No rash. Psych: No agitated Neuro: alert and oriented x 3. Moving all extermities - Constitutional Vitals: Vital Signs Temp Pulse Resp BP Pulse Ox 98.6 F 64 20 99/62 98 09/13/19 07:34 09/13/19 07:00 09/13/19 10:26 09/13/19 07:34 09/13/19 04:55 Temperature -Last 24 Hours Temperature 98.6 F Temperature 98.9 F Temperature 98.7 F Temperature 97.9 F Temperature 98.6 F - Labs CBC & Chem 7: 09/13/19 04:34 09/12/19 03:53 Labs: Abnormal lab results 09/13/19 Range/Units 04:34 WBC 14.7 H (4.5-11.0) K/mm3 RBC 2.64 L (3.65-5.03) M/mm3 Hgb 8.6 L (10.1-14.3) gm/dl Hct 25.8 L (30.3-42.9) % MCV 98 H (79-97) fl MCH 33 H (28-32) pg RDW 24.1 H (13.2-15.2) % Plt Count 785 H (140-440) K/mm3 Lymphocytes % (Manual) 36.0 H (13.4-35.0) % Monocytes % (Manual) 11.0 H (0.0-7.3) % Nucleated RBC % 5.0 H (0.0-0.9) % Monocytes # (Manual) 1.6 H (0.0-0.8) K/mm3
[2019-09-13] MEDS: SIMETHICONE 80 MG CHEW TAB PO PRN (17:47)
[2019-09-13] MEDS: HYDROmorphone 1 MG/1 ML INJ IV PRN (17:48)
[2019-09-13] MEDS: ENOXAPARIN 40 MG/0.4 ML INJ SUB-Q SCH (21:28)
[2019-09-13] MEDS: SENNOSIDES 8.6 MG TAB PO SCH (21:28)
[2019-09-14] MEDS: VANCOMYCIN 750 MG in SODIUM CHLORIDE 0.9% 250ML 250 ML IV SCH ×3 (02:01→18:19)
[2019-09-14 05:04] LABS: Hemoglobin 8.3 gm/dl (10.1-14.3); Mean Corpuscular HGB Conc 33 % (30-34); Mean Corpuscular Volume 98 fl (79-97); Platelet Count 670 K/mm3 (140-440); Red Blood Count 2.56 M/mm3 (3.65-5.03)
[2019-09-14 05:08] LABS: Red Cell Distribution Width 24.5 % (13.2-15.2)
[2019-09-14 05:32] LABS: Albumin 3.5 g/dL (3.9-5); Bilirubin,Direct 0.4 mg/dL (0-0.2)
[2019-09-14 06:13] LABS: Anisocytosis 2+; Monocytes % (Manual) 0 % (0.0-7.3); Total Cells Counted 100
[2019-09-14 06:14] LABS: Hypochromasia 1+; Platelet Estimate Consistent w Auto; Sickle Cells Few; Target Cells Few
[2019-09-14] MEDS: HYDROXYUREA 500 MG CAP PO SCH (10:34)
[2019-09-14] MEDS: HYDROmorphone 1 MG/1 ML INJ IV PRN ×2 (10:34→21:37)
[2019-09-14] MEDS: SODIUM CHLORIDE 0.9% 1000 ML 1,000 ML IV SCH ×2 (10:35→21:34)
[2019-09-14] MEDS: MULTIVITAMINS ,THERAPEUTIC TAB PO SCH (10:36)
[2019-09-14] MEDS: FOLIC ACID 1 MG TAB PO SCH (10:36)
--- NOTE | 2019-09-14 14:25 | Progress Note ---
Assessment and Plan Cultures: Blood culture 09/04/2019 no growth today. Wound culture 09/12/2019 no growth today. Assessment: 29 y/o female with history of SCD, right femur chronic osteomyelitis chronically on doxycycline for suppression and ESBL E coli UTI admitted on 09/02/2019 due to a week history of generalized body aches, mainly bilateral legs, lower back, bilateral arms and left leg boil: #Sepsis: fever and leukocytosis resolved; source left anterior tibia cellulitis/osteo, left knee septic arthritis. UA neg. #Left anterior tibia cellulitis, acute on chronic tibial ostemyelitis and left knee septic arthritis: On exam Abscess vr sinus tract from Osteomyelitis. CT shows no abscess +acute on chronic tibial osteo and left knee septi arthritis. She reports she was taking doxycycline for suppression however patient missed last infectious disease clinic visit. CRP 8.9. MRI shows chronic septic arthritis and chronic tibial ostemyelitis. S/p bedside I+D by Dr Landers no growth, I assume this is the same MRSA which have grown in the past. 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 Braxton is covering the weekend will follow Medina Freeman MD Infectious Diseases Quality Assurance Group Leader [facility]) M [phone] O [phone] Subjective Date of service: 09/14/19 Principal diagnosis: cellulitis Interval history: Feels better, no fever Objective - Exam Narrative Exam: General appearance: Alert in NAD Eyes: anicteric sclerae, moist conjunctivae; no lid-lag; PERRLA HENT: Atraumatic; oropharynx clear Lungs: CTA, with normal respiratory effort and no intercostal retractions CV: RRR no murmur Abdomen: Soft, non-tender; no masses or hepatosplenomegaly Extremities: Left anterior tibial edema, heat and tenderness - better. Right thigh old scar. Skin: No rash. Psych: No agitated Neuro: alert and oriented x 3. Moving all extermities - Constitutional Vitals: Vital Signs Temp Pulse Resp BP Pulse Ox 98.6 F 70 18 101/52 98 09/14/19 12:02 09/14/19 12:02 09/14/19 12:02 09/14/19 12:02 09/14/19 12:02 Temperature -Last 24 Hours Temperature 98.6 F Temperature 98.4 F Temperature 97.6 F Temperature 98.2 F Temperature 98.8 F Temperature 98.2 F - Labs CBC & Chem 7: 09/14/19 04:53 09/12/19 03:53 Labs: Abnormal lab results 09/14/19 09/14/19 Range/Units 04:53 04:53 WBC 13.6 H (4.5-11.0) K/mm3 RBC 2.56 L (3.65-5.03) M/mm3 Hgb 8.3 L (10.1-14.3) gm/dl Hct 25.0 L (30.3-42.9) % MCV 98 H (79-97) fl MCH 33 H (28-32) pg RDW 24.5 H (13.2-15.2) % Plt Count 670 H (140-440) K/mm3 Lymphocytes % (Manual) 38.0 H (13.4-35.0) % Basophils % (Manual) 2.0 H (0.0-1.8) % Nucleated RBC % 2.0 H (0.0-0.9) % Seg Neutrophils # Man 7.9 H (1.8-7.7) K/mm3 Basophils # (Manual) 0.3 H (0.0-0.1) K/mm3 Percent Retic 9.76 H (0.78-2.58) % Total Bilirubin 1.50 H (0.1-1.2) mg/dL Direct Bilirubin 0.4 H (0-0.2) mg/dL Alkaline Phosphatase 136 H (35-129) units/L Lactate Dehydrogenase 260 H (91-180) units/L Albumin 3.5 L (3.9-5) g/dL
--- NOTE | 2019-09-14 15:00 | Progress Note ---
Assessment and Plan /Sepsis, POA: -Patient presented with fever and leukocytosis resolved; source left anterior tibia cellulitis/osteo, left knee septic arthritis. UA neg. -Continue antibiotic per ID, s/p debridement, noted wound culture /Left anterior tibia cellulitis, acute on chronic tibial ostemyelitis and left knee septic arthritis ID following, continue Rocephin, Vancomycin Cultures negative to date Orthopedic consulted, s/p I and D - follow cx per ID plan to d/c on vancomycin 1,250 IV every 12 hours for 6 weeks till 10/25/2019 followed by chronic oral suppression with doxycycline or bactrim. CT left lower extremity with contrast; No soft tissue abscess Chronic osteomyelitis involving the bones of both lower legs Chronic septic arthritis at the left knee MRI left lower extremity; Abnormal signal in the visualized portion of the tibia and fibula with contrast enhancement most likely due to chronic osteomyelitis /Sickle cell anemia; Hemoglobin dropped upto 5.7 Transfused total 2 units of PRBC - h/h now stable Monitor H&H,transfuse additional PRBC PRN /Sickle cell crisis; cont Oxygen, IV fluids, pain medications Supportive care, advised plenty of oral fluids cont Hydrea, folic acid /Febrile illness; secondary to sepsis Afebrile today, on antibiotics /-Moderate malnutrition; BMI 17.2 Nutrition supplements .supportive care /-Dehydration; IV fluids --DVT prophylaxis;Lovenox Monitor closely and adjust management as needed Plan of care reviewed with the patient and her nurse Disposition; when clears by ID 09/10; resumed care. Patient was seen by orthopedics today and recommended I and D. Continue IV antibiotics and follow the patient clinically 09/11: Status post I&D at bedside by orthopedic surgeon, wait for ID recommendation for discharge planning 09/12: will need 4-6 weeks if iv abx, ordered for PICC line. wait for final ID recommendation 09/13; per ID plan to d/c on vancomycin 1,250 IV every 12 hours for 6 weeks till 10/25/2019 followed by chronic oral suppression with doxycycline or bactrim. CM notified for home iv abx set up. PICC line placed Brief history; 29 y/o female patient with history of sickle cell disease, chronic osteomyelitis right femur with MRSA infection, status post debridement in [address] Bell was admitted with severe sickle cell anemia hemoglobin of 5.7, fever, sepsis, swelling of left lower extremity. Received blood transfusion, CT scan show chronic septic arthritis of the left knee, ID evaluated, on antibiotics, cultures negative to date, orthopedic surgeon consulted, s/p I AND D. Physical exam: General appearance: Present: no acute distress, cachectic, disheveled - EENT Eyes: Present: PERRL, EOM intact - Neck Neck: Present: supple, normal ROM - Respiratory Respiratory effort: normal Respiratory: bilateral: diminished, negative: rales, rhonchi, wheezing - Cardiovascular Rhythm: regular Heart Sounds: Present: S1 & S2 - Extremities Extremities: no ischemia, abnormal (Left calf mild swelling and tenderness, left knee abnormality), wound dressing on LLE mid shaft on place - Abdominal General gastrointestinal: soft, non-tender - Integumentary Integumentary: Present: clear, warm - Psychiatric Psychiatric: appropriate mood/affect, cooperative - Neurologic Neurologic: moves all extremities Subjective Date of service: 09/14/19 Principal diagnosis: cellulitis Interval history: Patient seen and examined. Medical records and medication list reviewed. No acute event overnight noted by the RN. Patient denies any chest pain or difficulty breathing. Patient is tolerating diet. Complains of lower extremity pain with swelling and back pain - but improved Discussed plan of care at bedside with patient. Objective - Constitutional Vitals: Vital Signs - 12hr 09/14/19 09/14/19 09/14/19 04:42 07:00 07:30 Temperature 97.6 F 98.4 F Pulse Rate 55 L 64 62 Respiratory 16 20 Rate Blood Pressure 97/56 101/52 O2 Sat by Pulse 99 100 Oximetry 09/14/19 09/14/19 10:34 12:02 Temperature 98.6 F Pulse Rate 70 Respiratory 20 18 Rate Blood Pressure 101/52 O2 Sat by Pulse 98 Oximetry - Labs CBC & Chem 7: 09/14/19 04:53 09/12/19 03:53 Labs: Abnormal lab results 09/14/19 09/14/19 Range/Units 04:53 04:53 WBC 13.6 H (4.5-11.0) K/mm3 RBC 2.56 L (3.65-5.03) M/mm3 Hgb 8.3 L (10.1-14.3) gm/dl Hct 25.0 L (30.3-42.9) % MCV 98 H (79-97) fl MCH 33 H (28-32) pg RDW 24.5 H (13.2-15.2) % Plt Count 670 H (140-440) K/mm3 Lymphocytes % (Manual) 38.0 H (13.4-35.0) % Basophils % (Manual) 2.0 H (0.0-1.8) % Nucleated RBC % 2.0 H (0.0-0.9) % Seg Neutrophils # Man 7.9 H (1.8-7.7) K/mm3 Basophils # (Manual) 0.3 H (0.0-0.1) K/mm3 Percent Retic 9.76 H (0.78-2.58) % Total Bilirubin 1.50 H (0.1-1.2) mg/dL Direct Bilirubin 0.4 H (0-0.2) mg/dL Alkaline Phosphatase 136 H (35-129) units/L Lactate Dehydrogenase 260 H (91-180) units/L Albumin 3.5 L (3.9-5) g/dL
[2019-09-14] MEDS: SENNOSIDES 8.6 MG TAB PO SCH (21:35)
[2019-09-14] MEDS: SIMETHICONE 80 MG CHEW TAB PO PRN (21:35)
[2019-09-14] MEDS: diphenhydrAMINE 50 MG/ML VIAL IV PRN (21:37)
[2019-09-14] MEDS: ENOXAPARIN 40 MG/0.4 ML INJ SUB-Q SCH (21:37)
[2019-09-15] MEDS: VANCOMYCIN 750 MG in SODIUM CHLORIDE 0.9% 250ML 250 ML IV SCH ×2 (02:21→12:41)
[2019-09-15] MEDS: FOLIC ACID 1 MG TAB PO SCH (10:26)
[2019-09-15] MEDS: HYDROXYUREA 500 MG CAP PO SCH (10:26)
[2019-09-15] MEDS: MULTIVITAMINS ,THERAPEUTIC TAB PO SCH (10:26)
[2019-09-15] MEDS ORDERED: VANCOMYCIN PHARMACY TO DOSE IV SCH (11:00)
--- NOTE | 2019-09-15 11:34 | Progress Note ---
Assessment and Plan /Sepsis, POA: -Patient presented with fever and leukocytosis resolved; source left anterior tibia cellulitis/osteo, left knee septic arthritis. UA neg. -Continue antibiotic per ID, s/p debridement, noted wound culture /Left anterior tibia cellulitis, acute on chronic tibial ostemyelitis and left knee septic arthritis ID following, continue Rocephin, Vancomycin Cultures negative to date Orthopedic consulted, s/p I and D - follow cx per ID plan to d/c on vancomycin 1,250 IV every 12 hours for 6 weeks till 10/25/2019 followed by chronic oral suppression with doxycycline or bactrim. CT left lower extremity with contrast; No soft tissue abscess Chronic osteomyelitis involving the bones of both lower legs Chronic septic arthritis at the left knee MRI left lower extremity; Abnormal signal in the visualized portion of the tibia and fibula with contrast enhancement most likely due to chronic osteomyelitis /Sickle cell anemia; Hemoglobin dropped upto 5.7 Transfused total 2 units of PRBC - h/h now stable Monitor H&H,transfuse additional PRBC PRN /Sickle cell crisis; cont Oxygen, IV fluids, pain medications Supportive care, advised plenty of oral fluids cont Hydrea, folic acid /Febrile illness; secondary to sepsis Afebrile today, on antibiotics /-Moderate malnutrition; BMI 17.2 Nutrition supplements .supportive care /-Dehydration; IV fluids --DVT prophylaxis;Lovenox Monitor closely and adjust management as needed Plan of care reviewed with the patient and her nurse Disposition; when clears by ID 09/10; resumed care. Patient was seen by orthopedics today and recommended I and D. Continue IV antibiotics and follow the patient clinically 09/11: Status post I&D at bedside by orthopedic surgeon, wait for ID recommendation for discharge planning 09/12: will need 4-6 weeks if iv abx, ordered for PICC line. wait for final ID recommendation 09/13; per ID plan to d/c on vancomycin 1,250 IV every 12 hours for 6 weeks till 10/25/2019 followed by chronic oral suppression with doxycycline or bactrim. CM notified for home iv abx set up. PICC line placed 09/14: d/c pending on home iv abx set up. PICC line placed, order sent out to CM by ID Brief history; 29 y/o female patient with history of sickle cell disease, chronic osteomyelitis right femur with MRSA infection, status post debridement in [address] Bell was admitted with severe sickle cell anemia hemoglobin of 5.7, fever, sepsis, swelling of left lower extremity. Received blood transfusion, CT scan show chronic septic arthritis of the left knee, ID evaluated, on antibiotics, cultures negative to date, orthopedic surgeon consulted, s/p I AND D. Physical exam: General appearance: Present: no acute distress, cachectic, disheveled - EENT Eyes: Present: PERRL, EOM intact - Neck Neck: Present: supple, normal ROM - Respiratory Respiratory effort: normal Respiratory: bilateral: diminished, negative: rales, rhonchi, wheezing - Cardiovascular Rhythm: regular Heart Sounds: Present: S1 & S2 - Extremities Extremities: no ischemia, abnormal (Left calf mild swelling and tenderness, left knee abnormality), wound dressing on LLE mid shaft on place - Abdominal General gastrointestinal: soft, non-tender - Integumentary Integumentary: Present: clear, warm - Psychiatric Psychiatric: appropriate mood/affect, cooperative - Neurologic Neurologic: moves all extremities Subjective Date of service: 09/15/19 Principal diagnosis: cellulitis Interval history: Patient seen and examined. Medical records and medication list reviewed. No acute event overnight noted by the RN. Patient denies any chest pain or difficulty breathing. Patient is tolerating diet. Complains of lower extremity pain with swelling and back pain - but improved Discussed plan of care at bedside with patient. discharge pending on home abx setup Objective - Constitutional Vitals: Vital Signs - 12hr 09/15/19 09/15/19 09/15/19 00:15 03:52 08:07 Temperature 98.2 F 97.8 F 98.8 F Pulse Rate 69 53 L 68 Respiratory 16 16 18 Rate Blood Pressure 102/53 97/61 110/72 O2 Sat by Pulse 99 98 100 Oximetry - Labs CBC & Chem 7: 09/14/19 04:53 09/12/19 03:53
[2019-09-15] MEDS: VANCOMYCIN/NS 1 GM/250 ML 1 GM/250 ML BAG IV SCH ×3 (11:47→21:06)
[2019-09-15] MEDS: SODIUM CHLORIDE 0.9% 1000 ML 1,000 ML IV SCH ×2 (14:23→21:06)
[2019-09-15] MEDS: diphenhydrAMINE 50 MG/ML VIAL IV PRN (21:06)
[2019-09-15] MEDS: SENNOSIDES 8.6 MG TAB PO SCH (21:06)
[2019-09-15] MEDS: ENOXAPARIN 40 MG/0.4 ML INJ SUB-Q SCH (21:07)
[2019-09-16] MEDS: VANCOMYCIN/NS 1 GM/250 ML 1 GM/250 ML BAG IV SCH ×3 (04:30→21:14)
[2019-09-16] MEDS: HYDROmorphone 1 MG/1 ML INJ IV PRN ×2 (06:46→17:44)
[2019-09-16] MEDS: HYDROXYUREA 500 MG CAP PO SCH (09:56)
[2019-09-16] MEDS: MULTIVITAMINS ,THERAPEUTIC TAB PO SCH (09:56)
[2019-09-16] MEDS: FOLIC ACID 1 MG TAB PO SCH (09:56)
--- NOTE | 2019-09-16 12:40 | Progress Note ---
Assessment and Plan /Sepsis, POA: -Patient presented with fever and leukocytosis resolved; source left anterior tibia cellulitis/osteo, left knee septic arthritis. UA neg. -Continue antibiotic per ID, s/p debridement, noted wound culture /Left anterior tibia cellulitis, acute on chronic tibial ostemyelitis and left knee septic arthritis ID following, continue Rocephin, Vancomycin Cultures negative to date Orthopedic consulted, s/p I and D - follow cx per ID plan to d/c on vancomycin 1,250 IV every 12 hours for 6 weeks till 10/25/2019 followed by chronic oral suppression with doxycycline or bactrim. CT left lower extremity with contrast; No soft tissue abscess Chronic osteomyelitis involving the bones of both lower legs Chronic septic arthritis at the left knee MRI left lower extremity; Abnormal signal in the visualized portion of the tibia and fibula with contrast enhancement most likely due to chronic osteomyelitis /Sickle cell anemia; Hemoglobin dropped upto 5.7 Transfused total 2 units of PRBC - h/h now stable Monitor H&H,transfuse additional PRBC PRN /Sickle cell crisis; cont Oxygen, IV fluids, pain medications Supportive care, advised plenty of oral fluids cont Hydrea, folic acid /Febrile illness; secondary to sepsis Afebrile today, on antibiotics /-Moderate malnutrition; BMI 17.2 Nutrition supplements .supportive care /-Dehydration; IV fluids --DVT prophylaxis;Lovenox Monitor closely and adjust management as needed Plan of care reviewed with the patient and her nurse Disposition; when clears by ID 09/10; resumed care. Patient was seen by orthopedics today and recommended I and D. Continue IV antibiotics and follow the patient clinically 09/11: Status post I&D at bedside by orthopedic surgeon, wait for ID recommendation for discharge planning 09/12: will need 4-6 weeks if iv abx, ordered for PICC line. wait for final ID recommendation 09/13; per ID plan to d/c on vancomycin 1,250 IV every 12 hours for 6 weeks till 10/25/2019 followed by chronic oral suppression with doxycycline or bactrim. CM notified for home iv abx set up. PICC line placed 09/14: d/c pending on home iv abx set up. PICC line placed, order sent out to CM by ID 09/15: d/c pending on home abx setup Brief history; 29 y/o female patient with history of sickle cell disease, chronic osteomyelitis right femur with MRSA infection, status post debridement in [address] Bell was admitted with severe sickle cell anemia hemoglobin of 5.7, fever, sepsis, swelling of left lower extremity. Received blood transfusion, CT scan show chronic septic arthritis of the left knee, ID evaluated, on antibiotics, cx negative to date, orthopedic surgeon consulted, s/p I AND D. Physical exam: General appearance: Present: no acute distress, cachectic, disheveled - EENT Eyes: Present: PERRL, EOM intact - Neck Neck: Present: supple, normal ROM - Respiratory Respiratory effort: normal Respiratory: bilateral: diminished, negative: rales, rhonchi, wheezing - Cardiovascular Rhythm: regular Heart Sounds: Present: S1 & S2 - Extremities Extremities: no ischemia, wound dressing on LLE mid shaft on place - Abdominal General gastrointestinal: soft, non-tender - Integumentary Integumentary: Present: clear, warm - Psychiatric Psychiatric: appropriate mood/affect, cooperative - Neurologic Neurologic: moves all extremities Subjective Date of service: 09/16/19 Principal diagnosis: cellulitis Interval history: Patient seen and examined. Medical records and medication list reviewed. No acute event overnight noted by the RN. Patient denies any chest pain or difficulty breathing. Patient is tolerating diet. Discussed plan of care at bedside with patient. discharge pending on home abx setup Objective - Constitutional Vitals: Vital Signs - 12hr 09/16/19 09/16/19 05:05 07:52 Temperature 98.5 F 98.8 F Pulse Rate 84 71 Respiratory 18 18 Rate Blood Pressure 96/61 102/64 O2 Sat by Pulse 98 99 Oximetry - Labs CBC & Chem 7: 09/17/19 04:00 09/17/19 04:00
[2019-09-16] MEDS: SODIUM CHLORIDE 0.9% 1000 ML 1,000 ML IV SCH (17:44)
[2019-09-16] MEDS: SENNOSIDES 8.6 MG TAB PO SCH (21:13)
[2019-09-16] MEDS: ENOXAPARIN 40 MG/0.4 ML INJ SUB-Q SCH (21:13)
[2019-09-16] MEDS: SIMETHICONE 80 MG CHEW TAB PO PRN (21:14)
[2019-09-16] MEDS: diphenhydrAMINE 50 MG/ML VIAL IV PRN (21:14)
[2019-09-17] MEDS: VANCOMYCIN/NS 1 GM/250 ML 1 GM/250 ML BAG IV SCH ×3 (04:09→21:20)
[2019-09-17] MEDS: SODIUM CHLORIDE 0.9% 1000 ML 1,000 ML IV SCH ×2 (04:09→17:08)
[2019-09-17 05:04] LABS: Basophils # (Auto) 0.1 K/mm3 (0.0-0.1); Basophils % (Auto) 0.6 % (0.0-1.8); Eosinophils # (Auto) 0.4 K/mm3 (0.0-0.4); Eosinophils % (Auto) 2.9 % (0.0-4.3); Hematocrit 21.6 % (30.3-42.9); Hemoglobin 7.3 gm/dl (10.1-14.3); Lymphocytes # (Auto) 3.8 K/mm3 (1.2-5.4); Lymphocytes % (Auto) 26.7 % (13.4-35.0); Mean Corpuscular HGB Conc 34 % (30-34); Mean Corpuscular Volume 99 fl (79-97); Monocytes # (Auto) 1.7 K/mm3 (0.0-0.8); Monocytes % (Auto) 11.7 % (0.0-7.3); Platelet Count 518 K/mm3 (140-440); Red Blood Count 2.17 M/mm3 (3.65-5.03)
[2019-09-17 05:07] LABS: Red Cell Distribution Width 23.5 % (13.2-15.2)
[2019-09-17 05:20] LABS: BUN/Creatinine Ratio 30; Blood Urea Nitrogen 9 mg/dL (7-17); Calcium 8.9 mg/dL (8.4-10.2)
[2019-09-17] MEDS: HYDROXYUREA 500 MG CAP PO SCH (10:21)
[2019-09-17] MEDS: SIMETHICONE 80 MG CHEW TAB PO PRN ×2 (10:21→21:19)
[2019-09-17] MEDS: MULTIVITAMINS ,THERAPEUTIC TAB PO SCH (10:21)
[2019-09-17] MEDS: FOLIC ACID 1 MG TAB PO SCH (10:21)
[2019-09-17] MEDS: HYDROmorphone 1 MG/1 ML INJ IV PRN ×3 (10:22→21:19)
--- NOTE | 2019-09-17 12:42 | Discharge Summary ---
Providers - Providers Date of Admission: 09/03/19 11:16 Date of discharge: 09/19/19 Attending physician: NOBLE DE JESUS 09/06/19 13:00 Consult to Physician [CONS] Routine Comment: Consulting Provider: MEDINA LOCKETT Physician Instructions: Reason For Exam: Fever/lower extremity cellulitis 09/09/19 11:06 Consult to Physician [CONS] Routine Comment: Consulting Provider: EDGAR GARCIA Physician Instructions: Reason For Exam: Chronic septic arthritis left knee 09/13/19 13:58 PICC Line Insertion [Consult to PICC Line RN] [CONS] Routine Reason For Exam: need iv abx Type Line:: PICC 09/14/19 14:29 Consult to Case Management [CONS] Stat Services Needed at Discharge: Other Notified:: director of institutional sales Additional Physician Instructions: [facility] ([facility]) [address] [place] [address] OUTPATIENT PARENTERAL ANTIBIOTIC THERAPY (OPAT) ORDERS Diagnoses: left leg ostoemyelitis Administer: vancomycin 1,250 IV every 12 hours for 6 weeks till 10/25/2019. Keep trough 10-20. Remove PICC line after last dose unless otherwise instructed. Line: Maintain IV access with weekly dressing changes and locks per protocol. Labs: Every Tuesday CBC, AST, ALT, Creatinine, CPK, vancomcyin trough. Please fax results to [phone] and call [phone] for critical lab results. Medina Bell MD Infectious Diseases Lightout Examiner [facility] ([facility]) O: [phone] F: [phone] 09/14/19 14:30 Consult to PICC Line RN [CONS] Urgent Reason For Exam: iv vanco x 6 weeks Type Line:: PICC Primary care physician: FILM EDITOR SUPERVISOR Hospitalization Condition: Stable Hospital course: 29 y/o female patient with history of sickle cell disease, chronic osteomyelitis right femur with MRSA infection, status post debridement in [address] Bell was admitted with severe sickle cell anemia hemoglobin of 5.7, fever, sepsis, swelling of left lower extremity. Received blood transfusion, CT scan show chronic septic arthritis of the left knee, ID evaluated, on antibio tics, cx negative to date, orthopedic surgeon consulted, s/p I and D. ID recommended vancomycin 1,250 IV every 12 hours for 6 weeks till 10/25/2019 followed by chronic oral suppression with doxycycline or bactrim. Patient was placed on PICC line, she was then discharged home in stable condition. 09/10; resumed care. Patient was seen by orthopedics today and recommended I and D. Continue IV antibiotics and follow the patient clinically 09/11: Status post I&D at bedside by orthopedic surgeon, wait for ID recommendation for discharge planning 09/12: will need 4-6 weeks if iv abx, ordered for PICC line. wait for final ID recommendation 09/13; per ID plan to d/c on vancomycin 1,250 IV every 12 hours for 6 weeks till 10/25/2019 followed by chronic oral suppression with doxycycline or bactrim. CM notified for home iv abx set up. PICC line placed 09/14: d/c pending on home iv abx set up. PICC line placed, order sent out to CM by ID 09/15: d/c pending on home abx setup 09/16: d/c pending on insurance authorization for home iv abx set up 09/17: d/c pending on insurance authorization for home iv abx set up 09/18: approved for home iv abx. Medically stable for discharge. d/c home with iv abx set up Discharge diagnosis and Mx; /Sepsis, POA: -Patient presented with fever and leukocytosis resolved; source left anterior tibia cellulitis/osteo, left knee septic arthritis. UA neg. -Continue antibiotic per ID, s/p debridement by ortho, wound culture so far negative /Left anterior tibia cellulitis, acute on chronic tibial ostemyelitis and left knee septic arthritis ID following, placed on Rocephin, Vancomycin then only vancomycin Cultures negative to date Orthopedic consulted, s/p I and D - follow cx per ID plan to d/c on vancomycin 1,250 IV every 12 hours for 6 weeks till 10/25/2019 followed by chronic oral suppression with doxycycline or bactrim. CT left lower extremity with contrast; No soft tissue abscess Chronic osteomyelitis involving the bones of both lower legs Chronic septic arthritis at the left knee MRI left lower extremity; Abnormal signal in the visualized portion of the tibia and fibula with contrast enhancement most likely due to chronic osteomyelitis /Sickle cell anemia; Hemoglobin dropped upto 5.7 Transfused total 2 units of PRBC - h/h now stable /Sickle cell crisis; placed on Oxygen, IV fluids, pain medications, Supportive care, advised plenty of oral fluids cont Hydrea, folic acid /Febrile illness; secondary to sepsis Afebrile now, treated with antibiotics /-Moderate malnutrition; BMI 17.2 continue Nutrition supplements. supportive care /-Dehydration; s/p IV fluids --DVT prophylaxis;Lovenox Disposition; Home with IV abx set up. Physical exam: General appearance: Present: no acute distress, cachectic, disheveled - EENT Eyes: Present: PERRL, EOM intact - Neck Neck: Present: supple, normal ROM - Respiratory Respiratory effort: normal Respiratory: bilateral: diminished, negative: rales, rhonchi, wheezing - Cardiovascular Rhythm: regular Heart Sounds: Present: S1 & S2 - Extremities Extremities: no ischemia, wound dressing on LLE mid shaft on place - Abdominal General gastrointestinal: soft, non-tender - Integumentary Integumentary: Present: clear, warm - Psychiatric Psychiatric: appropriate mood/affect, cooperative - Neurologic Neurologic: moves all extremities Disposition: DC/TX-06 HOME UND[facility] Time spent for discharge: 34 minutes Core Measure Documentation - Palliative Care Palliative Care/ Comfort Measures: Not Applicable - Core Measures Any of the following diagnoses?: none Exam - Constitutional Vitals: Temp Pulse Resp BP Pulse Ox 98.5 F 75 16 105/66 97 09/17/19 07:26 09/17/19 07:26 09/17/19 07:26 09/17/19 07:26 09/17/19 07:26 Plan Activity: fall precautions Weight Bearing Status: Non-Weight Bearing Diet: regular Additional Instructions: vancomycin 1,250 IV every 12 hours for 6 weeks till 10/25/2019 Follow up with: ERIC BAUMAN MD [Primary Care Provider] - 3-5 Days MEDINA LOCKETT MD [Staff Physician] - 7 Days
--- NOTE | 2019-09-17 15:24 | Progress Note ---
Assessment and Plan Cultures: Blood culture 09/04/2019 no growth today. Wound culture 09/12/2019 no growth today. Assessment: 29 y/o female with history of SCD, right femur chronic osteomyelitis chronically on doxycycline for suppression and ESBL E coli UTI admitted on 09/02/2019 due to a week history of generalized body aches, mainly bilateral legs, lower back, bilateral arms and left leg boil: #Sepsis: fever and leukocytosis resolved; source left anterior tibia cellulitis/osteo, left knee septic arthritis. UA neg. #Left anterior tibia cellulitis, acute on chronic tibial osteomyelitis and left knee septic arthritis: On exam abscess vr sinus tract from Osteomyelitis. CT shows no abscess +acute on chronic tibial osteo and left knee septic arthritis. She reports she was taking doxycycline for suppression however patient missed last infectious disease clinic visit. CRP 8.9. MRI shows chronic septic arthr itis and chronic tibial ostemyelitis. S/p bedside I+D by Dr Landers no growth, I assume the etiology is probably MRSA which has grown in the past. 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 Bell f/u in ID clinic with Dr. Bell (senior power scheduler notified) Sergey Braxton MD, FACP [facility] ([facility]) C: [phone] O: [phone] F: [phone] Subjective Date of service: 09/17/19 Principal diagnosis: cellulitis Interval history: Reports no complaints. Has PICC line in placed. Awaiting discharge. No diarrhea. No rash. Objective - Exam Narrative Exam: General appearance: Alert in NAD Eyes: anicteric sclerae, moist conjunctivae; no lid-lag; PERRLA HENT: Atraumatic; oropharynx clear Lungs: CTA, with normal respiratory effort and no intercostal retractions CV: RRR no murmur Abdomen: Soft, non-tender; no masses or hepatosplenomegaly Extremities: Left anterior tibial edema, heat and tenderness - better. Right leg old scar. Skin: No rash. Psych: No agitated Neuro: alert and oriented x 3. Moving all extermities - Constitutional Vitals: Vital Signs Temp Pulse Resp BP Pulse Ox 98.5 F 75 16 105/66 97 09/17/19 07:26 09/17/19 07:26 09/17/19 07:26 09/17/19 07:26 09/17/19 07:26 Temperature -Last 24 Hours Temperature 98.5 F Temperature 98.4 F Temperature 98.3 F Temperature 97.6 F - Labs CBC & Chem 7: 09/17/19 04:00 09/17/19 04:00 Labs: Abnormal lab results 09/17/19 09/17/19 Range/Units 04:00 04:00 WBC 14.4 H (4.5-11.0) K/mm3 RBC 2.17 L (3.65-5.03) M/mm3 Hgb 7.3 L (10.1-14.3) gm/dl Hct 21.6 L (30.3-42.9) % MCV 99 H (79-97) fl MCH 34 H (28-32) pg RDW 23.5 H (13.2-15.2) % Plt Count 518 H (140-440) K/mm3 Piatt % (Auto) 11.7 H (0.0-7.3) % Piatt # 1.7 H (0.0-0.8) K/mm3 Seg Neutrophils # 8.4 H (1.8-7.7) K/mm3 Creatinine 0.3 L (0.7-1.2) mg/dL
[2019-09-17] MEDS: diphenhydrAMINE 50 MG/ML VIAL IV PRN (21:18)
[2019-09-17] MEDS: SENNOSIDES 8.6 MG TAB PO SCH (21:18)
[2019-09-17] MEDS: ENOXAPARIN 40 MG/0.4 ML INJ SUB-Q SCH (21:18)
[2019-09-18] MEDS: VANCOMYCIN/NS 1 GM/250 ML 1 GM/250 ML BAG IV SCH ×3 (04:07→21:25)
[2019-09-18] MEDS: SODIUM CHLORIDE 0.9% 1000 ML 1,000 ML IV SCH ×2 (09:34→21:24)
[2019-09-18] MEDS: HYDROXYUREA 500 MG CAP PO SCH (09:35)
[2019-09-18] MEDS: HYDROcodone/ACETAMINOPHEN 10-325MG TAB PO PRN (09:35)
[2019-09-18] MEDS: MULTIVITAMINS ,THERAPEUTIC TAB PO SCH (09:35)
[2019-09-18] MEDS: FOLIC ACID 1 MG TAB PO SCH (09:35)
--- NOTE | 2019-09-18 10:47 | Progress Note ---
Assessment and Plan /Sepsis, POA: -Patient presented with fever and leukocytosis resolved; source left anterior tibia cellulitis/osteo, left knee septic arthritis. UA neg. -Continue antibiotic per ID, s/p debridement, noted wound culture /Left anterior tibia cellulitis, acute on chronic tibial ostemyelitis and left knee septic arthritis ID following, continue Rocephin, Vancomycin Cultures negative to date Orthopedic consulted, s/p I and D - follow cx per ID plan to d/c on vancomycin 1,250 IV every 12 hours for 6 weeks till 10/25/2019 followed by chronic oral suppression with doxycycline or bactrim. CT left lower extremity with contrast; No soft tissue abscess Chronic osteomyelitis involving the bones of both lower legs Chronic septic arthritis at the left knee MRI left lower extremity; Abnormal signal in the visualized portion of the tibia and fibula with contrast enhancement most likely due to chronic osteomyelitis /Sickle cell anemia; Hemoglobin dropped upto 5.7 Transfused total 2 units of PRBC - h/h now stable Monitor H&H,transfuse additional PRBC PRN /Sickle cell crisis; cont Oxygen, IV fluids, pain medications Supportive care, advised plenty of oral fluids cont Hydrea, folic acid /Febrile illness; secondary to sepsis Afebrile today, on antibiotics /-Moderate malnutrition; BMI 17.2 Nutrition supplements .supportive care /-Dehydration; IV fluids --DVT prophylaxis;Lovenox Monitor closely and adjust management as needed Plan of care reviewed with the patient and her nurse Disposition; when clears by ID 09/10; resumed care. Patient was seen by orthopedics today and recommended I and D. Continue IV antibiotics and follow the patient clinically 09/11: Status post I&D at bedside by orthopedic surgeon, wait for ID recommendation for discharge planning 09/12: will need 4-6 weeks if iv abx, ordered for PICC line. wait for final ID recommendation 09/13; per ID plan to d/c on vancomycin 1,250 IV every 12 hours for 6 weeks till 10/25/2019 followed by chronic oral suppression with doxycycline or bactrim. CM notified for home iv abx set up. PICC line placed 09/14: d/c pending on home iv abx set up. PICC line placed, order sent out to CM by ID 09/15: d/c pending on home abx setup 09/16: d/c pending on insurance authorization for home iv abx set up Brief history; 29 y/o female patient with history of sickle cell disease, chronic osteomyelitis right femur with MRSA infection, status post debridement in [address] Bell was admitted with severe sickle cell anemia hemoglobin of 5.7, fever, sepsis, swelling of left lower extremity. Received blood transfusion, CT scan show chronic septic arthritis of the left knee, ID evaluated, on antibiotics, cx negative to date, orthopedic surgeon consulted, s/p I AND D. Physical exam: General appearance: Present: no acute distress, cachectic, disheveled - EENT Eyes: Present: PERRL, EOM intact - Neck Neck: Present: supple, normal ROM - Respiratory Respiratory effort: normal Respiratory: bilateral: diminished, negative: rales, rhonchi, wheezing - Cardiovascular Rhythm: regular Heart Sounds: Present: S1 & S2 - Extremities Extremities: no ischemia, wound dressing on LLE mid shaft on place - Abdominal General gastrointestinal: soft, non-tender - Integumentary Integumentary: Present: clear, warm - Psychiatric Psychiatric: appropriate mood/affect, cooperative - Neurologic Neurologic: moves all extremities Subjective Date of service: 09/17/19 Principal diagnosis: cellulitis Interval history: Patient seen and examined. Medical records and medication list reviewed. No acute event overnight noted by the RN. Patient denies any chest pain or difficulty breathing. Patient is tolerating diet. Discussed plan of care at bedside with patient. discharge pending on home abx setup Objective - Constitutional Vitals: Vital Signs - 12hr 09/17/19 09/18/19 09/18/19 23:18 04:03 07:51 Temperature 99.0 F 98.6 F 98.1 F Pulse Rate 80 72 Respiratory 18 18 18 Rate Blood Pressure 97/53 93/58 96/59 O2 Sat by Pulse 99 98 Oximetry 09/18/19 09:35 Temperature Pulse Rate Respiratory 16 Rate Blood Pressure O2 Sat by Pulse Oximetry - Labs CBC & Chem 7: 09/17/19 04:00 09/17/19 04:00
[2019-09-18] MEDS: HYDROmorphone 1 MG/1 ML INJ IV PRN ×2 (15:04→21:25)
--- NOTE | 2019-09-18 15:08 | Progress Note ---
Assessment and Plan Cultures: Blood culture 09/04/2019 no growth today. Wound culture 09/12/2019 no growth today. Assessment: 29 y/o female with history of SCD, right femur chronic osteomyelitis chronically on doxycycline for suppression and ESBL E coli UTI admitted on 09/02/2019 due to a week history of generalized body aches, mainly bilateral legs, lower back, bilateral arms and left leg boil: #Sepsis: fever and leukocytosis resolved; source left anterior tibia cellulitis/osteo, left knee septic arthritis. UA neg. #Left anterior tibia cellulitis, acute on chronic tibial osteomyelitis and left knee septic arthritis: On exam abscess vr sinus tract from Osteomyelitis. CT shows no abscess +acute on chronic tibial osteo and left knee septic arthritis. She reports she was taking doxycycline for suppression however patient missed last infectious disease clinic visit. CRP 8.9. MRI shows chronic septic arthr itis and chronic tibial ostemyelitis. S/p bedside I+D by Dr Landers no growth, I assume the etiology is probably MRSA which has grown in the past. 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 Bell f/u in ID clinic with Dr. Bell (nuclear radiologist notified) Sergey Braxton MD, FACP [facility] ([facility] C: [phone] O: [phone] F: [phone] Subjective Date of service: 09/18/19 Principal diagnosis: cellulitis Interval history: Reports no complaints, no fever. Pain controlled. Hoping for discharge today. Objective - Exam Narrative Exam: General appearance: Alert in NAD Eyes: anicteric sclerae, moist conjunctivae; no lid-lag; PERRLA HENT: Atraumatic; oropharynx clear Lungs: CTA, with normal respiratory effort and no intercostal retractions CV: RRR no murmur Abdomen: Soft, non-tender; no masses or hepatosplenomegaly Extremities: Left anterior tibial dressing +, mild tenderness +. Right leg old scar. Skin: No rash. Psych: No agitated Neuro: alert and oriented x 3. Moving all extermities - Constitutional Vitals: Vital Signs Temp Pulse Resp BP Pulse Ox 98.1 F 78 16 96/59 98 09/18/19 07:51 09/18/19 10:00 09/18/19 15:04 09/18/19 07:51 09/18/19 10:00 Temperature -Last 24 Hours Temperature 98.1 F Temperature 98.6 F Temperature 99.0 F Temperature 99.8 F - Labs CBC & Chem 7: 09/17/19 04:00 09/17/19 04:00
[2019-09-18] MEDS: ENOXAPARIN 40 MG/0.4 ML INJ SUB-Q SCH (21:26)
[2019-09-18] MEDS: diphenhydrAMINE 50 MG/ML VIAL IV PRN (21:28)
[2019-09-18] MEDS: SIMETHICONE 80 MG CHEW TAB PO PRN (21:28)
[2019-09-18] MEDS: SENNOSIDES 8.6 MG TAB PO SCH (21:28)
[2019-09-19] MEDS: VANCOMYCIN/NS 1 GM/250 ML 1 GM/250 ML BAG IV SCH ×2 (05:13→12:32)
[2019-09-19] MEDS: HYDROcodone/ACETAMINOPHEN 10-325MG TAB PO PRN (05:17)
[2019-09-19] MEDS: FOLIC ACID 1 MG TAB PO SCH (09:49)
[2019-09-19] MEDS: HYDROXYUREA 500 MG CAP PO SCH (09:49)
[2019-09-19] MEDS: MULTIVITAMINS ,THERAPEUTIC TAB PO SCH (09:49)
[2019-09-19] MEDS: HYDROmorphone 1 MG/1 ML INJ IV PRN ×2 (10:03→14:32)
--- NOTE | 2019-09-19 10:10 | Progress Note ---
Assessment and Plan /Sepsis, POA: -Patient presented with fever and leukocytosis resolved; source left anterior tibia cellulitis/osteo, left knee septic arthritis. UA neg. -Continue antibiotic per ID, s/p debridement, noted wound culture /Left anterior tibia cellulitis, acute on chronic tibial ostemyelitis and left knee septic arthritis ID following, continue Rocephin, Vancomycin Cultures negative to date Orthopedic consulted, s/p I and D - follow cx per ID plan to d/c on vancomycin 1,250 IV every 12 hours for 6 weeks till 10/25/2019 followed by chronic oral suppression with doxycycline or bactrim. CT left lower extremity with contrast; No soft tissue abscess Chronic osteomyelitis involving the bones of both lower legs Chronic septic arthritis at the left knee MRI left lower extremity; Abnormal signal in the visualized portion of the tibia and fibula with contrast enhancement most likely due to chronic osteomyelitis /Sickle cell anemia; Hemoglobin dropped upto 5.7 Transfused total 2 units of PRBC - h/h now stable Monitor H&H,transfuse additional PRBC PRN /Sickle cell crisis; cont Oxygen, IV fluids, pain medications Supportive care, advised plenty of oral fluids cont Hydrea, folic acid /Febrile illness; secondary to sepsis Afebrile today, on antibiotics /-Moderate malnutrition; BMI 17.2 Nutrition supplements .supportive care /-Dehydration; IV fluids --DVT prophylaxis;Lovenox Monitor closely and adjust management as needed Plan of care reviewed with the patient and her nurse Disposition; when clears by ID 09/10; resumed care. Patient was seen by orthopedics today and recommended I and D. Continue IV antibiotics and follow the patient clinically 09/11: Status post I&D at bedside by orthopedic surgeon, wait for ID recommendation for discharge planning 09/12: will need 4-6 weeks if iv abx, ordered for PICC line. wait for final ID recommendation 09/13; per ID plan to d/c on vancomycin 1,250 IV every 12 hours for 6 weeks till 10/25/2019 followed by chronic oral suppression with doxycycline or bactrim. CM notified for home iv abx set up. PICC line placed 09/14: d/c pending on home iv abx set up. PICC line placed, order sent out to CM by ID 09/15: d/c pending on home abx setup 09/16: d/c pending on insurance authorization for home iv abx set up 09/17: d/c pending on insurance authorization for home iv abx set up Brief history; 29 y/o female patient with history of sickle cell disease, chronic osteomyelitis right femur with MRSA infection, status post debridement in [address] Bell was admitted with severe sickle cell anemia hemoglobin of 5.7, fever, sepsis, swelling of left lower extremity. Received blood transfusion, CT scan show chronic septic arthritis of the left knee, ID evaluated, on antibiotics, cx negative to date, orthopedic surgeon consulted, s/p I AND D. Physical exam: General appearance: Present: no acute distress, cachectic, disheveled - EENT Eyes: Present: PERRL, EOM intact - Neck Neck: Present: supple, normal ROM - Respiratory Respiratory effort: normal Respiratory: bilateral: diminished, negative: rales, rhonchi, wheezing - Cardiovascular Rhythm: regular Heart Sounds: Present: S1 & S2 - Extremities Extremities: no ischemia, wound dressing on LLE mid shaft on place - Abdominal General gastrointestinal: soft, non-tender - Integumentary Integumentary: Present: clear, warm - Psychiatric Psychiatric: appropriate mood/affect, cooperative - Neurologic Neurologic: moves all extremities Subjective Date of service: 09/18/19 Principal diagnosis: cellulitis Interval history: Patient seen and examined. Medical records and medication list reviewed. No acute event overnight noted by the RN. Patient denies any chest pain or difficulty breathing. Patient is tolerating diet. Discussed plan of care at bedside with patient. discharge pending on home abx setup Objective - Constitutional Vitals: Vital Signs - 12hr 09/18/19 09/19/19 23:40 03:52 Temperature 99.3 F 99.0 F Pulse Rate 73 74 Respiratory 18 18 Rate Blood Pressure 99/58 96/54 O2 Sat by Pulse 99 99 Oximetry - Labs CBC & Chem 7: 09/17/19 04:00 09/17/19 04:00
[2019-09-19 10:27] VITALS: BP 93/51
--- NOTE | 2019-09-19 12:52 | Progress Note ---
Assessment and Plan Cultures: Blood culture 09/04/2019 no growth today. Wound culture 09/12/2019 no growth today. Assessment: 29 y/o female with history of SCD, right femur chronic osteomyelitis chronically on doxycycline for suppression and ESBL E coli UTI admitted on 09/02/2019 due to a week history of generalized body aches, mainly bilateral legs, lower back, bilateral arms and left leg boil: #Sepsis: fever and leukocytosis resolved; source left anterior tibia cellulitis/osteo, left knee septic arthritis. UA neg. #Left anterior tibia cellulitis, acute on chronic tibial osteomyelitis and left knee septic arthritis: On exam abscess vr sinus tract from Osteomyelitis. CT shows no abscess +acute on chronic tibial osteo and left knee septic arthritis. She reports she was taking doxycycline for suppression however patient missed last infectious disease clinic visit. CRP 8.9. MRI shows chronic septic arthr itis and chronic tibial ostemyelitis. S/p bedside I+D by Dr Landers no growth, I assume the etiology is probably MRSA which has grown in the past. 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 Bell f/u in ID clinic with Dr. Bell (senior power scheduler notified) Remains stable for discharge from ID standpoint, once abx are arranged. D/W CM, orders re-signed by ak. Sergey Braxton MD, FACP [facility] [place] [facility] C: [phone] O: [phone] F: [phone] Subjective Date of service: 09/19/19 Principal diagnosis: cellulitis Interval history: No fever. PICC working well. No complaints. No rash. Pain controlled. Objective - Exam Narrative Exam: General appearance: Alert in NAD Eyes: anicteric sclerae, moist conjunctivae; no lid-lag; PERRLA HENT: Atraumatic; oropharynx clear Lungs: CTA, with normal respiratory effort and no intercostal retractions CV: RRR no murmur Abdomen: Soft, non-tender; no masses or hepatosplenomegaly Extremities: Left anterior tibial dressing +, mild tenderness +. Right leg old scar. Skin: No rash. Psych: No agitated Neuro: alert and oriented x 3. Moving all extermities - Constitutional Vitals: Vital Signs Temp Pulse Resp BP Pulse Ox 98.2 F 74 18 93/51 99 09/19/19 08:10 09/19/19 03:52 09/19/19 08:10 09/19/19 08:10 09/19/19 03:52 Temperature -Last 24 Hours Temperature 98.2 F Temperature 99.0 F Temperature 99.3 F Temperature 98.9 F Temperature 97.2 F - Labs CBC & Chem 7: 09/17/19 04:00 09/17/19 04:00
== END 2019-09-19 16:35 | disposition home health service (06) | DRG 871 ==
LOC: ED 17:29 → 4A 18:31 → OBSVTOIN 09-03 11:16 → 4A 09-03 14:52
PROVIDERS: ADMIT Internal Medicine; ATTEND Internal Medicine
PROC: 30233N1 Transfusion of Nonautologous Red Blood Cells into Peripheral Vein, Percutaneous Approach (ICD-10-PCS; 2019-09-07)
PROC: 0H9LXZZ Drainage of Left Lower Leg Skin, External Approach (ICD-10-PCS; principal; 2019-09-12)
PROC: 05HY33Z Insertion of Infusion Device into Upper Vein, Percutaneous Approach (ICD-10-PCS; 2019-09-14)
DX: A41.9 Sepsis, unspecified organism (principal); D57.00 Hb-SS disease with crisis, unspecified; N39.0 Urinary tract infection, site not specified; L03.116 Cellulitis of left lower limb; M86.651 Other chronic osteomyelitis, right thigh; E44.0 Moderate protein-calorie malnutrition; M00.862 Arthritis due to other bacteria, left knee; Z68.20 Body mass index [BMI] 20.0-20.9, adult; E86.0 Dehydration; Z82.49 Family history of ischemic heart disease and other diseases of the circulatory system; Z79.899 Other long term (current) drug therapy
CPT/HCPCS: 36415; 71045; 73721; 80048; 80053; 80076; 80202; 81001; 83615; 83735; 84132; 85007; 85014; 85018; 85025; 85045; 86140; 86850; 86900; 86901; 86922; 87040; 87086; 87116; 93970; 96374; 96375; 96376; G0378; A9577; J0696; J1170; J1200; J1650; J1885; J2270; J2405; J2543; J3370; J7030; J7040; J7050; P9016; Q9967

== ENCOUNTER 2019-09-20 07:43 | Inpatient (IN) | payer OTHER ==
--- NOTE | 2019-09-20 09:32 | Emergency Department Report ---
ED General Adult HPI - General Chief complaint: Sickle Cell Crisis Stated complaint: SICKLE CELL CRISIS Source: patient Mode of arrival: Wheelchair Limitations: Physical Limitation - History of Present Illness Initial comments: This is a 29-year-old female that was discharged from this facility on 09/19/2019. Her hospitalization was quite complex, complicated by fevers sepsis septic arthritis of the left knee and discharge with home administration of vancomycin. The patient states that the left leg is doing fine. She does have a history of chronic osteomyelitis of the right femur and a debridement of the right tibia. She states now since discharge her entire right leg has been exquisitely painful. She believes that she is having a sickle cell crisis. She says that she has had right leg pain like this for 7 years. She has no prior history of DVT. She denies fever or chills. She denies right leg swelling. She states that she has taken hydrocodone at home and it has been ineffective. A CT performed during the patient's last hospitalization showed chronic oste omyelitis of both lower legs. Hospitalization Condition: Stable Hospital course: 29 y/o female patient with history of sickle cell disease, chronic osteomyelitis right femur with MRSA infection, status post debridement in [address] Bell was admitted with severe sickle cell anemia hemoglobin of 5.7, fever, sepsis, swelling of left lower extremity. Received blood transfusion, CT scan show chronic septic arthritis of the left knee, ID evaluated, on antibiotics, cx negative to date, orthopedic surgeon consulted, s/p I and D. ID recommended vancomycin 1,250 IV every 12 hours for 6 weeks till 10/25/2019 followed by chronic oral suppression with doxycycline or bactrim. Patient was placed on PICC line, she was then discharged home in stable condition. 09/10; resumed care. Patient was seen by orthopedics today and recommended I and D. Continue IV antibiotics and follow the patient clinically 09/11: Status post I&D at bedside by orthopedic surgeon, wait for ID re commendation for discharge planning 09/12: will need 4-6 weeks if iv abx, ordered for PICC line. wait for final ID recommendation 09/13; per ID plan to d/c on vancomycin 1,250 IV every 12 hours for 6 weeks till 10/25/2019 followed by chronic oral suppression with doxycycline or bactrim. CM notified for home iv abx set up. PICC line placed 09/14: d/c pending on home iv abx set up. PICC line placed, order sent out to CM by ID 09/15: d/c pending on home abx setup 09/16: d/c pending on insurance authorization for home iv abx set up 09/17: d/c pending on insurance authorization for home iv abx set up 09/18: approved for home iv abx. Medically stable for discharge. d/c home with iv abx set up Discharge diagnosis and Mx; /Sepsis, POA: -Patient presented with fever and leukocytosis resolved; source left anterior tibia cellulitis/osteo, left knee septic arthritis. UA neg. -Continue antibiotic per ID, s/p debridement by ortho, wound culture so far negative /Left anterior tibia cellulitis, acute on chronic tibial ostemyelitis and left knee septic arthritis ID following, placed on Rocephin, Vancomycin then only vancomycin Cultures negative to date Orthopedic consulted, s/p I and D - follow cx per ID plan to d/c on vancomycin 1,250 IV every 12 hours for 6 weeks till 10/25/2019 followed by chronic oral suppression with doxycycline or bactrim. CT left lower extremity with contrast; No soft tissue abscess Chronic osteomyelitis involving the bones of both lower legs Chronic septic arthritis at the left knee MRI left lower extremity; Abnormal signal in the visualized portion of the tibia and fibula with contrast enhancement most likely due to chronic osteomyelitis /Sickle cell anemia; Hemoglobin dropped upto 5.7 Transfused total 2 units of PRBC - h/h now stable /Sickle cell crisis; placed on Oxygen, IV fluids, pain medications, Supportive care, advised plenty of oral fluids cont Hydrea, folic acid /Febrile illness; secondary to sepsis Afebrile now, treat with antibiotics /-Moderate malnutrition; BMI 17.2 Nutrition supplements. supportive care /-Dehydration; IV fluids --DVT prophylaxis;Lovenox Disposition; Home with IV abx set up. - Related Data Previous Rx's Medication Instructions Recorded Last Taken Type Folic Acid [Folvite] 1 mg PO QDAY #90 tablet 07/04/19 Unknown Rx HYDROcodone/APAP 10-325 [Garland 1 each PO Q6H PRN #15 tablet 07/04/19 09/02/19 10:00 Rx 10-325 mg TAB] 1 tab Hydroxyurea 500 mg PO QDAY #90 capsule 07/04/19 09/02/19 10:00 Rx 1 tab Multivitamin Tab [Multiple Vitamin 1 each PO QDAY #90 tablet 07/04/19 09/02/19 10:00 Rx TAB (Theragran)] 1 tab Ondansetron [Zofran ODT TAB] 4 mg PO Q8HR PRN #20 tab.rapdis 07/04/19 Unknown Rx Sennosides Tab [Senokot] 17.2 mg PO QHS #90 tablet 07/04/19 09/03/19 22:30 Rx 17.2mg Allergies Allergy/AdvReac Type Severity Reaction Status Date / Time No Known Allergies Allergy Verified 09/20/19 07:50 ED Review of Systems ROS: Stated complaint: SICKLE CELL CRISIS Other details as noted in HPI Constitutional: denies: chills, fever Eyes: denies: eye pain, vision change ENT: denies: ear pain, throat pain Respiratory: denies: cough, shortness of breath Cardiovascular: denies: chest pain, palpitations Endocrine: no symptoms reported Gastrointestinal: denies: abdominal pain, nausea Genitourinary: denies: urgency, dysuria, discharge Musculoskeletal: as per HPI. denies: back pain, joint swelling, arthralgia Skin: other (Chronic drainage from the right pretibial area). denies: rash, lesions Neurological: denies: headache, weakness, numbness Psychiatric: denies: anxiety, depression Hematological/Lymphatic: denies: easy bleeding, easy bruising ED Past Medical Hx - Past Medical History Hx Congestive Heart Failure: No Hx Diabetes: No Hx Deep Vein Thrombosis: No Hx Sickle Cell Disease: Yes Hx Arthritis: Yes Hx COPD: No Hx HIV: No - Surgical History Hx Pacemaker: No Hx Internal Defibrillator: No Additional Surgical History: Ortho surgery to right thigh s/t osteomylitis - Social History Smoking Status: Never Smoker Substance Use Type: None - Medications Home Medications: Home Medications Medication Instructions Recorded Confirmed Last Taken Type Folic Acid [Folvite] 1 mg PO QDAY #90 tablet 07/04/19 09/04/19 Unknown Rx HYDROcodone/APAP 10-325 [Gar[place] 1 each PO Q6H PRN #15 tablet 07/04/19 09/04/19 09/02/19 10:00 Rx 10-325 mg TAB] 1 tab Hydroxyurea 500 mg PO QDAY #90 capsule 07/04/19 09/04/19 09/02/19 10:00 Rx 1 tab Multivitamin Tab [Multiple Vitamin 1 each PO QDAY #90 tablet 07/04/19 09/04/19 09/02/19 10:00 Rx TAB (Theragran)] 1 tab Ondansetron [Zofran ODT TAB] 4 mg PO Q8HR PRN #20 tab.rapdis 07/04/19 09/04/19 Unknown Rx Sennosides Tab [Senokot] 17.2 mg PO QHS #90 tablet 07/04/19 09/04/19 09/03/19 22:30 Rx 17.2mg ED Physical Exam - General Limitations: Physical Limitation General appearance: alert, in distress, cachectic (Somewhat) - Head Head exam: Present: atraumatic, normocephalic - Eye Eye exam: Present: normal appearance. Absent: scleral icterus - ENT ENT exam: Present: mucous membranes moist - Neck Neck exam: Present: normal inspection. Absent: tenderness, meningismus - Respiratory Respiratory exam: Present: normal lung sounds bilaterally. Absent: respiratory distress - Cardiovascular Cardiovascular Exam: Present: regular rate, normal rhythm. Absent: systolic murmur, diastolic murmur, rubs, gallop - GI/Abdominal GI/Abdominal exam: Present: soft, normal bowel sounds. Absent: distended, te nderness, guarding, rebound - Extremities Exam Extremities exam: Present: normal capillary refill, other (Patient's right leg has a well-healed pretibial scar. There is a dry dressing which has a small amount serous drainage on it). Absent: pedal edema, joint swelling, calf tenderness - Back Exam Back exam: Present: normal inspection. Absent: CVA tenderness (R), CVA tenderness (L), muscle spasm, paraspinal tenderness, vertebral tenderness - Neurological Exam Neurological exam: Present: alert, oriented X3, CN II-XII intact. Absent: motor sensory deficit - Psychiatric Psychiatric exam: Present: normal affect, normal mood - Skin Skin exam: Present: warm, dry, intact, normal color. Absent: rash ED Course Vital Signs 09/20/19 09/20/19 09/20/19 07:53 09:23 09:26 Temperature 98.4 F 98.0 F Pulse Rate 93 H Respiratory 24 16 Rate Blood Pressure 117/76 Blood Pressure [Left] O2 Sat by Pulse 99 100 Oximetry 09/20/19 09/20/19 09/20/19 09:30 10:16 10:32 Temperature Pulse Rate 80 85 82 Respiratory 21 26 H 26 H Rate Blood Pressure 132/76 125/83 Blood Pressure 105/71 [Left] O2 Sat by Pulse 100 97 100 Oximetry 09/20/19 09/20/19 09/20/19 10:46 10:50 11:00 Temperature Pulse Rate 84 83 Respiratory 15 18 18 Rate Blood Pressure 105/71 110/73 Blood Pressure [Left] O2 Sat by Pulse 100 100 Oximetry 09/20/19 09/20/19 09/20/19 11:16 11:30 11:32 Temperature Pulse Rate 84 94 H Respiratory 23 20 18 Rate Blood Pressure 110/73 112/71 Blood Pressure [Left] O2 Sat by Pulse 100 100 Oximetry 09/20/19 09/20/19 09/20/19 11:46 12:00 12:16 Temperature Pulse Rate 86 85 84 Respiratory 20 14 20 Rate Blood Pressure 112/71 103/69 103/69 Blood Pressure [Left] O2 Sat by Pulse 100 99 Oximetry 09/20/19 09/20/19 09/20/19 12:30 12:46 13:00 Temperature Pulse Rate 88 89 85 Respiratory 31 H 22 17 Rate Blood Pressure 100/62 100/62 104/65 Blood Pressure [Left] O2 Sat by Pulse 97 Oximetry - Reevaluation(s) Reevaluation #1: Discussed with Dr. Nicholas at approximately 1130. She stated that she is not inclined to readmit the patient to the hospitalist service. I have already given the patient 4 rounds of Dilaudid. She remains with intractable pain. Her white count is elevated and her reticulocyte count is greater than 17. These are both significant changes from her labs on 04/23/2019. I have requested Dr. Nicholas to see the patient and make a disposition. 09/20/19 11:42 09/20/19 11:43 Reevaluation #2: Patient with persistent and intractable pain. Discussed with Dr. Hernandez. He is agreed to admit. 09/20/19 14:52 ED Medical Decision Making - Lab Data Result diagrams: 09/20/19 09:40 09/20/19 09:40 Laboratory Results - last 24 hr 09/20/19 09/20/19 09/20/19 09:40 09:40 09:40 WBC 18.0 H RBC 2.21 L Hgb 7.6 L Hct 22.2 L MCV 101 H MCH 34 H MCHC 34 RDW 26.4 H Plt Count 618 H ESR 68 Percent Retic 17.05 H PT 14.5 INR 1.15 H APTT 34.6 Sodium 135 L Potassium 4.1 Chloride 101.8 Carbon Dioxide 19 L Anion Gap 18 BUN 7 Creatinine 0.3 L Estimated GFR > 60 BUN/Creatinine Ratio 23 Glucose 116 H Lactic Acid Calcium 9.8 Magnesium 1.50 L Total Bilirubin 2.70 H Direct Bilirubin 0.7 H Indirect Bilirubin 2.0 AST 37 ALT 36 Alkaline Phosphatase 176 H C-Reactive Protein Total Protein 8.0 Albumin 4.5 Albumin/Globulin Ratio 1.3 09/20/19 09/20/19 09:40 09:40 WBC RBC Hgb Hct MCV MCH MCHC RDW Plt Count ESR Percent Retic PT INR APTT Sodium Potassium Chloride Carbon Dioxide Anion Gap BUN Creatinine Estimated GFR BUN/Creatinine Ratio Glucose Lactic Acid 1.00 Calcium Magnesium Total Bilirubin Direct Bilirubin Indirect Bilirubin AST ALT Alkaline Phosphatase C-Reactive Protein 1.20 Total Protein Albumin Albumin/Globulin Ratio Critical care attestation.: If time is entered above; I have spent that time in minutes in the direct care of this critically ill patient, excluding procedure time. ED Disposition Clinical Impression: Sickle cell pain crisis, Intractable pain Chronic osteomyelitis, lower leg Qualifiers: Laterality: unspecified laterality Qualified Code(s): M86.669 - Other chronic osteomyelitis, unspecified tibia and fibula Disposition: OP ADMIT IP TO THIS HOSP Is pt being admited?: Yes Does the pt Need Aspirin: Yes Condition: Stable Time of Disposition: 14:52
[2019-09-20] MEDS ORDERED: SODIUM CHLORIDE 0.9% 500 ML 500 ML IV ONE (09:33)
[2019-09-20] MEDS ORDERED: diphenhydrAMINE 50 MG/ML VIAL IV ONE ×2 (09:34→14:51)
[2019-09-20] MEDS ORDERED: ONDANSETRON 4 MG/2 ML INJ IV ONE ×2 (09:34→14:51)
[2019-09-20] MEDS ORDERED: HYDROmorphone 1 MG/1 ML INJ IV ONE ×6 (09:34→14:51)
[2019-09-20 10:05] LABS: Hematocrit 22.2 % (30.3-42.9); Hemoglobin 7.6 gm/dl (10.1-14.3); Mean Corpuscular HGB Conc 34 % (30-34); Mean Corpuscular Volume 101 fl (79-97); Platelet Count 618 K/mm3 (140-440); Red Blood Count 2.21 M/mm3 (3.65-5.03); Red Cell Distribution Width 26.4 % (13.2-15.2)
[2019-09-20 10:16] LABS: INR 1.15 (0.87-1.13); Partial Thromboplastin Time 34.6 Sec. (24.2-36.6)
[2019-09-20 10:26] LABS: Alanine Aminotransferase 36 units/L (7-56); Albumin 4.5 g/dL (3.9-5); BUN/Creatinine Ratio 23; Bilirubin,Direct 0.7 mg/dL (0-0.2); Blood Urea Nitrogen 7 mg/dL (7-17); Calcium 9.8 mg/dL (8.4-10.2); Hemolysis Index 5
[2019-09-20 10:35] LABS: Erythrocyte Sedimentation Rate 68 mm/Hr (0-20)
[2019-09-20 11:23] LABS: Bacteria,Urine 1+ /HPF (Negative); Bilirubin,Urine NEG (Negative); Blood,Urine NEG (Negative); Color,Urine Yellow (Yellow); Mucus,Urine FEW /HPF; Protein,Urine <15 mg/dL mg/dL (Negative); RBC,Urine < 1.0 /HPF (0.0-6.0); Urobilinogen,Urine < 2.0 mg/dL (<2.0)
--- NOTE | 2019-09-20 11:34 | Event Note ---
Date: 09/20/19 I was called by Dr. Whitehead to readmit this patient Patient was seen and examined by me, she states that her home pain meds not working for her otherwise she feels ok. She takes lortab 10mg q6h as needed for pain. I discharge the patient yesterday after being treated for Left anterior tibia cellulitis, acute on chronic tibial ostemyelitis, left knee septic arthritis, sepsis and sickle cell crisis. Patient was discharged home with the IV antibiotics set up: vancomycin 1,250 IV every 12 hours for 6 weeks till 10/25/2019 followed by chronic oral suppression with doxycycline or bactrim. She already has outpatient set up with ID. I recommend at this point to discharge the patient from the ER with appropriate pain medications and have her follow-up with ID and tester regulator outpatient I personally discussed the laboratory and physical findings with ID attending Dr. Braxton by phone and Dr. Braxton agrees with the plan
[2019-09-20 11:40] LABS: Total Cells Counted 100
[2019-09-20 11:41] LABS: Anisocytosis 2+; Basophils % (Manual) 0 % (0.0-1.8); Eosinophils % (Manual) 0 % (0.0-4.3)
[2019-09-20 11:42] LABS: Platelet Estimate Consistent w Auto; Stomatocytes Few; Target Cells Few
[2019-09-20] MEDS ORDERED: D5W/0.2% NACL 1,000 ML IV SCH (12:00)
[2019-09-20] MEDS ORDERED: HYDROmorphone 2 MG/1 ML INJ IV PRN (18:19)
[2019-09-20] MEDS ORDERED: ONDANSETRON 4 MG ODT TAB PO PRN (21:05)
[2019-09-20] MEDS ORDERED: HYDROcodone/ACETAMINOPHEN 10-325MG TAB PO PRN (21:05)
[2019-09-20] MEDS ORDERED: ONDANSETRON 4 MG/2 ML INJ IV PRN (21:06)
[2019-09-20] MEDS ORDERED: ACETAMINOPHEN 325 MG TAB PO PRN (21:06)
[2019-09-20] MEDS ORDERED: VANCOMYCIN 1,500 MG in SODIUM CHLORIDE 0.9% 500 ML 500 ML IV ONE (22:00)
[2019-09-20] MEDS ORDERED: VANCOMYCIN PHARMACY TO DOSE IV SCH (22:00)
[2019-09-20] MEDS ORDERED: VANCOMYCIN/NS 1 GM/250 ML 1 GM/250 ML BAG IV SCH (22:00)
[2019-09-20] MEDS: HYDROmorphone 1 MG/1 ML INJ IV PRN (22:04)
[2019-09-20] MEDS: SENNOSIDES 8.6 MG TAB PO SCH (22:04)
[2019-09-20] MEDS: FAMOTIDINE 20 MG/2 ML INJ IV SCH (22:06)
[2019-09-21] MEDS: HYDROmorphone 1 MG/1 ML INJ IV PRN ×9 (00:41→22:17)
--- NOTE | 2019-09-21 06:20 | Event Note ---
Date: 09/20/19 See H and p in reports Sickle cell crisis Retic count 17 percent Osteomyelitis on IV Vancomycin
[2019-09-21] MEDS: CEFEPIME/NS 2 GM/100 ML 2 GM/100 ML BAG IV SCH ×3 (07:09→22:16)
[2019-09-21] MEDS: MAGNESIUM SULFATE 2 GM/50 ML BAG IV ONE ×2 (07:09→16:06)
--- NOTE | 2019-09-21 07:19 | History and Physical Report ---
CHIEF COMPLAINT: Pain all over. HISTORY OF PRESENT ILLNESS: A 29-year-old female with sickle cell disease and recent discharge on 09/19/2019 after being treated for chronic osteomyelitis of the right femur with MRSA infection, status post debridement in 2019, comes in for severe pain all over, especially both lower extremities. The patient was discharged on IV vancomycin for 6 weeks till 10/25/2019. The patient is being followed by Dr. Bell. The patient states her pain is 10 on a scale of 1-10. No fever. No chills. The patient was discharged with home antibiotics. Previous admission and discharge summary reviewed. During this admission, the patient has a high retic count of 17% and high white count of 18,000, hence the readmission. The patient is in sepsis and in danger of dying if she is not admitted and treated. PAST MEDICAL HISTORY: Significant for sickle cell disease and chronic osteomyelitis of the right femur and malnutrition. PAST SURGICAL HISTORY: Severe debridement of the right femoral osteomyelitis lesion. SOCIAL HISTORY: Does not smoke. FAMILY HISTORY: Hypertension. CURRENT MEDICATIONS: Melatonin. REVIEW OF SYSTEMS: Significant for pain all over, 10 on a scale of 1-10. Some shortness of breath present. No chest pain. A 14-point review of systems done. PHYSICAL EXAMINATION: GENERAL: Young female in pain, moaning. Cooperative during examination. VITAL SIGNS: Temperature is 98.6, pulse is 96, respiratory rate is 18, blood pressure is 112/71. HEENT: Unremarkable. Pupils equal and reactive. NECK: Supple, no lymphadenopathy, no thyromegaly. LUNGS: Clear to auscultation and percussion. Good air entry. CARDIOVASCULAR: S1, S2 heard. No gallop, no murmur, no rub. Apical impulse in left fifth intercostal space and midclavicular line. ABDOMEN: Soft and benign. No hepatosplenomegaly. No guarding, no rigidity. Hernial orifices are normal. EXTREMITIES: Right femur painful. Right lower extremity painful from the upper thigh region. CENTRAL NERVOUS SYSTEM: Alert and oriented x 4, nonfocal exam. SKIN: Normal. LABORATORY DATA: Significant for white count of 18,000, H and H is 7.8 and 22.2, platelet count is 618,000. Sodium is 135, BUN and creatinine is 7 and 0.3, magnesium is 1.5, total bilirubin is 2.7, alkaline phosphatase is 176. Urine is negative for infection. ASSESSMENT AND PLAN: 1. Sepsis at the time of admission in view of the pulse rate and high white count of 18,000. Lactic acid is normal. IV cefepime and IV vancomycin to continue. IV vancomycin to continue till 10/25/2019. 2. Sickle cell crisis. The patient is in severe crisis. Retic count is 17%, IV fluids and IV pain management and pain control. 3. Hypomagnesemia, supplemented. Hemolysis secondary to sickle cell crisis. Total bilirubin is 2.7. AST and ALT are normal. 4. Deep venous thrombosis prophylaxis, Lovenox 40 subcutaneous q. 24 hours. In summary, the patient has sepsis, chronic osteomyelitis. For chronic osteomyelitis, continue IV vancomycin for 6 weeks till 10/25/2019. ID consult to be requested. JOB# [id number] JASON/SCOTT GUTIERREZ
[2019-09-21] MEDS: MULTIVITAMINS ,THERAPEUTIC TAB PO SCH (09:15)
[2019-09-21] MEDS: FOLIC ACID 1 MG TAB PO SCH (09:15)
[2019-09-21] MEDS: HYDROXYUREA 500 MG CAP PO SCH (09:15)
[2019-09-21] MEDS: FAMOTIDINE 20 MG/2 ML INJ IV SCH ×2 (09:17→22:17)
[2019-09-21] MEDS: SODIUM CHLORIDE 0.9% 1000 ML 1,000 ML IV SCH ×2 (09:19→22:15)
[2019-09-21] MEDS: VANCOMYCIN 1,250 MG in SODIUM CHLORIDE 0.9% 250ML 250 ML IV SCH ×2 (09:23→22:15)
[2019-09-21] MEDS ORDERED: VANCOMYCIN 750 MG in SODIUM CHLORIDE 0.9% 250ML 250 ML IV SCH (10:00)
--- NOTE | 2019-09-21 13:51 | Progress Note ---
Assessment and Plan - Patient Problems (1) Chronic osteomyelitis, lower leg Current Visit: Yes Status: Acute Qualifiers: Laterality: unspecified laterality Qualified Code(s): M86.669 - Other chronic osteomyelitis, unspecified tibia and fibula Plan to address problem: Chronic osteomyelitis continue vancomycin as were doing now. (2) Intractable pain Current Visit: Yes Status: Acute Plan to address problem: Intractable pain secondary to sickle cell crisis. (3) Sickle cell pain crisis Current Visit: Yes Status: Acute Plan to address problem: Sickle cell pain crisis will treat with Dilaudid 2 mg every 2 hours as needed Benadryl for pain. Will place patient back on a as needed oral medications for possible discharge soon. Aggressive IV volume hydration. Subjective Date of service: 09/21/19 Principal diagnosis: Sickle cell crisis Interval history: Patient 29 years old presents with typical sickle cell crisis. Patient admitted for uncontrolled pain secondary to sickle cell disease. Patient stated home medications were not working. Patient was just discharged yesterday and presented back today because pain was uncontrolled. Patient had history of left arm cellulitis and chronic osteomyelitis. Patient was receiving home vancomycin. Scheduled to see until 10/25/2019. Patient now was in acute pain crisis. Patient in pain on the floor. Given 2 mg Dilaudid now. Objective - Constitutional Vitals: Vital Signs - 12hr 09/21/19 09/21/19 09/21/19 03:03 05:08 07:49 Temperature Pulse Rate Respiratory 18 20 18 Rate Blood Pressure Blood Pressure [Left] O2 Sat by Pulse Oximetry 09/21/19 09/21/19 09:01 12:28 Temperature 98.8 F 98.9 F Pulse Rate 83 88 Respiratory 99 H 15 Rate Blood Pressure 99/63 Blood Pressure 95/60 [Left] O2 Sat by Pulse 98 Oximetry General appearance: Present: no acute distress, severe distress, well-nourished, other (Acute pain) - EENT Eyes: PERRL, EOM intact ENT: hearing intact, clear oral mucosa Ears: bilateral: normal - Neck Neck: supple, normal ROM - Respiratory Respiratory effort: normal Respiratory: bilateral: CTA - Breasts Breasts: normal - Cardiovascular Rhythm: regular Heart Sounds: Present: S1 & S2. Absent: gallop, rub Extremities: pulses intact, No edema, normal color, Full ROM - Gastrointestinal General gastrointestinal: Present: soft, non-tender, non-distended, normal bowel sounds - Genitourinary Female genitourinary: normal - Integumentary Integumentary: clear, warm, dry - Musculoskeletal Musculoskeletal: 1, strength equal bilaterally - Neurologic Neurologic: moves all extremities - Psychiatric Psychiatric: memory intact, appropriate mood/affect, intact judgment & insight - Labs CBC & Chem 7: 09/20/19 09:40 09/20/19 09:40
[2019-09-21] MEDS: ENOXAPARIN 40 MG/0.4 ML INJ SUB-Q SCH (22:16)
[2019-09-21] MEDS: SENNOSIDES 8.6 MG TAB PO SCH (22:16)
[2019-09-21] MEDS ORDERED: diphenhydrAMINE 50 MG/ML VIAL IV ONE (22:31)
[2019-09-22] MEDS: HYDROmorphone 1 MG/1 ML INJ IV PRN ×6 (04:19→22:45)
[2019-09-22] MEDS: CEFEPIME/NS 2 GM/100 ML 2 GM/100 ML BAG IV SCH ×3 (06:05→22:50)
[2019-09-22] MEDS: SODIUM CHLORIDE 0.9% 1000 ML 1,000 ML IV SCH ×2 (09:46→22:50)
[2019-09-22] MEDS: FAMOTIDINE 20 MG TAB PO SCH ×2 (09:47→22:53)
[2019-09-22] MEDS: FOLIC ACID 1 MG TAB PO SCH (09:47)
[2019-09-22] MEDS: MULTIVITAMINS ,THERAPEUTIC TAB PO SCH (09:47)
[2019-09-22] MEDS: VANCOMYCIN 1,250 MG in SODIUM CHLORIDE 0.9% 250ML 250 ML IV SCH (09:47)
[2019-09-22] MEDS: HYDROXYUREA 500 MG CAP PO SCH (09:47)
--- NOTE | 2019-09-22 14:00 | Progress Note ---
Assessment and Plan - Patient Problems (1) Chronic osteomyelitis, lower leg Current Visit: Yes Status: Acute Qualifiers: Laterality: unspecified laterality Qualified Code(s): M86.669 - Other chronic osteomyelitis, unspecified tibia and fibula Plan to address problem: Chronic osteomyelitis continue vancomycin as were doing now. previous plan as noted No other evidence of acute infection/Sepsis, POA: -Patient presented with fever and leukocytosis resolved; source left anterior tibia cellulitis/osteo, left knee septic arthritis. UA neg. -Continue antibiotic per ID, s/p debridement by ortho, wound culture so far negative /Left anterior tibia cellulitis, acute on chronic tibial ostemyelitis and left knee septic arthritis ID following, placed on Rocephin, Vancomycin then only vancomycin Cultures negative to date Orthopedic consulted, s/p I and D - follow cx per ID plan to d/c on vancomycin 1,250 IV every 12 hours for 6 weeks till 10/25/2019 followed by chronic oral suppression with doxycycline or bactrim. CT left lower extremity with contrast; No soft tissue abscess Chronic osteomyelitis involving the bones of both lower legs Chronic septic arthritis at the left knee MRI left lower extremity; Abnormal signal in the visualized portion of the tibia and fibula with contrast enhancement most likely due to chronic osteomyelitis (2) Intractable pain Current Visit: Yes Status: Acute Plan to address problem: Patient typical sickle cell pain crisis. In the past have been difficult to control. We will continue present medications. Add p.o. medications in hopes patient can be discharged 1 to 2 days. (3) Sickle cell pain crisis Current Visit: Yes Status: Acute Plan to address problem: Sickle cell pain crisis will treat with Dilaudid 2 mg every 2 hours as needed Benadryl for pain. Will place patient back on a as needed oral medications for possible discharge soon. Aggressive IV volume hydration. At present has not required transfusion. Continue hydroxyurea continue present pain management and continue supportive care oxygen aggressive IV volume hydration. History Interval history: 29 y/o female patient with history of sickle cell disease, chronic osteomyelitis right femur with MRSA infection, status post debridement in [address] Bell was admitted with severe sickle cell anemia hemoglobin of 5.7, fever, sepsis, swelling of left lower extremity. Received blood transfusion, CT scan show chronic septic arthritis of the left knee, ID evaluated, on antibiotics, cx negative to date, orthopedic surgeon consulted, s/p I and D. ID recommended vancomycin 1,250 IV every 12 hours for 6 weeks till 10/25/2019 followed by chronic oral suppression with doxycycline or bactrim. Patient was placed on PICC line, she was then discharged home in stable condition. Patient still describes pain as 8 out of 10. It is better now. Patient does not wish to increase medications. States they are effective but are wearing off. Patient in obvious pain shaking in bed at times. But not as severe as yesterday. Hospitalist Physical - Constitutional Vitals: Temp Pulse Resp BP Pulse Ox 99.6 F 102 H 20 104/66 100 09/22/19 04:32 09/22/19 04:55 09/22/19 04:32 09/22/19 04:32 09/22/19 04:32 General appearance: Present: no acute distress, mild distress, well-nourished, other (Acute pain) - EENT Eyes: Present: PERRL, EOM intact ENT: hearing intact, clear oral mucosa - Neck Neck: Present: supple, normal ROM - Respiratory Respiratory: bilateral: CTA - Cardiovascular Rhythm: regular - Extremities Extremity abnormal: edema Peripheral Pulses: abnormal - Abdominal General gastrointestinal: soft, tender, non-distended, other (Scaphoid) - Psychiatric Psychiatric: appropriate mood/affect, intact judgment & insight, memory intact - Neurologic Neurologic: CNII-XII intact, moves all extremities Results - Labs CBC & Chem 7: 09/20/19 09:40 09/20/19 09:40 Labs: Laboratory Last Values WBC 18.0 K/mm3 (4.5-11.0) H 09/20/19 09:40 RBC 2.21 M/mm3 (3.65-5.03) L 09/20/19 09:40 Hgb 7.6 gm/dl (10.1-14.3) L 09/20/19 09:40 Hct 22.2 % (30.3-42.9) L 09/20/19 09:40 MCV 101 fl (79-97) H 09/20/19 09:40 MCH 34 pg (28-32) H 09/20/19 09:40 MCHC 34 % (30-34) 09/20/19 09:40 RDW 26.4 % (13.2-15.2) H 09/20/19 09:40 Plt Count 618 K/mm3 (140-440) H 09/20/19 09:40 Add Manual Diff Complete 09/20/19 09:40 Total Counted 100 09/20/19 09:40 Seg Neuts % (Manual) 82.0 % (40.0-70.0) H 09/20/19 09:40 Band Neutrophils % 0 % 09/20/19 09:40 Lymphocytes % (Manual) 11.0 % (13.4-35.0) L 09/20/19 09:40 Reactive Lymphs % (Man) 0 % 09/20/19 09:40 Monocytes % (Manual) 7.0 % (0.0-7.3) 09/20/19 09:40 Eosinophils % (Manual) 0 % (0.0-4.3) 09/20/19 09:40 Basophils % (Manual) 0 % (0.0-1.8) 09/20/19 09:40 Metamyelocytes % 0 % 09/20/19 09:40 Myelocytes % 0 % 09/20/19 09:40 Promyelocytes % 0 % 09/20/19 09:40 Blast Cells % 0 % 09/20/19 09:40 Nucleated RBC % Not Reportable 09/20/19 09:40 Seg Neutrophils # Man 14.8 K/mm3 (1.8-7.7) H 09/20/19 09:40 Band Neutrophils # 0.0 K/mm3 09/20/19 09:40 Lymphocytes # (Manual) 2.0 K/mm3 (1.2-5.4) 09/20/19 09:40 Abs React Lymphs (Man) 0.0 K/mm3 09/20/19 09:40 Monocytes # (Manual) 1.3 K/mm3 (0.0-0.8) H 09/20/19 09:40 Eosinophils # (Manual) 0.0 K/mm3 (0.0-0.4) 09/20/19 09:40 Basophils # (Manual) 0.0 K/mm3 (0.0-0.1) 09/20/19 09:40 Metamyelocytes # 0.0 K/mm3 09/20/19 09:40 Myelocytes # 0.0 K/mm3 09/20/19 09:40 Promyelocytes # 0.0 K/mm3 09/20/19 09:40 Blast Cells # 0.0 K/mm3 09/20/19 09:40 WBC Morphology Not Reportable 09/20/19 09:40 Hypersegmented Neuts Not Reportable 09/20/19 09:40 Hyposegmented Neuts Not Reportable 09/20/19 09:40 Hypogranular Neuts Not Reportable 09/20/19 09:40 Smudge Cells Not Reportable 09/20/19 09:40 Toxic Granulation Not Reportable 09/20/19 09:40 Toxic Vacuolation Not Reportable 09/20/19 09:40 Dohle Bodies Not Reportable 09/20/19 09:40 Pelger-Huet Anomaly Not Reportable 09/20/19 09:40 Raymond Rods Not Reportable 09/20/19 09:40 Platelet Estimate Consistent w auto 09/20/19 09:40 Clumped Platelets Not Reportable 09/20/19 09:40 Plt Clumps, EDTA Not Reportable 09/20/19 09:40 Large Platelets Not Reportable 09/20/19 09:40 Giant Platelets Not Reportable 09/20/19 09:40 Platelet Satelliting Not Reportable 09/20/19 09:40 Plt Morphology Comment Not Reportable 09/20/19 09:40 RBC Morphology Not Reportable 09/20/19 09:40 Dimorphic RBCs Not Reportable 09/20/19 09:40 Polychromasia Not Reportable 09/20/19 09:40 Hypochromasia Not Reportable 09/20/19 09:40 Poikilocytosis Not Reportable 09/20/19 09:40 Anisocytosis 2+ 09/20/19 09:40 Microcytosis Not Reportable 09/20/19 09:40 Macrocytosis Not Reportable 09/20/19 09:40 Spherocytes Not Reportable 09/20/19 09:40 Pappenheimer Bodies Not Reportable 09/20/19 09:40 Sickle Cells Not Reportable 09/20/19 09:40 Target Cells Few 09/20/19 09:40 Tear Drop Cells Not Reportable 09/20/19 09:40 Ovalocytes Not Reportable 09/20/19 09:40 Stomatocytes Few 09/20/19 09:40 Helmet Cells Not Reportable 09/20/19 09:40 [place] Bodies Not Reportable 09/20/19 09:40 [place] Rings Not Reportable 09/20/19 09:40 [place] Cells Not Reportable 09/20/19 09:40 Bite Cells Not Reportable 09/20/19 09:40 Crenated Cell Not Reportable 09/20/19 09:40 Elliptocytes 1+ 09/20/19 09:40 Acanthocytes (Spur) Not Reportable 09/20/19 09:40 Rouleaux Not Reportable 09/20/19 09:40 Hemoglobin C Crystals Not Reportable 09/20/19 09:40 Schistocytes Not Reportable 09/20/19 09:40 Malaria parasites Not Reportable 09/20/19 09:40 ESR 68 mm/Hr (0-20) 09/20/19 09:40 Percent Retic 17.05 % (0.78-2.58) H 09/20/19 09:40 [place] Bodies Not Reportable 09/20/19 09:40 Hem Pathologist Commnt No 09/20/19 09:40 PT 14.5 Sec. (12.2-14.9) 09/20/19 09:40 INR 1.15 (0.87-1.13) H 09/20/19 09:40 APTT 34.6 Sec. (24.2-36.6) 09/20/19 09:40 Sodium 135 mmol/L (137-145) L 09/20/19 09:40 Potassium 4.1 mmol/L (3.6-5.0) 09/20/19 09:40 Chloride 101.8 mmol/L (98-107) 09/20/19 09:40 Carbon Dioxide 19 mmol/L (22-30) L 09/20/19 09:40 Anion Gap 18 mmol/L 09/20/19 09:40 BUN 7 mg/dL (7-17) 09/20/19 09:40 Creatinine 0.3 mg/dL (0.7-1.2) L 09/20/19 09:40 Estimated GFR > 60 ml/min 09/20/19 09:40 BUN/Creatinine Ratio 23 % 09/20/19 09:40 Glucose 116 mg/dL (65-100) H 09/20/19 09:40 Lactic Acid 1.00 mmol/L (0.7-2.0) 09/20/19 09:40 Calcium 9.8 mg/dL (8.4-10.2) 09/20/19 09:40 Magnesium 1.50 mg/dL (1.7-2.3) L 09/20/19 09:40 Total Bilirubin 2.70 mg/dL (0.1-1.2) H 09/20/19 09:40 Direct Bilirubin 0.7 mg/dL (0-0.2) H 09/20/19 09:40 Indirect Bilirubin 2.0 mg/dL 09/20/19 09:40 AST 37 units/L (5-40) 09/20/19 09:40 ALT 36 units/L (7-56) 09/20/19 09:40 Alkaline Phosphatase 176 units/L (35-129) H 09/20/19 09:40 C-Reactive Protein 1.20 mg/dL (0.00-1.30) 09/20/19 09:40 Total Protein 8.0 g/dL (6.3-8.2) 09/20/19 09:40 Albumin 4.5 g/dL (3.9-5) 09/20/19 09:40 Albumin/Globulin Ratio 1.3 % 09/20/19 09:40 Urine Color Yellow (Yellow) 09/20/19 10:51 Urine Turbidity Clear (Clear) 09/20/19 10:51 Urine pH 7.0 (5.0-7.0) 09/20/19 10:51 Ur Specific [place] 1.010 (1.003-1.030) 09/20/19 10:51 Urine Protein <15 mg/dl mg/dL (Negative) 09/20/19 10:51 Urine Glucose (UA) Neg mg/dL (Negative) 09/20/19 10:51 Urine Ketones Neg mg/dL (Negative) 09/20/19 10:51 Urine Blood Neg (Negative) 09/20/19 10:51 Urine Nitrite Neg (Negative) 09/20/19 10:51 Urine Bilirubin Neg (Negative) 09/20/19 10:51 Urine Urobilinogen < 2.0 mg/dL (<2.0) 09/20/19 10:51 Ur Leukocyte Esterase Neg (Negative) 09/20/19 10:51 Urine WBC (Auto) 1.0 /HPF (0.0-6.0) 09/20/19 10:51 Urine RBC (Auto) < 1.0 /HPF (0.0-6.0) 09/20/19 10:51 U Epithel Cells (Auto) 1.0 /HPF (0-13.0) 09/20/19 10:51 Urine Bacteria (Auto) 1+ /HPF (Negative) 09/20/19 10:51 Urine Mucus Few /HPF 09/20/19 10:51 Nasal Screen MRSA (PCR) Negative (Negative) 09/21/19 05:00 Microbiology: Microbiology 09/20/19 09:40 Peripheral/Venous Blood Culture - Preliminary NO GROWTH AFTER 48 HOURS 09/20/19 09:40 Peripheral/Venous Blood Culture - Preliminary NO GROWTH AFTER 48 HOURS Kahn/IV: Voiding Method Toilet IV Catheter Type [Right Upper PICC Line arm] Active Medications - Current Medications Current Medications: Generic Name Dose Route Start Last Admin Trade Name Freq PRN Reason Stop Dose Admin Acetaminophen 650 mg 09/20/19 21:06 Tylenol PO Q4H PRN Pain MILD(1-3)/Fever >100.5/CARTER Enoxaparin Sodium 40 mg 09/21/19 22:00 09/21/19 22:16 Enoxaparin SUB-Q 40 mg QDAY@2200 HOSEA Administration Famotidine 20 mg 09/22/19 10:00 09/22/19 09:47 Pepcid PO 20 mg BID HOSEA Administration Folic Acid 1 mg 09/21/19 10:00 09/22/19 09:47 Folvite PO 1 mg QDAY HOSEA Administration Hydromorphone HCl 1.5 mg 09/21/19 11:36 09/22/19 12:26 Dilaudid IV 1.5 mg Q2H PRN Administration Pain , Severe (7-10) Hydroxyurea 500 mg 09/21/19 10:00 09/22/19 09:47 Hydroxyurea PO 500 mg QDAY HOSEA Administration Sodium Chloride 1,000 mls @ 100 mls/hr 09/20/19 21:15 09/22/19 09:46 Nacl 0.9% 1000 Ml IV 100 mls/hr DIRECT HOSEA Administration Cefepime HCl 2 gm in 100 mls @ 200 mls/hr 09/21/19 07:00 09/22/19 06:05 Cefepime/Ns 2 Gm/100 Ml IV 200 mls/hr Q8HR HOSEA Administration Protocol Vancomycin HCl 1,250 mg/ 275 mls @ 166.667 mls/hr 09/21/19 10:00 09/22/19 09:47 Sodium Chloride IV 166.667 mls/hr Q12HR HOSEA Administration Multivitamins 1 each 09/21/19 10:00 09/22/19 09:47 Theragran Tab PO 1 each QDAY HOSEA Administration Ondansetron HCl 4 mg 09/20/19 21:05 Zofran Odt PO Q8HR PRN Nausea Ondansetron HCl 4 mg 09/20/19 21:06 Zofran IV Q8H PRN Nausea And Vomiting Senna 17.2 mg 09/20/19 22:00 09/21/19 22:16 Senokot PO 17.2 mg QHS HOSEA Administration Sodium Chloride 10 ml 09/20/19 22:00 09/22/19 09:47 Sodium Chloride Flush Syringe 10 Ml IV 10 ml BID HOSEA Administration Sodium Chloride 10 ml 09/20/19 21:06 Sodium Chloride Flush Syringe 10 Ml IV PRN PRN LINE FLUSH
[2019-09-22] MEDS ORDERED: diphenhydrAMINE 50 MG/ML VIAL IV ONE (22:38)
[2019-09-22] MEDS: SENNOSIDES 8.6 MG TAB PO SCH (22:52)
[2019-09-22] MEDS: ENOXAPARIN 40 MG/0.4 ML INJ SUB-Q SCH (22:53)
[2019-09-23] MEDS: VANCOMYCIN 1,250 MG in SODIUM CHLORIDE 0.9% 250ML 250 ML IV SCH ×2 (00:53→09:15)
[2019-09-23] MEDS: diphenhydrAMINE 50 MG/ML VIAL IV PRN ×2 (04:34→22:07)
[2019-09-23] MEDS: HYDROmorphone 1 MG/1 ML INJ IV PRN ×5 (04:35→19:01)
[2019-09-23] MEDS: CEFEPIME/NS 2 GM/100 ML 2 GM/100 ML BAG IV SCH ×3 (05:15→22:06)
--- NOTE | 2019-09-23 07:20 | Progress Note ---
Assessment and Plan - Patient Problems (1) Chronic osteomyelitis, lower leg Current Visit: Yes Status: Acute Qualifiers: Laterality: unspecified laterality Qualified Code(s): M86.669 - Other chronic osteomyelitis, unspecified tibia and fibula Plan to address problem: Chronic osteomyelitis continue vancomycin as were doing now. previous plan as noted No other evidence of acute infection/Sepsis, POA: -Patient presented with fever and leukocytosis resolved; source left anterior tibia cellulitis/osteo, left knee septic arthritis. UA neg. -Continue antibiotic per ID, s/p debridement by ortho, wound culture so far negative /Left anterior tibia cellulitis, acute on chronic tibial ostemyelitis and left knee septic arthritis ID following, placed on Rocephin, Vancomycin then only vancomycin Cultures negative to date Orthopedic consulted, s/p I and D - follow cx per ID plan to d/c on vancomycin 1,250 IV every 12 hours for 6 weeks till 10/25/2019 followed by chronic oral suppression with doxycycline or bactrim. CT left lower extremity with contrast; No soft tissue abscess Chronic osteomyelitis involving the bones of both lower legs Chronic septic arthritis at the left knee MRI left lower extremity; Abnormal signal in the visualized portion of the tibia and fibula with contrast enhancement most likely due to chronic osteomyelitis (2) Intractable pain Current Visit: Yes Status: Acute Plan to address problem: Patient typical sickle cell pain crisis. In the past have been difficult to control. We will continue present medications. Add p.o. medications in hopes patient can be discharged 1 to 2 days. (3) Sickle cell pain crisis Current Visit: Yes Status: Acute Plan to address problem: Patient pain is improved significantly with current Dilaudid dose. Will re- continue Percocet 01/18/2025 upon discharge. We will also require transfusion prior to discharge. But patient is doing much better. Continue treatment for osteo-. Subjective Date of service: 09/23/19 Principal diagnosis: Sickle cell crisis Interval history: Patient at bedside still states pain improved significantly. Will attempt to place patient back on home oral medications today. Patient had a drop in H&H and does have some shortness of breath increased weakness will require transfusion prior to discharge. Patient appears to have severe sickle cell crisis. Objective - Constitutional Vitals: Vital Signs - 12hr 09/22/19 09/23/19 20:25 04:01 Temperature 99.1 F 98.9 F Pulse Rate 102 H Respiratory 16 16 Rate Blood Pressure 97/64 110/77 O2 Sat by Pulse 95 Oximetry General appearance: Present: severe distress, cachectic - EENT Eyes: PERRL, EOM intact ENT: hearing intact, clear oral mucosa, dentition normal - Neck Neck: supple, normal ROM - Respiratory Respiratory effort: normal Respiratory: bilateral: CTA - Cardiovascular Rhythm: regular Extremities: no ischemia, pulses intact - Gastrointestinal General gastrointestinal: Present: soft, tender, non-distended, hypoactive bowel sounds - Genitourinary Female genitourinary: deferred - Integumentary Integumentary: clear, warm, dry - Musculoskeletal Musculoskeletal: generalized weakness - Neurologic Neurologic: moves all extremities - Psychiatric Psychiatric: memory intact, appropriate mood/affect, intact judgment & insight - Labs CBC & Chem 7: 09/23/19 08:20 09/23/19 08:20
[2019-09-23 08:51] LABS: Red Blood Count 1.77 M/mm3 (3.65-5.03)
[2019-09-23 08:52] LABS: Hemoglobin 6.4 gm/dl (10.1-14.3)
[2019-09-23 08:53] LABS: Hematocrit 19.2 % (30.3-42.9); Mean Corpuscular HGB Conc 34 % (30-34); Mean Corpuscular Volume 108 fl (79-97); Platelet Count 565 K/mm3 (140-440); Red Cell Distribution Width 30.5 % (13.2-15.2)
[2019-09-23 09:03] LABS: BUN/Creatinine Ratio 25; Blood Urea Nitrogen 5 mg/dL (7-17); Calcium 9.6 mg/dL (8.4-10.2); Hemolysis Index 122
[2019-09-23] MEDS: MULTIVITAMINS ,THERAPEUTIC TAB PO SCH (09:16)
[2019-09-23] MEDS: FAMOTIDINE 20 MG TAB PO SCH ×2 (09:16→22:08)
[2019-09-23] MEDS: FOLIC ACID 1 MG TAB PO SCH (09:16)
[2019-09-23] MEDS: HYDROXYUREA 500 MG CAP PO SCH (09:16)
[2019-09-23 09:48] LABS: Anisocytosis 3+; Basophils % (Manual) 0 % (0.0-1.8); Poikilocytosis 2+; Total Cells Counted 100
[2019-09-23 09:49] LABS: Ovalocytes Few; Sickle Cells Few
[2019-09-23 09:50] LABS: Large Platelets Few; Platelet Estimate Consistent w Auto; Target Cells Few
[2019-09-23] MEDS ORDERED: SODIUM CHLORIDE 0.9% 500 ML 500 ML IV ONE (15:26)
[2019-09-23] MEDS: SODIUM CHLORIDE 0.9% 1000 ML 1,000 ML IV SCH (22:05)
[2019-09-23] MEDS: SENNOSIDES 8.6 MG TAB PO SCH (22:06)
[2019-09-23] MEDS: VANCOMYCIN 1,500 MG in SODIUM CHLORIDE 0.9% 500 ML 500 ML IV SCH (22:06)
[2019-09-23] MEDS: HYDROmorphone 2 MG/1 ML INJ IV PRN (22:07)
[2019-09-23] MEDS: ENOXAPARIN 40 MG/0.4 ML INJ SUB-Q SCH (22:08)
[2019-09-24] MEDS: HYDROmorphone 2 MG/1 ML INJ IV PRN ×6 (01:11→23:34)
[2019-09-24] MEDS: CEFEPIME/NS 2 GM/100 ML 2 GM/100 ML BAG IV SCH ×3 (05:36→21:30)
[2019-09-24] MEDS: VANCOMYCIN 1,500 MG in SODIUM CHLORIDE 0.9% 500 ML 500 ML IV SCH ×2 (09:36→21:31)
[2019-09-24] MEDS: HYDROXYUREA 500 MG CAP PO SCH (09:36)
[2019-09-24] MEDS: FOLIC ACID 1 MG TAB PO SCH (09:37)
[2019-09-24] MEDS: FAMOTIDINE 20 MG TAB PO SCH ×2 (09:37→21:30)
[2019-09-24] MEDS: MULTIVITAMINS ,THERAPEUTIC TAB PO SCH (09:37)
--- NOTE | 2019-09-24 11:27 | Progress Note ---
Assessment and Plan - Patient Problems (1) Chronic osteomyelitis, lower leg Current Visit: Yes Status: Acute Qualifiers: Laterality: unspecified laterality Qualified Code(s): M86.669 - Other chronic osteomyelitis, unspecified tibia and fibula Plan to address problem: Patient with chronic osteomyelitis continue vancomycin. Ruled out for acute sepsis. (2) Intractable pain Current Visit: Yes Status: Acute Plan to address problem: Patient pain much better control was secondary to severe sickle cell crisis. (3) Sickle cell pain crisis Current Visit: Yes Status: Acute Plan to address problem: Patient pain is improved significantly with current Dilaudid dose. Will re- continue Percocet 01/18/2025 upon discharge. We will also require transfusion prior to discharge. But patient is doing much better. Continue treatment for osteo-. At present we will change treatment to Percocet 01/18/2025 upon d ischarge. This should help patient control her pain better and keep her out of the hospital. Patient will need aggressive follow-up with hematology. He has bog worker set up already. (4) SIRS due to infectious process without acute organ dysfunction Current Visit: Yes Status: Acute Plan to address problem: Was just secondary to chronic osteomyelitis. Patient remained afebrile. Subjective Date of service: 09/24/19 Principal diagnosis: Sickle cell crisis Interval history: Patient actually looks much better today. Pain much better controlled. Still awaiting transfusion. Coming from the [place]. Patient should be able to be discharged after transfusion. Rafat afebrile pain much better controlled. Objective - Constitutional Vitals: Vital Signs - 12hr 09/24/19 09/24/19 09/24/19 06:20 06:30 06:31 Temperature 99.1 F Pulse Rate 82 Respiratory 16 Rate Blood Pressure 83/44 97/57 98/61 O2 Sat by Pulse 91 Oximetry 09/24/19 09:59 Temperature Pulse Rate Respiratory 20 Rate Blood Pressure O2 Sat by Pulse Oximetry General appearance: Present: no acute distress, well-nourished - EENT ENT: other (Jaundiced) - Respiratory Respiratory effort: normal Respiratory: bilateral: CTA - Cardiovascular Rhythm: regular Heart Sounds: Present: S1 & S2. Absent: gallop, rub Extremities: pulses intact, No edema, normal color, Full ROM - Musculoskeletal Musculoskeletal: 1, strength equal bilaterally - Labs CBC & Chem 7: 09/23/19 08:20 09/23/19 08:20 Labs: Abnormal lab results 09/23/19 Range/Units 17:30 Crossmatch See Detail
[2019-09-24] MEDS: SODIUM CHLORIDE 0.9% 1000 ML 1,000 ML IV SCH (17:52)
[2019-09-24] MEDS: diphenhydrAMINE 50 MG/ML VIAL IV PRN (18:25)
[2019-09-24] MEDS: ENOXAPARIN 40 MG/0.4 ML INJ SUB-Q SCH (21:30)
[2019-09-24] MEDS: SENNOSIDES 8.6 MG TAB PO SCH (21:30)
[2019-09-25] MEDS: diphenhydrAMINE 50 MG/ML VIAL IV PRN ×2 (02:55→18:29)
[2019-09-25] MEDS: HYDROmorphone 2 MG/1 ML INJ IV PRN ×5 (02:55→21:30)
[2019-09-25] MEDS: CEFEPIME/NS 2 GM/100 ML 2 GM/100 ML BAG IV SCH ×3 (05:15→21:29)
[2019-09-25] MEDS: SODIUM CHLORIDE 0.9% 1000 ML 1,000 ML IV SCH ×2 (05:15→21:29)
[2019-09-25] MEDS: HYDROXYUREA 500 MG CAP PO SCH (09:44)
[2019-09-25] MEDS: FAMOTIDINE 20 MG TAB PO SCH ×2 (09:44→21:30)
[2019-09-25] MEDS: FOLIC ACID 1 MG TAB PO SCH (09:44)
[2019-09-25] MEDS: MULTIVITAMINS ,THERAPEUTIC TAB PO SCH (09:45)
[2019-09-25] MEDS: VANCOMYCIN 1,500 MG in SODIUM CHLORIDE 0.9% 500 ML 500 ML IV SCH ×2 (09:45→23:38)
[2019-09-25] MEDS: SENNOSIDES 8.6 MG TAB PO SCH (21:30)
[2019-09-25] MEDS: ENOXAPARIN 40 MG/0.4 ML INJ SUB-Q SCH (21:30)
[2019-09-26] MEDS: HYDROmorphone 2 MG/1 ML INJ IV PRN ×3 (04:50→21:10)
[2019-09-26 06:20] LABS: Mean Corpuscular HGB Conc 34 % (30-34); Mean Corpuscular Volume 109 fl (79-97); Platelet Count 565 K/mm3 (140-440); Red Blood Count 1.61 M/mm3 (3.65-5.03)
[2019-09-26 06:27] LABS: Alanine Aminotransferase 36 units/L (7-56); Albumin 3.5 g/dL (3.9-5); BUN/Creatinine Ratio 30; Blood Urea Nitrogen 6 mg/dL (7-17); Calcium 8.6 mg/dL (8.4-10.2); Hemolysis Index 79
[2019-09-26 06:35] LABS: Red Cell Distribution Width 30.2 % (13.2-15.2)
[2019-09-26 06:37] LABS: Hematocrit 17.6 % (30.3-42.9); Hemoglobin 5.9 gm/dl (10.1-14.3)
--- NOTE | 2019-09-26 08:26 | Progress Note ---
Assessment and Plan Day # 6 Looks better Retic count high Waiting for PRBC transfusion - Patient Problems (1) Chronic osteomyelitis, lower leg Current Visit: Yes Status: Acute Qualifiers: Laterality: unspecified laterality Qualified Code(s): M86.669 - Other chronic osteomyelitis, unspecified tibia and fibula Plan to address problem: Patient with chronic osteomyelitis continue vancomycin. Ruled out for acute sepsis. (2) Intractable pain Current Visit: Yes Status: Acute Plan to address problem: Patient pain much better control was secondary to severe sickle cell crisis. (3) Sickle cell pain crisis Current Visit: Yes Status: Acute Plan to address problem: Patient pain is improved significantly with current Dilaudid dose. Will re- continue Percocet 01/18/2025 upon discharge. We will also require transfusion prior to discharge. But patient is doing much better. Continue treatment for osteo-. At present we will change treatment to Percocet 01/18/2025 upon discharge. This should help patient control her pain better and keep her out of the hospital. Patient will need aggressive follow-up with hematology. He has fuel injection servicer set up already. (4) SIRS due to infectious process without acute organ dysfunction Current Visit: Yes Status: Acute Plan to address problem: Was just secondary to chronic osteomyelitis. Patient remained afebrile. Subjective Date of service: 09/25/19 Principal diagnosis: Sickle cell crisis Interval history: Patient actually looks much better today. Pain much better controlled. Still awaiting transfusion. Coming from the [place]. Patient should be able to be discharged after transfusion. Rafat afebrile pain much better controlled. Objective - Constitutional Vitals: Vital Signs - 12hr 09/25/19 09/25/19 09/26/19 21:27 22:00 05:22 Temperature 99.1 F 99.3 F Pulse Rate 95 H 88 95 H Pulse Rate [ 95 H From Monitor] Respiratory 18 18 18 Rate Blood Pressure 118/49 Blood Pressure 98/63 [Left] O2 Sat by Pulse 96 96 96 Oximetry General appearance: Present: no acute distress, well-nourished - EENT Eyes: PERRL, EOM intact ENT: hearing intact, clear oral mucosa Ears: bilateral: normal - Neck Neck: supple, normal ROM - Respiratory Respiratory effort: normal Respiratory: bilateral: CTA - Breasts Breasts: normal - Cardiovascular Rhythm: regular Heart Sounds: Present: S1 & S2. Absent: gallop, rub Extremities: pulses intact, No edema, normal color, Full ROM - Gastrointestinal General gastrointestinal: Present: soft, non-tender, non-distended, normal bowel sounds - Genitourinary Female genitourinary: normal - Integumentary Integumentary: clear, warm, dry - Musculoskeletal Musculoskeletal: 1, strength equal bilaterally - Neurologic Neurologic: moves all extremities - Psychiatric Psychiatric: memory intact, appropriate mood/affect, intact judgment & insight - Labs CBC & Chem 7: 09/26/19 04:00 09/26/19 04:00 Labs: Abnormal lab results 09/25/19 09/26/19 09/26/19 Range/Units 16:06 04:00 04:00 WBC 17.2 H (4.5-11.0) K/mm3 RBC 1.61 L (3.65-5.03) M/mm3 Hgb 5.9 L* (10.1-14.3) gm/dl Hct 17.6 L* (30.3-42.9) % MCV 109 H (79-97) fl MCH 37 H (28-32) pg RDW 30.2 H (13.2-15.2) % Plt Count 565 H (140-440) K/mm3 Percent Retic 18.37 H (0.78-2.58) % Carbon Dioxide 21 L (22-30) mmol/L BUN 6 L (7-17) mg/dL Creatinine 0.2 L (0.7-1.2) mg/dL Total Bilirubin 2.10 H (0.1-1.2) mg/dL AST 55 H (5-40) units/L Alkaline Phosphatase 160 H (35-129) units/L Albumin 3.5 L (3.9-5) g/dL
--- NOTE | 2019-09-26 08:51 | Progress Note ---
Assessment and Plan Day # 6 Looks better Retic count high Waiting for PRBC transfusion Day # 7 Will discharge if she gets Blood transfusion - Patient Problems (1) Chronic osteomyelitis, lower leg Current Visit: Yes Status: Acute Qualifiers: Laterality: unspecified laterality Qualified Code(s): M86.669 - Other chronic osteomyelitis, unspecified tibia and fibula Plan to address problem: Patient with chronic osteomyelitis continue vancomycin. Ruled out for acute sepsis. (2) Intractable pain Current Visit: Yes Status: Acute Plan to address problem: Patient pain much better control was secondary to severe sickle cell crisis. (3) Sickle cell pain crisis Current Visit: Yes Status: Acute Plan to address problem: Patient pain is improved significantly with current Dilaudid dose. Will re- continue Percocet 01/18/2025 upon discharge. We will also require transfusion prior to discharge. But patient is doing much better. Continue treatment for osteo-. At present we will change treatment to Percocet 01/18/2025 upon discharge. This should help patient control her pain better and keep her out of the hospital. Patient will need aggressive follow-up with hematology. He has yarn winder set up already. (4) SIRS due to infectious process without acute organ dysfunction Current Visit: Yes Status: Acute Plan to address problem: Was just secondary to chronic osteomyelitis. Patient remained afebrile. Subjective Date of service: 09/26/19 Principal diagnosis: Sickle cell crisis Interval history: Patient actually looks much better today. Pain much better controlled. Still awaiting transfusion. Coming from [facility]. Patient should be able to be discharged after transfusion. Rafat afebrile pain much better controlled. Patient waiting for blood transfusion Objective - Constitutional Vitals: Vital Signs - 12hr 09/25/19 09/25/19 09/26/19 21:27 22:00 05:22 Temperature 99.1 F 99.3 F Pulse Rate 95 H 88 95 H Pulse Rate [ 95 H From Monitor] Respiratory 18 18 18 Rate Blood Pressure 118/49 Blood Pressure 98/63 [Left] O2 Sat by Pulse 96 96 96 Oximetry General appearance: Present: no acute distress, well-nourished - EENT Eyes: PERRL, EOM intact ENT: hearing intact, clear oral mucosa Ears: bilateral: normal - Neck Neck: supple, normal ROM - Respiratory Respiratory effort: normal Respiratory: bilateral: CTA - Breasts Breasts: normal - Cardiovascular Rhythm: regular Heart Sounds: Present: S1 & S2. Absent: gallop, rub Extremities: pulses intact, No edema, normal color, Full ROM - Gastrointestinal General gastrointestinal: Present: soft, non-tender, non-distended, normal bowel sounds - Genitourinary Female genitourinary: normal - Integumentary Integumentary: clear, warm, dry - Musculoskeletal Musculoskeletal: 1, strength equal bilaterally - Neurologic Neurologic: moves all extremities - Psychiatric Psychiatric: memory intact, appropriate mood/affect, intact judgment & insight - Labs CBC & Chem 7: 09/26/19 04:00 09/26/19 04:00 Labs: Abnormal lab results 09/25/19 09/26/19 09/26/19 Range/Units 16:06 04:00 04:00 WBC 17.2 H (4.5-11.0) K/mm3 RBC 1.61 L (3.65-5.03) M/mm3 Hgb 5.9 L* (10.1-14.3) gm/dl Hct 17.6 L* (30.3-42.9) % MCV 109 H (79-97) fl MCH 37 H (28-32) pg RDW 30.2 H (13.2-15.2) % Plt Count 565 H (140-440) K/mm3 Percent Retic 18.37 H (0.78-2.58) % Carbon Dioxide 21 L (22-30) mmol/L BUN 6 L (7-17) mg/dL Creatinine 0.2 L (0.7-1.2) mg/dL Total Bilirubin 2.10 H (0.1-1.2) mg/dL AST 55 H (5-40) units/L Alkaline Phosphatase 160 H (35-129) units/L Albumin 3.5 L (3.9-5) g/dL
[2019-09-26] MEDS: HYDROXYUREA 500 MG CAP PO SCH (09:32)
[2019-09-26] MEDS: FOLIC ACID 1 MG TAB PO SCH (09:32)
[2019-09-26] MEDS: FAMOTIDINE 20 MG TAB PO SCH ×2 (09:32→21:08)
[2019-09-26] MEDS: MULTIVITAMINS ,THERAPEUTIC TAB PO SCH (09:32)
[2019-09-26] MEDS: VANCOMYCIN 1,500 MG in SODIUM CHLORIDE 0.9% 500 ML 500 ML IV SCH ×2 (09:33→21:12)
[2019-09-26 13:00] LABS: Anisocytosis 3+; Basophils % (Manual) 0 % (0.0-1.8); Giant Platelets Few; Hypochromasia 1+; Myelocytes # (Manual) 0.2 K/mm3; Platelet Estimate Cons; Sickle Cells 1+; Total Cells Counted 100
[2019-09-26] MEDS ORDERED: methylPREDNISolone Sod Succinate 40 MG/1 ML INJ IV ONE (14:16)
[2019-09-26] MEDS ORDERED: diphenhydrAMINE 50 MG/ML VIAL IV ONE (14:17)
[2019-09-26] MEDS: SODIUM CHLORIDE 0.9% 500 ML 500 ML IV NR (14:44)
[2019-09-26] MEDS: ENOXAPARIN 40 MG/0.4 ML INJ SUB-Q SCH (21:08)
[2019-09-26] MEDS: SENNOSIDES 8.6 MG TAB PO SCH (21:08)
[2019-09-26] MEDS: diphenhydrAMINE 50 MG/ML VIAL IV PRN (21:09)
[2019-09-27] MEDS: HYDROmorphone 2 MG/1 ML INJ IV PRN ×2 (00:38→11:01)
[2019-09-27] MEDS: SODIUM CHLORIDE 0.9% 500 ML 500 ML IV NR (00:40)
[2019-09-27] MEDS ORDERED: SODIUM CHLORIDE 0.9% 500 ML 500 ML IV ONE (03:23)
--- NOTE | 2019-09-27 08:03 | Progress Note ---
Assessment and Plan Assessment and plan: This is a 29-year-old female that was discharged from this facility on 09/19/2019. Her hospitalization was quite complex, complicated by fevers sepsis septic arthritis of the left knee and discharge with home administration of vancomycin. The patient states that the left leg is doing fine. She does have a history of chronic osteomyelitis of the right femur and a debridement of the right tibia. She states now since discharge her entire right leg has been exquisitely painful. She believes that she is having a sickle cell crisis. She says that she has had right leg pain like this for 7 years. She has no prior history of DVT. She denies fever or chills. She denies right leg swelling. She states that she has taken hydrocodone at home and it has been ineffective. A CT performed during the patient's last hospitalization showed chronic osteomyelitis of both lower legs. * Taking over service on day 8. Patient has been managed for sickle cell crisis requiring blood transfusion which was supposed to come from [place] likely secondary to antibodies and incompatibility issues creating the delay. Patient received initial packed red blood cell yesterday there was still 1 more pending. * Patient has home IV set up for her Chronic osteomyelitis and has a PICC line in place. * Chronically high reticulocyte count. * Continue pain control and once second transfusion is done repeat H&H will be obtained and patient can be discharged. I would recommend that the patient follows up with him a general magistrate as well as the ID doctors in the office. (1) Chronic osteomyelitis, lower leg Current Visit: Yes Status: Acute Qualifiers: Laterality: unspecified laterality Qualified Code(s): M86.669 - Other chronic osteomyelitis, unspecified tibia and fibula Plan to address problem: Patient with chronic osteomyelitis continue vancomycin. Ruled out for acute sepsis. Patient is to continue the Vancomycin 10/25/2019 (2) Intractable pain Current Visit: Yes Status: Acute Plan to address problem: Patient pain much better control was secondary to severe sickle cell crisis. (3) Sickle cell pain crisis Current Visit: Yes Status: Acute Plan to address problem: Patient pain is improved significantly with current Dilaudid dose. Will re- continue Percocet 01/18/2025 upon discharge. We will also require transfusion prior to discharge. But patient is doing much better. Continue treatment for osteo-. At present we will change treatment to Percocet 01/18/2025 upon discharge. This should help patient control her pain better and keep her out of the hospital. Patient will need aggressive follow-up with hematology. He has general magistrate set up already. (4) SIRS due to infectious process without acute organ dysfunction Current Visit: Yes Status: Acute Plan to address problem: Was just secondary to chronic osteomyelitis. Patient remained afebrile. (5) Labile blood pressure with hypotension: Stable, No symptoms History Interval history: Patient seen and examined follow-up for sickle cell crisis no acute event reported to me overnight. She is status post 1 unit packed red blood cell due to antibodies still awaiting second unit. Hospitalist Physical - Physical exam Narrative exam: VITAL SIGNS: Reviewed. GENERAL: The patient appears normally developed, Vital signs as documented. HEAD: No signs of head trauma. EYES: Pupils are equal. Icteric sclera. Extraocular motions intact. EARS: Hearing grossly intact. MOUTH: Oropharynx is normal. NECK: No adenopathy, no JVD. CHEST: Chest with clear breath sounds bilaterally. No wheezes, rales, or rhonchi. CARDIAC: Regular rate and rhythm. S1 and S2, without murmurs, gallops, or rubs. VASCULAR: No Edema. Peripheral pulses normal and equal in all extremities. ABDOMEN: Soft, non tender and non distended. No rebound or guarding, and no masses palpated. Bowel Sounds normal. MUSCULOSKELETAL: Good range of motion of all major joints. Extremities without clubbing, cyanosis or edema. NEUROLOGIC EXAM: Alert and oriented x 3 No focal sensory or strength deficits. Speech normal. Follows commands. PSYCHIATRIC: Mood normal. SKIN: detial exam as documented in skin assessment - Constitutional Vitals: Temp Pulse Resp BP Pulse Ox 98.3 F 85 18 99/61 95 09/27/19 05:30 09/27/19 05:30 09/27/19 05:30 09/27/19 05:30 09/27/19 05:30 General appearance: Present: no acute distress, well-nourished Results - Labs CBC & Chem 7: 09/27/19 08:29 09/26/19 04:00 Labs: Laboratory Last Values WBC 17.2 K/mm3 (4.5-11.0) H 09/26/19 04:00 RBC 1.61 M/mm3 (3.65-5.03) L 09/26/19 04:00 Hgb 5.9 gm/dl (10.1-14.3) L* 09/26/19 04:00 Hct 17.6 % (30.3-42.9) L* 09/26/19 04:00 MCV 109 fl (79-97) H 09/26/19 04:00 MCH 37 pg (28-32) H 09/26/19 04:00 MCHC 34 % (30-34) 09/26/19 04:00 RDW 30.2 % (13.2-15.2) H 09/26/19 04:00 Plt Count 565 K/mm3 (140-440) H 09/26/19 04:00 Lymph # Refrigeration Specialist 09/26/19 04:00 Add Manual Diff Complete 09/26/19 04:00 Total Counted 100 09/26/19 04:00 Seg Neuts % (Manual) 59.0 % (40.0-70.0) 09/26/19 04:00 Band Neutrophils % 0 % 09/26/19 04:00 Lymphocytes % (Manual) 28.0 % (13.4-35.0) 09/26/19 04:00 Reactive Lymphs % (Man) 0 % 09/26/19 04:00 Monocytes % (Manual) 9.0 % (0.0-7.3) H 09/26/19 04:00 Eosinophils % (Manual) 3.0 % (0.0-4.3) 09/26/19 04:00 Basophils % (Manual) 0 % (0.0-1.8) 09/26/19 04:00 Metamyelocytes % 0 % 09/26/19 04:00 Myelocytes % 1.0 % 09/26/19 04:00 Promyelocytes % 0 % 09/26/19 04:00 Blast Cells % 0 % 09/26/19 04:00 Nucleated RBC % 36.0 % (0.0-0.9) H 09/26/19 04:00 Seg Neutrophils # Man 10.1 K/mm3 (1.8-7.7) H 09/26/19 04:00 Band Neutrophils # 0.0 K/mm3 09/26/19 04:00 Lymphocytes # (Manual) 4.8 K/mm3 (1.2-5.4) 09/26/19 04:00 Abs React Lymphs (Man) 0.0 K/mm3 09/26/19 04:00 Monocytes # (Manual) 1.5 K/mm3 (0.0-0.8) H 09/26/19 04:00 Eosinophils # (Manual) 0.5 K/mm3 (0.0-0.4) H 09/26/19 04:00 Basophils # (Manual) 0.0 K/mm3 (0.0-0.1) 09/26/19 04:00 Metamyelocytes # 0.0 K/mm3 09/26/19 04:00 Myelocytes # 0.2 K/mm3 09/26/19 04:00 Promyelocytes # 0.0 K/mm3 09/26/19 04:00 Blast Cells # 0.0 K/mm3 09/26/19 04:00 WBC Morphology Not Reportable 09/26/19 04:00 Hypersegmented Neuts Not Reportable 09/26/19 04:00 Hyposegmented Neuts Not Reportable 09/26/19 04:00 Hypogranular Neuts Not Reportable 09/26/19 04:00 Smudge Cells Not Reportable 09/26/19 04:00 Toxic Granulation Not Reportable 09/26/19 04:00 Toxic Vacuolation Not Reportable 09/26/19 04:00 Dohle Bodies Not Reportable 09/26/19 04:00 Pelger-Huet Anomaly Not Reportable 09/26/19 04:00 Raymond Rods Not Reportable 09/26/19 04:00 Platelet Estimate Cons 09/26/19 04:00 Clumped Platelets Not Reportable 09/26/19 04:00 Plt Clumps, EDTA Not Reportable 09/26/19 04:00 Large Platelets Not Reportable 09/26/19 04:00 Giant Platelets Few 09/26/19 04:00 Platelet Satelliting Not Reportable 09/26/19 04:00 Plt Morphology Comment Not Reportable 09/26/19 04:00 RBC Morphology Not Reportable 09/26/19 04:00 Dimorphic RBCs Not Reportable 09/26/19 04:00 Polychromasia Rare 09/26/19 04:00 Hypochromasia 1+ 09/26/19 04:00 Poikilocytosis Not Reportable 09/26/19 04:00 Anisocytosis 3+ 09/26/19 04:00 Microcytosis Not Reportable 09/26/19 04:00 Macrocytosis Not Reportable 09/26/19 04:00 Spherocytes Not Reportable 09/26/19 04:00 Pappenheimer Bodies Not Reportable 09/26/19 04:00 Sickle Cells 1+ 09/26/19 04:00 Target Cells Not Reportable 09/26/19 04:00 Tear Drop Cells Not Reportable 09/26/19 04:00 Ovalocytes Not Reportable 09/26/19 04:00 Stomatocytes Few 09/20/19 09:40 Helmet Cells Not Reportable 09/26/19 04:00 Grullon-Lavon Bodies Not Reportable 09/26/19 04:00 [place] Rings Not Reportable 09/26/19 04:00 [place] Cells Not Reportable 09/26/19 04:00 Bite Cells Not Reportable 09/26/19 04:00 Crenated Cell Not Reportable 09/26/19 04:00 Elliptocytes Not Reportable 09/26/19 04:00 Acanthocytes (Spur) Not Reportable 09/26/19 04:00 Rouleaux Not Reportable 09/26/19 04:00 Hemoglobin C Crystals Not Reportable 09/26/19 04:00 Schistocytes Not Reportable 09/26/19 04:00 Malaria parasites Not Reportable 09/26/19 04:00 ESR 68 mm/Hr (0-20) 09/20/19 09:40 Percent Retic 18.37 % (0.78-2.58) H 09/25/19 16:06 Floyd Bodies Not Reportable 09/26/19 04:00 Hem Pathologist Commnt No 09/26/19 04:00 PT 14.5 Sec. (12.2-14.9) 09/20/19 09:40 INR 1.15 (0.87-1.13) H 09/20/19 09:40 APTT 34.6 Sec. (24.2-36.6) 09/20/19 09:40 Sodium 139 mmol/L (137-145) 09/26/19 04:00 Potassium 4.3 mmol/L (3.6-5.0) D 09/26/19 04:00 Chloride 106.8 mmol/L (98-107) 09/26/19 04:00 Carbon Dioxide 21 mmol/L (22-30) L 09/26/19 04:00 Anion Gap 16 mmol/L 09/26/19 04:00 BUN 6 mg/dL (7-17) L 09/26/19 04:00 Creatinine 0.2 mg/dL (0.7-1.2) L 09/26/19 04:00 Estimated GFR > 60 ml/min 09/26/19 04:00 BUN/Creatinine Ratio 30 % 09/26/19 04:00 Glucose 90 mg/dL (65-100) 09/26/19 04:00 Lactic Acid 1.00 mmol/L (0.7-2.0) 09/20/19 09:40 Calcium 8.6 mg/dL (8.4-10.2) 09/26/19 04:00 Magnesium 1.50 mg/dL (1.7-2.3) L 09/20/19 09:40 Total Bilirubin 2.10 mg/dL (0.1-1.2) H 09/26/19 04:00 Direct Bilirubin 0.7 mg/dL (0-0.2) H 09/20/19 09:40 Indirect Bilirubin 2.0 mg/dL 09/20/19 09:40 AST 55 units/L (5-40) H 09/26/19 04:00 ALT 36 units/L (7-56) 09/26/19 04:00 Alkaline Phosphatase 160 units/L (35-129) H 09/26/19 04:00 C-Reactive Protein 1.20 mg/dL (0.00-1.30) 09/20/19 09:40 Total Protein 6.8 g/dL (6.3-8.2) 09/26/19 04:00 Albumin 3.5 g/dL (3.9-5) L 09/26/19 04:00 Albumin/Globulin Ratio 1.1 % 09/26/19 04:00 Urine Color Yellow (Yellow) 09/20/19 10:51 Urine Turbidity Clear (Clear) 09/20/19 10:51 Urine pH 7.0 (5.0-7.0) 09/20/19 10:51 Ur Specific Lewis 1.010 (1.003-1.030) 09/20/19 10:51 Urine Protein <15 mg/dl mg/dL (Negative) 09/20/19 10:51 Urine Glucose (UA) Neg mg/dL (Negative) 09/20/19 10:51 Urine Ketones Neg mg/dL (Negative) 09/20/19 10:51 Urine Blood Neg (Negative) 09/20/19 10:51 Urine Nitrite Neg (Negative) 09/20/19 10:51 Urine Bilirubin Neg (Negative) 09/20/19 10:51 Urine Urobilinogen < 2.0 mg/dL (<2.0) 09/20/19 10:51 Ur Leukocyte Esterase Neg (Negative) 09/20/19 10:51 Urine WBC (Auto) 1.0 /HPF (0.0-6.0) 09/20/19 10:51 Urine RBC (Auto) < 1.0 /HPF (0.0-6.0) 09/20/19 10:51 U Epithel Cells (Auto) 1.0 /HPF (0-13.0) 09/20/19 10:51 Urine Bacteria (Auto) 1+ /HPF (Negative) 09/20/19 10:51 Urine Mucus Few /HPF 09/20/19 10:51 Nasal Screen MRSA (PCR) Negative (Negative) 09/21/19 05:00 Vancomycin Trough 12.6 ug/mL (5.0-20.0) 09/25/19 20:36 Blood Type O POSITIVE 09/23/19 17:30 Antibody Screen Positive 09/23/19 17:30 Crossmatch See Detail 09/23/19 17:30 Kahn/IV: Voiding Method Toilet IV Catheter Type [Right Upper PICC Line arm] Active Medications - Current Medications Current Medications: Generic Name Dose Route Start Last Admin Trade Name Freq PRN Reason Stop Dose Admin Acetaminophen 650 mg 09/20/19 21:06 Tylenol PO Q4H PRN Pain MILD(1-3)/Fever >100.5/CARTER Diphenhydramine HCl 25 mg 09/23/19 01:22 09/26/19 21:09 Benadryl IV 25 mg Q6H PRN Administration Itching Enoxaparin Sodium 40 mg 09/21/19 22:00 09/26/19 21:08 Enoxaparin SUB-Q 40 mg QDAY@2200 HOSEA Administration Famotidine 20 mg 09/22/19 10:00 09/26/19 21:08 Pepcid PO 20 mg BID HOSEA Administration Folic Acid 1 mg 09/21/19 10:00 09/26/19 09:32 Folvite PO 1 mg QDAY HOSEA Administration Hydromorphone HCl 1.5 mg 09/23/19 19:39 09/27/19 00:38 Dilaudid IV 1.5 mg Q2H PRN Administration Pain , Severe (7-10) Hydroxyurea 500 mg 09/21/19 10:00 09/26/19 09:32 Hydroxyurea PO 500 mg QDAY HOSEA Administration Sodium Chloride 1,000 mls @ 100 mls/hr 09/20/19 21:15 09/25/19 21:29 Nacl 0.9% 1000 Ml IV 100 mls/hr DIRECT HOSEA Administration Vancomycin HCl 1,500 mg/ 530 mls @ 333.333 mls/hr 09/23/19 22:00 09/26/19 21:12 Sodium Chloride IV 10/25/19 23:36 200 mls/hr Q12HR HOSEA Administration Sodium Chloride 500 mls @ 0 mls/hr 09/26/19 08:28 09/27/19 00:40 Nacl 0.9% 500 Ml IV 09/27/19 08:27 50 mls/hr ONCE NR Administration As Directed Multivitamins 1 each 09/21/19 10:00 09/26/19 09:32 Theragran Tab PO 1 each QDAY HOSEA Administration Ondansetron HCl 4 mg 09/20/19 21:06 Zofran IV Q8H PRN Nausea And Vomiting Senna 17.2 mg 09/20/19 22:00 09/26/19 21:08 Senokot PO 17.2 mg QHS HOSEA Administration Sodium Chloride 10 ml 09/20/19 22:00 09/26/19 21:08 Sodium Chloride Flush Syringe 10 Ml IV 10 ml BID HOSEA Administration Sodium Chloride 10 ml 09/20/19 21:06 Sodium Chloride Flush Syringe 10 Ml IV PRN PRN LINE FLUSH
[2019-09-27 08:40] LABS: Hematocrit 24.2 % (30.3-42.9); Hemoglobin 8.3 gm/dl (10.1-14.3)
[2019-09-27] MEDS: FAMOTIDINE 20 MG TAB PO SCH (09:12)
[2019-09-27] MEDS: MULTIVITAMINS ,THERAPEUTIC TAB PO SCH (09:12)
[2019-09-27] MEDS: FOLIC ACID 1 MG TAB PO SCH (09:12)
[2019-09-27] MEDS: HYDROXYUREA 500 MG CAP PO SCH (09:12)
[2019-09-27] MEDS: VANCOMYCIN 1,500 MG in SODIUM CHLORIDE 0.9% 500 ML 500 ML IV SCH (09:16)
--- NOTE | 2019-09-27 13:56 | Discharge Summary ---
Providers - Providers Date of Admission: 09/20/19 15:03 Attending physician: SOULEYMANE VALERA MD Primary care physician: SPECIAL INVESTIGATION UNIT INVESTIGATOR Hospitalization Reason for admission: Anemia Condition: Stable Hospital course: This is a 29-year-old female that was discharged from this facility on 09/19/2019. Her hospitalization was quite complex, complicated by fevers sepsis septic ar thritis of the left knee and discharge with home administration of vancomycin. The patient states that the left leg is doing fine. She does have a history of chronic osteomyelitis of the right femur and a debridement of the right tibia. She states now since discharge her entire right leg has been exquisitely painful. She believes that she is having a sickle cell crisis. She says that she has had right leg pain like this for 7 years. She has no prior history of DVT. She denies fever or chills. She denies right leg swelling. She states that she has taken hydrocodone at home and it has been ineffective. A CT performed during the patient's last hospitalization showed chronic osteomyelitis of both lower legs. * Taking over service on day 8. Patient has been managed for sickle cell crisis requiring blood transfusion which was supposed to come from [place] likely secondary to antibodies and incompatibility issues creating the delay. Patient received initial packed red blood cell yesterday there was still 1 more pending. * Patient has home IV set up for her Chronic osteomyelitis and has a PICC line in place. * Chronically high reticulocyte count. * Continue pain control and once second transfusion is done repeat H&H will be obtained and patient can be discharged. I would recommend that the patient follows up with him a mail processor as well as the ID doctors in the office. (1) Chronic osteomyelitis, lower leg (2) Intractable pain (3) Sickle cell pain crisis with severe Anemia (4) SIRS due to infectious process without acute organ dysfunction (5) Labile blood pressure with hypotension (6) Leukocytosis Disposition: [id number] HOME UNDER HOME [facility] Time spent for discharge: 35 MINS Core Measure Documentation - Palliative Care Palliative Care/ Comfort Measures: Not Applicable - Core Measures Any of the following diagnoses?: none Exam - Physical Exam Narrative exam: VITAL SIGNS: Reviewed. GENERAL: The patient appears normally developed, Vital signs as documented. HEAD: No signs of head trauma. EYES: Pupils are equal. Icteric sclera. Extraocular motions intact. EARS: Hearing grossly intact. MOUTH: Oropharynx is normal. NECK: No adenopathy, no JVD. CHEST: Chest with clear breath sounds bilaterally. No wheezes, rales, or rhonchi. CARDIAC: Regular rate and rhythm. S1 and S2, without murmurs, gallops, or rubs. VASCULAR: No Edema. Peripheral pulses normal and equal in all extremities. ABDOMEN: Soft, non tender and non distended. No rebound or guarding, and no masses palpated. Bowel Sounds normal. MUSCULOSKELETAL: Good range of motion of all major joints. Extremities without clubbing, cyanosis or edema. NEUROLOGIC EXAM: Alert and oriented x 3 No focal sensory or strength deficits. Speech normal. Follows commands. PSYCHIATRIC: Mood normal. SKIN: detial exam as documented in skin assessment - Constitutional Vitals: Temp Pulse Resp BP Pulse Ox 98.3 F 85 18 99/61 95 09/27/19 05:30 09/27/19 05:30 09/27/19 05:30 09/27/19 05:30 09/27/19 05:30 Plan Activity: advance as tolerated, fall precautions Diet: low fat Special Instructions: record daily BP diary Follow up with: PRIMARY MD MITUL [Primary Care Provider] - 3-5 Days PASQUALE LOCKETT MD [Staff Physician] - 7 Days
[2019-09-27 14:02] VITALS: BP 96/52
== END 2019-09-27 18:00 | disposition home health service (06) | DRG 871 ==
LOC: ED 07:43 → IMCU 15:03 → 3A 09-21 11:21
PROVIDERS: ADMIT Internal Medicine; ATTEND Internal Medicine
PROC: 30233N1 Transfusion of Nonautologous Red Blood Cells into Peripheral Vein, Percutaneous Approach (ICD-10-PCS; principal; 2019-09-26)
DX: A41.9 Sepsis, unspecified organism (principal); D57.00 Hb-SS disease with crisis, unspecified; M86.651 Other chronic osteomyelitis, right thigh; L03.116 Cellulitis of left lower limb; M00.862 Arthritis due to other bacteria, left knee; E44.0 Moderate protein-calorie malnutrition; Z68.1 Body mass index [BMI] 19.9 or less, adult; R09.89 Other specified symptoms and signs involving the circulatory and respiratory systems; D72.829 Elevated white blood cell count, unspecified; I95.9 Hypotension, unspecified; E83.42 Hypomagnesemia; Z82.49 Family history of ischemic heart disease and other diseases of the circulatory system
CPT/HCPCS: 36415; 71045; 73721; 80048; 80053; 80076; 80202; 81001; 82140; 83615; 83735; 84132; 85007; 85014; 85018; 85025; 85045; 85610; 85652; 85730; 86140; 86850; 86870; 86900; 86901; 86922; 87040; 87086; 87116; 87641; 93970; 96374; 96375; 96376; G0378; A9577; J0692; J0696; J1170; J1200; J1650; J1885; J2270; J2405; J2543; J2920; J3370; J3475; J7030; J7040; J7050; P9016; Q9967

== ENCOUNTER 2019-11-01 08:04 | Emergency (ER) | payer OTHER ==
[2019-11-01] MEDS ORDERED: KETOROLAC 30 MG/1 ML INJ IV ONE (09:20)
[2019-11-01] MEDS ORDERED: SODIUM CHLORIDE 0.9% 1000 ML 1,000 ML IV ONE (09:20)
[2019-11-01] MEDS ORDERED: HYDROmorphone 1 MG/1 ML INJ IV ONE ×2 (09:20→10:48)
--- NOTE | 2019-11-01 09:23 | Emergency Department Report ---
ED General Adult HPI - General Chief complaint: Sickle Cell Crisis Stated complaint: CP/BACK PAIN/HIP PAIN Time Seen by Provider: 11/01/19 09:17 Source: patient Mode of arrival: Ambulatory Limitations: No Limitations - History of Present Illness Initial comments: 29-year-old female with history of sickle cell disease presents to ED with possible pain crisis. Patient was just discharged from this hospital 5 days ago for sickle cell crisis. Patient reports onset of chest pain, back pain, leg pain that started last night. Patient reports this is consistent with her usual sickle cell crises. Patient denies any fever, cough, or shortness of breath. Patient has not followed up with hematology since her discharge. -: Last night Location: chest, back, left, right, lower extremity Quality: aching Consistency: constant Improves with: none Worsens with: none Associated Symptoms: chest pain. denies: cough, fever/chills, nausea/vomiting, shortness of breath - Related Data Previous Rx's Medication Instructions Recorded Last Taken Type DOXYCYCLINE Hyclate [Vibramycin 100 mg PO BID #60 tab 10/27/19 Unknown Rx CAP] Folic Acid [Folvite] 1 mg PO QDAY #90 tablet 10/27/19 Unknown Rx HYDROcodone/APAP 10-325 [[place] 1 each PO Q6H PRN #14 tablet 10/27/19 Unknown Rx 10-325 mg TAB] Hydroxyurea 500 mg PO QDAY #90 capsule 10/27/19 Unknown Rx Multivitamin Tab [Multiple Vitamin 1 each PO QDAY #90 tablet 10/27/19 Unknown Rx TAB (Theragran)] Sennosides Tab [Senokot] 17.2 mg PO QHS #30 tablet 10/27/19 Unknown Rx oxyCODONE ER [oxyCONTIN ER] 10 mg PO Q12HR #14 tablet 10/27/19 Unknown Rx Naproxen [Naprosyn] 500 mg PO BID #20 tablet 11/01/19 Unknown Rx Allergies Allergy/AdvReac Type Severity Reaction Status Date / Time No Known Allergies Allergy Verified 11/01/19 08:04 ED Review of Systems ROS: Stated complaint: CP/BACK PAIN/HIP PAIN Other details as noted in HPI Comment: All other systems reviewed and negative Constitutional: denies: chills, fever Respiratory: denies: cough, shortness of breath Cardiovascular: chest pain Musculoskeletal: as per HPI ED Past Medical Hx - Past Medical History Hx Congestive Heart Failure: No Hx Diabetes: No Hx Deep Vein Thrombosis: No Hx Sickle Cell Disease: Yes Hx Arthritis: Yes Hx Asthma: No Hx COPD: No Hx Dementia: No Hx HIV: No Additional medical history: Osteomyelitis - Surgical History Hx Pacemaker: No Hx Internal Defibrillator: No Additional Surgical History: Ortho surgery to right thigh s/t osteomylitis - Social History Smoking Status: Never Smoker Substance Use Type: None - Medications Home Medications: Home Medications Medication Instructions Recorded Confirmed Last Taken Type DOXYCYCLINE Hyclate [Vibramycin 100 mg PO BID #60 tab 10/27/19 Unknown Rx CAP] Folic Acid [Folvite] 1 mg PO QDAY #90 tablet 10/27/19 Unknown Rx HYDROcodone/APAP 10-325 [[place] 1 each PO Q6H PRN #14 tablet 10/27/19 Unknown Rx 10-325 mg TAB] Hydroxyurea 500 mg PO QDAY #90 capsule 10/27/19 Unknown Rx Multivitamin Tab [Multiple Vitamin 1 each PO QDAY #90 tablet 10/27/19 Unknown Rx TAB (Theragran)] Sennosides Tab [Senokot] 17.2 mg PO QHS #30 tablet 10/27/19 Unknown Rx oxyCODONE ER [oxyCONTIN ER] 10 mg PO Q12HR #14 tablet 10/27/19 Unknown Rx Naproxen [Naprosyn] 500 mg PO BID #20 tablet 11/01/19 Unknown Rx ED Physical Exam - General Limitations: No Limitations General appearance: alert, in no apparent distress - Head Head exam: Present: atraumatic, normocephalic - Eye Eye exam: Present: normal appearance, EOMI - ENT ENT exam: Present: mucous membranes moist - Neck Neck exam: Present: normal inspection - Respiratory Respiratory exam: Present: normal lung sounds bilaterally. Absent: respiratory distress - Cardiovascular Cardiovascular Exam: Present: regular rate, normal rhythm - GI/Abdominal GI/Abdominal exam: Present: soft. Absent: distended, tenderness - Extremities Exam Extremities exam: Present: normal inspection - Neurological Exam Neurological exam: Present: alert, oriented X3 - Psychiatric Psychiatric exam: Present: normal affect, normal mood - Skin Skin exam: Present: warm, dry, intact, normal color ED Course Vital Signs 11/01/19 11/01/19 08:12 10:57 Temperature 98.8 F Pulse Rate 89 87 Respiratory 20 16 Rate Blood Pressure 106/60 Blood Pressure 93/49 [Left] O2 Sat by Pulse 98 97 Oximetry - Reevaluation(s) Reevaluation #1: 11/01/19 10:50 Pt refuses blood transfusion. Informed that Hb is 6.4. States she only gets transfused if it is less than 6. Risks and benefits explained. ED Medical Decision Making - Lab Data Result diagrams: 11/01/19 09:39 11/01/19 09:39 - EKG Data -: EKG Interpreted by Me EKG shows normal: sinus rhythm, axis, intervals, QRS complexes, ST-T waves Rate: normal - EKG Data When compared to previous EKG there are: no significant change (compared to 10/22/2019) Interpretation: no acute changes - Radiology Data Radiology results: report reviewed, image reviewed - Medical Decision Making 29 yo F w/ sickle cell pain. Recently d/c'd from this hospital. Labs show Hb of 6.4, elevated platelets and elevated retic count. Pt does not want to be a dmitted today, nor does she want a blood transfusion. Pt feeling better after 2 doses of pain medicine, Dilaudid 1 mg and Dilaudid 0.5 mg. Outpt f/u w/ hematology advised. Return precautions given. - Differential Diagnosis anemia, acute chest Critical care attestation.: If time is entered above; I have spent that time in minutes in the direct care of this critically ill patient, excluding procedure time. ED Disposition Clinical Impression: Sickle cell anemia with pain Disposition: DC-01 TO HOME OR SELFCARE Is pt being admited?: No Condition: Stable Instructions: Sickle Cell Crisis (ED) Prescriptions: Naproxen [Naprosyn] 500 mg PO BID #20 tablet Referrals: ISA DIOR MD [Primary Care Provider] - 3-5 Days ITA SALCEDO DO [Staff Physician] - [facility] Time of Disposition: 12:14
[2019-11-01 10:28] LABS: Hemoglobin 6.4 gm/dl (10.1-14.3); Mean Corpuscular HGB Conc 33 % (30-34); Mean Corpuscular Volume 99 fl (79-97); Red Blood Count 1.95 M/mm3 (3.65-5.03)
[2019-11-01 10:37] LABS: Hematocrit 19.4 % (30.3-42.9); Red Cell Distribution Width 30.7 % (13.2-15.2)
[2019-11-01 10:39] LABS: BUN/Creatinine Ratio 16; Blood Urea Nitrogen 8 mg/dL (7-17); Calcium 9.2 mg/dL (8.4-10.2); Hemolysis Index 16
[2019-11-01] MEDS ORDERED: SODIUM CHLORIDE 0.9% 500 ML 500 ML IV ONE (10:41)
[2019-11-01 10:59] VITALS: BP 93/49
--- NOTE | 2019-11-01 11:08 | XRay Report ---
CHEST PA AND LATERAL VIEWS INDICATION: chest pain. COMPARISON: 10/23/2019 FINDINGS: Support devices: Right PICC has been removed. Heart: Mildly enlarged, stable. Lungs/Pleura: Mild increased reticular markings are again noted. No consolidation or effusion. IMPRESSION: 1. Chronic findings of sickle cell disease. No superimposed acute consolidation or effusion. No pneum othorax. Signer Name: Chris Maria MD Signed: 11/01/2019 11:04 AM Workstation Name: [id number]
[2019-11-01 12:09] LABS: Basophils % (Manual) 0 % (0.0-1.8); Total Cells Counted 100
[2019-11-01 12:10] LABS: Anisocytosis 3+; Giant Platelets Few; Macrocytosis 1+; Platelet Estimate Consistent w Auto; Sickle Cells Few; Target Cells 1+
[2019-11-01 12:12] LABS: Platelet Count 1088 K/mm3 (140-440)
== END 2019-11-01 12:35 | disposition home or self-care (01) ==
LOC: ED 08:04
DX: D57.1 Sickle-cell disease without crisis (principal); Z98.890 Other specified postprocedural states; Z79.899 Other long term (current) drug therapy
CPT/HCPCS: 36415; 71045; 80048; 84484; 84703; 85007; 85025; 85045; 93005; 96374; 96375; 96376; 99284; J1170; J1885; J7030; 36430